=== PATIENT | male | born 1950 | race Caucasian/White ===

== ENCOUNTER 2020-01-22 06:29 | Day surgery (SDC) | payer MEDICARE, SELFPAY ==
[2020-01-21 10:39] VITALS: BMI 22.0
[2020-01-22 06:35] VITALS: TEMP 36.3
[2020-01-22] MEDS: sodium chloride 0.9% 1,000 ML 30 ML IV (06:53)
--- NOTE | 2020-01-22 07:08 | W.PM.OPSUD ---
Surgery/Procedure H&P Update DATE OF PROCEDURE: January 22, 2020 DATE H&P PERFORMED: 01/13/20 H&P UPDATE INFORMATION: No changes to prior documentation PLANNED PROCEDURE: Operation Date: 01/22/20 08:00 Proposed Procedures p Flex Sigmoidoscopy(Not Applicable) - Tyrell Mireles MD
--- NOTE | 2020-01-22 07:24 | ANES.PREANE2 ---
Pre-Anesthetic Assessment Pre-Anesthetic Assessment: Height/Weight: Height 1.73 m Weight 65.771 kg Temp 97.4 F L 01/22/20 06:35 Proposed Procedure: Operation Date: 01/22/20 08:00 Proposed Procedures p Flex Sigmoidoscopy(Not Applicable) - Tyrell Mireles MD Last intake: Intake Last Liquid Date 01/21/20 Last Liquid Time 20:00 Social: Social History: Alcohol and Tobacco Exam: Pre-Anes Outpt Exam: alert, oriented x 3, clear to auscultation bilaterally and regular rate & rhythm Airway: Submandibular: WNL Cervical ROM: WNL MP: 2 Dentition: False (upper and lower) History/ROS: No significant history except as noted Pulmonary: Pulmonary: COPD and KENNEY CV/HEM: CV/HEM: CAD (2015 stents), CHF, HTN and MS : : None reported Hepatic: Hepatic: None reported GI: GI: None reported Metabolic: Metabolic: Hyperlipidemia Musc/skel: Musc/skel: None reported Neuropsych: Neuropsych: None reported Anesthetic Plan: ASA status: 3 Anesthesia: Anesthesia Evaluation and MAC Risk of > 500 ml blood loss (7ml/kg in children): No Meds/Allergies Current Medications: Current Medications Generic Name Dose Route Start Last Admin Trade Name Freq PRN Reason Stop Dose Admin Sodium Chloride 1,000 mls @ 30 ml s/hr 01/22/20 06:45 01/22/20 06:53 Sodium Chloride 0.9% IV 01/23/20 06:44 30 mls/hr .Q24H MYRA Administration PFSH Anesthesia PFSH: Medical History Atrial fibrillation CAD (coronary artery disease) HTN (hypertension) Hx of retinal detachment Ischemic cardiomyopathy Surgical History S/P cataract surgery S/P coronary artery stent placement (~2013) Social History Smoking and tobacco status: heavy tobacco smoker cigarettes Alcohol intake: current Alcohol intake frequency: other Data Anesthesia Cardiac Studies: No Data to Display
[2020-01-22 08:45] VITALS: BP 107/57; PULSE 50; RESP 18; TEMP 36.3; O2SAT 100
[2020-01-22 09:22] VITALS: BP 115/64; PULSE 51; RESP 18; O2SAT 98
== END 2020-01-22 09:15 | disposition home or self-care (01) ==
PROVIDERS: PCP Nurse Practitioner Family; Visit Provider Surgery
PROC: 0DJD8ZZ Inspection of Lower Intestinal Tract, Via Natural or Artificial Opening Endoscopic (ICD-10-PCS; CPT 45330; principal; 2020-01-22 08:00)
DX: D12.5 Benign neoplasm of sigmoid colon (principal); Z86.010 Personal history of colon polyps; J44.9 Chronic obstructive pulmonary disease, unspecified; I25.10 Atherosclerotic heart disease of native coronary artery without angina pectoris; Z95.5 Presence of coronary angioplasty implant and graft; I11.0 Hypertensive heart disease with heart failure; I50.9 Heart failure, unspecified; I25.2 Old myocardial infarction; E78.5 Hyperlipidemia, unspecified; I48.91 Unspecified atrial fibrillation; F17.210 Nicotine dependence, cigarettes, uncomplicated
CPT/HCPCS: 12345; 45385; 88305; J2704; J7030

== ENCOUNTER → 2022-04-07 08:03 | Outpatient (BNVA) | payer MEDICARE, SELFPAY | PROVIDERS: PCP Nurse Practitioner Family; Visit Provider Internal Medicine Cardiovascular Disease | DX: I48.91 Unspecified atrial fibrillation (principal); I42.9 Cardiomyopathy, unspecified; I25.10 Atherosclerotic heart disease of native coronary artery without angina pectoris; I10 Essential (primary) hypertension; F17.210 Nicotine dependence, cigarettes, uncomplicated | CPT/HCPCS: 99214 ==

== ENCOUNTER 2023-01-23 11:06 | Observation (INO) | payer MEDICARE, SELFPAY ==
[2023-01-23] VITALS (71 sets, daily range): BP systolic 100–142; BP diastolic 54–81; PULSE 0–122; RESP 14–34; TEMP 36.4–37; O2SAT 89–97
--- NOTE | 2023-01-23 11:46 | CT_ITS ---
WS: [id number] CT ABDOMEN AND PELVIS NONCONTRAST HISTORY: Abdominal pain, distention, diarrhea, no flatulence TECHNIQUE: Imaging performed through the abdomen and pelvis. Coronal and sagittal reformats are submi tted. All CT scans at [facility] use at least one of these dose optimization techniques: auto mated exposure control; mA and/or kV adjustment per patient size (includes targeted exams where dose is matched to clinical indication); or iterative reconstruction. DLP: 426.73 mGy.cm COMPARISON: Prior CT 05/09/2019 Lower thorax: Chronic emphysematous changes at the lung bases. Mild dependent changes at the lung bas es. Heart size is normal. Liver: Normal size liver. No mass or bile duct dilatation. Gallbladder: Normally distended with stones. No pericholecystic fluid. Pancreas: Atrophy. Spleen: Normal. Adrenal glands: Normal. No mass. Right kidney: Normal size kidney. Renal cyst 3.6 x 4.1 cm unchanged. Left kidney: Normal size kidney with no obstruction. Several renal cysts with the largest measuring 1 .8 x 1.6 cm. Aorta: Atherosclerotic calcifications throughout the aorta. Infrarenal abdominal aortic aneurysm with a maximum diameter of 4.7 cm. Mildly increased since 2019. Maximum diameter on the prior study was 4 .1 cm. Heavy calcification continues into the iliac arteries. No free fluid, intraperitoneal air or significant lymphadenopathy. GI tract: Stomach is nondistended and being displaced by marked fluid and air dilatation of colon. No small bowel obstruction. There is massive fluid and air dilatation of the colon. Cecum measures up t o 11.6 cm in diameter. The distal colon is not as markedly distended. Abdominal wall: Negative. No hernia. Pelvis: Markedly distended urinary bladder. Bladder measures 20.0 cm in length extending to the umbil icus. Markedly distended urinary bladder is causing compression of the sigmoid colon. With resolution of the urinary bladder distention there may be improvement in the GI tract distention also. Osseous structures: Unremarkable. CT/CT abdomen pelvis wo con [id number] IMPRESSION: 1. Markedly distended urinary bladder to 20 cm in length. Causing significant displacement of the sigmoid colon. Recommend Paulino catheter placement. This may also help with decompression of the colon. 2. Massive dilatation of the colon with air and fluid. The distal colon is derek ng compressed by the distended urinary bladder. 3. No free air is identified. 4. Infrarenal abdominal aortic aneurysm with maximum diameter 4.7 cm. Increase d in diameter from 4.1 cm in 2019. 5. Cholelithiasis without evidence for acute cholecystitis. 6. Bilateral renal cysts. Notified ADAN Torrez at 01/23/2023 2:24 PM.
--- NOTE | 2023-01-23 11:47 | ED_ITS ---
HPI - Abdominal Pain General: Chief Complaint: Abdominal Pain Stated Complaint: Ernesto sent for abd pain Time Seen by Provider: 01/23/23 11:36 Source: patient and family Mode of arrival: ambulatory Limitations: no limitations History of Present Illness: Patient is a 72-year-old male who presents to ED today for evaluation of abdominal pain. Patient states he was seen at [facility] and referred to the ED for further evaluation after abnormal x-ray imaging. Patient states over the past 5 or 6 days he has noticed increasing abdominal pain as well as abdominal distention. He reports chronic intermittent abdominal pains and large amounts of gas that he can normally pass and move on his own at home. Patient tells me he has a history of twisted bowel that he saw Dr. 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 This was at least partially excised by Dr. Mireles during a flexible sigmoidoscopy. Patient states he is not having nausea or vomiting. He states over the past several days he has had watery diarrhea stools. He states he is not able to pass much flatulence. No fevers. MD elicited complaint: abdominal pain Pertinent past history: other (colonic stricture/narrowing secondary to adenoma) Onset (ago): day(s) Pain Consistency: constant Location: Diffuse Severity: severe Quality: cramping and fullness Radiation: none Migration to: no migration Exacerbating factors: nothing Relieving factors: nothing Associated Symptoms: Reports bloating, change in stool character and diarrhea; Denies chills, dysuria, fever(s), hematemesis, nausea, syncope and vomiting Review of Systems Const: Denies: fever(s), chills, body aches, fatigue or malaise Eyes: Denies: change in vision or blurry vision Card: Denies: chest pain, palpitations, irregular heart rhythm, lightheadedness, syncope or dyspnea on exertion Resp: Reports: dyspnea (chronic due to COPD-at baseline) and non-productive c ough (chronic); Denies: productive cough or pain on inspiration GI: Reports: abdominal pain, diarrhea, bloating and change in stool character; Denies: nausea, vomiting, hematemesis or rectal pain : Denies: flank pain, difficulty urinating or dysuria Musc: Denies: neck pain, back pain, extremity pain, extremity swelling or joint pain Skin/Breast: Denies: rash Neuro: Denies: headache(s), numbness in extremities, weakness in extremities or sensory changes PFSH ED PFSH: Medical History (Updated 01/23/23 @ 15:26 by ADAN Torrez) Atrial fibrillation CAD (coronary artery disease) HTN (hypertension) Hx of retinal detachment Ischemic cardiomyopathy Surgical History S/P cataract surgery S/P coronary artery stent placement (~2013) Family History Father CAD (coronary artery disease) Lung disease Family/Other CAD (coronary artery disease) Grandfather CAD (coronary artery disease) Denies family history of Diabetes Clotting disorder Dementia Chronic kidney disease (CKD) Suicide Anesthesia complication Bleeding disorder Cancer Stroke Social History Smoking and tobacco status: current every day smoker cigarettes Alcohol intake: current Alcohol intake frequency: other Substance/Drug Use: never Physical Exam Const: COMMON NORMALS: no acute distress, average body habitus, patient oriented x3, no limitations, healthy appearing, alert and well nourished GENERAL APPEARANCE: cooperative ORIENTATION/CONSCIOUSNESS: Yes awake, Yes oriented to person, Yes oriented to place and Yes oriented to time HENMT: COMMON NORMALS: normocephalic and atraumatic HEAD & SCALP: normal to inspection, normocephalic and atraumatic Resp: COMMON NORMALS: normal respiratory effort and clear to auscultation bilaterally AUSCULTATION: clear to auscultation bilaterally Cardio: COMMON NORMALS: regular rate and regular rhythm RATE: regular rate RHYTHM: regular rhythm GI: INSPECTION: Yes other (significant abdominal distention; no ascites) AUSCULTATION: Yes Hypoactive bowel sounds present PALPATION: Yes Firmness to palpation present (GI) : COMMON NORMALS: Yes no CVA tenderness BLADDER/KIDNEY EXAM: Yes no CVA tenderness Back/Pelvis: COMMON NORMALS: no CVA tenderness and thoracic and lumbar spine normal to inspection Extremity: COMMON NORMALS: normal to inspection GENERAL: Yes normal exam except as noted Neuro: CARLO COMA SCALE: document GCS findings Carlo coma scale eye opening: Spontaneous Carlo coma scale verbal response: Orientated [place] coma scale motor response: Obey commands Carlo coma scale total score: 15 COMMON NORMALS: patient oriented x3, moves all extremities, no focal motor deficits and no sensory deficits noted SENSORIUM/ORIENTATION: Yes alert, Yes oriented to person, Yes oriented to place and Yes oriented to time Skin: COMMON NORMALS: no rashes or lesions noted GENERAL SKIN EXAM: no rashes or lesions noted Course Consultations: Consultation #1: Dr. Mueller-agrees with Paulino placement, recommends IV Reglan and clear liquid diet Vital Signs: Vital signs: Vital Signs Temperature 97.6 F 01/23/23 11:50 Pulse Rate 99 01/23/23 15:00 Respiratory Rate 25 H 01/23/23 15:00 Blood Pressure 129/78 01/23/23 15:00 Pulse Oximetry 97 01/23/23 14:30 Oxygen Delivery Me thod Room Air 01/23/23 11:50 MDM - Abdominal Pain Medical Decision Making Patient CT scan showing a markedly distended urinary bladder causing displacement and obstruction of the colon. Post void bladder catheterization was performed and 700 mL were removed. Patient will be admitted to the hospital service with Paulino catheter and continued bladder decompression and monitoring for resolution of bowel obstruction. Patient was also hypokalemic at 2.5. He is receiving IV supplementation for this. Case discussed with Dr. Richards who will place admit orders. Lab Data 01/23/23 12:30 01/23/23 12:30 Labs/Radiology: Radiology Impressions Abdomen/Pelvis CT 01/23/23 11:46 IMPRESSION: 1. Markedly distended urinary bladder to 20 cm in length. Causing significant displacement of the sigmoid colon. Recommend Paulino catheter placement. This may also help with decompression of the colon. 2. Massive dilatation of the colon with air and fluid. The distal colon is being compressed by the distended urinary bladder. 3. No free air is identified. 4. Infrarenal abdominal aortic aneurysm with maximum diameter 4.7 cm. Increased in diameter from 4.1 cm in 2019. 5. Cholelithiasis without evidence for acute cholecystitis. 6. Bilateral renal cysts. Notified ADAN Torrez at 01/23/2023 2:24 PM. Laboratory Results WBC 13.6 10^3/uL (4.0-10.0) H 01/23/23 12:30 RBC 3.84 10^6/uL (4.1-5.3) L 01/23/23 12:30 Hgb 11.4 g/dL (11.7-16.6) L 01/23/23 12:30 Hct 36.9 % (42.0-52.0) L 01/23/23 12:30 MCV 96.1 fl (80-94) H 01/23/23 12:30 MCH 29.7 pg (28.0-34.0) 01/23/23 12:30 MCHC 30.9 g/dL (30.0-36.0) 01/23/23 12:30 RDW 14.7 % (12.1-15.1) 01/23/23 12:30 Plt Count 342 10^3/cmm (130-400) 01/23/23 12:30 MPV 9.3 fL (7.4-10.4) 01/23/23 12:30 Neut % (Auto) 80.3 % 01/23/23 12:30 Lymph % (Auto) 7.0 % 01/23/23 12:30 Brooks % (Auto) 11.5 % 01/23/23 12:30 Eos % (Auto) 0.1 % 01/23/23 12:30 Baso % (Auto) 0.6 % 01/23/23 12:30 Neut # (Auto) 10.93 10^3/uL (1.8-7.7) H 01/23/23 12:30 Lymph # (Auto) 1.0 10^3/uL (0.8-4.8) 01/23/23 12:30 Brooks # (Auto) 1.6 10^3/uL (0.2-0.9) H 01/23/23 12:30 Eos # (Auto) 0.0 10^3/uL (0.0-0.8) 01/23/23 12:30 Baso # (Auto) 0.1 10^3/uL (0.0-0.1) 01/23/23 12:30 Nucleated RBC % (auto) 0 % 01/23/23 12:30 Nucleated RBCs # 0.0 /100WBC 01/23/23 12:30 Sodium 142 mmol/L (136-145) 01/23/23 12:30 Potassium 2.5 mmol/L (3.5-5.1) L* 01/23/23 12:30 Chloride 102 mmol/L (98-107) 01/23/23 12:30 Carbon Dioxide 27 mmol/L (22-29) 01/23/23 12:30 Anion Gap 15.5 (5-19) 01/23/23 12:30 BUN 13 mg/dL (8-23) 01/23/23 12:30 Creatinine 0.8 mg/dL (0.7-1.2) 01/23/23 12:30 GFR Calculation Not Reportable 01/23/23 12:30 Glucose 75 mg/dL (65-115) 01/23/23 12:30 Calculated Osmolality 293 mOsm/kg (285-295) 01/23/23 12:30 Calcium 7.9 mg/dL (8.5-10.5) L 01/23/23 12:30 Magnesium 2.0 mg/dL (1.7-2.3) 01/23/23 12:30 Total Bilirubin 0.7 mg/dL (0.15-1.2) 01/23/23 12:30 AST 9 U/L (0-40) 01/23/23 12:30 ALT 9 U/L (0-41) 01/23/23 12:30 Alkaline Phosphatase 64 U/L (40-130) 01/23/23 12:30 Total Protein 6.2 g/dL (6.6-8.7) L 01/23/23 12:30 Albumin 3.2 g/dL (3.5-5.2) L 01/23/23 12:30 Globulin 3.0 g/dL (1.3-4.6) 01/23/23 12:30 Lipase 16 U/L (13-60) 01/23/23 12:30 Discharge Plan Discharge Patient Disposition: Placed in Observation Clinical Impression: Acute urinary retention, Bladder outlet obstruction, Large bowel obstruction, Acute hypokalemia Coding Level of Care Code ED Geological Sample Tester for Benito Nugent
[2023-01-23 12:39] LABS: Basophils # 0.1 10^3/uL (0.0-0.1); Basophils % 0.6 %; Eosinophils % 0.1 %; Hematocrit 36.9 % (42.0-52.0); Hemoglobin 11.4 g/dL (11.7-16.6); Mean Corpuscular HGB Conc 30.9 g/dL (30.0-36.0); Mean Corpuscular Hemoglobin 29.7 pg (28.0-34.0); Mean Corpuscular Volume 96.1 fl (80-94); Mean Platelet Volume 9.3 fL (7.4-10.4); Monocytes # 1.6 10^3/uL (0.2-0.9); Monocytes % 11.5 %; Neutrophils # 10.93 10^3/uL (1.8-7.7); Neutrophils % 80.3 %; Nucleated Red Blood Cells % 0 %; Platelet Count 342 10^3/cmm (130-400); Red Blood Count 3.84 10^6/uL (4.1-5.3); Red Cell Distribution Width 14.7 % (12.1-15.1); White Blood Count 13.6 10^3/uL (4.0-10.0)
--- NOTE | 2023-01-23 12:47 | PC.PHAR ---
PT FILLED A SCRIPT FOR METOPROLOL TARTRATE 50 MG 90DS ON 01/16/23- PT STATES HE NO LONGER TAKES THIS MEDICATION
[2023-01-23 12:58] LABS: Alanine Aminotransferase 9 U/L (0-41); Albumin Level 3.2 g/dL (3.5-5.2); Alkaline Phosphatase 64 U/L (40-130); Anion Gap 15.5 (5-19); Aspartate Amino Transferase 9 U/L (0-40); Blood Urea Nitrogen 13 mg/dL (8-23); Calcium 7.9 mg/dL (8.5-10.5); Carbon Dioxide 27 mmol/L (22-29); Chloride 102 mmol/L (98-107); Glucose 75 mg/dL (65-115); Lipase 16 U/L (13-60); Osmolality Calculated 293 mOsm/kg (285-295); Sodium 142 mmol/L (136-145); Total Bilirubin 0.7 mg/dL (0.15-1.2); Total Protein 6.2 g/dL (6.6-8.7)
[2023-01-23 13:00] LABS: Potassium 2.5 mmol/L (3.5-5.1)
[2023-01-23] MEDS: lidocaine 1% 5 ML in potassium chloride premix 100 ML 52.5 ML IV (13:34)
--- NOTE | 2023-01-23 15:47 | XRR_ITS ---
PROCEDURE INFORMATION: Exam: XR Chest Exam date and time: 01/23/2023 4:11 PM Age: 72 years old Clinical indication: Shortness of breath; Additional info: SOB TECHNIQUE: Imaging protocol: Radiologic exam of the chest. Views: 1 view. COMPARISON: CR XR chest 2V* [id number] 10/31/2022 1:56 PM FINDINGS: Lungs: Emphysematous changes. Pleural spaces: Unremarkable. No pleural effusion. No pneumothorax. Heart/Mediastinum: Unremarkable. No cardiomegaly. Bones/joints: Unremarkable. XR/XR chest 1V portable [id number] IMPRESSION: 1. Negative for infiltrate. 2. Emphysematous changes.
--- NOTE | 2023-01-23 15:48 | USCV_ITS ---
Kurt Abisai Age: 72 Gender: M : 1950 Exam Date: 01/23/2023 16:33 Ordering Phys: Serafin Lane MD Technologist: STEFAN Exam Location[place] [facility] [place] Indication: CHRONIC HEART FAILURE BP: 130 / 69 HR: 89 Rhythm: Sinus Technical Quality: Poor secondary to COPD MEASUREMENTS (Male / Female) Normal Values 2D ECHO LA Diameter 2.6 cm Aorta at Sinotubular Diameter 2.3 cm M-MODE Aortic Annulus Diameter 2.8 cm LA Ao Ratio MM 0.9 MV E Point Septal Separation 0.9 cm DOPPLER Right Atrial Pressure 8.0 mmHg PV Peak Velocity 108.0 cm/s RV Acceleration Time 0.1 s RV Ejection Time 0.3 s RV AcT/ET 0.3 FINDINGS Left Ventricle Right Ventricle Right Atrium Left Atrium Mitral Valve Aortic Valve Tricuspid Valve Pulmonic Valve Pericardium Aorta IVC CONCLUSIONS Technically very limited quality echocardiogram because of poor ultrasonic windows. Cannot assess cardiac function secondary to limited visualization of cardiac structures. Carson Centeno MD (Electronically Signed) Final Date: 24 Jan 2023 11:48 S
[2023-01-23 16:01] LABS: Add Urine Microscopic? NO; Charge for UA Resulting for Rev
[2023-01-23 16:08] LABS: Urine Appearance Clear (CLEAR); Urine Color Yellow (Yellow); pH Urine 6 (5-7)
[2023-01-23 16:09] LABS: Bilirubin Urine Neg (Negative); Blood Urine Neg (Negative); Glucose Urine UA Norm (Normal); Ketones Urine 1+ (Negative); Leukocyte Esterase Urine Negative (Negative); Nitrate Urine Negative (Negative); Protein Urine Neg (Negative); Urobilinogen Urine Neg (Negative)
--- NOTE | 2023-01-23 16:49 | PM.HP ---
Providers/Chief Complaint Primary Care Provider: GAMAL Stout Chief Complaint: Ernesto sent for abd pain History of Present Illness Abisai Hicks is a 72 year old male with past medical history of CAD, post PCI, ischemic cardiomyopathy with last known EF of 40%, atrial fibrillation, tobacco use who presented to the ER today from [place] for abdominal pain. Abdominal x-ray done and both agreeable consistent with a possible SBO. On presentation to the ER CT abdomen pelvis showed extremely distended urinary bladder along with dilated colon. Patient himself denies any nausea, vomiting but complains of abdominal distention and difficulty in breathing which has been ongoing for many months. Patient remains on room air. He is passing flatus with last bowel movement today morning. Bowel movements as per him are normal to his consistency. Denies any constipation. Does complain of bowel obstruction few years ago when he was found to have a sigmoid stricture requiring dilatation with Dr. Mireles. Blood work reviewed. Patient saturating well on room air. Review of Systems General: Reports: 10 or more systems reviewed and unremarkable except in HPI and below Const: Denies: fever(s), chills, body aches, change in appetite, change in weight, malaise, night sweats, diaphoresis, change in sleep pattern, daytime sleepiness or snoring Eyes: Denies: change in vision, blurry vision, photophobia, eye discomfort or eye discharge ENMT: Denies: throat pain, enlarged tonsils, hoarseness, mouth pain, oral sores, dry mouth, tinnitus, nasal congestion or post nasal drip Card: Denies: chest pain, palpitations, irregular heart rhythm, edema, swelling of feet/ankles, lightheadedness, syncope, pre-syncope, dyspnea on exertion, orthopnea, leg pain with exertion or acrocyanosis Resp: Denies: dyspnea, productive cough, non-productive cough, wheezing, stridor, pain on inspiration, change in phlegm color, hemoptysis or chest congestion GI: Denies: abdominal pain, nausea, vomiting, hematemesis, coffee ground emesis, dysphagia, heartburn, diarrhea, constipation, bloating, GI cramping, change in bowel habits, pain on defecation, hematochezia or melena : Denies: flank pain, difficulty urinating, dysuria, urinary frequency, urinary urgency, urinary hesitancy, urinary dribbling, difficulty starting urination, change in urine stream, nocturia or hematuria Musc: Denies: neck pain, back pain, extremity pain, joint pain, joint swelling, joint redness, joint stiffness or limited range of motion Neuro: Denies: headache(s), numbness in extremities, weakness in extremities, sensory changes, lack of coordination, difficulty walking, frequent falls, dizziness, vertigo, confusion, Slurred speech present, difficulty communicating thoughts or seizure-like activity Psych: Denies: anxiety, depression, mood swings, panic attacks, hopelessness or irritability Endo: Denies: polyuria, polydipsia, tired all the time, cold intolerance, excessive sweating, flushing or heat intolerance Manfred/Lymph: Denies: easy bruising or easy bleeding All/Imm: Denies: tongue swelling, facial swelling or acute wheezing Medications/Allergies Home Medications Medication Instructions Recorded Confirmed Last Taken Type apixaban 5 mg tablet (Eliquis) 5 mg PO BID 01/15/20 01/23/23 01/23/23 History atorvastatin 20 mg tablet 20 mg PO QPM 01/15/20 01/23/23 01/22/23 History amiodarone 200 mg tablet 100 mg PO DAILY 08/08/21 01/23/23 01/23/23 History amlodipine 5 mg tablet 5 mg PO DAILY #30 tabs 08/08/21 01/23/23 01/23/23 Rx budesonide-formoterol HFA 160 2 puff inhalation Q12H 04/07/22 01/23/23 01/23/23 History mcg-4.5 mcg/actuation aerosol inhaler (Symbicort) albuterol sulfate 90 mcg/actuation 2 puff inhalation Q6H PRN 01/23/23 01/23/23 01/22/23 History aerosol inhaler Shortness Of Breath Or Wheezing aspirin 81 mg tablet,delayed 81 mg PO QPM 01/23/23 01/23/23 01/22/23 History release ipratropium 0.5 mg-albuterol 3 mg 3 ml inhalation Q6H PRN Shortness 01/23/23 01/23/23 Unknown History (2.5 mg base)/3 mL nebulization Of Breath Or Wheezing soln ipratropium 20 mcg-albuterol 100 1 puff inhalation BID 01/23/23 01/23/23 01/23/23 History mcg/actuation mist for inhalation (Combivent Respimat) spironolactone 25 mg tablet 25 mg PO DAILY 01/23/23 01/23/23 01/23/23 History Allergies Allergy/AdvReac Type Severity Reaction Status Date / Time iodine Allergy Unknown Verified 01/23/23 12:46 PFSH Acute PFSH: Medical History (Updated 01/23/23 @ 16:[address] MD) Atrial fibrillation CAD (coronary artery disease) COPD (chronic obstructive pulmonary disease) HTN (hypertension) Hx of retinal detachment Ischemic cardiomyopathy Surgical History S/P cataract surgery S/P coronary artery stent placement (~2013) Family History Father CAD (coronary artery disease) Lung disease Family/Other CAD (coronary artery disease) Grandfather CAD (coronary artery disease) Denies family history of Diabetes Clotting disorder Dementia Chronic kidney disease (CKD) Suicide Anesthesia complication Bleeding disorder Cancer Stroke Social History Smoking and tobacco status: current every day smoker cigarettes Alcohol intake: current Alcohol intake frequency: other Substance/Drug Use: never Vitals/I&O/Wt Last Vital Signs Temp 97.6 F 01/23/23 11:50 Pulse 89 01/23/23 16:05 Resp 22 H 01/23/23 16:05 BP 139/81 01/23/23 16:05 Pulse Ox 96 01/23/23 16:05 O2 Del Method Room Air 01/23/23 11:50 Physical Exam Narrative: General: No acute distress, AO x3, dehydrated HEENT: PERRLA, pupils bilaterally equal and reactive Chest: Normal vesicular breath sounds, no added sounds, equal good air entry bilaterally CVS: S1-S2 regular, no murmurs, no tachycardia, no gallops, no rubs Abdomen: Soft, nontender, no organomegaly, bowel sounds present Neuro: No focal deficits, no facial deformity, AO x3, power 5/5 in all limbs Urinary Catheter Management: Straight: Cath Placed During This Visit: yes Urinary Catheter Date of Insertion: 01/23/23 Urinary Catheter Time of Insertion: 16:06 Data 01/23/23 12:30 01/23/23 12:30 A&P Assessment and plan (1) Acute urinary retention: Most likely secondary bladder outlet obstruction. Renal functions within normal limits. Paulino catheterization. Strict and proper charting. Start on Flomax 0.4 mg twice daily. Most likely patient will be discharged with Paulino catheter in place for couple of weeks and follow-up with urology as an outpatient. (2) Bladder outlet obstruction: (3) Large bowel obstruction: Most likely in setting of significant urinary obstruction urine leading to bladder distention. Start on clear liquid diet. Hold off on NG tube for now. Out of bed to chair. Reglan 5 mg every 8 hourly. Protonix. Repeated abdominal exam, x-ray abdomen pelvis in AM. Aggressive bowel regimen. Did discuss with the patient if symptoms do not improve the next 24 hours we will plan for NG tube placement. (4) Shortness of breath: Most likely in setting of COPD exacerbation. Cannot rule out mild CHF. Patient does have history of systolic heart failure. Echocardiogram as above. DuoNebs every 6 hour, budesonide twice daily. Keep saturation over 90%. (5) Acute hypokalemia: Given 20 mg in the ER. Repeating further with IV fluids. (6) Atrial fibrillation: Rate controlled. Continue with home dose of amiodarone, Eliquis. (7) HTN (hypertension): Goal blood pressure less than 140/90 mmHg. Continue with home dose of amlodipine. Uptitrate medications as per goal blood pressures. (8) CAD (coronary artery disease): No active chest pain. Check echocardiogram, lipid panel, A1c. Continue home dose of aspirin, statin (9) COPD (chronic obstructive pulmonary disease): Plan CODE STATUS: Discussed in detail with the patient, family at bedside. Full code. Clear liquid diet. Protonix for PUD prophylaxis. Low probability for VTE. Patient already on Eliquis. Attestations Medical Necessity Statement*: Admission under observation for less than 2 midnights for management of significant urinary retention leading to small bowel obstruction Diagnoses Acute urinary retention R33.8 Bladder outlet obstruction N32.0 Large bowel obstruction K56.609 Shortness of breath R06.02 Acute hypokalemia E87.6 Atrial fibrillation I48.91 HTN (hypertension) I10 CAD (coronary artery disease) I25.10 COPD (chronic obstructive pulmonary disease) J44.9
[2023-01-23 17:23] LABS: Procalcitonin 0.05 ng/mL (0-0.5); Vitamin B12 737 pg/mL (232-1245)
[2023-01-23 17:26] LABS: Lactic Sepsis W/Reflex 1.4 mmol/L (0.5-2.2)
[2023-01-23 17:33] LABS: Iron 22 ug/dL (59-158); Percent Saturation 9.6 % (20-50); Total Iron Binding Capacity 227 mcg/dl; Unsaturated Iron Binding 205 ug/dL (112-347)
[2023-01-23] MEDS: magnesium hydroxide 30 mL UDC PO (19:46)
[2023-01-23] MEDS: D5-NS 0.45% + KCL 20 mEq 20 MEQ/1,000 ML BAG 50 MEQ IV (19:47)
[2023-01-23] MEDS: aspirin 81 mg EC Tablet PO (19:47)
[2023-01-23] MEDS: docusate sodium 100 mg Capsule PO (19:47)
[2023-01-23] MEDS: budesonide 0.5 mg/2 mL Neb INHALATION (19:51)
[2023-01-23] MEDS: ipratropium-albuterol 3 mL Neb INHALATION (19:51)
[2023-01-23] MEDS: apixaban 5 mg Tablet PO (20:04)
[2023-01-23] MEDS: atorvastatin 40 mg Tablet 20 MG PO (20:05)
[2023-01-23] MEDS: pantoprazole 40 mg SDV IVP (21:54)
[2023-01-24] VITALS (11 sets, daily range): BP systolic 108–122; BP diastolic 61–71; PULSE 70–81; RESP 16–19; TEMP 36.7–37.1; O2SAT 87–93
[2023-01-24 01:45] LABS: Basophils # 0.1 10^3/uL (0.0-0.1); Basophils % 0.5 %; Eosinophils % 0.1 %; Hematocrit 31.8 % (42.0-52.0); Hemoglobin 9.8 g/dL (11.7-16.6); Lymphocytes # 0.9 10^3/uL (0.8-4.8); Lymphocytes % 8.7 %; Mean Corpuscular HGB Conc 30.8 g/dL (30.0-36.0); Mean Corpuscular Hemoglobin 29.5 pg (28.0-34.0); Mean Corpuscular Volume 95.8 fl (80-94); Mean Platelet Volume 9.6 fL (7.4-10.4); Monocytes # 1.3 10^3/uL (0.2-0.9); Monocytes % 12.1 %; Neutrophils % 78.3 %; Nucleated Red Blood Cells % 0 %; Platelet Count 347 10^3/cmm (130-400); Red Blood Count 3.32 10^6/uL (4.1-5.3); Red Cell Distribution Width 14.8 % (12.1-15.1); White Blood Count 10.6 10^3/uL (4.0-10.0)
[2023-01-24 02:00] LABS: Chol HDL Ratio 1.95 mg/dL (1.0-5.00); Cholesterol 121 mg/dL (0-200); HDL Cholesterol 62 mg/dL (60-100); LDL Cholesterol Calculated 45 mg/dL (50-129); LDL HDL Ratio 0.73 RATIO (0.00-3.22); Triglycerides 71 mg/dL (0-150)
[2023-01-24 02:01] LABS: Alanine Aminotransferase 8 U/L (0-41); Albumin Level 2.8 g/dL (3.5-5.2); Alkaline Phosphatase 62 U/L (40-130); Anion Gap 12.1 (5-19); Aspartate Amino Transferase 9 U/L (0-40); Blood Urea Nitrogen 9 mg/dL (8-23); Carbon Dioxide 29 mmol/L (22-29); Chloride 97 mmol/L (98-107); Globulin 2.9 g/dL (1.3-4.6); Glucose 132 mg/dL (65-115); Magnesium 2.1 mg/dL (1.7-2.3); Osmolality Calculated 283 mOsm/kg (285-295); Phosphorus 2.4 mg/dL (2.5-4.5); Sodium 136 mmol/L (136-145); Total Bilirubin 0.5 mg/dL (0.15-1.2); Total Protein 5.7 g/dL (6.6-8.7)
[2023-01-24 02:14] LABS: Potassium 2.1 mmol/L (3.5-5.1)
[2023-01-24 02:31] LABS: Estmated Average Glucose 77; Hemoglobin A1C 4.3 % (4.0-6.0)
--- NOTE | 2023-01-24 03:43 | PC.NURSE ---
received crit potassium of 2.[address] saxena a message to inform her at 0217. no response in messaging. attempted phone call to at [phone] to inform and receive orders, no answer, voicemail was left on dr phone stating crit lab result and that pt was on tele, had been regular rhythm and now is irregular. will attempt to contact again and continue to monitor.
[2023-01-24] MEDS: lidocaine 1% 5 ML in potassium chloride premix 100 ML 26.25 ML IV (05:28)
[2023-01-24] MEDS: potassium chloride ER 20 mEq Tablet 40 MEQ PO ×2 (05:29→10:58)
[2023-01-24] MEDS: budesonide 0.5 mg/2 mL Neb INHALATION (07:38)
[2023-01-24] MEDS: ipratropium-albuterol 3 mL Neb INHALATION ×3 (07:38→15:21)
[2023-01-24] MEDS: apixaban 5 mg Tablet PO (09:21)
[2023-01-24] MEDS: amiodarone 200 mg Tablet 100 MG PO (09:21)
[2023-01-24] MEDS: amlodipine 5 mg Tablet PO (09:21)
[2023-01-24] MEDS: docusate sodium 100 mg Capsule PO (09:21)
[2023-01-24] MEDS: magnesium hydroxide 30 mL UDC PO (09:21)
--- NOTE | 2023-01-24 10:30 | XRR_ITS ---
PROCEDURE INFORMATION: Exam: XR Abdomen Exam date and time: 01/24/2023 9:40 AM Age: 72 years old Clinical indication: Condition or disease; Intestinal condition; Obstruction; Prior surgery; Surgery date: 6+ months; Surgery type: Stents; Additional info: Sbo TECHNIQUE: Imaging protocol: Radiologic exam of the abdomen. Views: 2 Views. Upright and supine views. COMPARISON: CT abdomen pelvis wo con [id number] 01/23/2023 2:01 PM FINDINGS: Gastrointestinal tract: Abnormally dilated air-filled bowel loops concerning for obstruction, similar to prior exam. Intraperitoneal space: Unremarkable. Bones/joints: Unremarkable. XR/XR acute abdomen series [id number] IMPRESSION: Abnormally dilated air-filled bowel loops concerning for obstruction, similar to prior exam.
[2023-01-24] MEDS: tamsulosin 0.4 mg Capsule 0.8 MG PO (10:58)
[2023-01-24] MEDS: D5-NS 0.45% + KCL 20 mEq 20 MEQ/1,000 ML BAG 50 MEQ IV (10:59)
[2023-01-24 14:03] LABS: Potassium 3.2 mmol/L (3.5-5.1)
--- NOTE | 2023-01-24 14:33 | P.DS_ITS ---
Discharge Providers Date of Admission: 01/23/23 15:29 Date of Discharge: January 24, 2023 Attending Provider at Admission: Serafin Lane MD Attending Provider at Discharge: Serafin Lane MD Primary Care Provider: GAMAL Stout Diagnoses at Discharge Discharge Diagnosis (1) Acute urinary retention: Status: Acute (2) Bladder outlet obstruction: Status: Acute (3) Large bowel obstruction: Status: Acute (4) Shortness of breath: Status: Acute (5) Acute hypokalemia: Status: Acute (6) Atrial fibrillation: Status: Acute (7) HTN (hypertension): Status: Acute (8) CAD (coronary artery disease): Status: Acute (9) COPD (chronic obstructive pulmonary disease): Status: Acute Reason for Visit Reason for Visit: Ernesto sent for abd pain Hospital Course Hospital Course Abisai Hicks is a 72 year old male with past medical history of CAD, post PCI, ischemic cardiomyopathy with last known EF of 40%, atrial fibrillation, tobacco use who presented to the ER today from [place] for abdominal pain.? Abdominal x-ray done and both agreeable consistent with a possible SBO.? On presentation to the ER CT abdomen pelvis showed extremely distended urinary bladder along with dilated colon.? Patient himself denies any nausea, vomiting but complains of abdominal distention and difficulty in breathing which has been ongoing for many months.? Patient remains on room air.? He is passing flatus with last bowel movement today morning.? Bowel movements as per him are normal to his consistency.? Denies any constipation.? Does complain of bowel obstruction few years ago when he was found to have a sigmoid stricture requiring dilatation with Dr. Mireles. Blood work reviewed.? Patient saturating well on room air. Patient was admitted to the hospital further evaluation and management of urinary retention leading to bowel obstruction. He was started on clear liquid diet which he tolerated well without any episode of nausea and vomiting. Patient continued to pass extreme amount of flatus without any abdominal pain. His hospitalization was otherwise unremarkable. Patient was counseled in detail regarding possible longer need of hospitalization before gaseous distention of the gut resolves but after discussion he decided to go home. He was counseled in detail to make sure he continues to ambulate or sit up in the chair going forward. He was asked to take clear liquid diet and advance very gradually to a full regular meal within next 1 week. He is advised to take multiple small meals. He is advised if he starts having nausea vomiting, abdominal pain or fever he should come back to the ER. He is to take docusate and milk of magnesia and stool softeners for next 2 weeks. He is also to take 20 mg of potassium daily for next 2 weeks and have a repeat BMP done in 10 days with primary care provider. He is to follow-up with urologist within next 2 weeks for voiding trial. He is to be on Flomax just a new medication for BPH. Physical Exam Narrative: eneral: No acute distress, AO x3 HEENT: PERRLA, pupils bilaterally equal and reactive Chest: Normal vesicular breath sounds, no added sounds, equal good air entry bilaterally CVS: S1-S2 regular, no murmurs, no tachycardia, no gallops, no rubs Abdomen: Soft, nontender, no organomegaly, bowel sounds present Neuro: No focal deficits, no facial deformity, AO x3, power 5/5 in all limbs Urinary Catheter Management: Straight: Cath Placed During This Visit: yes Reason for Continuing Indwelling Catheter: Acute Urinary Retention or Obstruction Urinary Catheter Date of Insertion: 01/23/23 Urinary Catheter Time of Insertion: 16:06 Discharge Data Studies Completed and Pending Completed Studies During Hospitalization Category Date Time Status CT abdomen pelvis wo con [id number] Stat Cat Scan 01/23/23 11:46 Completed XR acute abdomen series [id number] Routine Exams 01/24/23 10:30 Completed XR chest 1V portable [id number] Stat Exams 01/23/23 15:47 Completed CV. echo complete* [id number] Routine Ultrasound 01/23/23 15:48 Completed Radiology Impressions Abdomen/Pelvis CT 01/23/23 11:46 IMPRESSION: 1. Markedly distended urinary bladder to 20 cm in length. Causing significant displacement of the sigmoid colon. Recommend Paulino catheter placement. This may also help with decompression of the colon. 2. Massive dilatation of the colon with air and fluid. The distal colon is being compressed by the distended urinary bladder. 3. No free air is identified. 4. Infrarenal abdominal aortic aneurysm with maximum diameter 4.7 cm. Increased in diameter from 4.1 cm in 2019. 5. Cholelithiasis without evidence for acute cholecystitis. 6. Bilateral renal cysts. Notified ADAN Torrez at 01/23/2023 2:24 PM. Chest X-Ray 01/23/23 15:47 IMPRESSION: 1. Negative for infiltrate. 2. Emphysematous changes. Chest/Abdomen X-ray 01/24/23 10:30 IMPRESSION: Abnormally dilated air-filled bowel loops concerning for obstruction, similar to prior exam. Laboratory Results WBC 10.6 10^3/uL (4.0-10.0) H 01/24/23 01:14 RBC 3.32 10^6/uL (4.1-5.3) L 01/24/23 01:14 Hgb 9.8 g/dL (11.7-16.6) L 01/24/23 01:14 Hct 31.8 % (42.0-52.0) L 01/24/23 01:14 MCV 95.8 fl (80-94) H 01/24/23 01:14 MCH 29.5 pg (28.0-34.0) 01/24/23 01:14 MCHC 30.8 g/dL (30.0-36.0) 01/24/23 01:14 RDW 14.8 % (12.1-15.1) 01/24/23 01:14 Plt Count 347 10^3/cmm (130-400) 01/24/23 01:14 MPV 9.6 fL (7.4-10.4) 01/24/23 01:14 Neut % (Auto) 78.3 % 01/24/23 01:14 Lymph % (Auto) 8.7 % 01/24/23 01:14 [place] % (Auto) 12.1 % 01/24/23 01:14 Eos % (Auto) 0.1 % 01/24/23 01:14 Baso % (Auto) 0.5 % 01/24/23 01:14 Neut # (Auto) 8.30 10^3/uL (1.8-7.7) H 01/24/23 01:14 Lymph # (Auto) 0.9 10^3/uL (0.8-4.8) 01/24/23 01:14 [place] # (Auto) 1.3 10^3/uL (0.2-0.9) H 01/24/23 01:14 Eos # (Auto) 0.0 10^3/uL (0.0-0.8) 01/24/23 01:14 Baso # (Auto) 0.1 10^3/uL (0.0-0.1) 01/24/23 01:14 Nucleated RBC % (auto) 0 % 01/24/23 01:14 Nucleated RBCs # 0.0 /100WBC 01/24/23 01:14 Sodium 136 mmol/L (136-145) 01/24/23 01:14 Potassium 3.2 mmol/L (3.5-5.1) L 01/24/23 13:35 Chloride 97 mmol/L (98-107) L 01/24/23 01:14 Carbon Dioxide 29 mmol/L (22-29) 01/24/23 01:14 Anion Gap 12.1 (5-19) 01/24/23 01:14 BUN 9 mg/dL (8-23) 01/24/23 01:14 Creatinine 0.8 mg/dL (0.7-1.2) 01/24/23 01:14 GFR Calculation Not Reportable 01/24/23 01:14 Glucose 132 mg/dL (65-115) H 01/24/23 01:14 Estimat Average Glucose 77 01/24/23 01:14 Hemoglobin A1c 4.3 % (4.0-6.0) 01/24/23 01:14 Calculated Osmolality 283 mOsm/kg (285-295) L 01/24/23 01:14 Lactic Acid 1.4 mmol/L (0.5-2.2) 01/23/23 11:30 Calcium 8.0 mg/dL (8.5-10.5) L 01/24/23 01:14 Phosphorus 2.4 mg/dL (2.5-4.5) L 01/24/23 01:14 Magnesium 2.1 mg/dL (1.7-2.3) 01/24/23 01:14 Iron 22 ug/dL (59-158) L 01/23/23 11:30 TIBC 227 mcg/dl 01/23/23 11:30 % Saturation 9.6 % (20-50) L 01/23/23 11:30 Unsat Iron Binding 205 ug/dL (112-347) 01/23/23 11:30 Total Bilirubin 0.5 mg/dL (0.15-1.2) 01/24/23 01:14 AST 9 U/L (0-40) 01/24/23 01:14 ALT 8 U/L (0-41) 01/24/23 01:14 Alkaline Phosphatase 62 U/L (40-130) 01/24/23 01:14 Total Protein 5.7 g/dL (6.6-8.7) L 01/24/23 01:14 Albumin 2.8 g/dL (3.5-5.2) L 01/24/23 01:14 Globulin 2.9 g/dL (1.3-4.6) 01/24/23 01:14 Triglycerides 71 mg/dL (0-150) 01/24/23 01:14 Cholesterol 121 mg/dL (0-200) 01/24/23 01:14 LDL Cholesterol, Calc 45 mg/dL (50-129) L 01/24/23 01:14 HDL Cholesterol 62 mg/dL (60-100) 01/24/23 01:14 LDL/HDL Ratio 0.73 RATIO (0.00-3.22) 01/24/23 01:14 Cholesterol/HDL Ratio 1.95 mg/dL (1.0-5.00) 01/24/23 01:14 Lipase 16 U/L (13-60) 01/23/23 12:30 Vitamin B12 737 pg/mL (232-1245) 01/23/23 11:30 Folate 16.0 ng/mL (4.5-32.2) 01/24/23 01:14 Procalcitonin 0.05 ng/mL (0-0.5) 01/23/23 11:30 TSH 2.10 uIU/mL (0.27-4.20) 01/23/23 11:30 Urine Color Yellow (Yellow) 01/23/23 15:59 Urine Appearance Clear (CLEAR) 01/23/23 15:59 Urine pH 6 (5-7) 01/23/23 15:59 Ur Specific [place] 1.020 (1.005-1.030) 01/23/23 15:59 Urine Protein Neg (Negative) 01/23/23 15:59 Urine Glucose (UA) Norm (Normal) 01/23/23 15:59 Urine Ketones 1+ (Negative) H 01/23/23 15:59 Urine Blood Neg (Negative) 01/23/23 15:59 Urine Nitrate Negative (Negative) 01/23/23 15:59 Urine Bilirubin Neg (Negative) 01/23/23 15:59 Urine Urobilinogen Neg mg/dL (Negative) 01/23/23 15:59 Ur Leukocyte Esterase Negative (Negative) 01/23/23 15:59 Vitals Last Vital Signs Temp 98.0 F 01/24/23 11:39 Pulse 71 01/24/23 11:39 Resp 16 01/24/23 11:39 BP 116/71 01/24/23 11:39 Pulse Ox 87 L 01/24/23 11:39 O2 Del Method Room Air 01/24/23 11:39 Discharge Plan Discharge Patient Disposition: Home Condition: Stable Prescriptions: New potassium chloride 20 mEq packet 20 meq PO DAILY 14 Days Qty: 14 0RF docusate sodium 100 mg Capsule 100 mg PO BID PRN (Reason: constipation) Qty: 20 0RF Dulcolax (magnesium hydroxide) 400 mg/5 mL suspension 5 ml PO BID PRN (Reason: constipation) Qty: 355 0RF tamsulosin 0.4 mg Capsule 0.8 mg PO DAILY Qty: 60 0RF Continued amlodipine 5 mg tablet 5 mg PO DAILY Qty: 30 3RF atorvastatin 20 mg tablet 20 mg PO QPM Eliquis 5 mg tablet 5 mg PO BID amiodarone 200 mg tablet 100 mg PO DAILY budesonide-formoterol [Symbicort] 160-4.5 mcg/actuation HFA aerosol inhaler 2 puff inhalation Q12H ipratropium-albuterol 0.5 mg-3 mg(2.5 mg base)/3 mL Solution For Nebulization 3 ml INHALATION Q6H PRN (Reason: Shortness Of Breath Or Wheezing) aspirin 81 mg Tablet,Delayed Release (Dr/Ec) 81 mg PO QPM albuterol sulfate 90 mcg/actuation HFA aerosol inhaler 2 puff INHALATION Q6H PRN (Reason: Shortness Of Breath Or Wheezing) Combivent Respimat 20-100 mcg/actuation mist 1 puff INHALATION BID Discontinued spironolactone 25 mg tablet 25 mg PO DAILY Discharge Orders: Discharge Order (Routine); Ordered 01/24/23 Ordered By: Serafin Lane Referrals: Margie Orozco FNP [Primary Care Provider] - 7-10 days Rosalio Reyes MD [Physician] - 2 weeks Discharge Diet: Advance as tolerated Discharge Activity: Resume usual activity and Increase activity as tolerated Patient Instructions: Opioid Safety Activity Restrictions/Additional Instructions: Continue draining clear liquid diet for next 2 to 4 days. Advance gradually from clear liquid to mechanical soft and then regular diet within next 1 week. Take multiple small meals. Try to ambulate or sit in the chair as much as possible. Please repeat BMP with your primary care provider within next 10 days for a repeat potassium level. For now take potassium at 20 mEq daily for next 14 days. Continue with Paulino catheter. Please follow-up with Dr. Reyes/urology within next 2 weeks for voiding trial. Flomax is a new medication. If Paulino catheter remains in for more than 1 month it should be replaced. Continue taking stool softeners including Dulcolax and docusate daily for now. If you have any vomiting, increased abdominal pain, fever please come back to the ER. Discharge Attestations Time Spent in Discharge Care*: greater than 30 min Specific Discharge Activities: educating patient, educating and/or supporting family/caregiver, discussing with pcp/other providers, discussing with correctional counselor/case manager/social workers/dc planners, documenting/other paperwork and evaluating patient/reviewing data Status at Discharge: Cognitive status at discharge: cognitively intact , Behavioral status at discharge: cooperative , Functional status at discharge: independent ambulation , Overall status at discharge: patient is progressing back to baseline Quality Metrics Clinical Quality Measures [ No reported AMI, CVA or VTE this stay] Coding Level of Care Code 52374 Total time (in minutes) for Discharge: 60 Diagnoses Acute urinary retention R33.8 Bladder outlet obstruction N32.0 Large bowel obstruction K56.609 Shortness of breath R06.02 Acute hypokalemia E87.6 Atrial fibrillation I48.91 HTN (hypertension) I10 CAD (coronary artery disease) I25.10 COPD (chronic obstructive pulmonary disease) J44.9
--- NOTE | 2023-01-24 16:28 | PC.NURSE ---
IV out. Wheeled out via w/c with daughter at side. Educated on ybarra catheter and new medications. All belongings sent with patient.
== END 2023-01-24 16:31 | disposition home or self-care (01) ==
LOC: ER 17:06 → MEDSURG 17:11
PROVIDERS: Admitting Provider Student in an Organized Health Care Education/Training Program; Emergency Provider Physician Assistant; PCP Nurse Practitioner Family; Visit Provider Student in an Organized Health Care Education/Training Program
DX: N40.1 Benign prostatic hyperplasia with lower urinary tract symptoms (principal); R33.8 Other retention of urine; N13.8 Other obstructive and reflux uropathy; I25.10 Atherosclerotic heart disease of native coronary artery without angina pectoris; I48.91 Unspecified atrial fibrillation; Z79.82 Long term (current) use of aspirin; Z79.01 Long term (current) use of anticoagulants; N32.0 Bladder-neck obstruction; I10 Essential (primary) hypertension; F17.210 Nicotine dependence, cigarettes, uncomplicated; K80.20 Calculus of gallbladder without cholecystitis without obstruction; K56.699 Other intestinal obstruction unspecified as to partial versus complete obstruction; E87.6 Hypokalemia; I50.9 Heart failure, unspecified; R06.02 Shortness of breath; Z95.5 Presence of coronary angioplasty implant and graft; J44.1 Chronic obstructive pulmonary disease with (acute) exacerbation
CPT/HCPCS: 36415; 51702; 71045; 74022; 74176; 80053; 80061; 81003; 82607; 82746; 83036; 83540; 83550; 83605; 83690; 83735; 84100; 84132; 84145; 84443; 85025; 93306; 94640; 94664; 96365; 96366; 96375; 99285; C9113; G0378; J3480; J7626

== ENCOUNTER 2023-02-03 20:48 | Inpatient (IN) | payer MEDICARE, SELFPAY ==
[2023-02-03 20:50] VITALS: BP 130/70; PULSE 73; RESP 18; TEMP 36.6; O2SAT 93; BMI 22.8
--- NOTE | 2023-02-03 20:56 | CTR_ITS ---
PROCEDURE INFORMATION: Exam: CT Abdomen And Pelvis With Contrast Exam date and time: 02/03/2023 9:28 PM Age: 72 years old Clinical indication: Abdominal pain; Generalized; Additional info: Abd pain TECHNIQUE: Imaging protocol: Computed tomography of the abdomen and pelvis with contrast. Radiation optimization: All CT scans at this facility use at least one of these dose optimization techniques: automated exposure control; mA and/or kV adjustment per patient size (includes targeted exams where dose is matched to clinical indication); or iterative reconstruction. Contrast material: OMNI 350; Contrast volume: 75 ml; Contrast route: INTRAVENOUS (IV); REPORTING DATA: Count of CT and Cardiac NM exams in prior 12 months: This patient has received [address] and 0 known cardiac nuclear medicine studies in the 12 months prior to the current study. COMPARISON: CT abdomen pelvis wo con [id number] 01/23/2023 2:01 PM RADIATION DOSE METRICS: Total DLP (mGy-cm): 431.65 FINDINGS: Tubes, catheters and devices: Interval placement of Paulino balloon catheter. Pleural spaces: Continued mild bilateral pleural fluid collections, [id number]. Liver: Normal. No mass. Gallbladder and bile ducts: Normal. No calcified stones. No ductal dilation. Pancreas: Normal. No ductal dilation. Spleen: Normal. No splenomegaly. Adrenal glands: Normal. No mass. Kidneys and ureters: Normal. No hydronephrosis. Stomach and bowel: Continued decompressed rectosigmoid colon with the remainder of the colon markedly dilated up to 12 cm in diameter with some air-fluid levels. Possible colonic ileus versus occult mechanical obstruction with no obvious mass or transition point identified. Mild free fluid in the dependent portion of the pelvis which is abnormal for a male, possibly secondary to colonic ileus or other etiology. Appendix: No evidence of appendicitis. Intraperitoneal space: Unremarkable. No free air. No significant fluid collection. Vasculature: 4.5 cm infrarenal fusiform abdominal aortic aneurysm without rupture as measured on the sagittal images. High-grade stenosis in the distal abdominal aorta/origins of the common iliac arteries. Small caliber external iliac arteries bilaterally which are partially calcified but patent. Lymph nodes: Unremarkable. No enlarged lymph nodes. Urinary bladder: Interval decompression of previously noted distended urinary bladder. Reproductive: Unremarkable as visualized. Bones/joints: Unremarkable. No acute fracture. Soft tissues: Unremarkable. CT/CT abdomen pelvis w con* [id number] IMPRESSION: 1. Interval placement of Paulino balloon catheter. 2. Interval decompression of previously noted distended urinary bladder. 3. Continued decompressed rectosigmoid colon with the remainder of the colon markedly dilated up to 12 cm in diameter with some air-fluid levels. Possible colonic ileus versus occult mechanical obstruction with no obvious mass or transition point identified. 4. 4.5 cm infrarenal fusiform abdominal aortic aneurysm without rupture as measured on the sagittal images. 5. High-grade stenosis in the distal abdominal aorta/origins of the common iliac arteries. 6. Small caliber external iliac arteries bilaterally which are partially calcified but patent. 7. Mild free fluid in the dependent portion of the pelvis which is abnormal for a male, possibly secondary to colonic ileus or other etiology.
--- NOTE | 2023-02-03 20:58 | ED_ITS ---
HPI - Abdominal Pain General: Chief Complaint: Abdominal Pain Stated Complaint: ABD PAIN Time Seen by Provider: 02/03/23 20:49 Source: patient and EMS Mode of arrival: EMS Limitations: no limitations History of Present Illness: 72-year-old male who states that he was admitted here little over 2 weeks ago he had had a urinary obstruction had a Paulino placed he states he been doing well at home but over the last 2 days had abdominal distention and pain. His abdomen is quite distended he rates his pain at 8 out of 10 its diffuse in nature he denies any vomiting he denies any fevers. He does have a Paulino catheter in place draining urine. Associated Symptoms: Denies chills, dysuria and fever(s) Review of Systems Const: Denies: fever(s), chills, body aches or change in appetite Eyes: Denies: eye discomfort ENMT: Denies: throat pain or dental pain Card: Denies: chest pain Resp: Denies: dyspnea GI: Reports: abdominal pain : Denies: dysuria Musc: Denies: neck pain or back pain Skin/Breast: Denies: rash Neuro: Denies: headache(s) Psych: Denies: depression Manfred/Lymph: Denies: easy bruising All/Imm: Denies: urticaria PFSH ED PFSH: Medical History Atrial fibrillation CAD (coronary artery disease) COPD (chronic obstructive pulmonary disease) HTN (hypertension) Hx of retinal detachment Ischemic cardiomyopathy Surgical History S/P cataract surgery S/P coronary artery stent placement (~2013) Family History Father CAD (coronary artery disease) Lung disease Family/Other CAD (coronary artery disease) Grandfather CAD (coronary artery disease) Denies family history of Diabetes Clotting disorder Dementia Chronic kidney disease (CKD) Suicide Anesthesia complication Bleeding disorder Cancer Stroke Social History Smoking and tobacco status: current every day smoker cigarettes Alcohol intake: current Alcohol intake frequency: other Substance/Drug Use: never Physical Exam Const: COMMON NORMALS: patient oriented x3 HENMT: COMMON NORMALS: normocephalic and atraumatic HEAD & SCALP: normocephalic and atraumatic Eye: COMMON NORMALS: conjunctivae normal CONJUNCTIVA: Yes conjunctivae normal Neck/C-Spine: COMMON NORMALS: full ROM and supple Chest: COMMONS NORMALS: normal inspection of the chest and normal palpation of entire chest wall Resp: COMMON NORMALS: normal respiratory effort, No retractions, No use of accessory muscles and clear to auscultation bilaterally AUSCULTATION: clear to auscultation bilaterally Cardio: COMMON NORMALS: regular rate, regular rhythm and No murmurs present (Cardio) RATE: regular rate RHYTHM: regular rhythm GI: OTHER: Abdomen is very distended with decreased bowel sounds and diffuse tenderness Extremity: COMMON NORMALS: normal to inspection and full ROM Neuro: COMMON NORMALS: patient oriented x3, moves all extremities and no focal motor deficits Psych: COMMON NORMALS: mental status grossly normal, Normal thought process present and cooperative THOUGHT PROCESS: Normal thought process present Skin: COMMON NORMALS: no rashes or lesions noted and no wounds GENERAL SKIN EXAM: no rashes or lesions noted Course Vital Signs: Vital signs: Vital Signs Temperature 98 F 02/03/23 20:50 Pulse Rate 64 02/03/23 22:03 Respiratory Rate 16 02/03/23 22:03 Blood Pressure 117/65 02/03/23 22:03 Pulse Oximetry 91 02/03/23 22:03 Oxygen Delivery Me thod Nasal Cannula 02/03/23 22:03 Oxygen Flow Rate 3 02/03/23 22:03 MDM - Abdominal Pain Medical Decision Making Patient presents here with abdominal pain with severe abdominal distention and he does have a large bowel obstruction possibly mechanical obstruction we will place an NG tube and I spoke to the hospitalist and surgeon will admit at this time. Medical Records I reviewed the patient's medical records. Lab Data I reviewed the patient's lab results. 02/03/23 21:10 02/03/23 21:10 Labs/Radiology: Radiology Impressions Abdomen/Pelvis CT 02/03/23 20:56 IMPRESSION: 1. Interval placement of Paulino balloon catheter. 2. Interval decompression of previously noted distended urinary bladder. 3. Continued decompressed rectosigmoid colon with the remainder of the colon markedly dilated up to 12 cm in diameter with some air-fluid levels. Possible colonic ileus versus occult mechanical obstruction with no obvious mass or transition point identified. 4. 4.5 cm infrarenal fusiform abdominal aortic aneurysm without rupture as measured on the sagittal images. 5. High-grade stenosis in the distal abdominal aorta/origins of the common iliac arteries. 6. Small caliber external iliac arteries bilaterally which are partially calcified but patent. 7. Mild free fluid in the dependent portion of the pelvis which is abnormal for a male, possibly secondary to colonic ileus or other etiology. Laboratory Results WBC 8.4 10^3/uL (4.0-10.0) 02/03/23 21:10 RBC 3.66 10^6/uL (4.1-5.3) L 02/03/23 21:10 Hgb 10.7 g/dL (11.7-16.6) L 02/03/23 21:10 Hct 34.5 % (42.0-52.0) L 02/03/23 21:10 MCV 94.3 fl (80-94) H 02/03/23 21:10 MCH 29.2 pg (28.0-34.0) 02/03/23 21:10 MCHC 31.0 g/dL (30.0-36.0) 02/03/23 21:10 RDW 14.3 % (12.1-15.1) 02/03/23 21:10 Plt Count 353 10^3/cmm (130-400) 02/03/23 21:10 MPV 9.2 fL (7.4-10.4) 02/03/23 21:10 Neut % (Auto) 81.7 % 02/03/23 21:10 Lymph % (Auto) 10.5 % 02/03/23 21:10 [place] % (Auto) 6.1 % 02/03/23 21:10 Eos % (Auto) 0.5 % 02/03/23 21:10 Baso % (Auto) 0.8 % 02/03/23 21:10 Neut # (Auto) 6.87 10^3/uL (1.8-7.7) 02/03/23 21:10 Lymph # (Auto) 0.9 10^3/uL (0.8-4.8) 02/03/23 21:10 [place] # (Auto) 0.5 10^3/uL (0.2-0.9) 02/03/23 21:10 Eos # (Auto) 0.0 10^3/uL (0.0-0.8) 02/03/23 21:10 Baso # (Auto) 0.1 10^3/uL (0.0-0.1) 02/03/23 21:10 Nucleated RBC % (auto) 0 % 02/03/23 21:10 Nucleated RBCs # 0.0 /100WBC 02/03/23 21:10 Sodium 138 mmol/L (136-145) 02/03/23 21:10 Potassium 2.7 mmol/L (3.5-5.1) L* 02/03/23 21:10 Chloride 101 mmol/L (98-107) 02/03/23 21:10 Carbon Dioxide 25 mmol/L (22-29) 02/03/23 21:10 Anion Gap 14.7 (5-19) 02/03/23 21:10 BUN 12 mg/dL (8-23) 02/03/23 21:10 Creatinine 0.8 mg/dL (0.7-1.2) 02/03/23 21:10 GFR Calculation Not Reportable 02/03/23 21:10 Glucose 105 mg/dL (65-115) 02/03/23 21:10 Calculated Osmolality 286 mOsm/kg (285-295) 02/03/23 21:10 Lactic Acid 0.8 mmol/L (0.5-2.2) 02/03/23 21:10 Calcium 8.4 mg/dL (8.5-10.5) L 02/03/23 21:10 Total Bilirubin 0.5 mg/dL (0.15-1.2) 02/03/23 21:10 AST 9 U/L (0-40) 02/03/23 21:10 ALT 7 U/L (0-41) 02/03/23 21:10 Alkaline Phosphatase 87 U/L (40-130) 02/03/23 21:10 Total Protein 6.7 g/dL (6.6-8.7) 02/03/23 21:10 Albumin 3.4 g/dL (3.5-5.2) L 02/03/23 21:10 Globulin 3.3 g/dL (1.3-4.6) 02/03/23 21:10 Lipase 15 U/L (13-60) 02/03/23 21:10 Discharge Plan Discharge Patient Disposition: Admitted As Inpatient Clinical Impression: Large bowel obstruction, Abdominal pain, Hypokalemia Condition: Stable Prescriptions: No Action amlodipine 5 mg tablet 5 mg PO DAILY Qty: 30 3RF atorvastatin 20 mg tablet 20 mg PO QPM Eliquis 5 mg tablet 5 mg PO BID amiodarone 200 mg tablet 100 mg PO DAILY budesonide-formoterol [Symbicort] 160-4.5 mcg/actuation HFA aerosol inhaler 2 puff inhalation Q12H ipratropium-albuterol 0.5 mg-3 mg(2.5 mg base)/3 mL Solution For Nebulization 3 ml INHALATION Q6H PRN (Reason: Shortness Of Breath Or Wheezing) aspirin 81 mg Tablet,Delayed Release (Dr/Ec) 81 mg PO QPM albuterol sulfate 90 mcg/actuation HFA aerosol inhaler 2 puff INHALATION Q6H PRN (Reason: Shortness Of Breath Or Wheezing) Combivent Respimat 20-100 mcg/actuation mist 1 puff INHALATION BID potassium chloride 20 mEq packet 20 meq PO DAILY 14 Days Qty: 14 0RF docusate sodium 100 mg Capsule 100 mg PO BID PRN (Reason: constipation) Qty: 20 0RF Dulcolax (magnesium hydroxide) 400 mg/5 mL suspension 5 ml PO BID PRN (Reason: constipation) Qty: 355 0RF tamsulosin 0.4 mg Capsule 0.8 mg PO DAILY Qty: 60 0RF Referrals: Margie Orozco FNP [Primary Care Provider] - Patient Instructions: Opioid Safety, Pain Management, Abdominal Pain (ED) Coding Level of Care Code ED [employer] for Benito Nugent
[2023-02-03] MEDS: ondansetron 2 mg/ML SDV 2 mL 4 MG IVP (21:09)
[2023-02-03] MEDS: morphine 4 mg/mL SDV 1 mL IVP ×2 (21:10→23:07)
[2023-02-03 21:35] LABS: Lactic Sepsis W/Reflex 0.8 mmol/L (0.5-2.2)
[2023-02-03] MEDS: iohexol 350 mg/mL 500 mL Btl (per mL) IV (21:38)
[2023-02-03 21:43] LABS: Basophils # 0.1 10^3/uL (0.0-0.1); Basophils % 0.8 %; Eosinophils % 0.5 %; Hematocrit 34.5 % (42.0-52.0); Hemoglobin 10.7 g/dL (11.7-16.6); Lymphocytes # 0.9 10^3/uL (0.8-4.8); Lymphocytes % 10.5 %; Mean Corpuscular Hemoglobin 29.2 pg (28.0-34.0); Mean Corpuscular Volume 94.3 fl (80-94); Mean Platelet Volume 9.2 fL (7.4-10.4); Monocytes # 0.5 10^3/uL (0.2-0.9); Monocytes % 6.1 %; Neutrophils # 6.87 10^3/uL (1.8-7.7); Neutrophils % 81.7 %; Nucleated Red Blood Cells % 0 %; Platelet Count 353 10^3/cmm (130-400); Red Blood Count 3.66 10^6/uL (4.1-5.3); Red Cell Distribution Width 14.3 % (12.1-15.1); White Blood Count 8.4 10^3/uL (4.0-10.0)
[2023-02-03 21:55] LABS: Alanine Aminotransferase 7 U/L (0-41); Albumin Level 3.4 g/dL (3.5-5.2); Alkaline Phosphatase 87 U/L (40-130); Anion Gap 14.7 (5-19); Aspartate Amino Transferase 9 U/L (0-40); Blood Urea Nitrogen 12 mg/dL (8-23); Calcium 8.4 mg/dL (8.5-10.5); Carbon Dioxide 25 mmol/L (22-29); Chloride 101 mmol/L (98-107); Globulin 3.3 g/dL (1.3-4.6); Glucose 105 mg/dL (65-115); Lipase 15 U/L (13-60); Osmolality Calculated 286 mOsm/kg (285-295); Sodium 138 mmol/L (136-145); Total Bilirubin 0.5 mg/dL (0.15-1.2); Total Protein 6.7 g/dL (6.6-8.7)
[2023-02-03 21:57] LABS: Potassium 2.7 mmol/L (3.5-5.1)
[2023-02-03 22:03] VITALS: BP 117/65; PULSE 64; RESP 16; O2SAT 91
--- NOTE | 2023-02-03 22:41 | XRR_ITS ---
PROCEDURE INFORMATION: Exam: XR Chest Exam date and time: 02/03/2023 10:47 PM Age: 72 years old Clinical indication: Device placement; Ng tube; Additional info: Ng tube placement TECHNIQUE: Imaging protocol: Radiologic exam of the chest. Views: 1 view. COMPARISON: CR XR chest 1V portable [id number] 01/23/2023 4:11 PM FINDINGS: Tubes, catheters and devices: Enteric tube in the distal esophagus/gastroesophageal junction with the tube kinked at the side hole with the tip directed superiorly towards the right shoulder. Lungs: Unremarkable. No consolidation. Pleural spaces: Unremarkable. No pleural effusion. No pneumothorax. Heart/Mediastinum: Unremarkable. No cardiomegaly. Bones/joints: Unremarkable. XR/XR chest 1V portable [id number] IMPRESSION: Enteric tube in the distal esophagus/gastroesophageal junction with the tube kinked at the side hole with the tip directed superiorly towards the right shoulder.
[2023-02-03] MEDS: potassium chloride premix 100 ML 25 MEQ IV (22:59)
--- NOTE | 2023-02-03 23:28 | PM.HP ---
Providers/Chief Complaint Admitting Physician: Aspen Rodríguez MD Primary Care Provider: GAMAL Stout Chief Complaint: ABD PAIN History of Present Illness Abisai Hicks is a 72 year old male with past medical history of CAD status post PCI, ischemic cardiomyopathy with last known EF of 40%, atrial fibrillation, active smoker who presented to the ER initially on 23 January and was admitted for abdominal pain. Abdominal x-ray was done that it and it looked like a possible small bowel obstruction. He also had extremely distended urinary bladder with dilated colon. He stated that he had abdominal distention and difficulty breathing that is going on for last few months. He was passing flatus and had a bowel movement during hospital stay. Few years ago he was found to have a sigmoid stricture requiring dilatation with Dr. Mireles. Patient was able to pass flatus without abdominal pain and his gaseous distention of good result and therefore he decided to go home. He was advised to stay on a clear liquid diet and advance gradually to full regular meal within 1 week. He was advised to take multiple small meals. He was asked to take docusate and milk of magnesia and stool softeners for next 2 weeks. Today he presents back to the hospital for abdominal distention and pain that has been going on for the last 2 days. Abdomen has been quite distended and has been complaining of abdominal pain of 10 which is achy in nature. Denies vomiting, fever, diarrhea. He does have a Paulino catheter in place from his previous hospital admission that was initially placed for urinary retention. He denies chills or dysuria at this time. ED course: 117/65, respiratory 16, pulse 64, temperature 98, saturating 3 L nasal cannula 91%. CT abdomen pelvis was done which showed: 1. Interval placement of Paulino balloon catheter. 2. Interval decompression of previously noted distended urinary bladder. 3. Continued decompressed rectosigmoid colon with the remainder of the colon markedly dilated up to 12 cm in diameter with some air-fluid levels. Possible colonic ileus versus occult mechanical obstruction with no obvious mass or transition point identified. 4. 4.5 cm infrarenal fusiform abdominal aortic aneurysm without rupture as measured on the sagittal images. 5. High-grade stenosis in the distal abdominal aorta/origins of the common iliac arteries. 6. Small caliber external iliac arteries bilaterally which are partially calcified but patent. 7. Mild free fluid in the dependent portion of the pelvis which is abnormal for a male, possibly secondary to colonic ileus or other etiology. NG tube was placed. Case was discussed with general surgery over the phone who recommended admission at this time. Patient will be going for sigmoidoscopy in the morning with Dr. Reinoso. Labs significant WBC 8.4, hemoglobin 10.7, potassium 2.7. Creatinine 0.8. Lactic acid 0.8. Medications/Allergies Home Medications Medication Instructions Recorded Confirmed Last Taken Type apixaban 5 mg tablet (Eliquis) 5 mg PO BID 01/15/20 01/23/23 01/23/23 History atorvastatin 20 mg tablet 20 mg PO QPM 01/15/20 01/23/23 01/22/23 History amiodarone 200 mg tablet 100 mg PO DAILY 08/08/21 01/23/23 01/23/23 History amlodipine 5 mg tablet 5 mg PO DAILY #30 tabs 08/08/21 01/23/23 01/23/23 Rx budesonide-formoterol HFA 160 2 puff inhalation Q12H 04/07/22 01/23/23 01/23/23 History mcg-4.5 mcg/actuation aerosol inhaler (Symbicort) albuterol sulfate 90 mcg/actuation 2 puff inhalation Q6H PRN 01/23/23 01/23/23 01/22/23 History aerosol inhaler Shortness Of Breath Or Wheezing aspirin 81 mg tablet,delayed 81 mg PO QPM 01/23/23 01/23/23 01/22/23 History release ipratropium 0.5 mg-albuterol 3 mg 3 ml inhalation Q6H PRN Shortness 01/23/23 01/23/23 Unknown History (2.5 mg base)/3 mL nebulization Of Breath Or Wheezing soln ipratropium 20 mcg-albuterol 100 1 puff inhalation BID 01/23/23 01/23/23 01/23/23 History mcg/actuation mist for inhalation (Combivent Respimat) docusate sodium 100 mg capsule 100 mg PO BID PRN constipation #20 01/24/23 Unknown Rx caps magnesium hydroxide 400 mg/5 mL 5 ml PO BID PRN constipation #355 01/24/23 Unknown Rx oral suspension (Dulcolax mL (magnesium hydroxide)) potassium chloride 20 mEq oral 20 meq PO DAILY 14 days #14 ea 01/24/23 Unknown Rx packet tamsulosin 0.4 mg capsule 0.8 mg PO DAILY #60 caps 01/24/23 Unknown Rx Allergies Allergy/AdvReac Type Severity Reaction Status Date / Time iodine Allergy Unknown Verified 01/23/23 12:46 PFSH Acute PFSH: Medical History Atrial fibrillation CAD (coronary artery disease) COPD (chronic obstructive pulmonary disease) HTN (hypertension) Hx of retinal detachment Ischemic cardiomyopathy Surgical History S/P cataract surgery S/P coronary artery stent placement (~2013) Family History Father CAD (coronary artery disease) Lung disease Family/Other CAD (coronary artery disease) Grandfather CAD (coronary artery disease) Denies family history of Diabetes Clotting disorder Dementia Chronic kidney disease (CKD) Suicide Anesthesia complication Bleeding disorder Cancer Stroke Social History Smoking and tobacco status: current every day smoker cigarettes Alcohol intake: current Alcohol intake frequency: other Substance/Drug Use: never Vitals/I&O/Wt Last Vital Signs Temp 98 F 02/03/23 20:50 Pulse 64 02/03/23 22:03 Resp 16 02/03/23 22:03 BP 117/65 02/03/23 22:03 Pulse Ox 91 02/03/23 22:03 O2 Del Method Nasal Cannula 02/03/23 22:03 O2 Flow Rate 3 02/03/23 22:03 Weight last 48 hrs Weight 68.039 kg Physical Exam Narrative: General: Alert oriented x3, patient seen laying in bed appearing uncomfortable due to abdominal pain. HEENT: Normocephalic, atraumatic, EOMI, breathing 3 L nasal cannula, no acute respiratory distress, NG tube in place Cardio: Regular rate rhythm, normal S1-S2 Respiratory: Diminished at bases bilaterally GI: Abdomen soft, mildly tender to palpation left lower quadrant, significant distention of abdomen noted bowel sounds + Extremities: No edema bilateral lower extremities Data 02/03/23 21:10 02/03/23 21:10 A&P Assessment and plan (1) Abdominal pain: (2) Hypokalemia: (3) COPD (chronic obstructive pulmonary disease): (4) Acute urinary retention: (5) Large bowel obstruction: (6) Ischemic cardiomyopathy: (7) Acute hypokalemia: Plan #Severe abdominal pain secondary to colonic dilatation secondary to ileus versus mechanical obstruction, most likely secondary to stricture #High-grade stenosis distal abdominal aorta/origins of common iliac arteries however patent #4.5 cm abdominal aortic aneurysm without rupture #History of constipation and abdominal distention #CAD status post PCI #Urinary retention status post Paulino catheter #Atrial fibrillation, rate controlled at this time #Chronic systolic congestive heart failure EF 40% #Hypertension #COPD - Continue with NG tube ? Consult general surgery. Sigmoidoscopy in a.m. ? Strict n.p.o. at this time ? Further recommendations as per general surgery - Continue on NS 125 cc/hr - Vascular surgery referral at discharge for abdominal aortic aneurysm and high grade stenosis of distal abdominal aorta - Continue amiodarone, aspirin, - Hold eliquis at this time - Will use IV anti-hypertensive if needed. hold amlodipine Full CODE SCDS, on eliquis, Attestations Medical Necessity Statement*: > 2 midnight stay for management of LBO Coding Level of Care Code G0426 (50 min) TH Encounter Time (min): 50 Patient seen via Telehealth in the acute care setting (hospital or ED location) by agreement and consent of patient or patient merchandiser retail representative. Telehealth technology used during the visit includes video and audio. This patient encounter is appropriate and reasonable under the circumstances given the patient?s particular presentation at this time. The patient has been advised of the potential risks and limitations of this mode of treatment (including but not limited to the absence of in-person examination at this time) and has agreed to be treated by an off-site physician for this visit. If deemed clinically necessary from this telehealth visit, or if condition or consent for telehealth visit changes, an in-person visit will be arranged. For this encounter, total time for the origination of telehealth care on this date is as shown. Diagnoses Abdominal pain R10.9 Hypokalemia E87.6 COPD (chronic obstructive pulmonary disease) J44.9 Acute urinary retention R33.8 Large bowel obstruction K56.609 Ischemic cardiomyopathy I25.5 Acute hypokalemia E87.6
[2023-02-04] VITALS (21 sets, daily range): BP systolic 95–125; BP diastolic 54–73; PULSE 59–78; RESP 15–20; TEMP 36.1–36.8; O2SAT 89–100
--- NOTE | 2023-02-04 00:41 | PC.NURSE ---
Family phone numbers: [phone], ,
[2023-02-04 00:54] LABS: Procalcitonin 0.04 ng/mL (0-0.5)
--- NOTE | 2023-02-04 01:02 | XRR_ITS ---
PROCEDURE INFORMATION: Exam: XR Chest Exam date and time: 02/04/2023 12:08 AM Age: 72 years old Clinical indication: Device placement; Ng tube; Additional info: Confirm ng tube placement TECHNIQUE: Imaging protocol: Radiologic exam of the chest. Views: 1 view. COMPARISON: CR (CHEST, ) 02/03/2023 10:47 PM FINDINGS: Tubes, catheters and devices: The enteric tube has been advanced over the body of the stomach with the tube kinked at the side hole with the tip directed superiorly towards the chest. Lungs: Unremarkable. No consolidation. Pleural spaces: Unremarkable. No pleural effusion. No pneumothorax. Heart/Mediastinum: Unremarkable. No cardiomegaly. Bones/joints: Unremarkable. Other findings: Patient rotation to the right. XR/XR chest 1V portable [id number] IMPRESSION: The enteric tube has been advanced over the body of the stomach with the tube kinked at the side hole with the tip directed superiorly towards the chest.
[2023-02-04] MEDS: morphine 4 mg/mL SDV 1 mL 2 MG IVP ×2 (01:05→05:20)
--- NOTE | 2023-02-04 01:59 | XRR_ITS ---
PROCEDURE INFORMATION: Exam: XR Chest Exam date and time: 02/04/2023 1:10 AM Age: 72 years old Clinical indication: Device placement; Ng tube; Additional info: Confirm ng tube placement TECHNIQUE: Imaging protocol: Radiologic exam of the chest. Views: 1 view. COMPARISON: CR (CHEST, ) 02/04/2023 12:08 AM FINDINGS: Tubes, catheters and devices: Enteric tube tip is over the body of the stomach (mid stomach). Lungs: Unremarkable. No consolidation. Pleural spaces: Unremarkable. No pleural effusion. No pneumothorax. Heart/Mediastinum: Unremarkable. No cardiomegaly. Bones/joints: Unremarkable. Gastrointestinal tract: Dilated loops of bowel up to 5 point 7 cm. Prominent air-filled loop of colon noted on comparison CT which mimics the appearance of pneumoperitoneum in the midline. Organs: Residual contrast in the right collecting system. XR/XR chest 1V portable [id number] IMPRESSION: 1. Enteric tube tip is over the body of the stomach (mid stomach). 2. Residual contrast in the right collecting system.
[2023-02-04 03:25] LABS: Ferritin 73 ng/mL (30-400); Iron 54 ug/dL (59-158); Percent Saturation 20.3 % (20-50); Total Iron Binding Capacity 266 mcg/dl; Unsaturated Iron Binding 212 ug/dL (112-347)
--- NOTE | 2023-02-04 03:54 | PC.NURSE ---
late entry: NG placed in ER, x ray showed that tube was kinked, repositioned tube, x ray still showing kinked tubing, pulled, new NG placed-x ray confirmed placement, patient tolerated well.
--- NOTE | 2023-02-04 07:00 | XRR_ITS ---
PROCEDURE INFORMATION: Exam: XR Abdomen Exam date and time: 02/04/2023 7:47 AM Age: 72 years old Clinical indication: Other: Bowel obstruction TECHNIQUE: Imaging protocol: Radiologic exam of the abdomen. Views: Frontal supine view of the abdomen. 1 View. COMPARISON: CT abdomen pelvis w con* [id number] 02/03/2023 9:28 PM FINDINGS: Gastrointestinal tract: Markedly dilated gas-filled colon throughout the abdomen. No visible small bowel gas. No gross free air. Assessment for free air is limited. Bones/joints: Bones are unremarkable. XR/XR KUB portable [id number] IMPRESSION: Persistent diffuse colonic dilation consistent with high-grade mechanical obstruction of the sigmoid colon as seen on CT abdomen pelvis 02/03/2023.
--- NOTE | 2023-02-04 08:09 | PC.NURSE ---
Patient had amiodarone ordered this morning, this nurse held the medication due to the patient being on intermittent NG suction and patient being on an NPO diet. Patients heart rate is 64 and normal sinus rhythm on telemetry.
[2023-02-04] MEDS: HYDROmorphone 1 mg/mL INJ 1 mL IVP (09:04)
--- NOTE | 2023-02-04 09:43 | P.CONIM_ITS ---
Providers/Reason For Consult Consulting Physician/Specialty*: Dr. Michael Reinoso, DO/General surgery Reason for Consult*: Colonic ileus versus obstruction Attending Physician: Elkin Campbell MD Primary Care Provider: GAMAL Stout History of Present Illness History of Present Illness Abisai Hicks is a 72 year old male, with a past medical history of coronary artery disease A-fib and a cardiac ejection fraction of 40%, who presented to the hospital with progressive abdominal distention and pain. He has had colonic distention for many months now. He was recently in the hospital with similar symptoms and was able to be treated conservatively and discharged home on a liquid diet. He reports that over the last 2 days his abdominal distention and pain increased significantly. He reports nausea but denies any emesis. His last bowel movement was yesterday and was diarrhea. CT of the abdomen pelvis is read as colonic distention, possible ileus versus mechanical obstruction without a defined transition point. It does appear that there is a transition point in the sigmoid however. Review of Systems General: Reports: 10 or more systems reviewed and unremarkable except in HPI and below Medications/Allergies Home Medications Medication Instructions Recorded Confirmed Last Taken Type apixaban 5 mg tablet (Eliquis) 5 mg PO BID 01/15/20 02/04/23 01/23/23 History atorvastatin 20 mg tablet 20 mg PO QPM 01/15/20 02/04/23 01/22/23 History amiodarone 200 mg tablet 100 mg PO DAILY 08/08/21 02/04/23 01/23/23 History amlodipine 5 mg tablet 5 mg PO DAILY #30 tabs 08/08/21 02/04/23 01/23/23 Rx budesonide-formoterol HFA 160 2 puff inhalation Q12H 04/07/22 02/04/23 01/23/23 History mcg-4.5 mcg/actuation aerosol inhaler (Symbicort) albuterol sulfate 90 mcg/actuation 2 puff inhalation Q6H PRN 01/23/23 01/23/23 01/22/23 History aerosol inhaler Shortness Of Breath Or Wheezing aspirin 81 mg tablet,delayed 81 mg PO QPM 01/23/23 02/04/23 01/22/23 History release ipratropium 0.5 mg-albuterol 3 mg 3 ml inhalation Q6H PRN Shortness 01/23/23 01/23/23 Unknown History (2.5 mg base)/3 mL nebulization Of Breath Or Wheezing soln ipratropium 20 mcg-albuterol 100 1 puff inhalation BID 01/23/23 02/04/23 01/23/23 History mcg/actuation mist for inhalation (Combivent Respimat) docusate sodium 100 mg capsule 100 mg PO BID PRN constipation #20 01/24/23 Unknown Rx caps magnesium hydroxide 400 mg/5 mL 5 ml PO BID PRN constipation #355 01/24/23 Unknown Rx oral suspension (Dulcolax mL (magnesium hydroxide)) tamsulosin 0.4 mg capsule 0.8 mg PO DAILY #60 caps 01/24/23 02/04/23 Unknown Rx potassium chloride 20 mEq 40 meq PO DAILY 02/04/23 02/04/23 Unknown History tablet,extended release sertraline 50 mg tablet 50 mg PO DAILY 02/04/23 02/04/23 Unknown History spironolactone 25 mg tablet 25 mg PO DAILY 02/04/23 02/04/23 Unknown History Allergies Allergy/AdvReac Type Severity Reaction Status Date / Time iodine Allergy Unknown Verified 01/23/23 12:46 Current Medications Generic Name Dose Route Start Last Admin Trade Name Freq PRN Reason Stop Dose Admin Amiodarone HCl 100 mg 02/04/23 09:00 02/04/23 08:08 Amiodarone 200 Mg Tablet PO Not Given DAILY MYRA Morphine Sulfate 2 mg 02/04/23 00:23 02/04/23 05:20 Morphine 4 Mg/Ml Sdv 1 Ml IVP 2 mg Q4H PRN Administration SEVERE PAIN PFSH Acute PFSH: Medical History Atrial fibrillation CAD (coronary artery disease) COPD (chronic obstructive pulmonary disease) HTN (hypertension) Hx of retinal detachment Ischemic cardiomyopathy Surgical History S/P cataract surgery S/P coronary artery stent placement (~2013) Family History Father CAD (coronary artery disease) Lung disease Family/Other CAD (coronary artery disease) Grandfather CAD (coronary artery disease) Denies family history of Diabetes Clotting disorder Dementia Chronic kidney disease (CKD) Suicide Anesthesia complication Bleeding disorder Cancer Stroke Social History Smoking and tobacco status: current every day smoker cigarettes Alcohol intake: current Alcohol intake frequency: other Substance/Drug Use: never Vitals/I&O/Wt Last Vital Signs Temp 97.8 F 02/04/23 04:00 Pulse 63 02/04/23 07:43 Resp 18 02/04/23 09:04 BP 120/73 02/04/23 07:43 Pulse Ox 100 02/04/23 07:43 O2 Del Method Nasal Cannula 02/04/23 04:00 O2 Flow Rate 3 02/04/23 04:00 02/03/23 02/04/23 02/04/23 22:59 06:59 14:59 Intake Total 100 / 100 Output Total 500 / 500 Balance -500 / -500 100 / 100 Weight last 48 hrs Weight 150 lb Physical Exam Narrative: General : Patient is well developed , no acute distress, oriented x3 Head : Normal cephalic, a-traumatic. Ears : Pinnae and external canal are normal. Hearing is normal. Eyes : PERRLA, Sclera and injection are normal. No conjunctival discharge. Nose : Mucous membranes are without erythema. Throat : buccal mucosa is normal, gums are without significant recession or hypertrophy. Lungs : Equal chest rise bilaterally, no use of accessory muscles, trachea is midline. Cor : Rate and rhythm are normal. Abdomen : Soft, markedly distended, mild diffuse tenderness, no g/r/m Extremities : No edema, no cyanosis or clubbing, dorsalis pedis pulses are present bilaterally, non-tender to palpation of calves. Upper extremities are normal bilaterally. Back : non-tender to palpation, no CVA tenderness. Neuro : CN II - XII intact, Upper and lower extremities have equal and full strength Data 02/03/23 21:10 02/03/23 21:10 A&P Assessment and plan (1) Large bowel obstruction: Plan Going to try to decompress the patient with: Sigmoidoscopy The risks and benefits of the procedure, including bleeding, infection, i ntestinal perforation requiring surgery, missed lesion were explained to the patient. The patient is understanding of the risks and wishes to proceed. If I am unable to decompress him, we will need to go for exploratory laparotomy, possible bowel resection, possible ostomy formation. The risks and benefits of the procedures, including but not limited to, bleeding, infection, scar, numbness, pain, damage to surrounding structures, ostomy malfunction, anastomotic leak, need for further surgery, were explained to the patient. He is understanding the risks and wishes to proceed. Coding Level of Care Code 20860 Diagnoses Large bowel obstruction K56.609
[2023-02-04 10:01] LABS: Anion Gap 14.6 (5-19); Blood Urea Nitrogen 12 mg/dL (8-23); Calcium 8.3 mg/dL (8.5-10.5); Carbon Dioxide 27 mmol/L (22-29); Chloride 105 mmol/L (98-107); Creatinine Clr Calc Pharmacy 70.5729; Glucose 76 mg/dL (65-115); Magnesium 2.3 mg/dL (1.7-2.3); Osmolality Calculated 295 mOsm/kg (285-295); Potassium 3.6 mmol/L (3.5-5.1); Sodium 143 mmol/L (136-145)
[2023-02-04] MEDS: sodium chloride 0.9% 1,000 ML 30 ML IV (10:10)
--- NOTE | 2023-02-04 10:13 | ANES.PREANE2 ---
Pre-Anesthetic Assessment Height/Weight: Height 1.73 m Weight 68.039 kg Temp Pulse Resp BP Pulse Ox O2 Del Method O2 Flow Rate 97.8 F 63 18 120/73 100 Nasal Cannula 3 02/04/23 04:00 02/04/23 07:43 02/04/23 09:04 02/04/23 07:43 02/04/23 07:43 02/04/23 04:00 02/04/23 04:00 Operation Date: 02/04/23 11:00 Proposed Procedures p Sigmoidoscopy(Not Applicable) - Michael Reinoso DO Familial anesthetic complications: none Was Beta Judie taken within 24 hours: N/A Was Clonidine taken within 24 hours: N/A Social Tobacco and No alcohol 1 pack(s) per day Exam alert, oriented x 3, clear to auscultation bilaterally (Rhonchi) and regular rate & rhythm Airway Submandibular: within normal limits Cervical ROM: within normal limits Mallampati: Class II Dentition: full History/ROS No significant history except as noted and No significant complaints Pulmonary Chronic Obstructive Pulmonary Disease CV/HEM Atrial Fibrillation, Coronary Artery Disease, Congestive Heart Failure, Deep Vein Thrombosis, Hypertension and Myocardial Infarction (2013) Eliquis yesterday Bladder outlet obstruction GI Gastroesophageal Reflux Disease Metabolic None reported Musc/skel Lower Back Pain and Osteoarthritis/DJD Neuropsych Anxiety and Depression Anesthetic Plan ASA status: 3 Anesthesia: Anesthesia Evaluation, General and MAC Risk of > 500 ml blood loss (7ml/kg in children): No Medications/Allergies Home Medications Medication Instructions Recorded Confirmed Last Taken Type apixaban 5 mg tablet (Eliquis) 5 mg PO BID 01/15/20 02/04/23 01/23/23 History atorvastatin 20 mg tablet 20 mg PO QPM 01/15/20 02/04/23 01/22/23 History amiodarone 200 mg tablet 200 mg PO DAILY 08/08/21 02/04/23 01/23/23 History amlodipine 5 mg tablet 5 mg PO DAILY #30 tabs 08/08/21 02/04/23 01/23/23 Rx budesonide-formoterol HFA 160 2 puff inhalation Q12H 04/07/22 02/04/23 01/23/23 History mcg-4.5 mcg/actuation aerosol inhaler (Symbicort) albuterol sulfate 90 mcg/actuation 2 puff inhalation Q6H PRN 01/23/23 02/04/23 01/22/23 History aerosol inhaler Shortness Of Breath Or Wheezing aspirin 81 mg tablet,delayed 81 mg PO QPM 01/23/23 02/04/23 01/22/23 History release ipratropium 0.5 mg-albuterol 3 mg 3 ml inhalation Q6H PRN Shortness 01/23/23 02/04/23 Unknown History (2.5 mg base)/3 mL nebulization Of Breath Or Wheezing soln ipratropium 20 mcg-albuterol 100 1 puff inhalation BID 01/23/23 02/04/23 01/23/23 History mcg/actuation mist for inhalation (Combivent Respimat) docusate sodium 100 mg capsule 100 mg PO BID PRN constipation #20 01/24/23 02/04/23 Unknown Rx caps magnesium hydroxide 400 mg/5 mL 5 ml PO BID PRN constipation #355 01/24/23 02/04/23 Unknown Rx oral suspension (Dulcolax mL (magnesium hydroxide)) tamsulosin 0.4 mg capsule 0.8 mg PO DAILY #60 caps 01/24/23 02/04/23 Unknown Rx potassium chloride 20 mEq 40 meq PO BID 02/04/23 02/04/23 Unknown History tablet,extended release sertraline 50 mg tablet 50 mg PO DAILY 02/04/23 02/04/23 Unknown History spironolactone 25 mg tablet 25 mg PO DAILY 02/04/23 02/04/23 Unknown History Allergies Allergy/AdvReac Type Severity Reaction Status Date / Time iodine Allergy Unknown Verified 01/23/23 12:46 Current Medications Generic Name Dose Route Start Last Admin Trade Name Freq PRN Reason Stop Dose Admin Amiodarone HCl 100 mg 02/04/23 09:00 02/04/23 08:08 Amiodarone 200 Mg Tablet PO Not Given DAILY MYRA Morphine Sulfate 2 mg 02/04/23 00:23 02/04/23 05:20 Morphine 4 Mg/Ml Sdv 1 Ml IVP 2 mg Q4H PRN Administration SEVERE PAIN PFSH Anesthesia Medical History Atrial fibrillation CAD (coronary artery disease) COPD (chronic obstructive pulmonary disease) HTN (hypertension) Hx of retinal detachment Ischemic cardiomyopathy Surgical History S/P cataract surgery S/P coronary artery stent placement (~2013) Family History Father CAD (coronary artery disease) Lung disease Family/Other CAD (coronary artery disease) Grandfather CAD (coronary artery disease) Denies family history of Diabetes Clotting disorder Dementia Chronic kidney disease (CKD) Suicide Anesthesia complication Bleeding disorder Cancer Stroke Social History Smoking and tobacco status: current every day smoker cigarettes Alcohol intake: current Alcohol intake frequency: other Substance/Drug Use: never Data Anesthesia 02/03/23 21:10 02/04/23 08:38 Short CBC 02/03/23 Range/Units 21:10 WBC 8.4 (4.0-10.0) 10^3/uL Hgb 10.7 L (11.7-16.6) g/dL Hct 34.5 L (42.0-52.0) % MCV 94.3 H (80-94) fl Plt Count 353 (130-400) 10^3/cmm Neut % (Auto) 81.7 % Neut # (Auto) 6.87 (1.8-7.7) 10^3/uL BMP 02/03/23 02/04/23 21:10 08:38 Sodium 138 143 Potassium 2.7 L* 3.6 Chloride 101 105 Carbon Dioxide 25 27 BUN 12 12 Creatinine 0.8 0.9 Glucose 105 76 Calcium 8.4 L 8.3 L Liver Function 02/03/23 Range/Units 21:10 Total Bilirubin 0.5 (0.15-1.2) mg/dL AST 9 (0-40) U/L ALT 7 (0-41) U/L Alkaline Phosphatase 87 (40-130) U/L Albumin 3.4 L (3.5-5.2) g/dL Cardiac Studies: Echocardiogram 01/23/23
--- NOTE | 2023-02-04 12:05 | ANE.PACU2 ---
Inpatient post-anesthesia follow up: Airway intact: Yes Vital signs: Temperature 97 F Pulse Rate 63 Respiratory Rate 18 Blood Pressure 103/56 Pulse Oximetry 99 Oxygen Delivery Me thod Nasal Cannula Oxygen Flow Rate 3 Fraction of Inspir ed Oxygen Hydration adequate: Yes Nausea and vomiting: No Pain level: 2 Mental status: Baseline
--- NOTE | 2023-02-04 12:06 | PC.NURSE ---
Patient arrived to med/surg 277-2 from GI [facility].
[2023-02-04] MEDS: sodium chloride 0.9% 1,000 ML 75 ML IV (13:07)
--- NOTE | 2023-02-04 15:00 | P.PN_ITS ---
Subjective Subjective: Patient was seen this morning in severe pain, abdomen distended, diminished bowel sounds, no guarding, no rebound, no rigidity, but diffuse tenderness, NG tube in place, he is in severe pain, family at bedside he is awaiting his sigmoidoscopy by Dr. Reinoso, I discussed his goals of care, he is agreeable to intubation if required agreeable to elective intubation he wants to remain a full code however he does not want to be on life-sustaining measures, if there is no chance of recovery, he has not passed any gas, has not had a bowel movement, he is upset as he has not received the pain medication in the last 30 minutes, does report history of smoking, history reports history of COPD, disc ussed smoking cessation, and potentially him remaining intubated after procedure or having respiratory failure after procedure given his history of smoking and COPD Vitals/I&O/Wt Last Vital Signs Temp 97 F L 02/04/23 11:07 Pulse 63 02/04/23 11:50 Resp 18 02/04/23 11:50 BP 103/56 02/04/23 11:50 Pulse Ox 99 02/04/23 11:50 O2 Del Method Nasal Cannula 02/04/23 11:50 O2 Flow Rate 3 02/04/23 11:50 02/04/23 02/04/23 02/04/23 06:59 14:59 22:59 Intake Total 800 / 800 Output Total 500 / 500 0 / 0 Balance -500 / -500 800 / 800 Weight last 48 hrs Weight 68.039 kg Physical Exam Const: COMMON NORMALS: no acute distress and patient oriented x3 Resp: COMMON NORMALS: normal respiratory effort, No retractions, No use of accessory muscles and clear to auscultation bilaterally AUSCULTATION: clear to auscultation bilaterally Cardio: COMMON NORMALS: regular rate, regular rhythm, S1 normal heart sound present and S2 normal heart sound present RATE: regular rate RHYTHM: regu lar rhythm HEART SOUNDS: S1 normal heart sound present and S2 normal heart sound present GI: OTHER: Abdomen soft, distended, hypoactive bowel sounds, diffuse tenderness, no guarding, no rebound, no rigidity Extremity: COMMON NORMALS: no pedal edema Neuro: COMMON NORMALS: patient oriented x3 Psych: COMMON NORMALS: mental status grossly normal Urinary Catheter Management: Paulino: Cath Placed During This Visit: no Reason for Continuing Indwelling Catheter: Chronic Indwelling Urinary Catheter on Admission Data 02/03/23 21:10 02/04/23 08:38 A&P Assessment and plan (1) Abdominal pain: (2) Hypokalemia: (3) COPD (chronic obstructive pulmonary disease): (4) Acute urinary retention: (5) Large bowel obstruction: (6) Ischemic cardiomyopathy: (7) Acute hypokalemia: (8) Goals of care, counseling/discussion: (9) Encounter for smoking cessation counseling: Plan #Severe abdominal pain secondary to colonic dilatation secondary to ileus versus mechanical obstruction, most likely secondary to stricture #High-grade stenosis distal abdominal aorta/origins of common iliac arteries however patent #4.5 cm abdominal aortic aneurysm without rupture #History of constipation and abdominal distention #CAD status post PCI #Urinary retention status post Paulino catheter #Atrial fibrillation, rate controlled at this time #Chronic systolic congestive heart failure EF 40% #Hypertension #COPD - Continue with NG tube -Given hypokalemia we will repeat BMP the, mag, Phos ? Consult general surgery. Sigmoidoscopy in a.m. ? Strict n.p.o. at this time ? Further recommendations as per general surgery - Continue on NS 125 cc/hr - Vascular surgery referral at discharge for abdominal aortic aneurysm and high grade stenosis of distal abdominal aorta - Continue amiodarone, aspirin, - Hold eliquis at this time - Will use IV anti-hypertensive if needed. hold amlodipine Full CODE SCDS, Eliquis on hold Spoke to surgery, spoke to patient spoke to nursing staff spoke to family at bedside, discussed goals of care, planning on sigmoidoscopy Attestations Medical Necessity Statement*: Patient requires hospitalization due to large bowel obstruction, hypokalemia Diagnoses Abdominal pain R10.9 Hypokalemia E87.6 COPD (chronic obstructive pulmonary disease) J44.9 Acute urinary retention R33.8 Large bowel obstruction K56.609 Ischemic cardiomyopathy I25.5 Acute hypokalemia E87.6 Goals of care, counseling/discussion Z71.89 Encounter for smoking cessation counseling Z71.6
[2023-02-04] MEDS: aspirin 81 mg EC Tablet PO (17:19)
--- NOTE | 2023-02-04 17:21 | PC.NURSE ---
This nurse went to give patient his evening medications. When this nurse entered the room the patient stated I need to shit, I haven't been checked on in over 2 hours. This nurse and the GI TECHNICIAN had performed rounds on the patient multiple times within the last 2 hours and the patient has been resting in bed with his eyes closed with visualized chest rise and fall. This nurse tried to help the patient to the bedside commode. This nurse noticed the patient had soiled the bed from the waist down in stool. Patient refused getting on the bedside commode and refused changing until he had a coke. This nurse educated patient on side effects of laying in stool and the patient still refused. This nurse instructed the patient to press his call button when he was ready to be changed. Patient verbalized understanding.
[2023-02-05] VITALS (10 sets, daily range): BP systolic 104–111; BP diastolic 46–74; PULSE 60–89; RESP 16–22; TEMP 36.8–37; O2SAT 90–97
[2023-02-05 05:20] LABS: Basophils # 0.1 10^3/uL (0.0-0.1); Basophils % 0.4 %; Eosinophils % 0.3 %; Hematocrit 30.1 % (42.0-52.0); Hemoglobin 8.9 g/dL (11.7-16.6); Lymphocytes # 0.9 10^3/uL (0.8-4.8); Lymphocytes % 6.2 %; Mean Corpuscular HGB Conc 29.6 g/dL (30.0-36.0); Mean Corpuscular Hemoglobin 29.1 pg (28.0-34.0); Mean Corpuscular Volume 98.4 fl (80-94); Mean Platelet Volume 9.1 fL (7.4-10.4); Monocytes # 0.9 10^3/uL (0.2-0.9); Monocytes % 6.4 %; Neutrophils # 12.08 10^3/uL (1.8-7.7); Neutrophils % 86.4 %; Nucleated Red Blood Cells % 0 %; Platelet Count 280 10^3/cmm (130-400); Red Blood Count 3.06 10^6/uL (4.1-5.3); Red Cell Distribution Width 14.4 % (12.1-15.1)
[2023-02-05] MEDS: sodium chloride 0.9% 1,000 ML 75 ML IV ×2 (05:26→18:12)
[2023-02-05 05:50] LABS: Anion Gap 12.1 (5-19); Blood Urea Nitrogen 10 mg/dL (8-23); Calcium 7.5 mg/dL (8.5-10.5); Carbon Dioxide 28 mmol/L (22-29); Chloride 106 mmol/L (98-107); Creatinine Clr Calc Pharmacy 70.5729; Glucose 102 mg/dL (65-115); Magnesium 1.8 mg/dL (1.7-2.3); Osmolality Calculated 295 mOsm/kg (285-295); Potassium 3.1 mmol/L (3.5-5.1); Sodium 143 mmol/L (136-145)
--- NOTE | 2023-02-05 09:42 | PM.PN ---
Subjective Subjective: Patient had significant bowel movements after neostigmine yesterday. Reports that he is feeling much better. Passing flatus this morning Vitals/I&O/Wt Last Vital Signs Temp 98.2 F 02/05/23 07:42 Pulse 73 02/05/23 07:42 Resp 20 H 02/05/23 07:42 BP 111/51 02/05/23 07:42 Pulse Ox 93 02/05/23 07:42 O2 Del Method Nasal Cannula 02/05/23 07:42 O2 Flow Rate 3 02/04/23 20:00 02/04/23 02/05/23 02/05/23 22:59 06:59 14:59 Intake Total 1000 / 1800 120 / 120 Output Total 200 / 200 400 / 600 Balance -200 / 600 600 / 1200 120 / 120 Weight last 48 hrs Weight 150 lb Physical Exam Narrative: General: No acute distress, awake alert and oriented x3 Abdomen: Soft, distended, mild diffuse tenderness Urinary Catheter Management: Paulino: Cath Placed During This Visit: no Reason for Continuing Indwelling Catheter: Acute Urinary Retention or Obstruction Data 02/05/23 04:52 02/05/23 04:52 Micro: Microbiology 02/04/23 18:17 Occult Blood (FIT) - Final Stool - Stool Aspirate A&P Assessment and plan (1) Large bowel obstruction: Plan Give second dose of neostigmine today. Then full liquid diet. Add Reglan 5 every 6. Possibly soft diet and home tomorrow from my standpoint. I would like to see the patient in office 1 to 2 weeks after discharge. Attestations Medical Necessity Statement*: Per primary Coding Level of Care Code Acute Code for Chg Fwd Diagnoses Large bowel obstruction K56.609
[2023-02-05 09:59] LABS: Lactic Sepsis W/Reflex 0.6 mmol/L (0.5-2.2)
[2023-02-05] MEDS: amiodarone 200 mg Tablet 100 MG PO (10:20)
[2023-02-05] MEDS: apixaban 5 mg Tablet PO (10:20)
[2023-02-05] MEDS: potassium chloride ER 20 mEq Tablet 40 MEQ PO (10:31)
[2023-02-05] MEDS: ipratropium-albuterol 3 mL Neb INHALATION ×2 (14:21→21:06)
[2023-02-05] MEDS: aspirin 81 mg EC Tablet PO (18:19)
--- NOTE | 2023-02-05 21:16 | PM.PN ---
Subjective Subjective: He has been having some bowel movements. Request for [employer]. States cannot wait for his diet to be advanced as feels needs something in his stomach to have further bowel movements. Vitals/I&O/Wt Last Vital Signs Temp 98.6 F 02/05/23 20:00 Pulse 66 02/05/23 21:08 Resp 20 H 02/05/23 21:08 BP 110/57 02/05/23 20:00 Pulse Ox 91 02/05/23 21:08 O2 Del Method Nasal Cannula 02/05/23 21:08 O2 Flow Rate 3 02/05/23 21:08 02/05/23 02/05/23 02/05/23 06:59 14:59 22:59 Intake Total 1000 / 1800 240 / 240 957.5 / 1197.5 Output Total 400 / 600 Balance 600 / 1200 240 / 240 957.5 / 1197.5 Physical Exam Const: COMMON NORMALS: patient oriented x3 and alert GENERAL APPEARANCE: cooperative ORIENTATION/CONSCIOUSNESS: Yes awake HENMT: COMMON NORMALS: oropharynx normal Neck/C-Spine: COMMON NORMALS: no JVD Resp: COMMON NORMALS: normal respiratory effort and clear to auscultation bilaterally AUSCULTATION: clear to auscultation bilaterally Cardio: COMMON NORMALS: no JVD, regular rhythm, S1 normal heart sound present, S2 normal heart sound present and No murmurs present (Cardio) RHYTHM: regular rhythm HEART SOUNDS: S1 normal heart sound present and S2 normal heart sound present GI: COMMON NORMALS: Normal to inspection, nondistended, normoactive bowel sounds present, Soft to palpation and non-tender PALPATION: Yes Soft to palpation Extremity: COMMON NORMALS: no joint enlargement and no pedal edema Neuro: COMMON NORMALS: patient oriented x3 and moves all extremities SENSORIUM/ORIENTATION: Yes alert Skin: COMMON NORMALS: no rashes or lesions noted GENERAL SKIN EXAM: no rashes or lesions noted Urinary Catheter Management: Paulino: Cath Placed During This Visit: no Reason for Continuing Indwelling Catheter: Acute Urinary Retention or Obstruction Data 02/05/23 04:52 02/05/23 04:52 Micro: Microbiology 02/04/23 18:17 Occult Blood (FIT) - Final Stool - Stool Aspirate A&P Assessment and plan (1) Abdominal pain: (2) Hypokalemia: (3) COPD (chronic obstructive pulmonary disease): (4) Acute urinary retention: (5) Large bowel obstruction: (6) Ischemic cardiomyopathy: (7) Acute hypokalemia: (8) Goals of care, counseling/discussion: (9) Encounter for smoking cessation counseling: Plan #Severe abdominal pain secondary to colonic dilatation secondary to ileus versus mechanical obstruction, most likely secondary to stricture #High-grade stenosis distal abdominal aorta/origins of common iliac arteries however patent #4.5 cm abdominal aortic aneurysm without rupture #History of constipation and abdominal distention #CAD status post PCI #Urinary retention status post Paulino catheter #Atrial fibrillation, rate controlled at this time #Chronic systolic congestive heart failure EF 40% #Hypertension #COPD Discussed with surgery, surgical documentation reviewed and appreciated. Receiving additional dose of neostigmine, subsequent diet to be advanced. Assess again tomorrow, if able to advance diet further, possibility of discharge. Shortness of breath: Was feeling short of breath today. Did not receive his breathing treatments, and feels that is why, although has been receiving IV fluids as well. Stop IVF. Lungs do sound somewhat coarse, although otherwise no obvious JVD, no lower extremity edema. Will obtain chest x-ray. Discussed with him. He is feeling better after breathing treatment. Hypokalemia: Given replacement. - Vascular surgery referral at discharge for abdominal aortic aneurysm and high grade stenosis of distal abdominal aorta - Continue amiodarone, aspirin, - Hold eliquis at this time - Will use IV anti-hypertensive if needed. hold amlodipine Full CODE SCDS, Eliquis resumed Attestations Medical Necessity Statement*: Admission for assessment management of large bowel pseudoobstruction. Diagnoses Abdominal pain R10.9 Hypokalemia E87.6 COPD (chronic obstructive pulmonary disease) J44.9 Acute urinary retention R33.8 Large bowel obstruction K56.609 Ischemic cardiomyopathy I25.5 Acute hypokalemia E87.6 Goals of care, counseling/discussion Z71.89 Encounter for smoking cessation counseling Z71.6
--- NOTE | 2023-02-05 21:18 | XRR_ITS ---
PROCEDURE INFORMATION: Exam: XR Chest Exam date and time: 02/05/2023 8:27 PM Age: 72 years old Clinical indication: Dyspnea; Prior surgery; Surgery date: 6+ months; Surgery type: Stents; Additional info: Dyspnea, assess for fluid overload TECHNIQUE: Imaging protocol: Radiologic exam of the chest. Views: 1 view. COMPARISON: CR (CHEST, ) 02/04/2023 1:10 AM FINDINGS: Lungs: There is developing infiltrate in the right mid and lower lung gates. Pleural spaces: Unremarkable. No pleural effusion. No pneumothorax. Heart/Mediastinum: Unremarkable. No cardiomegaly. Bones/joints: Unremarkable. XR/XR chest 1V portable [id number] IMPRESSION: Developing multifocal right lung infiltrate.
[2023-02-06] VITALS (10 sets, daily range): BP systolic 109–122; BP diastolic 52–66; PULSE 60–72; RESP 18–20; TEMP 36.7–37.3; O2SAT 89–98
[2023-02-06] MEDS: ipratropium-albuterol 3 mL Neb INHALATION ×3 (01:50→14:29)
[2023-02-06] MEDS: apixaban 5 mg Tablet PO (08:26)
[2023-02-06] MEDS: amiodarone 200 mg Tablet 100 MG PO (08:26)
--- NOTE | 2023-02-06 10:36 | PC.SOCIAL ---
Pg 2 IMM Explained to pt Pg 2 IMM. No questions voiced. Provided pt a copy. Initialed, dated, & timed a copy & placed in chart.
[2023-02-06] MEDS: cefdinir 300 MG CAPSULE PO (17:13)
[2023-02-06] MEDS: aspirin 81 mg EC Tablet PO (17:13)
--- NOTE | 2023-02-06 20:34 | PM.DCS ---
Discharge Providers Date of Admission: 02/03/23 23:00 Date of Discharge: February 06, 2023 Attending Provider at Admission: Aspen Rodríguez MD Attending Provider at Discharge: Wes Elizabeth Primary Care Provider: GAMAL Stout Diagnoses at Discharge Discharge Diagnosis (1) Abdominal pain: Status: Acute (2) Hypokalemia: Status: Acute (3) COPD (chronic obstructive pulmonary disease): Status: Acute (4) Acute urinary retention: Status: Acute (5) Large bowel obstruction: Status: Acute (6) Ischemic cardiomyopathy: Status: Acute (7) Acute hypokalemia: Status: Acute (8) Goals of care, counseling/discussion: Status: Acute (9) Encounter for smoking cessation counseling: Status: Acute Reason for Visit Reason for Visit: ABD PAIN Hospital Course Hospital Course 72-year-old gentleman was admitted for assessment management after presenting with abdominal pain, with finding of urinary retention, finding of colonic obstruction on imaging with constipation, abdominal distention, additional incidental CT findings as below. With history of atrial fibrillation, anticoagulation was transiently held. Received NG decompression, IV fluid support. He was assessed by surgery, underwent assessment by sigmoidoscopy with diffuse distention of the colon proximal to sigmoid colon. No obstruction encounter. Colon was decompressed with colonoscope. He received neostigmine. Subsequently had multiple bowel movements. Tolerated gradual advancement of diet. Resumed on anticoagulation. Developed episode of shortness of breath during hospitalization, initially thought possibly fluid overload with IV fluids which were discontinued. Symptoms improved with resumption of his neb treatments. Chest x-ray revealed possibly developing pneumonia in the right lung with some increasing infiltrates due to which he is given a course of antibiotic as per discussion. He declined to remain in the hospital any further for any additional assessment and management. At discharge voiding trial was unsuccessful, Paulino catheter to be replaced. He is asked to follow-up with urology. He is referred for follow-up with vascular surgery with regards to aortic aneurysm and high-grade stenosis of distal abdominal aorta. Physical Exam Narrative: Accompanied by family. Const: COMMON NORMALS: patient oriented x3 and alert GENERAL APPEARANCE: cooperative ORIENTATION/CONSCIOUSNESS: Yes awake HENMT: COMMON NORMALS: oropharynx normal Neck/C-Spine: COMMON NORMALS: no JVD Resp: COMMON NORMALS: normal respiratory effort and clear to auscultation bilaterally AUSCULTATION: clear to auscultation bilaterally Cardio: COMMON NORMALS: no JVD, regular rhythm, S1 normal heart sound present, S2 normal heart sound present and No murmurs present (Cardio) RHYTHM: regular rhythm HEART SOUNDS: S1 normal heart sound present and S2 normal heart sound present GI: COMMON NORMALS: Normal to inspection, nondistended, normoactive bowel sounds present, Soft to palpation and non-tender PALPATION: Yes Soft to palpation Extremity: COMMON NORMALS: no joint enlargement and no pedal edema Neuro: COMMON NORMALS: patient oriented x3 and moves all extremities SENSORIUM/ORIENTATION: Yes alert Skin: COMMON NORMALS: no rashes or lesions noted GENERAL SKIN EXAM: no rashes or lesions noted Urinary Catheter Management: Paulino: Cath Placed During This Visit: yes, but has since been removed by the nurse Reason for Continuing Indwelling Catheter: Decision to DC Catheter Date Urinary Catheter Removed: 02/06/23 Time Urinary Catheter Discontinued: 14:15 Discharge Data Studies Completed and Pending Completed Studies During Hospitalization Category Date Time Status CT abdomen pelvis w con* [id number] Stat Cat Scan 02/03/23 20:56 Completed CXRP [XR chest 1V portable [id number]] Routine Exams 02/05/23 21:18 Completed XR KUB portable [id number] Routine Exams 02/04/23 07:00 Completed XR chest 1V portable [id number] Stat Exams 02/03/23 22:41 Completed XR chest 1V portable [id number] Stat Exams 02/04/23 01:02 Completed XR chest 1V portable [id number] Stat Exams 02/04/23 01:59 Completed Radiology Impressions Abdomen/Pelvis CT 02/03/23 20:56 IMPRESSION: 1. Interval placement of Paulino balloon catheter. 2. Interval decompression of previously noted distended urinary bladder. 3. Continued decompressed rectosigmoid colon with the remainder of the colon markedly dilated up to 12 cm in diameter with some air-fluid levels. Possible colonic ileus versus occult mechanical obstruction with no obvious mass or transition point identified. 4. 4.5 cm infrarenal fusiform abdominal aortic aneurysm without rupture as measured on the sagittal images. 5. High-grade stenosis in the distal abdominal aorta/origins of the common iliac arteries. 6. Small caliber external iliac arteries bilaterally which are partially calcified but patent. 7. Mild free fluid in the dependent portion of the pelvis which is abnormal for a male, possibly secondary to colonic ileus or other etiology. KUB X-Ray 02/04/23 07:00 IMPRESSION: Persistent diffuse colonic dilation consistent with high-grade mechanical obstruction of the sigmoid colon as seen on CT abdomen pelvis 02/03/2023. ADDENDUM: 02/04/23 0826 THIS REPORT CONTAINS FINDINGS THAT MAY BE CRITICAL TO PATIENT CARE. The findings were verbally communicated via telephone conference with Dr. Reinoso at 8:24 AM CDT on 02/04/2023. The findings were acknowledged and understood. Chest X-Ray 02/05/23 21:18 IMPRESSION: Developing multifocal right lung infiltrate. Laboratory Results WBC 14.0 10^3/uL (4.0-10.0) H 02/05/23 04:52 RBC 3.06 10^6/uL (4.1-5.3) L 02/05/23 04:52 Hgb 8.9 g/dL (11.7-16.6) L 02/05/23 04:52 Hct 30.1 % (42.0-52.0) L 02/05/23 04:52 MCV 98.4 fl (80-94) H 02/05/23 04:52 MCH 29.1 pg (28.0-34.0) 02/05/23 04:52 MCHC 29.6 g/dL (30.0-36.0) L 02/05/23 04:52 RDW 14.4 % (12.1-15.1) 02/05/23 04:52 Plt Count 280 10^3/cmm (130-400) 02/05/23 04:52 MPV 9.1 fL (7.4-10.4) 02/05/23 04:52 Neut % (Auto) 86.4 % 02/05/23 04:52 Lymph % (Auto) 6.2 % 02/05/23 04:52 [place] % (Auto) 6.4 % 02/05/23 04:52 Eos % (Auto) 0.3 % 02/05/23 04:52 Baso % (Auto) 0.4 % 02/05/23 04:52 Neut # (Auto) 12.08 10^3/uL (1.8-7.7) H 02/05/23 04:52 Lymph # (Auto) 0.9 10^3/uL (0.8-4.8) 02/05/23 04:52 [place] # (Auto) 0.9 10^3/uL (0.2-0.9) 02/05/23 04:52 Eos # (Auto) 0.0 10^3/uL (0.0-0.8) 02/05/23 04:52 Baso # (Auto) 0.1 10^3/uL (0.0-0.1) 02/05/23 04:52 Nucleated RBC % (auto) 0 % 02/05/23 04:52 Nucleated RBCs # 0.0 /100WBC 02/05/23 04:52 Sodium 143 mmol/L (136-145) 02/05/23 04:52 Potassium 3.1 mmol/L (3.5-5.1) L 02/05/23 04:52 Chloride 106 mmol/L (98-107) 02/05/23 04:52 Carbon Dioxide 28 mmol/L (22-29) 02/05/23 04:52 Anion Gap 12.1 (5-19) 02/05/23 04:52 BUN 10 mg/dL (8-23) 02/05/23 04:52 Creatinine 0.9 mg/dL (0.7-1.2) 02/05/23 04:52 GFR Calculation Not Reportable 02/05/23 04:52 Glucose 102 mg/dL (65-115) 02/05/23 04:52 Calculated Osmolality 295 mOsm/kg (285-295) 02/05/23 04:52 Lactic Acid 0.6 mmol/L (0.5-2.2) 02/05/23 09:28 Calcium 7.5 mg/dL (8.5-10.5) L 02/05/23 04:52 Phosphorus 4.0 mg/dL (2.5-4.5) 02/04/23 08:38 Magnesium 1.8 mg/dL (1.7-2.3) 02/05/23 04:52 Iron 54 ug/dL (59-158) L 02/03/23 21:10 TIBC 266 mcg/dl 02/03/23 21:10 % Saturation 20.3 % (20-50) 02/03/23 21:10 Unsat Iron Binding 212 ug/dL (112-347) 02/03/23 21:10 Ferritin 73 ng/mL (30-400) 02/03/23 21:10 Total Bilirubin 0.5 mg/dL (0.15-1.2) 02/03/23 21:10 AST 9 U/L (0-40) 02/03/23 21:10 ALT 7 U/L (0-41) 02/03/23 21:10 Alkaline Phosphatase 87 U/L (40-130) 02/03/23 21:10 Total Protein 6.7 g/dL (6.6-8.7) 02/03/23 21:10 Albumin 3.4 g/dL (3.5-5.2) L 02/03/23 21:10 Globulin 3.3 g/dL (1.3-4.6) 02/03/23 21:10 Lipase 15 U/L (13-60) 02/03/23 21:10 Procalcitonin 0.04 ng/mL (0-0.5) 02/03/23 21:10 Vitals Last Vital Signs Temp 98.1 F 02/06/23 15:57 Pulse 72 02/06/23 15:57 Resp 18 02/06/23 15:57 BP 122/66 02/06/23 15:57 Pulse Ox 91 02/06/23 15:57 O2 Del Method Room Air 02/06/23 15:57 O2 Flow Rate 3 02/06/23 08:05 Discharge Plan Discharge Patient Disposition: Home Health Service Condition: Stable Prescriptions: Continued atorvastatin 20 mg tablet 20 mg PO QPM Eliquis 5 mg tablet 5 mg PO BID amiodarone 200 mg tablet 200 mg PO DAILY budesonide-formoterol [Symbicort] 160-4.5 mcg/actuation HFA aerosol inhaler 2 puff inhalation Q12H spironolactone 25 mg Tablet 25 mg PO DAILY sertraline 50 mg Tablet 50 mg PO DAILY potassium chloride 20 mEq Tablet Extended Release 40 meq PO BID ipratropium-albuterol 0.5 mg-3 mg(2.5 mg base)/3 mL Solution For Nebulization 3 ml INHALATION Q6H PRN (Reason: Shortness Of Breath Or Wheezing) aspirin 81 mg Tablet,Delayed Release (Dr/Ec) 81 mg PO QPM albuterol sulfate 90 mcg/actuation HFA aerosol inhaler 2 puff INHALATION Q6H PRN (Reason: Shortness Of Breath Or Wheezing) Combivent Respimat 20-100 mcg/actuation mist 1 puff INHALATION BID docusate sodium 100 mg Capsule 100 mg PO BID PRN (Reason: constipation) Qty: 20 0RF magnesium hydroxide [Dulcolax (magnesium hydroxide)] 400 mg/5 mL suspension 5 ml PO BID PRN (Reason: constipation) Qty: 355 0RF tamsulosin 0.4 mg Capsule 0.8 mg PO DAILY Qty: 60 0RF Discontinued amlodipine 5 mg tablet 5 mg PO DAILY Qty: 30 3RF Discharge Orders: Discharge Order (Routine); Ordered 02/06/23 Ordered By: Wes Elizabeth Referrals: [facility] [place] Home Care ([facility]) [Outside] Marlo Parker [Referring] - (Dr. Parker's office should call you with an appointment. If you don't hear from them by please call them.) Michael Reinoso DO [Physician] - 02/13/23 2:30 pm Margie Orozco FNP [Primary Care Provider] - 02/22/23 10:30 am Rosalio Reyes MD [Physician] - 1 week (Urinary retention, Paulino) Darshan Agarwal MD [Physician] - 2 weeks (If you haven't heard from them by pleasea call Dr. Agarwal's office. Abdominal aortic aneurysm and high grade stenosis of distal abdominal aorta) Discharge Diet: GI Soft Discharge Activity: Increase activity as tolerated and Oxygen as instructed Patient Instructions: Paulino Catheter Care, Urinary Retention in Men (GEN), Paulino Catheter Placement and Care (GEN), Abdominal Pain (ED), Ileus (GEN), Urinary Leg Bag (GEN), GI Discharge Instructions, Pain Management Activity Restrictions/Additional Instructions: Avoid constipation, avoid dehydration. With finding of infiltrate in the right lung with possible pneumonia complete antibiotic course, follow-up with your primary doctor for reassessment of recovery. In case you develop any worsening shortness of breath, any nausea, vomiting, worsening abdominal distention or pain, lack of bowel movements, inability tolerate oral intake of food, water or medications, seek medical attention. Follow-up with your primary doctor for reassessment after urinary retention. Seek medical attention if unable to urinate. Have your primary doctor follow-up your blood chemistry including potassium, magnesium. Please follow up with urology regarding urinary retention. Discharge Attestations Time Spent in Discharge Care*: greater than 30 min Status at Discharge: Cognitive status at discharge: cognitively intact, Behavioral status at discharge: cooperative, Quality Metrics Clinical Quality Measures [ No reported AMI, CVA or VTE this stay] Coding Level of Care Code 59012 Total time (in minutes) for Discharge: 50 Diagnoses Abdominal pain R10.9 Hypokalemia E87.6 COPD (chronic obstructive pulmonary disease) J44.9 Acute urinary retention R33.8 Large bowel obstruction K56.609 Ischemic cardiomyopathy I25.5 Acute hypokalemia E87.6 Goals of care, counseling/discussion Z71.89 Encounter for smoking cessation counseling Z71.6
== END 2023-02-06 19:06 | disposition home health service (06) | DRG 391 ==
LOC: ER 22:22 → MEDSURG 23:27
PROVIDERS: Family Medicine; Surgery; Admitting Provider Internal Medicine; Emergency Provider Emergency Medicine; PCP Nurse Practitioner Family; Visit Provider Internal Medicine
PROC: 0DJD8ZZ Inspection of Lower Intestinal Tract, Via Natural or Artificial Opening Endoscopic (ICD-10-PCS; CPT 45330; principal; 2023-02-04 11:00)
DX: K59.00 Constipation, unspecified (principal); J18.9 Pneumonia, unspecified organism; I50.22 Chronic systolic (congestive) heart failure; I48.91 Unspecified atrial fibrillation; Z79.01 Long term (current) use of anticoagulants; J44.9 Chronic obstructive pulmonary disease, unspecified; I25.5 Ischemic cardiomyopathy; F17.210 Nicotine dependence, cigarettes, uncomplicated; R33.9 Retention of urine, unspecified; I11.0 Hypertensive heart disease with heart failure; I71.40 Abdominal aortic aneurysm, without rupture, unspecified; E87.6 Hypokalemia; I25.10 Atherosclerotic heart disease of native coronary artery without angina pectoris; Z95.5 Presence of coronary angioplasty implant and graft
CPT/HCPCS: 36415; 45337; 51702; 71045; 74018; 74177; 80048; 80053; 82274; 82728; 83540; 83550; 83605; 83690; 83735; 84100; 84145; 85025; 94640; 94760; 96365; 96375; 99285; J0330; J1170; J2270; J2405; J2704; J2710; J3480; J7030; Q0144; Q9967

== ENCOUNTER 2023-02-12 09:03 | Inpatient (IN) | payer MEDICARE, SELFPAY ==
[2023-02-12] VITALS (10 sets, daily range): BP systolic 108–122; BP diastolic 63–69; PULSE 59–91; RESP 15–19; TEMP 36.4–36.8; O2SAT 93–100; BMI 22.5
--- NOTE | 2023-02-12 09:24 | ED_ITS ---
HPI - Male Genitourinary General: Chief complaint: Urogenital-Male Stated complaint: red urine, abd pain Time Seen by Provider: 02/12/23 09:06 Source: patient Mode of arrival: ambulatory [facility] PFSH: Medical History Atrial fibrillation CAD (coronary artery disease) COPD (chronic obstructive pulmonary disease) HTN (hypertension) Hx of retinal detachment Ischemic cardiomyopathy Surgical History S/P cataract surgery S/P coronary artery stent placement (~2013) Family History Father CAD (coronary artery disease) Lung disease Family/Other CAD (coronary artery disease) Grandfather CAD (coronary artery disease) Denies family history of Diabetes Clotting disorder Dementia Chronic kidney disease (CKD) Suicide Anesthesia complication Bleeding disorder Cancer Stroke Social History Smoking and tobacco status: current every day smoker cigarettes Alcohol intake: current Alcohol intake frequency: other Substance/Drug Use: never Course Vital Signs: Vital signs: Vital Signs Temperature 98.2 F 02/12/23 09:07 Pulse Rate 91 02/12/23 09:07 Respiratory Rate 19 H 02/12/23 09:07 Pulse Oximetry 93 02/12/23 09:07 Oxygen Delivery Me thod Room Air 02/12/23 09:07 Discharge Plan Discharge Condition: Stable Prescriptions: No Action atorvastatin 20 mg tablet 20 mg PO QPM Eliquis 5 mg tablet 5 mg PO BID amiodarone 200 mg tablet 200 mg PO DAILY budesonide-formoterol [Symbicort] 160-4.5 mcg/actuation HFA aerosol inhaler 2 puff inhalation Q12H spironolactone 25 mg Tablet 25 mg PO DAILY sertraline 50 mg Tablet 50 mg PO DAILY potassium chloride 20 mEq Tablet Extended Release 40 meq PO BID ipratropium-albuterol 0.5 mg-3 mg(2.5 mg base)/3 mL Solution For Nebulization 3 ml INHALATION Q6H PRN (Reason: Shortness Of Breath Or Wheezing) aspirin 81 mg Tablet,Delayed Release (Dr/Ec) 81 mg PO QPM albuterol sulfate 90 mcg/actuation HFA aerosol inhaler 2 puff INHALATION Q6H PRN (Reason: Shortness Of Breath Or Wheezing) Combivent Respimat 20-100 mcg/actuation mist 1 puff INHALATION BID docusate sodium 100 mg Capsule 100 mg PO BID PRN (Reason: constipation) Qty: 20 0RF magnesium hydroxide [Dulcolax (magnesium hydroxide)] 400 mg/5 mL suspension 5 ml PO BID PRN (Reason: constipation) Qty: 355 0RF tamsulosin 0.4 mg Capsule 0.8 mg PO DAILY Qty: 60 0RF Referrals: Margie Orozco FNP [Primary Care Provider] - Coding Level of Care Code ED Hat Stock Laminating 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
--- NOTE | 2023-02-12 09:43 | CT_ITS ---
WS: [id number] CT ABDOMEN PELVIS TECHNIQUE: Noncontrast CT of the abdomen and pelvis with coronal and sagittal reformatted images. CLINICAL INFORMATION: Abdominal pain COMPARISON: None. DLP: 457.[address] scans at [facility] use at least one of these dose optimization techniques: automated e xposure control; mA and/or kV adjustment per patient size (includes targeted exams where dose is matc hed to clinical indication); or iterative reconstruction. FINDINGS: Decompressed rectosigmoid with markedly dilated colon is similar to the prior examination. Transition point involving the proximal sigmoid suspicious for obstructing lesion or stricture. As seen on Seri es 3 image 117 with upstream dilatation remainder of the colon. This is seen to better advantage toda y with decompression of the bladder. Colon measures up to 14 cm with air-fluid levels. Cecum is dilat ed and displaced into the pelvis. Small bowel loops are decompressed. Small amount of free fluid in t he pelvis. Mild diffuse body wall anasarca. Small esophageal hiatal hernia. Normal noncontrast liver and spleen. Adrenal glands are normal. Bilat eral renal cortical atrophy with bilateral renal cysts. Paulino catheter. Abdominal aortic aneurysm measuring 4.8 x 4.1 x 9.6 cm AP by transverse by craniocaudal. Small bilateral pleural effusions. Compressive atelectasis in the lung bases. Subsegmental atelectasi s RIGHT lower lobe. Spiculated opacity RIGHT lower lobe measuring 1.2 cm unchanged from previous. CT/CT abdomen pelvis wo con [id number] IMPRESSION: 1. Markedly dilated colon with air-fluid levels similar to previous. Transitio n point in the proximal sigmoid suspicious for an obstructing lesion or strictu re in this location. Sigmoid is decompressed. Recommend further evaluation with sigmoidoscopy. Series 3 image 117, series 5 image 84, and series 6 image 77. S ee Bookmarked images 2. Colon dilated up to 14 cm with air-fluid levels unchanged from previous. Ce cum is displaced into the pelvis. 3. Stable 4.5 cm fusiform infrarenal abdominal aortic aneurysm. 4. Small bilateral pleural effusions with compressive atelectasis in the lung bases. Pleural effusions have increased slightly compared to previous. 5. Spiculated opacity RIGHT lower lobe measuring 1.2 cm is unchanged. 6. Small esophageal hiatal hernia. Notified César L Horstman, DO at 02/12/2023 10:20 AM.
--- NOTE | 2023-02-12 09:43 | XRR_ITS ---
PROCEDURE INFORMATION: Exam: XR Chest Exam date and time: 02/12/2023 9:46 AM Age: 72 years old Clinical indication: Cough and dyspnea; Additional info: Dyspnea/cough TECHNIQUE: Imaging protocol: Radiologic exam of the chest. Views: 1 view. COMPARISON: CR (CHEST, ) 02/05/2023 8:27 PM FINDINGS: Tubes, catheters and devices: NG tube is in the stomach Lungs: Unremarkable. No consolidation. Pleural spaces: Unremarkable. No pleural effusion. No pneumothorax. Heart/Mediastinum: Unremarkable. No cardiomegaly. Bones/joints: Unremarkable. Gastrointestinal tract: Multiple gas-filled bowel loops in the sub diaphragmatic tissues are seen. XR/XR chest 1V portable [id number] IMPRESSION: 1. No acute findings. 2. NG tube is in the stomach obstructed
--- NOTE | 2023-02-12 09:43 | ECG_ITS ---
[facility] Test Date: 2023-02-12 Pat Name: Abisai Hicks Department: Room: Gender: Male Slots Manager: : 1950 Requested By: César Fischer Order Number: [id number] [place] MD: Carson Centeno M.D. Measurements Intervals [place] Rate: 64 P: 50 HI: 157 QRS: 44 QRSD: 101 T: 58 QT: 423 QTc: 439 Interpretive Statements SINUS RHYTHM ANTEROSEPTAL MYOCARDIAL INFARCTION , OF INDETERMINATE AGE [40+ ms Q WAVE IN V1-V4] Compared to ECG 05/10/2019 22:34:13 Sinus tachycardia no longer present Myocardial infarct finding still present Electronically Signed On 02-12-2023 16:43:43 CDT by Carson Centeno M.D. [email or web address] [id number] f
--- NOTE | 2023-02-12 09:46 | ED_ITS ---
HPI - Abdominal Pain General: Chief Complaint: Urogenital-Male Stated Complaint: red urine, abd pain Time Seen by Provider: 02/12/23 09:06 Source: patient Mode of arrival: ambulatory History of Present Illness: 72-year-old male presents emergency room complaining of abdominal distention. He was recently hospitalized at the same there is a concern about a rectosigmoid obstruction however colonoscope were able to decompress him he was treated with NG as well he is not passing any gas. Bowel movements the last couple days. In addition to this he has a history of atrial fibrillation is on Eliquis he has a Paulino in place and has a significant amount of hematuria that is developed over the last few days. He is complaining of abdominal discomfort secondary to the distention. Denies any vomiting. Previous CT consultation and hospital notes reviewed. MD elicited complaint: abdominal pain Pertinent past history: constipation Onset (ago): day(s) Pain Consistency: constant Location: Diffuse Severity: moderate Quality: cramping Relieving factors: bowel movement Associated Symptoms: Reports anorexia, bloating, change in bowel habits, constipation, GI cramping, nausea and poor appetite; Denies belching, change in stool character, chills, coffee ground emesis, diar sruthi, dyspepsia, dysuria, excessive flatus, fever(s), heartburn, hematochezia, hematuria, hematemesis, fecal incontinence, loose stools, melena, syncope and vomiting Review of Systems Const: Reports: fatigue and malaise; Denies: fever(s) or chills ENMT: Denies: throat pain, ear or mastoid pain, nasal discharge or nasal congestion Card: Reports: irregular heart rhythm; Denies: chest pain, palpitations or syncope Resp: Denies: dyspnea, productive cough or non-productive cough GI: Reports: abdominal pain, nausea, constipation, bloating, GI cramping and change in bowel habits; Denies: vomiting, hematemesis, coffee ground emesis, heartburn, diarrhea, belching, excessive flatus, fecal incontinence, change in stool character, hematochezia or melena : Denies: dysuria, urinary frequency, urinary urgency or hematuria Skin/Breast: Denies: rash or pruritus [facility] ED PFSH: Medical History (Updated 02/12/23 @ 14:23 by César Gray DO) Atrial fibrillation CAD (coronary artery disease) COPD (chronic obstructive pulmonary disease) HTN (hypertension) Hx of retinal detachment Ischemic cardiomyopathy Peripheral vascular disease Severe distal aortic disease, aortic aneurysm Pseudo-obstruction of colon Surgical History S/P cataract surgery S/P coronary artery stent placement (~2013) Family History Father CAD (coronary artery disease) Lung disease Family/Other CAD (coronary artery disease) Grandfather CAD (coronary artery disease) Denies family history of Diabetes Clotting disorder Dementia Chronic kidney disease (CKD) Suicide Anesthesia complication Bleeding disorder Cancer Stroke Social History Smoking and tobacco status: current every day smoker cigarettes Alcohol intake: current Alcohol intake frequency: other Substance/Drug Use: never Physical Exam Const: GENERAL APPEARANCE: cooperative and comfortable ORIENTATION/CONSCIOUSNESS: Yes awake, Yes oriented to person, Yes oriented to place and Yes oriented to time HENMT: COMMON NORMALS: normocephalic, atraumatic and hearing grossly normal bilaterally HEAD & SCALP: normocephalic and atraumatic Resp: COMMON NORMALS: normal respiratory effort, No retractions, No use of accessory muscles and clear to auscultation bilaterally AUSCULTATION: clear to auscultation bilaterally Cardio: COMMON NORMALS: regular rate, regular rhythm and No murmurs present (Cardio) RATE: regular rate RHYTHM: regular rhythm GI: INSPECTION: Yes abdominal distension AUSCULTATION: Yes Absent bowel sounds PALPATION: Yes Tenderness to palpation present (GI) and No Guarding due to palpation present (GI) Extremity: COMMON NORMALS: normal to inspection, capillary refill normal, no clubbing, cyanosis or edema, no calf tenderness and no pedal edema Neuro: SENSORIUM/ORIENTATION: Yes oriented to person, Yes oriented to place and Yes oriented to time Skin: COMMON NORMALS: no rashes or lesions noted GENERAL SKIN EXAM: no rashes or lesions noted Course Vital Signs: Vital signs: Vital Signs Temperature 98.2 F 02/12/23 09:07 Pulse Rate 91 02/12/23 09:07 Respiratory Rate 18 02/12/23 10:22 Pulse Oximetry 95 02/12/23 10:22 Oxygen Delivery Me thod Room Air 06/05/23 09:07 MDM - Abdominal Pain Medical Decision Making Proximal sigmoid transition point on the CT. The previous hospitalization endoscopy did not show any stricture or obstruction there. However based on exam findings today CT he does manifest significant obstructive signs. Will consult surgery admit to hospitalist service to [facility] floor NG placed we will keep n.p.o. Medical Records I reviewed the patient's medical records. Lab Data I reviewed the patient's lab results. 02/12/23 10:18 02/12/23 10:18 Labs/Radiology: Radiology Impressions Abdomen/Pelvis CT 02/12/23 09:43 IMPRESSION: 1. Markedly dilated colon with air-fluid levels similar to previous. Transition point in the proximal sigmoid suspicious for an obstructing lesion or stricture in this location. Sigmoid is decompressed. Recommend further evaluation with sigmoidoscopy. Series 3 image 117, series 5 image 84, and series 6 image 77. See Bookmarked images 2. Colon dilated up to 14 cm with air-fluid levels unchanged from previous. Cecum is displaced into the pelvis. 3. Stable 4.5 cm fusiform infrarenal abdominal aortic aneurysm. 4. Small bilateral pleural effusions with compressive atelectasis in the lung bases. Pleural effusions have increased slightly compared to previous. 5. Spiculated opacity RIGHT lower lobe measuring 1.2 cm is unchanged. 6. Small esophageal hiatal hernia. Notified César Gray DO at 02/12/2023 10:20 AM. Chest X-Ray 02/12/23 09:43 IMPRESSION: 1. No acute findings. 2. NG tube is in the stomach obstructed ADDENDUM: 02/12/23 1105 Impression: 1. Negative for acute abnormality. 2. Gas-filled bowel loops in the abdomen. Abdomen X-Ray 02/12/23 12:33 IMPRESSION: 1. Multiple dilated bowel loops corresponding to severe ileus 2. NG tube is in the stomach Laboratory Results WBC 8.6 10^3/uL (4.0-10.0) 02/12/23 10:18 RBC 3.77 10^6/uL (4.1-5.3) L 02/12/23 10:18 Hgb 11.1 g/dL (11.7-16.6) L 02/12/23 10:18 Hct 36.3 % (42.0-52.0) L 02/12/23 10:18 MCV 96.3 fl (80-94) H 02/12/23 10:18 MCH 29.4 pg (28.0-34.0) 02/12/23 10:18 MCHC 30.6 g/dL (30.0-36.0) 02/12/23 10:18 RDW 14.7 % (12.1-15.1) 02/12/23 10:18 Plt Count 387 10^3/cmm (130-400) 02/12/23 10:18 MPV 8.8 fL (7.4-10.4) 02/12/23 10:18 Neut % (Auto) 80.6 % 02/12/23 10:18 Lymph % (Auto) 9.4 % 02/12/23 10:18 Bailey % (Auto) 5.8 % 02/12/23 10:18 Eos % (Auto) 2.7 % 02/12/23 10:18 Baso % (Auto) 0.9 % 02/12/23 10:18 Neut # (Auto) 6.89 10^3/uL (1.8-7.7) 02/12/23 10:18 Lymph # (Auto) 0.8 10^3/uL (0.8-4.8) 02/12/23 10:18 Bailey # (Auto) 0.5 10^3/uL (0.2-0.9) 02/12/23 10:18 Eos # (Auto) 0.2 10^3/uL (0.0-0.8) 02/12/23 10:18 Baso # (Auto) 0.1 10^3/uL (0.0-0.1) 02/12/23 10:18 Nucleated RBC % (auto) 0 % 02/12/23 10:18 Nucleated RBCs # 0.0 /100WBC 02/12/23 10:18 Sodium 139 mmol/L (136-145) 02/12/23 10:18 Potassium 2.9 mmol/L (3.5-5.1) L 02/12/23 10:18 Chloride 102 mmol/L (98-107) 02/12/23 10:18 Carbon Dioxide 26 mmol/L (22-29) 02/12/23 10:18 Anion Gap 13.9 (5-19) 02/12/23 10:18 BUN 9 mg/dL (8-23) 02/12/23 10:18 Creatinine 0.8 mg/dL (0.7-1.2) 02/12/23 10:18 GFR Calculation Not Reportable 02/12/23 10:18 Glucose 99 mg/dL (65-115) 02/12/23 10:18 Calculated Osmolality 287 mOsm/kg (285-295) 02/12/23 10:18 Lactic Acid 1.2 mmol/L (0.5-2.2) 02/12/23 10:18 Calcium 9.0 mg/dL (8.5-10.5) 02/12/23 10:18 Magnesium 2.0 mg/dL (1.7-2.3) 02/12/23 10:18 Total Bilirubin 0.6 mg/dL (0.15-1.2) 02/12/23 10:18 AST 11 U/L (0-40) 02/12/23 10:18 ALT 8 U/L (0-41) 02/12/23 10:18 Alkaline Phosphatase 90 U/L (40-130) 02/12/23 10:18 Total Protein 6.6 g/dL (6.6-8.7) 02/12/23 10:18 Albumin 3.4 g/dL (3.5-5.2) L 02/12/23 10:18 Globulin 3.2 g/dL (1.3-4.6) 02/12/23 10:18 Lipase 16 U/L (13-60) 02/12/23 10:18 Discharge Plan Discharge Patient Disposition: Admitted As Inpatient Admit Provider: Gallo Myers Clinical Impression: Bowel obstruction, Bladder outlet obstruction, Acute hypokalemia, COPD (chronic obstructive pulmonary disease) Condition: Stable Coding Level of Care Code ED Tile Mason for Benito Nugent
[2023-02-12] MEDS: ondansetron 2 mg/ML SDV 2 mL 4 MG IVP (10:22)
[2023-02-12] MEDS: morphine 4 mg/mL SDV 1 mL IVP ×2 (10:22→21:58)
[2023-02-12] MEDS: sodium chloride 0.9% 1,000 ML 999 ML IV (10:24)
[2023-02-12 10:37] LABS: Basophils # 0.1 10^3/uL (0.0-0.1); Basophils % 0.9 %; Eosinophils # 0.2 10^3/uL (0.0-0.8); Eosinophils % 2.7 %; Hematocrit 36.3 % (42.0-52.0); Hemoglobin 11.1 g/dL (11.7-16.6); Lymphocytes # 0.8 10^3/uL (0.8-4.8); Lymphocytes % 9.4 %; Mean Corpuscular HGB Conc 30.6 g/dL (30.0-36.0); Mean Corpuscular Hemoglobin 29.4 pg (28.0-34.0); Mean Corpuscular Volume 96.3 fl (80-94); Mean Platelet Volume 8.8 fL (7.4-10.4); Monocytes # 0.5 10^3/uL (0.2-0.9); Monocytes % 5.8 %; Neutrophils # 6.89 10^3/uL (1.8-7.7); Neutrophils % 80.6 %; Nucleated Red Blood Cells % 0 %; Platelet Count 387 10^3/cmm (130-400); Red Blood Count 3.77 10^6/uL (4.1-5.3); Red Cell Distribution Width 14.7 % (12.1-15.1); White Blood Count 8.6 10^3/uL (4.0-10.0)
[2023-02-12 10:52] LABS: Alanine Aminotransferase 8 U/L (0-41); Albumin Level 3.4 g/dL (3.5-5.2); Alkaline Phosphatase 90 U/L (40-130); Anion Gap 13.9 (5-19); Aspartate Amino Transferase 11 U/L (0-40); Blood Urea Nitrogen 9 mg/dL (8-23); Carbon Dioxide 26 mmol/L (22-29); Chloride 102 mmol/L (98-107); Globulin 3.2 g/dL (1.3-4.6); Glucose 99 mg/dL (65-115); Lipase 16 U/L (13-60); Osmolality Calculated 287 mOsm/kg (285-295); Sodium 139 mmol/L (136-145); Total Bilirubin 0.6 mg/dL (0.15-1.2); Total Protein 6.6 g/dL (6.6-8.7)
[2023-02-12 10:53] LABS: Lactic Sepsis W/Reflex 1.2 mmol/L (0.5-2.2)
[2023-02-12 10:55] LABS: Potassium 2.9 mmol/L (3.5-5.1)
[2023-02-12] MEDS: LORazepam 2 mg/mL INJ 1 mL IVP (11:17)
[2023-02-12] MEDS: potassium chloride premix 100 ML 25 MEQ IV (11:23)
--- NOTE | 2023-02-12 12:33 | XRR_ITS ---
PROCEDURE INFORMATION: Exam: XR Abdomen Exam date and time: 02/12/2023 12:39 PM Age: 72 years old Clinical indication: Device placement; Gi device; Nasogastric tube; Additional info: Ng tube placement TECHNIQUE: Imaging protocol: Radiologic exam of the abdomen. Views: Frontal supine view of the abdomen. 1 View. COMPARISON: CT abdomen pelvis con [id number] 02/12/2023 9:49 AM FINDINGS: Gastrointestinal tract: Multiple dilated air-filled bowel loops seen throughout the abdomen. These findings were seen on CT examination and appears similar. Finding seen suggest a probable severe ileus. No definite bowel obstruction is seen. Bones/joints: Unremarkable. NG tube is in place extending into the stomach. XR/XR abdomen 1V* [id number] IMPRESSION: 1. Multiple dilated bowel loops corresponding to severe ileus 2. NG tube is in the stomach
--- NOTE | 2023-02-12 12:44 | PM.HP ---
Providers/Chief Complaint Admitting Physician: Gallo Myers MD Primary Care Provider: GAMAL Stout Chief Complaint: red urine, abd pain History of Present Illness Abisai Hicks is a 72 year old male who presents to the emergency department via home. He reports increasing abdominal distention over the last 3 days. He was in the hospital for bowel obstruction, and discharged on February 06. At that time he had had a flexible sigmoidoscopy, demonstrating no obvious stricture. He required decompression during sigmoidoscopy at that time. He did receive neostigmine. He denies any fevers, or vomiting. He reports his abdomen has been getting bigger and tighter during the last several days. Today/last night blood was noted in his urinary catheter that had been placed during his last hospital stay, which she was discharged with for urinary retention. He denies any shortness of breath or cough currently. He reports he has some wheezing, which is normal for him. Last bowel movement was yesterday, small. No constipation. In the emergency department he got some potassium, morphine, Ativan, and IV fluids. Review of Systems General: Reports: 10 or more systems reviewed and unremarkable except in HPI and below Const: Denies: fever(s) or chills Card: Denies: chest pain Resp: Reports: wheezing; Denies: dyspnea GI: Reports: abdominal pain and bloating; Denies: nausea or vomiting Medications/Allergies Home Medications Medication Instructions Recorded Confirmed Last Taken Type apixaban 5 mg tablet (Eliquis) 5 mg PO BID 01/15/20 02/12/23 02/12/23 History atorvastatin 20 mg tablet 20 mg PO QPM 01/15/20 02/12/23 02/11/23 History amiodarone 200 mg tablet 200 mg PO DAILY 08/08/21 02/12/23 02/12/23 History budesonide-formoterol HFA 160 2 puff inhalation Q12H 04/07/22 02/12/23 02/12/23 History mcg-4.5 mcg/actuation aerosol inhaler (Symbicort) albuterol sulfate 90 mcg/actuation 2 puff inhalation Q6H PRN 01/23/23 02/12/23 01/22/23 History aerosol inhaler Shortness Of Breath Or Wheezing aspirin 81 mg tablet,delayed 81 mg PO QPM 01/23/23 02/12/23 02/11/23 History release ipratropium 0.5 mg-albuterol 3 mg 3 ml inhalation Q6H PRN Shortness 01/23/23 02/12/23 Unknown History (2.5 mg base)/3 mL nebulization Of Breath Or Wheezing soln ipratropium 20 mcg-albuterol 100 1 puff inhalation BID 01/23/23 02/12/23 02/12/23 History mcg/actuation mist for inhalation (Combivent Respimat) tamsulosin 0.4 mg capsule 0.8 mg PO DAILY #60 caps 01/24/23 02/12/23 02/12/23 Rx potassium chloride 20 mEq 40 meq PO BID 02/04/23 02/12/23 02/12/23 History tablet,extended release sertraline 50 mg tablet 50 mg PO DAILY 02/04/23 02/12/23 02/12/23 History spironolactone 25 mg tablet 25 mg PO DAILY 02/04/23 02/12/23 02/12/23 History Allergies Allergy/AdvReac Type Severity Reaction Status Date / Time iodine Allergy Unknown Verified 02/12/23 10:43 PFSH Acute PFSH: Medical History (Updated 02/12/23 @ 12:54 by Gallo Myers MD) Atrial fibrillation CAD (coronary artery disease) COPD (chronic obstructive pulmonary disease) HTN (hypertension) Hx of retinal detachment Ischemic cardiomyopathy Peripheral vascular disease Severe distal aortic disease, aortic aneurysm Surgical History S/P cataract surgery S/P coronary artery stent placement (~2013) Family History Father CAD (coronary artery disease) Lung disease Family/Other CAD (coronary artery disease) Grandfather CAD (coronary artery disease) Denies family history of Diabetes Clotting disorder Dementia Chronic kidney disease (CKD) Suicide Anesthesia complication Bleeding disorder Cancer Stroke Social History Smoking and tobacco status: current every day smoker cigarettes Alcohol intake: current Alcohol intake frequency: other Substance/Drug Use: never Vitals/I&O/Wt Last Vital Signs Temp 98.2 F 02/12/23 09:07 Pulse 91 02/12/23 09:07 Resp 18 02/12/23 10:22 Pulse Ox 95 02/12/23 10:22 O2 Del Method Room Air 02/12/23 09:07 02/11/23 02/12/23 02/12/23 22:59 06:59 14:59 Intake Total 1000 / 1000 Balance 1000 / 1000 Weight last 48 hrs Weight 67.132 kg Physical Exam Narrative: General exam is a white male, reporting abdominal fullness, he denies any chest pain or shortness of breath HEENT: Atraumatic and normocephalic. Oropharynx is clear Neck is supple no lymphadenopathy thyromegaly Cardiovascular regular rate and rhythm without murmur, heart sounds distant Lungs a few bibasilar wheezes. No crackles Abdomen is distended, tympanic. A few bowel sounds are heard. No obvious organomegaly exam demonstrates Paulino, with pinkish urine Extremities trace edema bilaterally. No cyanosis or clubbing Skin no rash Neuro no focal deficits Data 02/12/23 10:18 02/12/23 10:18 Other Labs: Liver function tests are normal Albumin 3.4 Calcium normal at 9.0 Lipase 16 Chest x-ray by my read no infiltrate Abdominal pelvis CT demonstrates Paulino, dilated large bowel, small effusions, spiculated opacity right lower lobe, seen previously Previous echo recently done poor quality EKG interpreted by me demonstrates normal sinus rhythm, normal axis, Q waves anteriorly A&P Assessment and plan (1) Bowel obstruction: Patient presents with symptoms of recurrent bowel obstruction. Last hospitalization he did receive a sigmoidoscopy, and it appears he was treated for Ginna's Continue hydration NG to low intermittent suction Surgery consultation Check magnesium level CBC and BMP tomorrow N.p.o. except medicines TSH was checked last hospitalization and normal (2) Bladder outlet obstruction: Continue Paulino Continue Flomax He is currently having significant hematuria Check urinalysis Discontinue Eliquis Monitor output closely to make sure no obstruction occurs from clot formation Urology consultation if urine does not clear off Eliquis CBC tomorrow (3) Hypokalemia: Supplemented in the ER Recheck BMP and CBC tomorrow Check magnesium level (4) COPD (chronic obstructive pulmonary disease): No evidence of exacerbation currently DuoNeb every 6 hours Budesonide twice daily Encourage not to smoke (5) Atrial fibrillation: Continue amiodarone Discontinue Eliquis secondary to hematuria Telemetry Plan Multiple other medical problems as outlined in past medical history Full code Heparin for DVT prophylaxis Attestations Medical Necessity Statement*: Will need greater than 2 midnight stay for evaluation and treatment of colonic dilation/obstruction and hematuria Diagnoses Bowel obstruction K56.609 Bladder outlet obstruction N32.0 Hypokalemia E87.6 COPD (chronic obstructive pulmonary disease) J44.9 Atrial fibrillation I48.91 Time Spent (min) 46
--- NOTE | 2023-02-12 12:54 | P.CONIM_ITS ---
Providers/Reason For Consult Consulting Physician/Specialty*: Lizzie Almonte MD General Surgery Reason for Consult*: Colonic pseudoobstruction Requesting Physician: César Gray DO Attending Physician: Gallo Myers MD Primary Care Provider: GAMAL Stout History of Present Illness History of Present Illness Abisai Hicks is a 72 year old male who presents with recurrent abdominal distention and pain. He was discharged last week after admission for same. At that time, sigmoidoscopy was done, demonstrating no mechanical obstruction. He responded to neostigmine. He has a appointment to follow up with Dr. Reinoso tomorrow. He began having increasing distention again 2 days ago. He continues to pass flatus. He did have a small bowel movement today. Review of Systems Const: Reports: chills; Denies: fever(s) Card: Denies: chest pain Resp: Denies: dyspnea GI: Reports: abdominal pain and bloating; Denies: nausea or vomiting Medications/Allergies Home Medications Medication Instructions Recorded Confirmed Last Taken Type apixaban 5 mg tablet (Eliquis) 5 mg PO BID 01/15/20 02/12/23 02/12/23 History atorvastatin 20 mg tablet 20 mg PO QPM 01/15/20 02/12/23 02/11/23 History amiodarone 200 mg tablet 200 mg PO DAILY 08/08/21 02/12/23 02/12/23 History budesonide-formoterol HFA 160 2 puff inhalation Q12H 04/07/22 02/12/23 02/12/23 History mcg-4.5 mcg/actuation aerosol inhaler (Symbicort) albuterol sulfate 90 mcg/actuation 2 puff inhalation Q6H PRN 01/23/23 02/12/23 01/22/23 History aerosol inhaler Shortness Of Breath Or Wheezing aspirin 81 mg tablet,delayed 81 mg PO QPM 01/23/23 02/12/23 02/11/23 History release ipratropium 0.5 mg-albuterol 3 mg 3 ml inhalation Q6H PRN Shortness 01/23/23 02/12/23 Unknown History (2.5 mg base)/3 mL nebulization Of Breath Or Wheezing soln ipratropium 20 mcg-albuterol 100 1 puff inhalation BID 01/23/23 02/12/23 02/12/23 History mcg/actuation mist for inhalation (Combivent Respimat) tamsulosin 0.4 mg capsule 0.8 mg PO DAILY #60 caps 01/24/23 02/12/23 02/12/23 Rx potassium chloride 20 mEq 40 meq PO BID 02/04/23 02/12/23 02/12/23 History tablet,extended release sertraline 50 mg tablet 50 mg PO DAILY 02/04/23 02/12/23 02/12/23 History spironolactone 25 mg tablet 25 mg PO DAILY 02/04/23 02/12/23 02/12/23 History Allergies Allergy/AdvReac Type Severity Reaction Status Date / Time iodine Allergy Unknown Verified 02/12/23 10:43 Current Medications Generic Name Dose Route Start Last Admin Trade Name Freq PRN Reason Stop Dose Admin Potassium Chloride 100 mls @ 25 mls/hr 02/12/23 11:02 02/12/23 11:23 K-Jarrett IV 02/12/23 15:01 25 mls/hr ONCE ONE Administration PFSH Acute PFSH: Medical History (Updated 02/12/23 @ 13:03 by Lizzie Almonte MD) Atrial fibrillation CAD (coronary artery disease) COPD (chronic obstructive pulmonary disease) HTN (hypertension) Hx of retinal detachment Ischemic cardiomyopathy Peripheral vascular disease Severe distal aortic disease, aortic aneurysm Pseudo-obstruction of colon Surgical History S/P cataract surgery S/P coronary artery stent placement (~2013) Family History Father CAD (coronary artery disease) Lung disease Family/Other CAD (coronary artery disease) Grandfather CAD (coronary artery disease) Denies family history of Diabetes Clotting disorder Dementia Chronic kidney disease (CKD) Suicide Anesthesia complication Bleeding disorder Cancer Stroke Social History Smoking and tobacco status: current every day smoker cigarettes Alcohol intake: current Alcohol intake frequency: other Substance/Drug Use: never Vitals/I&O/Wt Last Vital Signs Temp 98.2 F 02/12/23 09:07 Pulse 91 02/12/23 09:07 Resp 18 02/12/23 10:22 Pulse Ox 95 02/12/23 10:22 O2 Del Method Room Air 02/12/23 09:07 02/11/23 02/12/23 02/12/23 22:59 06:59 14:59 Intake Total 1000 / 1000 Balance 1000 / 1000 Weight last 48 hrs Weight 148 lb Physical Exam Const: COMMON NORMALS: no acute distress ORIENTATION/CONSCIOUSNESS: Yes Other orientation findings (somnolent, arouses easily to voice) HENMT: COMMON NORMALS: normocephalic and atraumatic HEAD & SCALP: normocephalic and atraumatic Eye: COMMON NORMALS: no scleral icterus Resp: COMMON NORMALS: normal respiratory effort and clear to auscultation b ilaterally AUSCULTATION: clear to auscultation bilaterally Cardio: COMMON NORMALS: regular rate and regular rhythm RATE: regular rate RHYTHM: regular rhythm GI: INSPECTION: Yes abdominal distension AUSCULTATION: Yes Other GI auscultation findings (rare bowel sounds) PALPATION: Yes Firmness to palpation present (GI), Yes Tenderness to palpation present (GI) (mild nonfocal tenderness without peritoneal signs), No Guarding due to palpation present (GI), No Rigid due to palpation and No Rebound tenderness present PERCUSSION: tym panic to percussion Extremity: COMMON NORMALS: no clubbing, cyanosis or edema Psych: COMMON NORMALS: mental status grossly normal, normal affect and speech normal SPEECH: Yes normal speech Skin: COMMON NORMALS: turgor normal and no jaundice GENERAL SKIN EXAM: turgor normal Data 02/12/23 10:18 02/12/23 10:18 CT Abd/Pel: Radiologist's impression: Radiology Impressions Abdomen/Pelvis CT 02/12/23 09:43 IMPRESSION: 1. Markedly dilated colon with air-fluid levels similar to previous. Transition point in the proximal sigmoid suspicious for an obstructing lesion or stricture in this location. Sigmoid is decompressed. Recommend further evaluation with sigmoidoscopy. Series 3 image 117, series 5 image 84, and series 6 image 77. See Bookmarked images 2. Colon dilated up to 14 cm with air-fluid levels unchanged from previous. Cecum is displaced into the pelvis. 3. Stable 4.5 cm fusiform infrarenal abdominal aortic aneurysm. 4. Small bilateral pleural effusions with compressive atelectasis in the lung bases. Pleural effusions have increased slightly compared to previous. 5. Spiculated opacity RIGHT lower lobe measuring 1.2 cm is unchanged. 6. Small esophageal hiatal hernia. Notified César Gray DO at 02/12/2023 10:20 AM. Chest X-Ray 02/12/23 09:43 IMPRESSION: 1. No acute findings. 2. NG tube is in the stomach obstructed ADDENDUM: 02/12/23 1105 Impression: 1. Negative for acute abnormality. 2. Gas-filled bowel loops in the abdomen. A&P Assessment and plan (1) Pseudo-obstruction of colon: Mechanical obstruction ruled out last admission via sigmoidoscopy. Patient may need colectomy due to atonic colon. Recommend retreating with neostigmine. Dr. Reinoso will follow patient for definitive surgical care. Coding Level of Care Code Acute Code for Chg Fwd Diagnoses Pseudo-obstruction of colon K59.81
[2023-02-12 18:01] LABS: Urine Appearance Cloudy (CLEAR); Urine Color Brown (Yellow); pH Urine 5 (5-7)
[2023-02-12 18:02] LABS: Add Urine Culture? Yes; Bacteria Urine 1+ /hpf; Bilirubin Urine Neg (Negative); Blood Urine 3+ (Negative); Glucose Urine UA Norm (Normal); Ketones Urine 1+ (Negative); Leukocyte Esterase Urine Trace (Negative); Nitrate Urine Negative (Negative); Protein Urine 3+ (Negative); RBC Urine TOO NUMEROUS TO CNT /hpf (0-2); Specific Gravity, Urine 1.025 (1.005-1.030); Transitional Epi Cells Urine 0-4 /hpf; Urobilinogen Urine Norm (Negative)
[2023-02-12] MEDS: D5-NS 0.45% + KCL 20 mEq 20 MEQ/1,000 ML BAG 100 MEQ IV (18:27)
[2023-02-12] MEDS: pantoprazole 40 mg SDV IVP (18:28)
[2023-02-12] MEDS: ipratropium-albuterol 3 mL Neb INHALATION (19:30)
[2023-02-12] MEDS: budesonide 0.5 mg/2 mL Neb INHALATION (19:30)
[2023-02-12] MEDS: heparin 5,000 unit/mL INJ 1 mL 5000 UNIT SUBCUT (20:43)
[2023-02-13] VITALS (16 sets, daily range): BP systolic 108–126; BP diastolic 64–75; PULSE 58–81; RESP 15–19; TEMP 36.4–36.7; O2SAT 88–98
[2023-02-13] MEDS: ipratropium-albuterol 3 mL Neb INHALATION ×4 (02:46→20:46)
[2023-02-13 04:46] LABS: Basophils # 0.1 10^3/uL (0.0-0.1); Basophils % 0.7 %; Eosinophils # 0.3 10^3/uL (0.0-0.8); Eosinophils % 4.3 %; Hematocrit 32.1 % (42.0-52.0); Hemoglobin 9.3 g/dL (11.7-16.6); Lymphocytes # 0.9 10^3/uL (0.8-4.8); Mean Corpuscular Hemoglobin 28.6 pg (28.0-34.0); Mean Corpuscular Volume 98.8 fl (80-94); Mean Platelet Volume 8.8 fL (7.4-10.4); Monocytes # 0.7 10^3/uL (0.2-0.9); Monocytes % 9.7 %; Neutrophils # 5.18 10^3/uL (1.8-7.7); Neutrophils % 71.7 %; Nucleated Red Blood Cells % 0 %; Platelet Count 348 10^3/cmm (130-400); Red Blood Count 3.25 10^6/uL (4.1-5.3); Red Cell Distribution Width 14.7 % (12.1-15.1); White Blood Count 7.2 10^3/uL (4.0-10.0)
[2023-02-13 05:05] LABS: Alanine Aminotransferase 7 U/L (0-41); Alkaline Phosphatase 78 U/L (40-130); Anion Gap 11.2 (5-19); Aspartate Amino Transferase 10 U/L (0-40); Blood Urea Nitrogen 9 mg/dL (8-23); Calcium 8.4 mg/dL (8.5-10.5); Carbon Dioxide 26 mmol/L (22-29); Chloride 107 mmol/L (98-107); Globulin 2.7 g/dL (1.3-4.6); Glucose 88 mg/dL (65-115); Osmolality Calculated 290 mOsm/kg (285-295); Potassium 3.2 mmol/L (3.5-5.1); Sodium 141 mmol/L (136-145); Total Bilirubin 0.5 mg/dL (0.15-1.2); Total Protein 5.7 g/dL (6.6-8.7)
[2023-02-13] MEDS: D5-NS 0.45% + KCL 20 mEq 20 MEQ/1,000 ML BAG 100 MEQ IV (06:15)
[2023-02-13] MEDS: morphine 4 mg/mL SDV 1 mL IVP ×2 (06:21→10:59)
[2023-02-13] MEDS: budesonide 0.5 mg/2 mL Neb INHALATION ×2 (08:19→20:46)
--- NOTE | 2023-02-13 09:46 | XRR_ITS ---
PROCEDURE INFORMATION: Exam: XR Abdomen Exam date and time: 02/13/2023 8:59 AM Age: 72 years old Clinical indication: Bloating; Additional info: Distention TECHNIQUE: Imaging protocol: Radiologic exam of the abdomen. Views: Frontal supine view of the abdomen. 1 View. COMPARISON: CR XR abdomen 1V* [id number] 02/12/2023 12:39 PM FINDINGS: Tubes, catheters and devices: Dobbhoff tube is seen with tip overlying the right upper abdominal region, in the area of the gastric antrum. Similar position of the tip of the tube was seen on the prior exam. Gastrointestinal tract: Unchanged severely gas distended loops of bowel are seen in the abdomen. This correlated with dilated colonic loops on the prior CT. Bones/joints: No acute osseous abnormality seen. Soft tissues: Multiple phleboliths are seen in the pelvis. XR/XR abdomen 1V* [id number] IMPRESSION: 1. Dobbhoff tube, as noted above. 2. Unchanged severely gas distended loops of bowel in the abdomen, as noted above.
[2023-02-13] MEDS: lidocaine 1% 5 ML in potassium chloride premix 100 ML 26.25 ML IV (10:01)
[2023-02-13] MEDS: heparin 5,000 unit/mL INJ 1 mL 5000 UNIT SUBCUT ×2 (10:02→20:54)
[2023-02-13] MEDS: tamsulosin 0.4 mg Capsule 0.8 MG PO (10:02)
[2023-02-13] MEDS: amiodarone 200 mg Tablet PO (10:03)
[2023-02-13] MEDS: sertraline 50 mg Tablet PO (10:03)
--- NOTE | 2023-02-13 10:30 | PC.CHAP ---
Pastoral Care Encounter/Spiritual Assessment Type of Contact [] Declined manager image visit [] Patient/Family/Request visit [] Outpatient visit [] Follow-up visit [] Physician referral [] Code/Alert [x] Routine visit [] Staff referral [] Actively dying [] Patient sleeping [] Family support [] [] Out of room [] Palliative care [] [] Receiving care in room [] Pre-surgical visit [] Trauma [] Long length of stay [] ICU visit [] Other: Relational/Emotional Strength [x] Patient feels connected with others/family/visitors/staff [] Distress [] Loneliness/isolation [] Abandonment Spirituality of Patient [x] Person of [place] [] Attends Sikh of their [place] [x] Believes in Prayer [] Reads Bible or Denominational materials [] There are Spiritual issues to be addressed Riding Double Interventions [x] Prayer [x] Active listening [] Non-anxious presence [x] Spiritual/emotional support [] Crisis/trauma care [] Spiritual counseling [] Bereavement support [] Provided bereavement packet [] Provided Bible/devotional materials [] Provided toy/stuffed animal, coloring book to patient or family member [] Provided Communion [] Anointing/[place] [] Salvation [x] Completed spiritual assessment [] Other: Impact on Illness or Injury [] Angry [] Fearful [] Anxious [] Often cries [] Exhaustion [] Unable to work [] Unable to attend yazdanism [] Unable to walk/stand [] Unable to read [] Unable to drive [] Unable to eat/drink [] Unable to sleep [] Unable to be with family [] Patient intubated [] Other: Summary Time spent with patient 5 min
--- NOTE | 2023-02-13 11:40 | P.PN_ITS ---
Subjective Subjective: Abisai did not have a bowel movement yesterday. He feels more distended. He has more pain than yesterday. Abdominal film is overall improved. Medications: Reviewed: Yes Vitals/I&O/Wt Last Vital Signs Temp 97.7 F 02/13/23 08:00 Pulse 81 02/13/23 08:00 Resp 19 H 02/13/23 10:59 BP 121/65 02/13/23 08:00 Pulse Ox 94 02/13/23 10:59 O2 Del Method Nasal Cannula 02/13/23 08:00 O2 Flow Rate 2 02/13/23 08:00 02/12/23 02/13/23 02/13/23 22:59 06:59 14:59 Intake Total 100 / 1100 1000 / 2100 Output Total 515 / 515 Balance 100 / 1100 485 / 1585 Weight last 48 hrs Weight 67.132 kg Physical Exam Narrative: General exam is a white male, with markedly distended abdomen Neck is supple no lymphadenopathy thyromegaly Cardiovascular regular rate and rhythm without murmur, heart sounds distant Lungs a few bibasilar wheezes. No crackles Abdomen is distended, tympanic. A few bowel sounds are heard. No obvious organomegaly exam demonstrates Paulino, urine color have substantially cleared Extremities trace edema bilaterally. No cyanosis or clubbing Data 02/13/23 04:09 02/13/23 04:09 A&P Assessment and plan (1) Bowel obstruction: Patient presents with symptoms of recurrent bowel obstruction. He has not yet improved Last hospitalization he did receive a sigmoidoscopy, and it appears he was treated for [place]'s Continue hydration. Increase rate slightly NG to low intermittent suction. He is not having much output Surgery consultation appreciated Magnesium level was normal CBC and BMP tomorrow N.p.o. except medicines TSH was checked last hospitalization and normal (2) Bladder outlet obstruction: Continue Paulino Continue Flomax Hematuria is clearing. No evidence of infection. Continue to hold Eliquis No evidence of Paulino obstruction CBC tomorrow (3) Hypokalemia: Supplement again Repeat level in the morning (4) COPD (chronic obstructive pulmonary disease): No evidence of exacerbation currently DuoNeb every 6 hours Budesonide twice daily Encourage not to smoke (5) Atrial fibrillation: Continue amiodarone Discontinue Eliquis secondary to hematuria Telemetry Plan Multiple other medical problems as outlined in past medical history Full code SCDs for DVT prophylaxis. Heparin for DVT prophylaxis. Urine clearing. Discussed with surgery consulted Attestations Medical Necessity Statement*: Needs continued hospitalization for treatment of significant bowel dilation with symptoms of colonic obstruction/pseudoobstruction. Diagnoses Bowel obstruction K56.609 Bladder outlet obstruction N32.0 Hypokalemia E87.6 COPD (chronic obstructive pulmonary disease) J44.9 Atrial fibrillation I48.91 Time Spent (min) 28
--- NOTE | 2023-02-13 14:34 | PC.NUTR ---
PPN consult received. Recommend PPN beginning @ 12 mls/hr and increasing 10 mls/hr Q8H until goal rate of 42 mls/hr is reached- to include MV 10 mls/day, standard electrolytes and fat emulsion 25 grams/[address] assessment.
[2023-02-13] MEDS: HYDROmorphone 1 mg/mL INJ 1 mL IVP ×3 (14:38→20:45)
[2023-02-13] MEDS: D5-NS 0.45% + KCL 20 mEq 20 MEQ/1,000 ML BAG 78 MEQ IV (16:46)
[2023-02-13] MEDS: pantoprazole 40 mg SDV IVP (17:44)
[2023-02-14] VITALS (24 sets, daily range): BP systolic 100–153; BP diastolic 58–84; PULSE 60–77; RESP 12–22; TEMP 36.2–37.6; O2SAT 87–99
[2023-02-14] MEDS: HYDROmorphone 1 mg/mL INJ 1 mL IVP ×3 (00:05→06:22)
[2023-02-14] MEDS: ipratropium-albuterol 3 mL Neb INHALATION ×3 (01:09→20:12)
[2023-02-14 04:30] LABS: Basophils % 0.4 %; Eosinophils # 0.3 10^3/uL (0.0-0.8); Eosinophils % 2.8 %; Hematocrit 32.8 % (42.0-52.0); Hemoglobin 9.8 g/dL (11.7-16.6); Lymphocytes # 0.8 10^3/uL (0.8-4.8); Lymphocytes % 7.8 %; Mean Corpuscular HGB Conc 29.9 g/dL (30.0-36.0); Mean Corpuscular Hemoglobin 30.1 pg (28.0-34.0); Mean Corpuscular Volume 100.6 fl (80-94); Mean Platelet Volume 8.9 fL (7.4-10.4); Monocytes # 0.7 10^3/uL (0.2-0.9); Monocytes % 7.1 %; Neutrophils # 8.44 10^3/uL (1.8-7.7); Neutrophils % 81.3 %; Nucleated Red Blood Cells % 0 %; Platelet Count 393 10^3/cmm (130-400); Red Blood Count 3.26 10^6/uL (4.1-5.3); Red Cell Distribution Width 14.7 % (12.1-15.1); White Blood Count 10.4 10^3/uL (4.0-10.0)
[2023-02-14 04:51] LABS: Alanine Aminotransferase 7 U/L (0-41); Albumin Level 2.9 g/dL (3.5-5.2); Alkaline Phosphatase 83 U/L (40-130); Anion Gap 12.4 (5-19); Aspartate Amino Transferase 11 U/L (0-40); Blood Urea Nitrogen 7 mg/dL (8-23); Calcium 8.5 mg/dL (8.5-10.5); Carbon Dioxide 24 mmol/L (22-29); Chloride 107 mmol/L (98-107); Globulin 3.1 g/dL (1.3-4.6); Glucose 103 mg/dL (65-115); Magnesium 1.9 mg/dL (1.7-2.3); Osmolality Calculated 288 mOsm/kg (285-295); Potassium 3.4 mmol/L (3.5-5.1); Sodium 140 mmol/L (136-145); Total Bilirubin 0.6 mg/dL (0.15-1.2)
--- NOTE | 2023-02-14 06:52 | P.ANESUD_ITS ---
Pre-Anesthetic Update Pre-Anesthetic Assessment: Date of Surgery/Procedure: 02/14/23 Preop Nancy gnosis: abdominal distention Proposed Procedure: Operation Date: 02/14/23 07:00 Proposed Procedures p Decompression Colon(Not Applicable) - Michael Reinoso, DO Operation Date: 02/15/23 14:20 Proposed Procedures p Sigmoid Colectomy(Not Applicable) - Michael Reinoso, DO Any changes to Pre-Anesthetic Assessment?: No Last Intake: Intake Last Liquid Date 02/12/23 Last Liquid Time 08:00 Last Solid Date 02/12/23 Last Solid Time 08:00 Labs Last 48hrs: Short CBC 02/12/23 02/13/23 02/14/23 Range/Units 10:18 04:09 03:22 WBC 8.6 7.2 10.4 H (4.0-10.0) 10^3/ uL Hgb 11.1 L 9.3 L 9.8 L (11.7-16.6) g/dL Hct 36.3 L 32.1 L 32.8 L (42.0-52.0) % MCV 96.3 H 98.8 H 100.6 H (80-94) fl Plt Count 387 348 393 (130-400) 10^3/c mm Neut % (Auto) 80.6 71.7 81.3 % Neut # (Auto) 6.89 5.18 8.44 H (1.8-7.7) 10^3/u L BMP 02/12/23 02/13/23 02/14/23 10:18 04:09 03:22 Sodium 139 141 140 Potassium 2.9 L 3.2 L 3.4 L Chloride 102 107 107 Carbon Dioxide 26 26 24 BUN 9 9 7 L Creatinine 0.8 0.9 0.8 Glucose 99 88 103 Calcium 9.0 8.4 L 8.5 Liver Function 02/12/23 02/13/23 02/14/23 Range/Units 10:18 04:09 03:22 Total Bilirubin 0.6 0.5 0.6 (0.15-1.2) mg/dL AST 11 10 11 (0-40) U/L ALT 8 7 7 (0-41) U/L Alkaline Phosphata se 90 78 83 (40-130) U/L Albumin 3.4 L 3.0 L 2.9 L (3.5-5.2) g/dL Urine 02/12/23 Range/Units 14:50 Urine Color Brown (Yellow) Urine Appearance Cloudy A (CLEAR) Urine pH 5 (5-7) Ur Specific Gravit y 1.025 (1.005-1.030) Urine Protein 3+ H (Negative) Urine Glucose (UA) Norm (Normal) Urine Ketones 1+ H (Negative) Urine Nitrate Negative (Negative) Urine Bilirubin Neg (Negative) Ur Leukocyte Yvonne ase Trace H (Negative) Urine RBC Too numerous to c nt H (0-2) /hpf Urine WBC 5-10 H (0-5) /hpf Vitals: Temperature 97.2 F L 02/14/23 06:48 Temperature Source Temporal Artery S can 02/14/23 06:48 Pulse Rate 70 02/14/23 06:48 Pulse Rhythm Regular 02/13/23 20:00 Pulse Strength 3+ Normal 02/13/23 20:00 Respiratory Rate 18 02/14/23 06:48 Respiratory Effort Spontaneous, Non- Labored 02/14/23 03:21 Respiratory Depth Normal 02/14/23 03:21 Respiratory Patter n Normal 02/14/23 03:21 Blood Pressure 149/82 02/14/23 06:48 Blood Pressure Diya n 104 02/14/23 06:48 Blood Pressure Pos ition Semi Fowlers 02/14/23 04:00 Pulse Oximetry 91 02/14/23 06:48 Oxygen Delivery Me thod Room Air 02/14/23 06:48 Oxygen Flow Rate 2 02/14/23 04:00 Exam: Pre-Anes Outpt Exam: alert, oriented x 3, clear to auscultation bilaterally and regular rate & rhythm Cardiac Studies: Echocardiogram 01/23/23
[2023-02-14] MEDS: sodium chloride 0.9% 1,000 ML 30 ML IV (07:00)
--- NOTE | 2023-02-14 07:04 | P.PN_ITS ---
Vitals/I&O/Wt Last Vital Signs Temp 97.2 F L 02/14/23 06:48 Pulse 70 02/14/23 06:48 Resp 18 02/14/23 06:48 BP 149/82 02/14/23 06:48 Pulse Ox 91 02/14/23 06:48 O2 Del Method Room Air 02/14/23 06:48 O2 Flow Rate 2 02/14/23 04:00 02/13/23 02/14/23 02/14/23 22:59 06:59 14:59 Intake Total 1105 / 1105 125 / 1230 Output Total 300 / 300 250 / 550 Balance 805 / 805 -125 / 680 Weight last 48 hrs Weight 148 lb Data 02/14/23 03:22 02/14/23 03:22 A&P Assessment and plan (1) Pseudo-obstruction of colon: Plan Colonoscopy with decompression today, possible exploratory laparotomy with subtotal colectomy and possible ostomy The risks and benefits of the procedure, including bleeding, infection, intest inal perforation requiring surgery, anastomotic leak, damage to surrounding structures, possible ostomy formation, missed lesion were explained to the patient. The patient is understanding of the risks and wishes to proceed. Attestations Medical Necessity Statement*: Per primary Coding Level of Care Code Acute Code for Chg Fwd Diagnoses Pseudo-obstruction of colon K59.81
[2023-02-14] MEDS: D5-NS 0.45% + KCL 20 mEq 20 MEQ/1,000 ML BAG 68 MEQ IV ×2 (11:06→21:03)
[2023-02-14] MEDS: peg /e-lyte soln 4,000 mL Btl 4000 ML PO (11:07)
--- NOTE | 2023-02-14 13:16 | ANE.PACU2 ---
Inpatient post-anesthesia follow up: Airway intact: Yes Vital signs: Temperature 97.7 F Pulse Rate 64 Respiratory Rate 16 Blood Pressure 135/65 Pulse Oximetry 99 Oxygen Delivery Me thod Nasal Cannula Oxygen Flow Rate 4 Fraction of Inspir ed Oxygen Hydration adequate: Yes Nausea and vomiting: Yes Pain level: 1 Mental status: Baseline
--- NOTE | 2023-02-14 14:47 | PM.PN ---
Subjective Subjective: Kaleb underwent decompressive colonoscopy this morning. He reports this helped quite a bit with his abdominal distention and pain. Surgery plans on potential colectomy tomorrow. Family has no other questions or concerns. Medications: Reviewed: Yes Vitals/I&O/Wt Last Vital Signs Temp 98.4 F 02/14/23 11:45 Pulse 71 02/14/23 13:25 Resp 16 02/14/23 13:25 BP 132/70 02/14/23 11:45 Pulse Ox 90 02/14/23 13:25 O2 Del Method Room Air 02/14/23 13:25 O2 Flow Rate 4 02/14/23 10:00 02/13/23 02/14/23 02/14/23 22:59 06:59 14:59 Intake Total 1105 / 1105 125 / 1230 1800 / 1800 Output Total 300 / 300 250 / 550 0 / 0 Balance 805 / 805 -125 / 680 1800 / 1800 Physical Exam Narrative: General exam is a white male, no distress Neck is supple no lymphadenopathy thyromegaly Cardiovascular regular rate and rhythm without murmur, heart sounds distant Lungs a few bibasilar wheezes. No crackles Abdomen is distended, tympanic. A few bowel sounds are heard. No obvious organomegaly. Distention significantly better but still present exam demonstrates Paulino, urine color have substantially cleared Extremities trace edema bilaterally. No cyanosis or clubbing Data 02/14/23 03:22 02/14/23 03:22 Micro: Microbiology 02/12/23 14:50 Urine Culture - Preliminary Urine,Clean Catch Gram Negative Rods A&P Assessment and plan (1) Bowel obstruction: Patient presents with symptoms of recurrent bowel obstruction. He has not yet improved Last hospitalization he did receive a sigmoidoscopy, and it appears he was treated for [place]'s Continue hydration. Continue NG Surgery consultation appreciated. Decompressive colonoscopy performed today Magnesium level was normal CBC and BMP tomorrow N.p.o. except medicines TSH was checked last hospitalization and normal probable surgery tomorrow (2) Bladder outlet obstruction: Continue Paulino Continue Flomax Hematuria is clearing. No evidence of infection. Continue to hold Eliquis No evidence of Paulino obstruction CBC tomorrow (3) Hypokalemia: I ordered IV supplementation today, recheck potassium tomorrow (4) COPD (chronic obstructive pulmonary disease): No evidence of exacerbation currently DuoNeb every 6 hours Budesonide twice daily Encourage not to smoke (5) Atrial fibrillation: Continue amiodarone Discontinue Eliquis secondary to hematuria Telemetry Plan Multiple other medical problems as outlined in past medical history Full code SCDs for DVT prophylaxis. Heparin for DVT prophylaxis. Urine clearing. Discussed with surgery Discussed potential surgery with patient and relative today. Attestations Medical Necessity Statement*: Needs continued hospitalization for definitive treatment of colonic obstruction Diagnoses Bowel obstruction K56.609 Bladder outlet obstruction N32.0 Hypokalemia E87.6 COPD (chronic obstructive pulmonary disease) J44.9 Atrial fibrillation I48.91 Time Spent (min) 24
[2023-02-14] MEDS: pantoprazole 40 mg SDV IVP (18:10)
[2023-02-14] MEDS: budesonide 0.5 mg/2 mL Neb INHALATION (20:12)
[2023-02-14] MEDS: heparin 5,000 unit/mL INJ 1 mL 5000 UNIT SUBCUT (21:02)
[2023-02-15] VITALS (27 sets, daily range): BP systolic 85–146; BP diastolic 43–70; PULSE 59–77; RESP 14–21; TEMP 36.2–37.2; O2SAT 90–100
[2023-02-15] MEDS: ipratropium-albuterol 3 mL Neb INHALATION ×3 (02:15→19:45)
[2023-02-15 04:14] LABS: Basophils % 0.5 %; Eosinophils # 0.3 10^3/uL (0.0-0.8); Eosinophils % 3.4 %; Hematocrit 29.2 % (42.0-52.0); Hemoglobin 8.7 g/dL (11.7-16.6); Lymphocytes # 0.9 10^3/uL (0.8-4.8); Lymphocytes % 11.9 %; Mean Corpuscular HGB Conc 29.8 g/dL (30.0-36.0); Mean Corpuscular Hemoglobin 28.7 pg (28.0-34.0); Mean Corpuscular Volume 96.4 fl (80-94); Monocytes # 0.8 10^3/uL (0.2-0.9); Monocytes % 10.4 %; Neutrophils # 5.55 10^3/uL (1.8-7.7); Neutrophils % 73.4 %; Nucleated Red Blood Cells % 0 %; Platelet Count 282 10^3/cmm (130-400); Red Blood Count 3.03 10^6/uL (4.1-5.3); Red Cell Distribution Width 14.6 % (12.1-15.1); White Blood Count 7.6 10^3/uL (4.0-10.0)
[2023-02-15 04:28] LABS: Anion Gap 11.4 (5-19); Blood Urea Nitrogen 7 mg/dL (8-23); Calcium 7.7 mg/dL (8.5-10.5); Carbon Dioxide 27 mmol/L (22-29); Chloride 104 mmol/L (98-107); Glucose 104 mg/dL (65-115); Magnesium 2.1 mg/dL (1.7-2.3); Osmolality Calculated 286 mOsm/kg (285-295); Potassium 3.4 mmol/L (3.5-5.1); Sodium 139 mmol/L (136-145)
--- NOTE | 2023-02-15 06:06 | XRR_ITS ---
PROCEDURE INFORMATION: Exam: XR Chest Exam date and time: 02/15/2023 5:16 AM Age: 72 years old Clinical indication: Device placement; Ng tube; Prior surgery; Surgery date: 6+ months; Surgery type: Cardiac stents; Additional info: Confirm ng tube placement TECHNIQUE: Imaging protocol: Radiologic exam of the chest. Views: 1 view. COMPARISON: CR XR chest 1V portable [id number] 02/12/2023 9:46 AM FINDINGS: Tubes, catheters and devices: Enteric tube is extending into the stomach but the distal tip is not included in the field of view. Lungs: Coarse reticular interstitial lung changes bilaterally. Pleural spaces: Query small right pleural effusion. Negative for pneumothorax. Heart/Mediastinum: Unremarkable. No cardiomegaly. Bones/joints: Unremarkable. Gastrointestinal tract: Gas-filled dilated bowel in the upper abdomen is nonspecific and incompletely assessed. XR/XR chest 1V portable [id number] IMPRESSION: Feeding type enteric tube is extending into the upper abdomen but is incompletely assessed.
[2023-02-15] MEDS: budesonide 0.5 mg/2 mL Neb INHALATION ×2 (07:40→19:46)
[2023-02-15] MEDS: tamsulosin 0.4 mg Capsule 0.8 MG PO (08:14)
[2023-02-15] MEDS: amiodarone 200 mg Tablet PO (08:15)
[2023-02-15] MEDS: heparin 5,000 unit/mL INJ 1 mL 5000 UNIT SUBCUT ×2 (08:15→22:19)
[2023-02-15] MEDS: sertraline 50 mg Tablet PO (08:15)
[2023-02-15] MEDS: lidocaine 1% 5 ML in potassium chloride premix 100 ML 26.25 ML IV (09:25)
--- NOTE | 2023-02-15 10:05 | PM.OP ---
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 Michael Lawson Anesthesia: General Estimated blood loss (mL): 50 Complications: None apparent Brief History: This is a very pleasant 72-year-old gentleman who has had ongoing problems with Ginna's. This has been unresponsive in the long-term to conservative management. Subtotal colectomy was indicated. The risk and benefits were explained and documented. Procedure: Patient was wheeled operative room placed on the OR table in supine position. The abdomen was inspected prepped and draped in usual sterile fashion. A timeout was performed. All present were in agreement. A 10 blade scalpel was then used to make a midline laparotomy incision. Dissection was carried down with electrocautery down to the fascia. Fascia was opened with electrocautery. Finger was probed into the abdominal cavity and then the entire length of the fascia was opened with electrocautery over my finger. There was extensive dilated colon. Enseal was then used to take down the right white line of [place]. The attachments to the liver were taken down in a similar fashion. Gastrocolic ligament was transected with the Enseal. The splenic flexure was then taken down with the Enseal. The left white line of Toldt was taken down with the Enseal. The sigmoid was freed. The distal sigmoid had an area of necrotic colon. Mesentery was then transected with Enseal. The colic arteries were doubly ligated with Enseal. The distal ileum was then anastomosed to the distal sigmoid and a [id number], functional end-to-end fashion with a HERBERT 100 mm blue load stapler x2. Specimen was passed off as subtotal colectomy. Limbert sutures were then placed with 4-0 Vicryl. Vistaseal was then placed over the anastomosis. Hemostasis was achieved with electrocautery. The abdomen was then closed at the fascia with #1 PDS x2. Skin was closed with fred. Sterile dressing was applied. Patient tolerated procedure well
--- NOTE | 2023-02-15 10:47 | PM.PN ---
Subjective Subjective: Abisai reports he is doing okay. He did have a bowel movement last night with the preparation. Eager to have surgery done. Medications: Reviewed: Yes Vitals/I&O/Wt Last Vital Signs Temp 98.0 F 02/15/23 07:56 Pulse 59 L 02/15/23 07:56 Resp 16 02/15/23 07:56 BP 123/61 02/15/23 07:56 Pulse Ox 97 02/15/23 07:56 O2 Del Method Nasal Cannula 02/15/23 07:56 O2 Flow Rate 2 02/15/23 07:39 02/14/23 02/15/23 02/15/23 22:59 06:59 14:59 Intake Total 676.6 / 2666.0 125 / 125 Output Total 1700 / 1700 2200 / 3900 Balance -1023.4 / 966.0 -2200 / -1234.0 125 / 125 Physical Exam Narrative: General exam is a white male, no distress Neck is supple no lymphadenopathy thyromegaly Cardiovascular regular rate and rhythm without murmur, heart sounds distant Lungs a few bibasilar wheezes. No crackles Abdomen distended but less so than yesterday exam demonstrates Paulino, urine color have substantially cleared Extremities trace edema bilaterally. Data 02/15/23 03:40 02/15/23 03:40 Micro: Microbiology 02/12/23 14:50 Urine Culture - Preliminary Urine,Clean Catch Gram Negative Rods A&P Assessment and plan (1) Bowel obstruction: Patient presents with symptoms of recurrent bowel obstruction. He has not yet improved Last hospitalization he did receive a sigmoidoscopy, and it appears he was treated for Ginna's He appears to be getting a little bit edematous. Discontinue IV fluids Continue NG Surgery consultation appreciated. Decompressive colonoscopy performed yesterday. Surgery planned today Magnesium level was normal CBC and BMP tomorrow N.p.o. except medicines TSH was checked last hospitalization and normal (2) Bladder outlet obstruction: Continue Paulino Continue Flomax Hematuria significantly cleared. No evidence of infection. Continue to hold Eliquis No evidence of Paulino obstruction CBC tomorrow (3) Hypokalemia: Supplement again today, recheck tomorrow (4) COPD (chronic obstructive pulmonary disease): No evidence of exacerbation currently DuoNeb every 6 hours Budesonide twice daily Encourage not to smoke (5) Atrial fibrillation: Continue amiodarone Discontinue Eliquis secondary to hematuria Telemetry Plan Multiple other medical problems as outlined in past medical history Full code SCDs for DVT prophylaxis. Heparin for DVT prophylaxis. Urine clearing. Discussed with surgery Discussed potential surgery with patient and relative today. Attestations Medical Necessity Statement*: Needs continued hospitalization for definitive management with surgery for recurrent bowel obstruction Diagnoses Bowel obstruction K56.609 Bladder outlet obstruction N32.0 Hypokalemia E87.6 COPD (chronic obstructive pulmonary disease) J44.9 Atrial fibrillation I48.91 Time Spent (min) 22
--- NOTE | 2023-02-15 10:48 | PC.CHAP ---
Pastoral Care Encounter/Spiritual Assessment Type of Contact [] Declined ctc operator visit [] Patient/Family/Request visit [] Outpatient visit [] Follow-up visit [] Physician referral [] Code/Alert [x] Routine visit [] Staff referral [] Actively dying [] Patient sleeping [] Family support [] [] Out of room [] Palliative care [] [x] Receiving care in room [x] Pre-surgical visit [] Trauma [] Long length of stay [] ICU visit [] Other: Relational/Emotional Strength [x] Patient feels connected with others/family/visitors/staff [] Distress [] Loneliness/isolation [] Abandonment Spirituality of Patient [x] Person of [place] [] Attends Anglican of their [place] [x] Believes in Prayer [] Reads Bible or Orthodox materials [] There are Spiritual issues to be addressed Assistant County Attorney Interventions [x] Prayer [x] Active listening [x] Non-anxious presence [x] Spiritual/emotional support [] Crisis/trauma care [x] Spiritual counseling [] Bereavement support [] Provided bereavement packet [] Provided Bible/devotional materials [] Provided toy/stuffed animal, coloring book to patient or family member [] Provided Communion [] Anointing/[place] [] Salvation [x ] Completed spiritual assessment [] Other: Impact on Illness or Injury [] Angry [] Fearful [] Anxious [] Often cries [] Exhaustion [] Unable to work [] Unable to attend congregational [] Unable to walk/stand [] Unable to read [] Unable to drive [] Unable to eat/drink [] Unable to sleep [] Unable to be with family [] Patient intubated [] Other: Summary going into surgery on lg well go home at some point Time spent with patient 10 mins
--- NOTE | 2023-02-15 13:34 | PM.PN ---
Vitals/I&O/Wt Last Vital Signs Temp 97.9 F 02/15/23 11:53 Pulse 62 02/15/23 13:15 Resp 14 02/15/23 13:15 BP 129/70 02/15/23 13:15 Pulse Ox 95 02/15/23 13:15 O2 Del Method Room Air 02/15/23 13:15 O2 Flow Rate 2 02/15/23 07:39 02/14/23 02/15/23 02/15/23 22:59 06:59 14:59 Intake Total 676.6 / 2666.0 125 / 125 Output Total 1700 / 1700 2200 / 3900 600 / 600 Balance -1023.4 / 966.0 -2200 / -1234.0 -475 / -475 Data 02/15/23 03:40 02/15/23 03:40 Micro: Microbiology 02/12/23 14:50 Urine Culture - Preliminary Urine,Clean Catch Gram Negative Rods A&P Assessment and plan (1) Pseudo-obstruction of colon: Plan The colon is dilated past the point of functionality at this point. We have given him multiple attempts at decompression with both colonoscopies and neostigmine. Despite success with this he has not regained function of his colon. At this point he needs a subtotal colectomy. Subtotal colectomy The risks and benefits of the procedure, including but not limited to, bleeding, infection, scar, numbness, pain, anastomotic leak, damage to surrounding structures, increased number of daily bowel movements, dehydration, electrolyte abnormalities following surgery, need for an ostomy, were explained to the patient. He is understanding of the risks and wishes to proceed. Attestations Medical Necessity Statement*: Per primary Coding Level of Care Code Acute Code for Chg Fwd Diagnoses Pseudo-obstruction of colon K59.81
[2023-02-15] MEDS: sodium chloride 0.9% 1,000 ML 30 ML IV (13:45)
--- NOTE | 2023-02-15 13:46 | ANES.PREANE2 ---
Pre-Anesthetic Assessment Height/Weight: Height 1.73 m Weight 67.132 kg Temp Pulse Resp BP Pulse Ox O2 Del Method O2 Flow Rate 97.9 F 62 14 129/70 95 Room Air 2 02/15/23 11:53 02/15/23 13:15 02/15/23 13:15 02/15/23 13:15 02/15/23 13:15 02/15/23 13:15 02/15/23 07:39 Preop Diagnosis: abdominal distention Operation Date: 02/14/23 07:00 Proposed Procedures p Decompression Colon(Not Applicable) - Michael Reinoso DO Operation Date: 02/15/23 13:40 Proposed Procedures p Sigmoid Colectomy(Not Applicable) - Michael Reinoso DO Familial anesthetic complications: None Was Beta Judie taken within 24 hours: N/A Was Clonidine taken within 24 hours: N/A Last intake: Intake Last Liquid Date 02/12/23 Last Liquid Time 08:00 Last Solid Date 02/12/23 Last Solid Time 08:00 Social Tobacco and No alcohol Exam alert, oriented x 3, clear to auscultation bilaterally and regular rate & rhythm Airway Mallampati: Class II Dentition: full Pulmonary Chronic Obstructive Pulmonary Disease CV/HEM Atrial Fibrillation, Coronary Artery Disease and Congestive Heart Failure Anesthetic Plan ASA status: 4 Anesthesia: General Risk of > 500 ml blood loss (7ml/kg in children): No Medications/Allergies Home Medications Medication Instructions Recorded Confirmed Last Taken Type apixaban 5 mg tablet (Eliquis) 5 mg PO BID 01/15/20 02/12/23 02/12/23 History atorvastatin 20 mg tablet 20 mg PO QPM 01/15/20 02/12/23 02/11/23 History amiodarone 200 mg tablet 200 mg PO DAILY 08/08/21 02/12/23 02/12/23 History budesonide-formoterol HFA 160 2 puff inhalation Q12H 04/07/22 02/12/23 02/12/23 History mcg-4.5 mcg/actuation aerosol inhaler (Symbicort) albuterol sulfate 90 mcg/actuation 2 puff inhalation Q6H PRN 01/23/23 02/12/23 01/22/23 History aerosol inhaler Shortness Of Breath Or Wheezing aspirin 81 mg tablet,delayed 81 mg PO QPM 01/23/23 02/12/2302/11/23 History release ipratropium 0.5 mg-albuterol 3 mg 3 ml inhalation Q6H PRN Shortness 01/23/23 02/12/23 Unknown History (2.5 mg base)/3 mL nebulization Of Breath Or Wheezing soln ipratropium 20 mcg-albuterol 100 1 puff inhalation BID 01/23/23 02/12/23 02/12/23 History mcg/actuation mist for inhalation (Combivent Respimat) tamsulosin 0.4 mg capsule 0.8 mg PO DAILY #60 caps 01/24/23 02/12/23 02/12/23 Rx potassium chloride 20 mEq 40 meq PO BID 02/04/23 02/12/23 02/12/23 History tablet,extended release sertraline 50 mg tablet 50 mg PO DAILY 02/04/23 02/12/23 02/12/23 History spironolactone 25 mg tablet 25 mg PO DAILY 02/04/23 02/12/23 02/12/23 History Allergies Allergy/AdvReac Type Severity Reaction Status Date / Time iodine Allergy Unknown Verified 02/12/23 10:43 Current Medications Generic Name Dose Route Start Last Admin Trade Name Freq PRN Reason Stop Dose Admin Albuterol/Ipratropium 3 ml 02/12/23 16:15 02/15/23 07:40 Ipratropium-Albuterol 3 Ml Neb INHALATION 3 ml Q6H.RESP MYRA Administration Amiodarone HCl 200 mg 02/13/23 09:00 02/15/23 08:15 Amiodarone 200 Mg Tablet PO 200 mg DAILY MYRA Administration Aspirin 81 mg 02/12/23 18:00 02/14/23 17:58 Aspirin 81 Mg Ec Tablet PO Not Given QPM MYRA Atorvastatin Calcium 20 mg 02/12/23 18:00 02/14/23 17:58 Atorvastatin 40 Mg Tablet PO Not Given QPM MYRA Budesonide 0.5 mg 02/12/23 20:00 02/15/23 07:40 Budesonide 0.5 Mg/2 Ml Neb INHALATION 0.5 mg BID.RESPIRATORY MYRA Administration Heparin Sodium (Porcine) 5,000 unit 02/12/23 21:00 02/15/23 08:15 Heparin 5,000 Unit/Ml Inj 1 Ml SUBCUT 5,000 unit Q12H MYRA Administration Hydromorphone HCl 1 mg 02/13/23 14:03 02/14/23 06:22 Hydromorphone 1 Mg/Ml Inj 1 Ml IVP 1 mg Q3H PRN Administration PAIN Multivitamins 10 ml/ Amino 1,010 mls @ 0 mls/hr 02/13/23 16:00 02/14/23 08:30 Acids/Electrolytes IV 32 mls/hr .Q0M MYRA Infusion Protocol As Directed Fat Emulsion Intravenous 125 mls @ 10.417 mls/hr 02/13/23 16:00 02/15/23 07:36 Intralipid 20% IV Infused Q24H MYRA Infusion Sodium Chloride 1,000 mls @ 30 mls/hr 02/14/23 07:00 02/14/23 09:05 Sodium Chloride 0.9% IV Infused .Q24H MYRA Infusion Pantoprazole Sodium 40 mg 02/12/23 16:30 02/14/23 18:10 Pantoprazole 40 Mg Sdv IVP 40 mg Q24H MYRA Administration Sertraline HCl 50 mg 02/13/23 09:00 02/15/23 08:15 Sertraline 50 Mg Tablet PO 50 mg DAILY MYRA Administration Tamsulosin HCl 0.8 mg 02/13/23 09:00 02/15/23 08:14 Tamsulosin 0.4 Mg Capsule PO 0.8 mg DAILY MYRA Administration PFSH Anesthesia Medical History (Updated 02/12/23 @ 14:23 by César Gray DO) Atrial fibrillation CAD (coronary artery disease) COPD (chronic obstructive pulmonary disease) HTN (hypertension) Hx of retinal detachment Ischemic cardiomyopathy Peripheral vascular disease Severe distal aortic disease, aortic aneurysm Pseudo-obstruction of colon Surgical History S/P cataract surgery S/P coronary artery stent placement (~2013) Family History Father CAD (coronary artery disease) Lung disease Family/Other CAD (coronary artery disease) Grandfather CAD (coronary artery disease) Denies family history of Diabetes Clotting disorder Dementia Chronic kidney disease (CKD) Suicide Anesthesia complication Bleeding disorder Cancer Stroke Social History Smoking and tobacco status: current every day smoker cigarettes Alcohol intake: current Alcohol intake frequency: other Substance/Drug Use: never Data Anesthesia 02/15/23 03:40 02/15/23 03:40 Short CBC 02/14/23 02/15/23 Range/Units 03:22 03:40 WBC 10.4 H 7.6 (4.0-10.0) 10^3/uL Hgb 9.8 L 8.7 L (11.7-16.6) g/dL Hct 32.8 L 29.2 L (42.0-52.0) % MCV 100.6 H 96.4 H (80-94) fl Plt Count 393 282 (130-400) 10^3/cmm Neut % (Auto) 81.3 73.4 % Neut # (Auto) 8.44 H 5.55 (1.8-7.7) 10^3/uL BMP 02/14/23 02/15/23 03:22 03:40 Sodium 140 139 Potassium 3.4 L 3.4 L Chloride 107 104 Carbon Dioxide 24 27 BUN 7 L 7 L Creatinine 0.8 0.7 Glucose 103 104 Calcium 8.5 7.7 L Liver Function 02/14/23 Range/Units 03:22 Total Bilirubin 0.6 (0.15-1.2) mg/dL AST 11 (0-40) U/L ALT 7 (0-41) U/L Alkaline Phosphatase 83 (40-130) U/L Albumin 2.9 L (3.5-5.2) g/dL Microbiology 02/12/23 14:50 Urine Culture - Preliminary Urine,Clean Catch Gram Negative Rods Cardiac Studies: Echocardiogram 01/23/23
--- NOTE | 2023-02-15 14:10 | PC.NURSE ---
Upon pre-op evaluation discovered potassium chloride was infusing by piggy back to TPN. 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
[2023-02-15] MEDS: ceFOXitin 2,000 MG in sodium chloride 0.9% (plus) 50 ML 100 MG IV (14:21)
[2023-02-15] MEDS: albumin 12.5 GM/250 ML VIAL IV (15:00)
[2023-02-15] MEDS: acetaminophen 1,000 MG/100 ML PIGGYBACK 400 MG IV (15:23)
[2023-02-15] MEDS: tranexamic acid 1,000 mg/10mL SDV 1000 MG IV (16:33)
--- NOTE | 2023-02-15 16:48 | XR_ITS ---
WS: [id number] KUB, AP supine, 02/15/2023 Clinical Data: intra-op Comparison: KUB, 02/13/2023 Findings: No abnormal intraabdominal masses or calcifications are seen. The patient's had abdominal surgery. Th ere is free air which is a result of the surgery. The bowel loops are no longer dilated. Midline surg ical fred are present. The nasogastric tube ends on the right side of the abdomen, possibly in the duodenal bulb.. XR/XR abdomen 1V* [id number] Impression: 1. Large amount of intraperitoneal air as a result of recent surgery. 2. Reduction of dilated bowel.
--- NOTE | 2023-02-15 16:52 | SUR.OPER ---
The colon specimen was put into a specimen bucket. Formalin was put on the specimen. Formalin soaked paper towels were placed on top of the specimen and another specimen container was placed on top. The entire specimen was then placed into a basin. I called the pathologist and got his approval to send the specimen this way.
--- NOTE | 2023-02-15 18:20 | ANE.PACU2 ---
Inpatient post-anesthesia follow up: Airway intact: Yes Vital signs: Temperature 98.1 F Pulse Rate 71 Respiratory Rate 18 Blood Pressure 136/82 Pulse Oximetry 98 Oxygen Delivery Me thod Room Air Oxygen Flow Rate 2 Fraction of Inspir ed Oxygen Hydration adequate: Yes Nausea and vomiting: No Pain level: 1 Mental status: Baseline
[2023-02-15] MEDS: sodium chloride 0.9% 500 ML 999 ML IV (20:00)
--- NOTE | 2023-02-15 20:23 | PC.NURSE ---
Verified with pacu nurse about administration of both units of TXA, to which the nurse replied that she had given both doses but forgot to chart that she had given the second dose.
[2023-02-15 20:24] LABS: Hematocrit 27.9 % (42.0-52.0); Hemoglobin 8.4 g/dL (11.7-16.6)
[2023-02-15] MEDS: HYDROmorphone 1 mg/mL INJ 1 mL IVP (20:46)
[2023-02-15] MEDS: D5-NS 0.45% + KCL 20 mEq 20 MEQ/1,000 ML BAG 48 MEQ IV (21:26)
[2023-02-15] MEDS: piperacillin-tazobactam 3.375 GM in sodium chloride 0.9% (plus) 50 ML IV (21:28)
[2023-02-16] VITALS (21 sets, daily range): BP systolic 106–136; BP diastolic 58–82; PULSE 60–80; RESP 14–20; TEMP 36.6–37; O2SAT 90–98
[2023-02-16] MEDS: ipratropium-albuterol 3 mL Neb INHALATION ×4 (01:40→20:22)
[2023-02-16] MEDS: HYDROmorphone 1 mg/mL INJ 1 mL IVP ×5 (02:12→19:48)
[2023-02-16 05:11] LABS: Basophils % 0.2 %; Hematocrit 28.9 % (42.0-52.0); Hemoglobin 8.7 g/dL (11.7-16.6); Lymphocytes # 0.4 10^3/uL (0.8-4.8); Lymphocytes % 3.4 %; Mean Corpuscular HGB Conc 30.1 g/dL (30.0-36.0); Mean Corpuscular Volume 99.7 fl (80-94); Monocytes # 0.6 10^3/uL (0.2-0.9); Monocytes % 4.6 %; Neutrophils # 11.52 10^3/uL (1.8-7.7); Neutrophils % 91.4 %; Nucleated Red Blood Cells % 0 %; Platelet Count 279 10^3/cmm (130-400); White Blood Count 12.6 10^3/uL (4.0-10.0)
[2023-02-16] MEDS: piperacillin-tazobactam 3.375 GM in sodium chloride 0.9% (plus) 50 ML IV ×2 (05:14→12:55)
[2023-02-16 05:45] LABS: Blood Urea Nitrogen 12 mg/dL (8-23); Calcium 7.7 mg/dL (8.5-10.5); Carbon Dioxide 26 mmol/L (22-29); Chloride 108 mmol/L (98-107); Glucose 134 mg/dL (65-115); Magnesium 1.7 mg/dL (1.7-2.3); Osmolality Calculated 292 mOsm/kg (285-295); Sodium 140 mmol/L (136-145)
[2023-02-16] MEDS: budesonide 0.5 mg/2 mL Neb INHALATION ×2 (07:52→20:22)
--- NOTE | 2023-02-16 10:30 | PM.PN ---
Subjective Subjective: Abisai reports he is doing okay. Wants to try with his Paulino out. Abdominal pain is under control. He is already passed some flatus. Medications: Reviewed: Yes Vitals/I&O/Wt Last Vital Signs Temp 98.1 F 02/16/23 08:02 Pulse 71 02/16/23 08:03 Resp 16 02/16/23 08:02 BP 136/82 02/16/23 08:02 Pulse Ox 98 02/16/23 08:02 O2 Del Method Room Air 02/16/23 08:02 O2 Flow Rate 2 02/16/23 07:54 02/15/23 02/16/23 02/16/23 22:59 06:59 14:59 Intake Total 3926.1 / 4201.1 160 / 4361.1 Output Total 95 / 695 600 / 1295 Balance 3831.1 / 3506.1 -440 / 3066.1 Physical Exam Narrative: General exam no distress Neck is supple no lymphadenopathy thyromegaly Cardiovascular regular rate and rhythm without murmur, heart sounds distant Lungs a few bibasilar wheezes. No crackles Abdomen no distention exam demonstrates Paulino, urine color have substantially cleared Extremities trace edema bilaterally. Data 02/16/23 04:57 02/16/23 04:57 A&P Assessment and plan (1) Bowel obstruction: Patient presents with symptoms of recurrent bowel obstruction. He is postoperative day #1, status post subtotal colectomy for pseudoobstruction of the colon Continue NG. Surgery will decide when to clamp and remove. He is already passing flatus. Surgery consultation appreciated. repeat laboratory tomorrow (2) Bladder outlet obstruction: Continue Flomax Will trial removing catheter. Likely urinary retention was at least in part contributed to his severe abdominal distention and pseudoobstruction of the colon Hematuria has cleared Continue to hold Eliquis (3) Hypokalemia: Resolved (4) COPD (chronic obstructive pulmonary disease): No evidence of exacerbation currently DuoNeb every 6 hours Budesonide twice daily Encourage not to smoke (5) Atrial fibrillation: Continue amiodarone If doing well consider readdition of Eliquis tomorrow and discontinue heparin subcutaneous Plan Multiple other medical problems as outlined in past medical history Full code SCDs for DVT prophylaxis. Heparin for DVT prophylaxis. Overall improving Physical therapy consultation for weakness Attestations Medical Necessity Statement*: Needs continued hospitalization for close monitoring following definitive surgery for pseudoobstruction of the colon with subtotal colectomy occurring yesterday Diagnoses Bowel obstruction K56.609 Bladder outlet obstruction N32.0 Hypokalemia E87.6 COPD (chronic obstructive pulmonary disease) J44.9 Atrial fibrillation I48.91 Time Spent (min) 27
[2023-02-16] MEDS: heparin 5,000 unit/mL INJ 1 mL 5000 UNIT SUBCUT ×2 (10:38→20:57)
[2023-02-16] MEDS: amiodarone 200 mg Tablet PO (11:14)
[2023-02-16] MEDS: sertraline 50 mg Tablet PO (11:15)
[2023-02-16] MEDS: tamsulosin 0.4 mg Capsule 0.8 MG PO (11:15)
[2023-02-16] MEDS: D5-NS 0.45% + KCL 20 mEq 20 MEQ/1,000 ML BAG 48 MEQ IV (16:40)
[2023-02-16] MEDS: pantoprazole 40 mg SDV IVP (16:42)
[2023-02-16] MEDS: atorvastatin 40 mg Tablet 20 MG PO (18:09)
[2023-02-16] MEDS: aspirin 81 mg EC Tablet PO (18:09)
[2023-02-17] VITALS (18 sets, daily range): BP systolic 106–130; BP diastolic 55–82; PULSE 66–81; RESP 15–22; TEMP 36.6–37; O2SAT 93–97
[2023-02-17] MEDS: ipratropium-albuterol 3 mL Neb INHALATION ×5 (00:05→19:12)
[2023-02-17] MEDS: HYDROmorphone 1 mg/mL INJ 1 mL IVP ×5 (01:25→23:32)
[2023-02-17 05:48] LABS: Basophils % 0.1 %; Eosinophils % 0.3 %; Hemoglobin 7.7 g/dL (11.7-16.6); Lymphocytes # 0.6 10^3/uL (0.8-4.8); Lymphocytes % 7.1 %; Mean Corpuscular HGB Conc 29.6 g/dL (30.0-36.0); Mean Corpuscular Hemoglobin 30.1 pg (28.0-34.0); Mean Corpuscular Volume 101.6 fl (80-94); Mean Platelet Volume 9.5 fL (7.4-10.4); Monocytes # 0.9 10^3/uL (0.2-0.9); Monocytes % 9.5 %; Neutrophils % 82.6 %; Nucleated Red Blood Cells % 0 %; Platelet Count 244 10^3/cmm (130-400); Red Blood Count 2.56 10^6/uL (4.1-5.3); Red Cell Distribution Width 15.2 % (12.1-15.1)
[2023-02-17 06:10] LABS: Alanine Aminotransferase 7 U/L (0-41); Albumin Level 2.3 g/dL (3.5-5.2); Alkaline Phosphatase 56 U/L (40-130); Anion Gap 8.6 (5-19); Aspartate Amino Transferase 9 U/L (0-40); Blood Urea Nitrogen 13 mg/dL (8-23); Calcium 7.9 mg/dL (8.5-10.5); Carbon Dioxide 28 mmol/L (22-29); Chloride 106 mmol/L (98-107); Globulin 2.5 g/dL (1.3-4.6); Glucose 98 mg/dL (65-115); Magnesium 1.9 mg/dL (1.7-2.3); Osmolality Calculated 288 mOsm/kg (285-295); Potassium 3.6 mmol/L (3.5-5.1); Sodium 139 mmol/L (136-145); Total Bilirubin 0.5 mg/dL (0.15-1.2); Total Protein 4.8 g/dL (6.6-8.7)
[2023-02-17] MEDS: sertraline 50 mg Tablet PO (08:25)
[2023-02-17] MEDS: tamsulosin 0.4 mg Capsule 0.8 MG PO (08:25)
[2023-02-17] MEDS: heparin 5,000 unit/mL INJ 1 mL 5000 UNIT SUBCUT ×2 (08:25→21:36)
[2023-02-17] MEDS: amiodarone 200 mg Tablet PO (08:25)
[2023-02-17] MEDS: budesonide 0.5 mg/2 mL Neb INHALATION ×2 (08:33→19:12)
[2023-02-17] MEDS: D5-NS 0.45% + KCL 20 mEq 20 MEQ/1,000 ML BAG 48 MEQ IV (11:02)
--- NOTE | 2023-02-17 11:25 | PM.PN ---
Subjective Subjective: Patient reports abdominal pain is currently 3-4/10. Reports the pain medications improve the pain and he is satisfied with current regimen. Endorses flatus. Denies bowel movements. Denies nausea, emesis, fevers, or chills. Medications: Reviewed: Yes Vitals/I&O/Wt Last Vital Signs Temp 98.2 F 02/17/23 07:25 Pulse 81 02/17/23 08:47 Resp 16 02/17/23 08:33 BP 130/82 02/17/23 07:25 Pulse Ox 94 02/17/23 08:30 O2 Del Method Nasal Cannula 02/17/23 08:30 O2 Flow Rate 3 02/17/23 08:30 02/16/23 02/17/23 02/17/23 22:59 06:59 14:59 Intake Total 1098.2 / 1148.2 881.6 / 881.6 Output Total 0 / 0 500 / 500 Balance 1098.2 / 1148.2 -500 / 648.2 881.6 / 881.6 Physical Exam Narrative: General: Patient is awake and alert. Pleasant. Head: Normocephalic. Atraumatic. EOM intact. Neck: No JVD. Cardiovascular: RRR. No gallops. No murmurs. Lungs: Clear to auscultation, no use of accessory muscles, no crackles or wheezes. Skin: No jaundice. No rashes. Abdomen: Soft. Not distended. Normal bowel sounds. Extremities: No cyanosis or clubbing. Musculoskeletal: Normal muscular development. Neurological: No myoclonus. Moves all 4 extremities. Data 02/17/23 04:58 02/17/23 04:58 Micro: Microbiology 02/12/23 14:50 Urine Culture - Final Urine,Clean Catch Pseudo fluorescens/putida A&P Assessment and plan (1) Pseudo-obstruction of colon: Status post subtotal colectomy for pseudoobstruction NGT and diet management per surgery Passing flatus, no BM yet On PPN Analgesics and antiemetics as needed Monitor electrolytes Continue IV fluids General surgery following, appreciate recommendations (2) Bladder outlet obstruction: C/b hematuria Hematuria has resolved Continue Flomax (3) Atrial fibrillation: Continue amiodarone Rotate back to therapeutic anticoagulation when approved by general surgery (4) COPD (chronic obstructive pulmonary disease): Not in acute exacerbation Pulmicort Manju (5) Ischemic cardiomyopathy: Continue aspirin Continue Lipitor Plan DVT ppx: Heparin Code status: Full Code Attestations Medical Necessity Statement*: Patient requires ongoing hospitalization for post-op care, monitoring of bowel function, electrolyte management, wound care and IV analgesics. Coding Level of Care Code Acute Code for Chg Fwd Diagnoses Pseudo-obstruction of colon K59.81 Bladder outlet obstruction N32.0 Atrial fibrillation I48.91 COPD (chronic obstructive pulmonary disease) J44.9 Ischemic cardiomyopathy I25.5
[2023-02-17] MEDS: pantoprazole 40 mg SDV IVP (16:47)
[2023-02-17] MEDS: atorvastatin 40 mg Tablet 20 MG PO (17:04)
[2023-02-17] MEDS: aspirin 81 mg EC Tablet PO (17:04)
[2023-02-18] VITALS (15 sets, daily range): BP systolic 111–145; BP diastolic 57–67; PULSE 64–100; RESP 16–18; TEMP 36.6–36.8; O2SAT 92–98
[2023-02-18] MEDS: ipratropium-albuterol 3 mL Neb INHALATION ×4 (02:57→19:16)
[2023-02-18 04:22] LABS: Basophils % 0.3 %; Eosinophils # 0.2 10^3/uL (0.0-0.8); Eosinophils % 2.7 %; Hematocrit 25.1 % (42.0-52.0); Hemoglobin 7.4 g/dL (11.7-16.6); Lymphocytes # 0.8 10^3/uL (0.8-4.8); Lymphocytes % 11.6 %; Mean Corpuscular HGB Conc 29.5 g/dL (30.0-36.0); Mean Corpuscular Hemoglobin 29.4 pg (28.0-34.0); Mean Corpuscular Volume 99.6 fl (80-94); Mean Platelet Volume 9.6 fL (7.4-10.4); Monocytes # 0.5 10^3/uL (0.2-0.9); Monocytes % 7.9 %; Neutrophils # 5.07 10^3/uL (1.8-7.7); Neutrophils % 77.2 %; Nucleated Red Blood Cells % 0 %; Platelet Count 244 10^3/cmm (130-400); Red Blood Count 2.52 10^6/uL (4.1-5.3); Red Cell Distribution Width 14.8 % (12.1-15.1); White Blood Count 6.6 10^3/uL (4.0-10.0)
[2023-02-18 04:44] LABS: Alanine Aminotransferase 8 U/L (0-41); Albumin Level 2.1 g/dL (3.5-5.2); Alkaline Phosphatase 59 U/L (40-130); Anion Gap 7.5 (5-19); Aspartate Amino Transferase 13 U/L (0-40); Blood Urea Nitrogen 11 mg/dL (8-23); Calcium 7.8 mg/dL (8.5-10.5); Carbon Dioxide 28 mmol/L (22-29); Chloride 106 mmol/L (98-107); Globulin 2.8 g/dL (1.3-4.6); Glucose 105 mg/dL (65-115); Magnesium 1.9 mg/dL (1.7-2.3); Osmolality Calculated 286 mOsm/kg (285-295); Phosphorus 2.6 mg/dL (2.5-4.5); Potassium 3.5 mmol/L (3.5-5.1); Sodium 138 mmol/L (136-145); Total Bilirubin 0.4 mg/dL (0.15-1.2); Total Protein 4.9 g/dL (6.6-8.7)
[2023-02-18] MEDS: HYDROmorphone 1 mg/mL INJ 1 mL IVP ×3 (06:21→20:59)
--- NOTE | 2023-02-18 07:18 | PM.PN ---
Subjective Subjective: Patient had a large bowel movement earlier today. Pain controlled. Denies nausea or vomiting Vitals/I&O/Wt Last Vital Signs Temp 98.5 F 02/19/23 07:05 Pulse 69 02/19/23 07:05 Resp 18 02/19/23 07:05 BP 132/72 02/19/23 07:05 Pulse Ox 94 02/19/23 07:05 O2 Del Method Nasal Cannula 02/19/23 07:05 O2 Flow Rate 3.5 02/19/23 03:05 02/18/23 02/19/23 02/19/23 22:59 06:59 14:59 Intake Total 1117.5 / 2357.5 979.4 / 3336.9 Output Total 1100 / 1100 400 / 1500 Balance 17.5 / 1257.5 579.4 / 1836.9 Physical Exam Narrative: Abdomen: Distended, appropriately tender, no guarding rebound or masses Incision intact without erythema or exudate Data 02/19/23 02:56 02/19/23 02:56 A&P Assessment and plan (1) Pseudo-obstruction of colon: Plan Status post subtotal colectomy Advance to full liquid diet Incentive spirometry Physical therapy Possible advancement to soft diet and discharge tomorrow Medical management per hospitalist - appreciated Attestations Medical Necessity Statement*: Patient requires at least 1 more night in the hospital for return of bowel function and physical therapy after subtotal colectomy Coding Level of Care Code Acute Code for Chg Fwd Diagnoses Pseudo-obstruction of colon K59.81
[2023-02-18] MEDS: sertraline 50 mg Tablet PO (08:30)
[2023-02-18] MEDS: amiodarone 200 mg Tablet PO (08:30)
[2023-02-18] MEDS: tamsulosin 0.4 mg Capsule 0.8 MG PO (08:30)
[2023-02-18] MEDS: heparin 5,000 unit/mL INJ 1 mL 5000 UNIT SUBCUT ×2 (08:31→20:22)
[2023-02-18] MEDS: budesonide 0.5 mg/2 mL Neb INHALATION ×2 (09:16→19:17)
[2023-02-18] MEDS: D5-NS 0.45% + KCL 20 mEq 20 MEQ/1,000 ML BAG 48 MEQ IV (10:44)
--- NOTE | 2023-02-18 11:05 | PC.PT ---
Hemoglobin is below acceptable levels per literature for physical therapy activity. Therapy is placed on hold until values improve.
--- NOTE | 2023-02-18 11:30 | P.PN_ITS ---
Subjective Subjective: Resting, wakes up to voice. Having some abdominal pain. Otherwise states rough around the edges, but not too bad . Happy that NG tube was removed. No nausea or vomiting. Trialing some clears. Medications: Reviewed: Yes Vitals/I&O/Wt Last Vital Signs Temp 97.8 F 02/18/23 08:00 Pulse 66 02/18/23 09:36 Resp 18 02/18/23 09:16 BP 145/67 02/18/23 08:00 Pulse Ox 98 02/18/23 09:16 O2 Del Method Nasal Cannula 02/18/23 09:16 O2 Flow Rate 3 02/18/23 09:16 02/17/23 02/18/23 02/18/23 22:59 06:59 14:59 Intake Total 990.5 / 1872.1 125 / 1997.1 1240 / 1240 Output Total 2350 / 2350 250 / 2600 Balance -1359.5 / -477.9 -125 / -602.9 1240 / 1240 Physical Exam Const: COMMON NORMALS: patient oriented x3 and alert GENERAL APPEARANCE: cooperative ORIENTATION/CONSCIOUSNESS: Yes awake Resp: COMMON NORMALS: normal respiratory effort and clear to auscultation bilaterally AUSCULTATION: clear to auscultation bilaterally Cardio: COMMON NORMALS: regular rhythm, S1 normal heart sound present, S2 normal heart sound present and No murmurs present (Cardio) RHYTHM: regular rhythm HEART SOUNDS: S1 normal heart sound present and S2 normal heart sound present GI: COMMON NORMALS: Soft to palpation PALPATION: Yes Soft to palpation OTHER: Sluggish BS Extremity: COMMON NORMALS: no joint enlargement GENERAL: Yes edema (1+) Neuro: COMMON NORMALS: patient oriented x3 and moves all extremities SENSORIUM/ORIENTATION: Yes alert Skin: COMMON NORMALS: no rashes or lesions noted GENERAL SKIN EXAM: no rashes or lesions noted Data 02/18/23 03:38 02/18/23 03:38 Micro: Microbiology 02/12/23 14:50 Urine Culture - Final Urine,Clean Catch Pseudo fluorescens/putida A&P Assessment and plan (1) Acute anemia: Acute anemia, postoperative and with hematuria. Hematuria resolved. Hemoglobin down to 7.4 today. Anticoagulation has been contemplated, not yet restarted due to worsening anemia. Discussed with him. He would rather avoid transfusion unless becomes absolutely necessary. Reassess blood counts. He is agreeable to transfusion case following below 7. (2) Pseudo-obstruction of colon: Awaiting return of bowel function after surgery. Treated patient obstruction of the colon status post subtotal colectomy. NGT has been removed by surgery, he is still on PPN but having a trial of clear liquid diet. Some abdominal pain, discussed with him caution with pain medications in case he is sleepy. Repeat chemistry requested. Reassess volume status. Noted to have some 1+ lower extremity edema. Hopefully if tolerating oral intake may be able to discontinue PPN. Stop IV fluid. Surgery documentation reviewed. (3) Bowel obstruction: As above (4) Bladder outlet obstruction: Continue Flomax Paulino removed Hematuria has cleared Continue to hold Eliquis (5) Hypokalemia: Resolved (6) COPD (chronic obstructive pulmonary disease): No evidence of exacerbation currently DuoNeb, Budesonide Encourage smoking cessation (7) Atrial fibrillation: Continue amiodarone Restart Eliquis if anemia stable (8) Ischemic cardiomyopathy: Continue antiplatelet, statin. Heart rates in the slow side, occasionally deep into the 50s to start beta-pranav. Plan Multiple other medical problems as outlined in past medical history Full code SCDs for DVT prophylaxis. Heparin for DVT prophylaxis. Overall improving Physical therapy consultation for weakness Attestations Medical Necessity Statement*: Continue admission awaiting return of bowel function after hemicolectomy for large bowel pseudoobstruction, acute anemia previously on anticoagulation for A- fib and gentleman with underlying ischemic cardiomyopathy, additional comorbidities as above. Diagnoses Acute anemia D64.9 Pseudo-obstruction of colon K59.81 Bowel obstruction K56.609 Bladder outlet obstruction N32.0 Hypokalemia E87.6 COPD (chronic obstructive pulmonary disease) J44.9 Atrial fibrillation I48.91 Ischemic cardiomyopathy I25.5
[2023-02-18] MEDS: pantoprazole 40 mg SDV IVP (17:05)
[2023-02-18] MEDS: aspirin 81 mg EC Tablet PO (17:05)
[2023-02-18] MEDS: atorvastatin 40 mg Tablet 20 MG PO (17:05)
[2023-02-19] VITALS (12 sets, daily range): BP systolic 103–143; BP diastolic 62–72; PULSE 68–79; RESP 16–18; TEMP 36.6–36.9; O2SAT 87–99
[2023-02-19] MEDS: ipratropium-albuterol 3 mL Neb INHALATION ×4 (02:43→19:28)
[2023-02-19 03:26] LABS: Basophils % 0.3 %; Eosinophils # 0.1 10^3/uL (0.0-0.8); Eosinophils % 0.9 %; Hematocrit 25.9 % (42.0-52.0); Hemoglobin 7.9 g/dL (11.7-16.6); Lymphocytes # 0.8 10^3/uL (0.8-4.8); Lymphocytes % 11.9 %; Mean Corpuscular HGB Conc 30.5 g/dL (30.0-36.0); Mean Corpuscular Volume 98.5 fl (80-94); Mean Platelet Volume 9.4 fL (7.4-10.4); Monocytes # 0.4 10^3/uL (0.2-0.9); Monocytes % 6.6 %; Neutrophils # 5.29 10^3/uL (1.8-7.7); Neutrophils % 79.8 %; Nucleated Red Blood Cells % 0 %; Platelet Count 263 10^3/cmm (130-400); Red Blood Count 2.63 10^6/uL (4.1-5.3); Red Cell Distribution Width 14.6 % (12.1-15.1); White Blood Count 6.6 10^3/uL (4.0-10.0)
[2023-02-19 03:39] LABS: Anion Gap 9.6 (5-19); Blood Urea Nitrogen 9 mg/dL (8-23); Calcium 7.9 mg/dL (8.5-10.5); Carbon Dioxide 29 mmol/L (22-29); Chloride 104 mmol/L (98-107); Glucose 101 mg/dL (65-115); Osmolality Calculated 287 mOsm/kg (285-295); Potassium 3.6 mmol/L (3.5-5.1); Sodium 139 mmol/L (136-145)
[2023-02-19] MEDS: tamsulosin 0.4 mg Capsule 0.8 MG PO (07:26)
[2023-02-19] MEDS: amiodarone 200 mg Tablet PO (07:27)
[2023-02-19] MEDS: sertraline 50 mg Tablet PO (07:27)
[2023-02-19] MEDS: heparin 5,000 unit/mL INJ 1 mL 5000 UNIT SUBCUT ×2 (07:27→20:41)
--- NOTE | 2023-02-19 07:35 | PM.DCS ---
Discharge Providers Date of Admission: 02/12/23 11:45 Date of Discharge: February 19, 2023 Attending Provider at Admission: Gallo Myers MD Attending Provider at Discharge: Nataliia Noble MD Primary Care Provider: GAMAL Stout Diagnoses at Discharge Discharge Diagnosis (1) Pseudo-obstruction of colon: Status: Acute Reason for Visit Reason for Visit: red urine, abd pain Hospital Course Hospital Course 72-year-old male who presented with abdominal distention for 3 days before he presented to the ER, he was diagnosed with Ginna's syndrome/pseudoobstruction, general surgery was consulted, patient went for decompressive colonoscopy, patient failed medical and conservative management, he also failed neostigmine, patient agreed for subtotal colectomy 02/15, patient was started on PPN, patient started experiencing regular bowel movement, he was passing flatus, his diet was advanced, no postoperative complications, 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 Reinoso in the clinic Patient may resume his Eliquis for A-fib, continue amiodarone, I would continue his potassium supplement, hold spironolactone Physical Exam Narrative: Awake and alert Abdomen soft [place] with out any signs of drainage or leakage Abdomen soft bowel sound present GCS 15 Patient is euvolemic Currently on room air Pleasant and cooperative Discharge Data Studies Completed and Pending Completed Studies During Hospitalization Category Date Time Status CT abdomen pelvis wo con [id number] Stat Cat Scan 02/12/23 09:43 Completed CXRP [XR chest 1V portable [id number]] Stat Exams 02/15/23 06:06 Completed XR abdomen 1V* [id number] Routine Exams 02/15/23 16:48 Completed XR abdomen 1V* [id number] Stat Exams 02/12/23 12:33 Completed XR abdomen 1V* [id number] Urgent Exams 02/13/23 09:46 Completed XR chest 1V portable [id number] Stat Exams 02/12/23 09:43 Completed Pending at discharge Category Date Time Status Basic Metabolic Panel AM LABS Lab 02/20/23 04:00 Ordered Basic Metabolic Panel AM LABS Lab 02/21/23 04:00 Ordered Complete Blood Count w/Auto AM LABS Lab 02/20/23 04:00 Ordered Complete Blood Count w/Auto AM LABS Lab 02/21/23 04:00 Ordered Pathology: Surgical [PTH] Routine Pth 02/15/23 17:04 Received Radiology Impressions Abdomen/Pelvis CT 02/12/23 09:43 IMPRESSION: 1. Markedly dilated colon with air-fluid levels similar to previous. Transition point in the proximal sigmoid suspicious for an obstructing lesion or stricture in this location. Sigmoid is decompressed. Recommend further evaluation with sigmoidoscopy. Series 3 image 117, series 5 image 84, and series 6 image 77. See Bookmarked images 2. Colon dilated up to 14 cm with air-fluid levels unchanged from previous. Cecum is displaced into the pelvis. 3. Stable 4.5 cm fusiform infrarenal abdominal aortic aneurysm. 4. Small bilateral pleural effusions with compressive atelectasis in the lung bases. Pleural effusions have increased slightly compared to previous. 5. Spiculated opacity RIGHT lower lobe measuring 1.2 cm is unchanged. 6. Small esophageal hiatal hernia. Notified César Gray DO at 02/12/2023 10:20 AM. Chest X-Ray 02/15/23 06:06 IMPRESSION: Feeding type enteric tube is extending into the upper abdomen but is incompletely assessed. Abdomen X-Ray 02/15/23 16:48 Impression: 1. Large amount of intraperitoneal air as a result of recent surgery. 2. Reduction of dilated bowel. Laboratory Results WBC 6.6 10^3/uL (4.0-10.0) 02/19/23 02:56 RBC 2.63 10^6/uL (4.1-5.3) L 02/19/23 02:56 Hgb 7.9 g/dL (11.7-16.6) L 02/19/23 02:56 Hct 25.9 % (42.0-52.0) L 02/19/23 02:56 MCV 98.5 fl (80-94) H 02/19/23 02:56 MCH 30.0 pg (28.0-34.0) 02/19/23 02:56 MCHC 30.5 g/dL (30.0-36.0) 02/19/23 02:56 RDW 14.6 % (12.1-15.1) 02/19/23 02:56 Plt Count 263 10^3/cmm (130-400) 02/19/23 02:56 MPV 9.4 fL (7.4-10.4) 02/19/23 02:56 Neut % (Auto) 79.8 % 02/19/23 02:56 Lymph % (Auto) 11.9 % 02/19/23 02:56 [place] % (Auto) 6.6 % 02/19/23 02:56 Eos % (Auto) 0.9 % 02/19/23 02:56 Baso % (Auto) 0.3 % 02/19/23 02:56 Neut # (Auto) 5.29 10^3/uL (1.8-7.7) 02/19/23 02:56 Lymph # (Auto) 0.8 10^3/uL (0.8-4.8) 02/19/23 02:56 [place] # (Auto) 0.4 10^3/uL (0.2-0.9) 02/19/23 02:56 Eos # (Auto) 0.1 10^3/uL (0.0-0.8) 02/19/23 02:56 Baso # (Auto) 0.0 10^3/uL (0.0-0.1) 02/19/23 02:56 Nucleated RBC % (auto) 0 % 02/19/23 02:56 Nucleated RBCs # 0.0 /100WBC 02/19/23 02:56 Sodium 139 mmol/L (136-145) 02/19/23 02:56 Potassium 3.6 mmol/L (3.5-5.1) 02/19/23 02:56 Chloride 104 mmol/L (98-107) 02/19/23 02:56 Carbon Dioxide 29 mmol/L (22-29) 02/19/23 02:56 Anion Gap 9.6 (5-19) 02/19/23 02:56 BUN 9 mg/dL (8-23) 02/19/23 02:56 Creatinine 0.5 mg/dL (0.7-1.2) L 02/19/23 02:56 GFR Calculation Not Reportable 02/19/23 02:56 Glucose 101 mg/dL (65-115) 02/19/23 02:56 Calculated Osmolality 287 mOsm/kg (285-295) 02/19/23 02:56 Lactic Acid 1.2 mmol/L (0.5-2.2) 02/12/23 10:18 Calcium 7.9 mg/dL (8.5-10.5) L 02/19/23 02:56 Phosphorus 2.6 mg/dL (2.5-4.5) 02/18/23 03:38 Magnesium 1.9 mg/dL (1.7-2.3) 02/18/23 03:38 Total Bilirubin 0.4 mg/dL (0.15-1.2) 02/18/23 03:38 AST 13 U/L (0-40) 02/18/23 03:38 ALT 8 U/L (0-41) 02/18/23 03:38 Alkaline Phosphatase 59 U/L (40-130) 02/18/23 03:38 Total Protein 4.9 g/dL (6.6-8.7) L 02/18/23 03:38 Albumin 2.1 g/dL (3.5-5.2) L 02/18/23 03:38 Globulin 2.8 g/dL (1.3-4.6) 02/18/23 03:38 Lipase 16 U/L (13-60) 02/12/23 10:18 Urine Color Brown (Yellow) 02/12/23 14:50 Urine Appearance Cloudy (CLEAR) A 02/12/23 14:50 Urine pH 5 (5-7) 02/12/23 14:50 Ur Specific [place] 1.025 (1.005-1.030) 02/12/23 14:50 Urine Protein 3+ (Negative) H 02/12/23 14:50 Urine Glucose (UA) Norm (Normal) 02/12/23 14:50 Urine Ketones 1+ (Negative) H 02/12/23 14:50 Urine Blood 3+ (Negative) H 02/12/23 14:50 Urine Nitrate Negative (Negative) 02/12/23 14:50 Urine Bilirubin Neg (Negative) 02/12/23 14:50 Urine Urobilinogen Norm mg/dL (Negative) 02/12/23 14:50 Ur Leukocyte Esterase Trace (Negative) H 02/12/23 14:50 Urine RBC Too numerous to cnt /hpf (0-2) H 02/12/23 14:50 Urine WBC 5-10 /hpf (0-5) H 02/12/23 14:50 Ur Squamous Epith Cells None /hpf (0-5) 02/12/23 14:50 Ur Transition Epith Cell 0-4 /hpf 02/12/23 14:50 Amorphous Sediment Not Reportable 02/12/23 14:50 Urine Bacteria 1+ /hpf (NONE) H 02/12/23 14:50 Blood Type A Positive 02/15/23 14:35 Rho(D) Type Positive 02/15/23 14:35 Antibody Screen Negative 02/15/23 14:35 Vitals Last Vital Signs Temp 98.5 F 02/19/23 07:05 Pulse 69 02/19/23 07:05 Resp 18 02/19/23 07:05 BP 132/72 02/19/23 07:05 Pulse Ox 94 02/19/23 07:05 O2 Del Method Nasal Cannula 02/19/23 07:05 O2 Flow Rate 3.5 02/19/23 03:05 Discharge Plan Discharge Patient Disposition: Home Health Service Condition: Stable Prescriptions: Continued atorvastatin 20 mg tablet 20 mg PO QPM amiodarone 200 mg tablet 200 mg PO DAILY budesonide-formoterol [Symbicort] 160-4.5 mcg/actuation HFA aerosol inhaler 2 puff inhalation Q12H sertraline 50 mg Tablet 50 mg PO DAILY ipratropium-albuterol 0.5 mg-3 mg(2.5 mg base)/3 mL Solution For Nebulization 3 ml INHALATION Q6H PRN (Reason: Shortness Of Breath Or Wheezing) aspirin 81 mg Tablet,Delayed Release (Dr/Ec) 81 mg PO QPM albuterol sulfate 90 mcg/actuation HFA aerosol inhaler 2 puff INHALATION Q6H PRN (Reason: Shortness Of Breath Or Wheezing) Combivent Respimat 20-100 mcg/actuation mist 1 puff INHALATION BID tamsulosin 0.4 mg Capsule 0.8 mg PO DAILY Qty: 60 0RF Eliquis 5 mg tablet 5 mg PO BID Qty: 60 0RF Changed potassium chloride 20 mEq Tablet Extended Release 40 meq PO DAILY Qty: 30 0RF Discontinued spironolactone 25 mg Tablet 25 mg PO DAILY Discharge Orders: Discharge Order (Routine); Ordered 02/19/23 Ordered By: Nataliia Noble Referrals: [facility] [place] [facility] ([facility]) [Outside] Ernesto,Margie, [employer] [Primary Care Provider] - Patient Instructions: GI Discharge Instructions, Opioid Safety Discharge Attestations Time Spent in Discharge Care*: greater than 30 min Status at Discharge: Cognitive status at discharge: cognitively intact, Behavioral status at discharge: cooperative, Quality Metrics Clinical Quality Measures [ No reported AMI, CVA or VTE this stay] Coding Level of Care Code Acute Code for Chg Fwd Diagnoses Pseudo-obstruction of colon K59.81
[2023-02-19] MEDS: budesonide 0.5 mg/2 mL Neb INHALATION ×2 (07:46→19:28)
--- NOTE | 2023-02-19 09:24 | PM.PN ---
Subjective Subjective: Patient is on 3 L complaining of exertional dyspnea, will request D-dimer Experiencing bowel movement Advance diet Stop TPN Vitals/I&O/Wt Last Vital Signs Temp 98.5 F 02/19/23 07:05 Pulse 69 02/19/23 07:49 Resp 16 02/19/23 07:44 BP 132/72 02/19/23 07:05 Pulse Ox 87 L 02/19/23 08:38 O2 Del Method Nasal Cannula 02/19/23 07:44 O2 Flow Rate 2 02/19/23 08:38 02/18/23 02/19/23 02/19/23 22:59 06:59 14:59 Intake Total 1117.5 / 2357.5 979.4 / 3336.9 240 / 240 Output Total 1100 / 1100 400 / 1500 Balance 17.5 / 1257.5 579.4 / 1836.9 240 / 240 Physical Exam Narrative: Awake and alert Abdomen soft [place] with out any signs of drainage or leakage Abdomen soft bowel sound present GCS 15 Patient is euvolemic Currently on room air Pleasant and cooperative Currently on 3 L Data 02/19/23 02:56 02/19/23 02:56 A&P Assessment and plan (1) Acute anemia: (2) Pseudo-obstruction of colon: (3) Atrial fibrillation: (4) COPD (chronic obstructive pulmonary disease): (5) Bladder outlet obstruction: (6) Ischemic cardiomyopathy: Plan Positive bowel movement, passing flatus, advance diet Active wheezing, exertional shortness of breath Request D-dimer repeat x-ray will give Lasix Stop TPN Encourage p.o. intake Full code Hemoglobin stable 7.9 I would like to watch this patient for 1 more day He lives alone, will follow with PT recommendations Attestations Medical Necessity Statement*: dinorah castellanos Diagnoses Acute anemia D64.9 Pseudo-obstruction of colon K59.81 Atrial fibrillation I48.91 COPD (chronic obstructive pulmonary disease) J44.9 Bladder outlet obstruction N32.0 Ischemic cardiomyopathy I25.5
--- NOTE | 2023-02-19 09:25 | XR_ITS ---
WS: [id number] XR chest 1V portable [id number] REASON FOR EXAM: hypoxia FINDINGS: Reticular interstitial lung opacities in both lower lobes with bilateral pleural effusions. Findings are compatible with congestive heart failure. Possibly increased pleural fluid accumulation bilateral ly compared to 02/15/2023. Nasogastric tube has been removed. No other interval change or new finding. XR/XR chest 1V portable [id number] IMPRESSION: Probable congestive heart failure as above.
[2023-02-19] MEDS: FUROsemide 10 mg/mL SDV 2mL 20 MG IVP (10:06)
[2023-02-19] MEDS: potassium chloride oral liq 20 mEq/15 mL UDC 40 MEQ PO (10:06)
[2023-02-19 10:13] LABS: D Dimer 4.63 ug/mIFEU (0-0.59)
[2023-02-19] MEDS: FUROsemide 10 mg/mL SDV 4mL 40 MG IVP (17:18)
[2023-02-19] MEDS: pantoprazole 40 mg SDV IVP (17:18)
[2023-02-19] MEDS: aspirin 81 mg EC Tablet PO (17:19)
[2023-02-19] MEDS: amoxicillin-clav 875-125 mg Tablet 1 TAB PO (17:19)
[2023-02-19] MEDS: atorvastatin 40 mg Tablet 20 MG PO (17:19)
[2023-02-19] MEDS: HYDROmorphone 1 mg/mL INJ 1 mL IVP (20:52)
[2023-02-20] VITALS (15 sets, daily range): BP systolic 100–148; BP diastolic 56–72; PULSE 68–82; RESP 14–26; TEMP 36.7–36.9; O2SAT 90–96
[2023-02-20] MEDS: ipratropium-albuterol 3 mL Neb INHALATION ×4 (00:47→20:18)
[2023-02-20 05:11] LABS: Basophils % 0.3 %; Eosinophils # 0.1 10^3/uL (0.0-0.8); Eosinophils % 0.7 %; Hemoglobin 8.5 g/dL (11.7-16.6); Lymphocytes # 0.6 10^3/uL (0.8-4.8); Lymphocytes % 6.2 %; Mean Corpuscular HGB Conc 30.4 g/dL (30.0-36.0); Mean Corpuscular Hemoglobin 29.9 pg (28.0-34.0); Mean Corpuscular Volume 98.6 fl (80-94); Mean Platelet Volume 9.5 fL (7.4-10.4); Monocytes # 0.6 10^3/uL (0.2-0.9); Monocytes % 6.6 %; Neutrophils # 8.27 10^3/uL (1.8-7.7); Neutrophils % 85.8 %; Nucleated Red Blood Cells % 0 %; Platelet Count 352 10^3/cmm (130-400); Red Blood Count 2.84 10^6/uL (4.1-5.3); Red Cell Distribution Width 14.6 % (12.1-15.1); White Blood Count 9.7 10^3/uL (4.0-10.0)
[2023-02-20 05:30] LABS: Anion Gap 10.6 (5-19); Blood Urea Nitrogen 14 mg/dL (8-23); Calcium 8.6 mg/dL (8.5-10.5); Carbon Dioxide 33 mmol/L (22-29); Chloride 100 mmol/L (98-107); Glucose 124 mg/dL (65-115); Osmolality Calculated 292 mOsm/kg (285-295); Potassium 3.6 mmol/L (3.5-5.1); Sodium 140 mmol/L (136-145)
[2023-02-20] MEDS: budesonide 0.5 mg/2 mL Neb INHALATION ×2 (07:14→20:19)
--- NOTE | 2023-02-20 07:55 | CT_ITS ---
WS: [id number] CT CHEST ANGIOGRAPHY WITH REFORMATS HISTORY: hypoxia, history of colon resection 02/15/2023. TECHNIQUE: Contiguous axial images are obtained through the chest during arterial injection of intrav enous contrast. Images are reconstructed to evaluate the pulmonary arteries. MIP imaging also reviewe d. All CT scans at [facility] use at least one of these dose optimization techniques: automat ed exposure control; mA and/or kV adjustment per patient size (includes targeted exams where dose is matched to clinical indication); or iterative reconstruction. CONTRAST: Omnipaque 350; 100 mL IV. DLP: 340.48 mGy.cm COMPARISON: None available. Good opacification of the pulmonary arteries. No pulmonary emboli are identified. No RIGHT heart stra in. Mild atherosclerosis aorta. Mild enlargement of the LEFT heart chambers. No pericardial effusion. Small bilateral layering pleural effusions. Centrilobular emphysema. Mild hazy reticulations along t he pleura. No adenopathy. On the localizer there is a large amount of air within the upper abdomen. This area crosses the midli ne and may be due to residual dilated colon. There are additional areas of numerous foci of free air visualized in the upper abdomen. The extent of the free air is more than expected for 5 day postop. Increase in thoracic kyphosis. CT/CT angio chest PE protcl [id number] IMPRESSION: 1. No pulmonary embolism. 2. No RIGHT heart strain. 3. Small bilateral layering pleural effusions. 4. Continued marked air distention of the colon within the upper abdomen. 5. Numerous foci of free air noted within the upper abdomen. The amount of rod e air appears more than expected for 5 day postop. Recommend continued close tinoco rgical evaluation. Anastomotic leak should be considered clinically.
--- NOTE | 2023-02-20 07:56 | USCV_ITS ---
Kurt Abisai Age: 72 Gender: M : 1950 Exam Date: 02/20/2023 08:13 Ordering Phys: Nataliia Noble MD Technologist: CT [place] [facility] [place]: hypoxia PROCEDURES: The venous duplex Doppler examination of both lower extremities was performed in the standard fashion. In addition, the posterior tibial and peroneal trunk were evaluated. FINDINGS: Normal 2-D Doppler and augmentation and compressibility throughout the lower extremity venous structures. Additional imaging through the proximal calf veins also reveals no thrombus. Limited evaluation of the greater saphenous vein is patent with no thrombus. CONCLUSIONS No DVT bilateral lower extremities. Dr. Manuela Munoz DO (Electronically Signed) Final Date: 20 February 2023 08:49 S
[2023-02-20] MEDS: HYDROmorphone 1 mg/mL INJ 1 mL IVP ×2 (08:50→21:06)
[2023-02-20] MEDS: amoxicillin-clav 875-125 mg Tablet 1 TAB PO ×2 (09:39→18:32)
[2023-02-20] MEDS: sertraline 50 mg Tablet PO (09:39)
[2023-02-20] MEDS: tamsulosin 0.4 mg Capsule 0.8 MG PO (09:39)
[2023-02-20] MEDS: amiodarone 200 mg Tablet PO (09:39)
[2023-02-20] MEDS: heparin 5,000 unit/mL INJ 1 mL 5000 UNIT SUBCUT ×2 (09:40→20:38)
[2023-02-20] MEDS: dexamethasone 4 mg Tablet 6 MG PO (10:40)
[2023-02-20] MEDS: diphenhydrAMINE 50 mg/mL SDV 1mL 25 MG IVP (10:42)
--- NOTE | 2023-02-20 11:16 | PM.PN ---
Subjective Subjective: High D-dimer requested CTA chest and venous Doppler Patient endorsing feeling slightly better however he does not want to go to SNF facility or rehab He has participated with physical therapy to some extent he is independent but lacks motivation to get up because of fatigue and lethargy Vitals/I&O/Wt Last Vital Signs Temp 98.2 F 02/20/23 07:51 Pulse 72 02/20/23 07:51 Resp 16 02/20/23 08:50 BP 100/56 02/20/23 07:51 Pulse Ox 96 02/20/23 07:51 O2 Del Method Nasal Cannula 02/20/23 07:51 O2 Flow Rate 2 02/20/23 08:00 02/19/23 02/20/23 02/20/23 22:59 06:59 14:59 Intake Total 680 / 1400 1128 / 1128 Output Total 2100 / 3900 450 / 4350 Balance -1420 / -2500 -450 / -2950 1128 / 1128 Physical Exam Narrative: Awake and alert Euvolemic Currently on 2 L of oxygen Afebrile Euvolemic Laying flat Lower extremity no edema Abdominal fred without any active signs of drainage tissue looks healthy Awake and alert GCS 15 pleasant and cooperative Fatigued S1, S2 Data 02/20/23 04:40 02/20/23 04:40 A&P Assessment and plan (1) Acute anemia: (2) Pseudo-obstruction of colon: (3) Atrial fibrillation: (4) COPD (chronic obstructive pulmonary disease): (5) Bladder outlet obstruction: (6) Ischemic cardiomyopathy: (7) Hypoxia: (8) Acute exacerbation of CHF (congestive heart failure): Plan Ginna syndrome pseudoobstruction status post surgical intervention Patient is experiencing bowel movement and passing flatus Okay to be discharged from surgical standpoint Acute hypoxia requiring 2 L of oxygen Rule out PE and DVT requested CTA chest and venous Doppler Will need home O2 evaluation before We will only give low-dose of Lasix Acute preserved ejection fraction CHF exacerbation: Previous echo showed EF 55% Continue diuresis Hypoxia related to CHF exacerbation History of coronary disease: Coronary angiogram 2013 the first diagonal branch was completely occluded .this was the culprit vessel. It was opened. A stent was placed. There was some distal embolization and slow reflow. There is a wall motion disturbance in this distribution. The left anterior descending has a 40% stenosis distal to the takeoff of the ghanshyam Working with PT, patient wants to return home with home health Attestations Medical Necessity Statement*: Wanted to discharge patient by tomorrow Diagnoses Acute anemia D64.9 Pseudo-obstruction of colon K59.81 Atrial fibrillation I48.91 COPD (chronic obstructive pulmonary disease) J44.9 Bladder outlet obstruction N32.0 Ischemic cardiomyopathy I25.5 Hypoxia R09.02 Acute exacerbation of CHF (congestive heart failure) I50.9
[2023-02-20] MEDS: iohexol 350 mg/mL 500 mL Btl (per mL) IV (11:28)
[2023-02-20] MEDS: potassium chloride oral liq 20 mEq/15 mL UDC 40 MEQ PO (14:16)
[2023-02-20] MEDS: atorvastatin 40 mg Tablet 20 MG PO (18:31)
[2023-02-20] MEDS: aspirin 81 mg EC Tablet PO (18:32)
[2023-02-20] MEDS: pantoprazole 40 mg SDV IVP (21:06)
[2023-02-21] VITALS (8 sets, daily range): BP systolic 110–129; BP diastolic 56–62; PULSE 66–88; RESP 16–18; TEMP 36.9–37; O2SAT 90–96
[2023-02-21] MEDS: ipratropium-albuterol 3 mL Neb INHALATION ×2 (02:26→07:45)
[2023-02-21 04:54] LABS: Hematocrit 28.1 % (42.0-52.0); Hemoglobin 8.4 g/dL (11.7-16.6); Lymphocytes # 0.3 10^3/uL (0.8-4.8); Lymphocytes % 5.5 %; Mean Corpuscular HGB Conc 29.9 g/dL (30.0-36.0); Mean Corpuscular Hemoglobin 29.5 pg (28.0-34.0); Mean Corpuscular Volume 98.6 fl (80-94); Mean Platelet Volume 9.8 fL (7.4-10.4); Monocytes # 0.3 10^3/uL (0.2-0.9); Monocytes % 4.7 %; Neutrophils # 5.34 10^3/uL (1.8-7.7); Neutrophils % 89.3 %; Nucleated Red Blood Cells % 0 %; Platelet Count 376 10^3/cmm (130-400); Red Blood Count 2.85 10^6/uL (4.1-5.3); Red Cell Distribution Width 14.6 % (12.1-15.1)
[2023-02-21 05:12] LABS: Anion Gap 11.5 (5-19); Blood Urea Nitrogen 16 mg/dL (8-23); Calcium 8.5 mg/dL (8.5-10.5); Carbon Dioxide 30 mmol/L (22-29); Chloride 101 mmol/L (98-107); Glucose 133 mg/dL (65-115); Osmolality Calculated 289 mOsm/kg (285-295); Potassium 4.5 mmol/L (3.5-5.1); Sodium 138 mmol/L (136-145)
[2023-02-21] MEDS: budesonide 0.5 mg/2 mL Neb INHALATION (07:45)
[2023-02-21] MEDS: amoxicillin-clav 875-125 mg Tablet 1 TAB PO (08:10)
[2023-02-21] MEDS: tamsulosin 0.4 mg Capsule 0.8 MG PO (08:12)
[2023-02-21] MEDS: amiodarone 200 mg Tablet PO (08:13)
[2023-02-21] MEDS: FUROsemide 40 mg Tablet PO (08:15)
[2023-02-21] MEDS: sertraline 50 mg Tablet PO (08:16)
[2023-02-21] MEDS: heparin 5,000 unit/mL INJ 1 mL 5000 UNIT SUBCUT (08:17)
--- NOTE | 2023-02-21 09:46 | PM.DCS ---
Discharge Providers Date of Admission: 02/12/23 11:45 Date of Discharge: February 21, 2023 Attending Provider at Admission: Gallo Myers MD Attending Provider at Discharge: Nataliia Noble MD Primary Care Provider: GAMAL Stout Diagnoses at Discharge Discharge Diagnosis (1) Acute anemia: Status: Acute (2) Pseudo-obstruction of colon: Status: Acute (3) Atrial fibrillation: Status: Acute (4) COPD (chronic obstructive pulmonary disease): Status: Acute (5) Bladder outlet obstruction: Status: Acute (6) Ischemic cardiomyopathy: Status: Acute (7) Hypoxia: Status: Acute (8) Acute exacerbation of CHF (congestive heart failure): Status: Acute Reason for Visit Reason for Visit: red urine, abd pain Hospital Course Hospital Course 72-year-old male who presented with abdominal distention for 3 days before he presented to the ER, he was diagnosed with Ginna's syndrome/pseudoobstruction, general surgery was consulted, patient went for decompressive colonoscopy, patient failed medical and conservative management, he also failed neostigmine trial, patient agreed for subtotal colectomy 02/15, patient was started on PPN, patient started experiencing regular bowel movement, he was passing flatus, his diet was advanced, patient went into congestive heart failure and required 1 to 2 L of oxygen, his symptoms improved with use of diuretics, I have asked patient to take Lasix on as-needed basis at home he did not qualify for oxygen at the time of discharge,, 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 Reinoso in the clinic Patient may resume his Eliquis for A-fib, continue amiodarone, I would continue his potassium supplement, hold spironolactone Physical Exam Narrative: Awake and alert Euvolemic Currently on 1 L of oxygen Afebrile Euvolemic Laying flat Lower extremity no edema Abdominal fred without any active signs of drainage tissue looks healthy Awake and alert GCS 15 pleasant and cooperative Fatigued S1, S2 Discharge Data Studies Completed and Pending Completed Studies During Hospitalization Category Date Time Status CT abdomen pelvis wo con [id number] Stat Cat Scan 02/12/23 09:43 Completed CTA PE [CT angio chest PE protcl [id number]] Stat Cat Scan 02/20/23 07:55 Completed CXRP [XR chest 1V portable [id number]] Stat Exams 02/15/23 06:06 Completed XR abdomen 1V* [id number] Routine Exams 02/15/23 16:48 Completed XR abdomen 1V* [id number] Stat Exams 02/12/23 12:33 Completed XR abdomen 1V* [id number] Urgent Exams 02/13/23 09:46 Completed XR chest 1V portable [id number] Routine Exams 02/19/23 09:25 Completed XR chest 1V portable [id number] Stat Exams 02/12/23 09:43 Completed Pathology: Surgical [PTH] Routine Pth 02/15/23 17:04 [place] [id number] Routine Ultrasound 02/20/23 07:56 Completed Radiology Impressions Abdomen/Pelvis CT 02/12/23 09:43 IMPRESSION: 1. Markedly dilated colon with air-fluid levels similar to previous. Transition point in the proximal sigmoid suspicious for an obstructing lesion or stricture in this location. Sigmoid is decompressed. Recommend further evaluation with sigmoidoscopy. Series 3 image 117, series 5 image 84, and series 6 image 77. See Bookmarked images 2. Colon dilated up to 14 cm with air-fluid levels unchanged from previous. Cecum is displaced into the pelvis. 3. Stable 4.5 cm fusiform infrarenal abdominal aortic aneurysm. 4. Small bilateral pleural effusions with compressive atelectasis in the lung bases. Pleural effusions have increased slightly compared to previous. 5. Spiculated opacity RIGHT lower lobe measuring 1.2 cm is unchanged. 6. Small esophageal hiatal hernia. Notified César Gray DO at 02/12/2023 10:20 AM. Abdomen X-Ray 02/15/23 16:48 Impression: 1. Large amount of intraperitoneal air as a result of recent surgery. 2. Reduction of dilated bowel. Chest X-Ray 02/19/23 09:25 IMPRESSION: Probable congestive heart failure as above. Chest CTA 02/20/23 07:55 IMPRESSION: 1. No pulmonary embolism. 2. No RIGHT heart strain. 3. Small bilateral layering pleural effusions. 4. Continued marked air distention of the colon within the upper abdomen. 5. Numerous foci of free air noted within the upper abdomen. The amount of free air appears more than expected for 5 day postop. Recommend continued close surgical evaluation. Anastomotic leak should be considered clinically. Laboratory Results WBC 6.0 10^3/uL (4.0-10.0) 02/21/23 03:53 RBC 2.85 10^6/uL (4.1-5.3) L 02/21/23 03:53 Hgb 8.4 g/dL (11.7-16.6) L 02/21/23 03:53 Hct 28.1 % (42.0-52.0) L 02/21/23 03:53 MCV 98.6 fl (80-94) H 02/21/23 03:53 MCH 29.5 pg (28.0-34.0) 02/21/23 03:53 MCHC 29.9 g/dL (30.0-36.0) L 02/21/23 03:53 RDW 14.6 % (12.1-15.1) 02/21/23 03:53 Plt Count 376 10^3/cmm (130-400) 02/21/23 03:53 MPV 9.8 fL (7.4-10.4) 02/21/23 03:53 Neut % (Auto) 89.3 % 02/21/23 03:53 Lymph % (Auto) 5.5 % 02/21/23 03:53 [place] % (Auto) 4.7 % 02/21/23 03:53 Eos % (Auto) 0.0 % 02/21/23 03:53 Baso % (Auto) 0.0 % 02/21/23 03:53 Neut # (Auto) 5.34 10^3/uL (1.8-7.7) 02/21/23 03:53 Lymph # (Auto) 0.3 10^3/uL (0.8-4.8) L 02/21/23 03:53 [place] # (Auto) 0.3 10^3/uL (0.2-0.9) 02/21/23 03:53 Eos # (Auto) 0.0 10^3/uL (0.0-0.8) 02/21/23 03:53 Baso # (Auto) 0.0 10^3/uL (0.0-0.1) 02/21/23 03:53 Nucleated RBC % (auto) 0 % 02/21/23 03:53 Nucleated RBCs # 0.0 /100WBC 02/21/23 03:53 D-Dimer 4.63 ug/mIFEU (0-0.59) H 02/19/23 09:39 Sodium 138 mmol/L (136-145) 02/21/23 03:53 Potassium 4.5 mmol/L (3.5-5.1) 02/21/23 03:53 Chloride 101 mmol/L (98-107) 02/21/23 03:53 Carbon Dioxide 30 mmol/L (22-29) H 02/21/23 03:53 Anion Gap 11.5 (5-19) 02/21/23 03:53 BUN 16 mg/dL (8-23) 02/21/23 03:53 Creatinine 0.7 mg/dL (0.7-1.2) 02/21/23 03:53 GFR Calculation Not Reportable 02/21/23 03:53 Glucose 133 mg/dL (65-115) H 02/21/23 03:53 Calculated Osmolality 289 mOsm/kg (285-295) 02/21/23 03:53 Lactic Acid 1.2 mmol/L (0.5-2.2) 02/12/23 10:18 Calcium 8.5 mg/dL (8.5-10.5) 02/21/23 03:53 Phosphorus 2.6 mg/dL (2.5-4.5) 02/18/23 03:38 Magnesium 1.9 mg/dL (1.7-2.3) 02/18/23 03:38 Total Bilirubin 0.4 mg/dL (0.15-1.2) 02/18/23 03:38 AST 13 U/L (0-40) 02/18/23 03:38 ALT 8 U/L (0-41) 02/18/23 03:38 Alkaline Phosphatase 59 U/L (40-130) 02/18/23 03:38 Total Protein 4.9 g/dL (6.6-8.7) L 02/18/23 03:38 Albumin 2.1 g/dL (3.5-5.2) L 02/18/23 03:38 Globulin 2.8 g/dL (1.3-4.6) 02/18/23 03:38 Lipase 16 U/L (13-60) 02/12/23 10:18 Urine Color Brown (Yellow) 02/12/23 14:50 Urine Appearance Cloudy (CLEAR) A 02/12/23 14:50 Urine pH 5 (5-7) 02/12/23 14:50 Ur Specific [place] 1.025 (1.005-1.030) 02/12/23 14:50 Urine Protein 3+ (Negative) H 02/12/23 14:50 Urine Glucose (UA) Norm (Normal) 02/12/23 14:50 Urine Ketones 1+ (Negative) H 02/12/23 14:50 Urine Blood 3+ (Negative) H 02/12/23 14:50 Urine Nitrate Negative (Negative) 02/12/23 14:50 Urine Bilirubin Neg (Negative) 02/12/23 14:50 Urine Urobilinogen Norm mg/dL (Negative) 02/12/23 14:50 Ur Leukocyte Esterase Trace (Negative) H 02/12/23 14:50 Urine RBC Too numerous to cnt /hpf (0-2) H 02/12/23 14:50 Urine WBC 5-10 /hpf (0-5) H 02/12/23 14:50 Ur Squamous Epith Cells None /hpf (0-5) 02/12/23 14:50 Ur Transition Epith Cell 0-4 /hpf 02/12/23 14:50 Amorphous Sediment Not Reportable 02/12/23 14:50 Urine Bacteria 1+ /hpf (NONE) H 02/12/23 14:50 Blood Type A Positive 02/15/23 14:35 Rho(D) Type Positive 02/15/23 14:35 Antibody Screen Negative 02/15/23 14:35 Vitals Last Vital Signs Temp 98.5 F 02/21/23 07:22 Pulse 75 02/21/23 08:00 Resp 18 02/21/23 07:45 BP 110/56 02/21/23 07:22 Pulse Ox 95 02/21/23 07:45 O2 Del Method Nasal Cannula 02/21/23 07:45 O2 Flow Rate 1 02/21/23 07:45 Discharge Plan Discharge Patient Disposition: Home Health Service Condition: Stable Prescriptions: New ipratropium-albuterol 0.5 mg-3 mg(2.5 mg base)/3 mL solution for nebulization 3 ml inhalation QID PRN (Reason: shortness of breath or wheezing) Qty: 180 0RF furosemide [Lasix] 20 mg tablet 20 mg PO DAILY PRN (Reason: weight gain, edema of legs) Qty: 30 0RF Rx Instructions: Take potassium only when you are taking Lasix Continued atorvastatin 20 mg tablet 20 mg PO QPM amiodarone 200 mg tablet 200 mg PO DAILY budesonide-formoterol [Symbicort] 160-4.5 mcg/actuation HFA aerosol inhaler 2 puff inhalation Q12H sertraline 50 mg Tablet 50 mg PO DAILY ipratropium-albuterol 0.5 mg-3 mg(2.5 mg base)/3 mL Solution For Nebulization 3 ml INHALATION Q6H PRN (Reason: Shortness Of Breath Or Wheezing) aspirin 81 mg Tablet,Delayed Release (Dr/Ec) 81 mg PO QPM albuterol sulfate 90 mcg/actuation HFA aerosol inhaler 2 puff INHALATION Q6H PRN (Reason: Shortness Of Breath Or Wheezing) Combivent Respimat 20-100 mcg/actuation mist 1 puff INHALATION BID tamsulosin 0.4 mg Capsule 0.8 mg PO DAILY Qty: 60 0RF Eliquis 5 mg tablet 5 mg PO BID Qty: 60 0RF Changed potassium chloride 20 mEq Tablet Extended Release 40 meq PO DAILY Qty: 30 0RF Discontinued spironolactone 25 mg Tablet 25 mg PO DAILY Discharge Orders: Discharge Order (Routine); Ordered 02/21/23 Ordered By: Nataliia Noble Referrals: [facility] [place] Home Care ([facility]) [Outside] Margie Orozco FNP [Primary Care Provider] - 03/07/23 12:00 pm Patient Instructions: GI Discharge Instructions, Opioid Safety Discharge Attestations Time Spent in Discharge Care*: greater than 30 min Status at Discharge: Cognitive status at discharge: cognitively intact, Behavioral status at discharge: cooperative, Quality Metrics Clinical Quality Measures [ No reported AMI, CVA or VTE this stay] Coding Level of Care Code Acute Code for Chg Fwd Diagnoses Acute anemia D64.9 Pseudo-obstruction of colon K59.81 Atrial fibrillation I48.91 COPD (chronic obstructive pulmonary disease) J44.9 Bladder outlet obstruction N32.0 Ischemic cardiomyopathy I25.5 Hypoxia R09.02 Acute exacerbation of CHF (congestive heart failure) I50.9
--- NOTE | 2023-02-21 10:58 | PC.SOCIAL ---
IMM Updated Updated pt on IMM. No questions voiced. Provided pt a copy. Initialed, dated, & timed copy in chart.
== END 2023-02-21 13:15 | disposition home health service (06) | DRG 330 ==
LOC: ER 09:43 → ER IP 14:17 → MEDSURG 14:40
PROVIDERS: Internal Medicine; Surgery; Admitting Provider Internal Medicine; Emergency Provider Family Medicine; PCP Nurse Practitioner Family; Visit Provider Internal Medicine
PROC: 0DJD8ZZ Inspection of Lower Intestinal Tract, Via Natural or Artificial Opening Endoscopic (ICD-10-PCS; CPT 45378; principal; 2023-02-14 07:00)
PROC: 0DTN0ZZ Resection of Sigmoid Colon, Open Approach (ICD-10-PCS; principal; 2023-02-15 13:30)
DX: K59.81 Ogilvie syndrome (principal); K56.609 Unspecified intestinal obstruction, unspecified as to partial versus complete obstruction; I10 Essential (primary) hypertension; I48.91 Unspecified atrial fibrillation; Z79.82 Long term (current) use of aspirin; Z79.01 Long term (current) use of anticoagulants; N32.0 Bladder-neck obstruction; I25.5 Ischemic cardiomyopathy; I25.10 Atherosclerotic heart disease of native coronary artery without angina pectoris; Z95.5 Presence of coronary angioplasty implant and graft; J44.9 Chronic obstructive pulmonary disease, unspecified; I73.9 Peripheral vascular disease, unspecified; I71.9 Aortic aneurysm of unspecified site, without rupture; F17.210 Nicotine dependence, cigarettes, uncomplicated; D64.9 Anemia, unspecified; R31.9 Hematuria, unspecified; E87.6 Hypokalemia
CPT/HCPCS: 12345; 36415; 45393; 51702; 51798; 71045; 71275; 74018; 74176; 80048; 80053; 81001; 83605; 83690; 83735; 84100; 85014; 85018; 85025; 85378; 86850; 86900; 87077; 87086; 87186; 88309; 93005; 93970; 94640; 94760; 96365; 96372; 96375; 97110; 97116; 97161; 97530; 99285; C9113; J0131; J0694; J1170; J1200; J1644; J1940; J2060; J2270; J2405; J2543; J2704; J2710; J3010; J3480; J3490; J7030; J7040; J7626; J8540; P9045; Q9967

== ENCOUNTER → 2023-02-28 14:05 | Outpatient (BNVA) | payer MEDICARE, SELFPAY | PROVIDERS: PCP Nurse Practitioner Family; Visit Provider Surgery | DX: Z98.890 Other specified postprocedural states (principal); Z90.49 Acquired absence of other specified parts of digestive tract | CPT/HCPCS: 99024 ==

== ENCOUNTER → 2023-03-28 14:57 | Outpatient (BNVA) | payer MEDICARE, SELFPAY | PROVIDERS: PCP Nurse Practitioner Family; Visit Provider Surgery | DX: Z98.890 Other specified postprocedural states (principal); Z90.49 Acquired absence of other specified parts of digestive tract | CPT/HCPCS: 99024 ==

== ENCOUNTER → 2023-05-10 13:56 | Outpatient (BNVA) | payer MEDICARE, SELFPAY | PROVIDERS: PCP Nurse Practitioner Family; Visit Provider Internal Medicine Cardiovascular Disease | DX: I48.91 Unspecified atrial fibrillation (principal); I42.9 Cardiomyopathy, unspecified; I25.10 Atherosclerotic heart disease of native coronary artery without angina pectoris; Z79.01 Long term (current) use of anticoagulants; F17.210 Nicotine dependence, cigarettes, uncomplicated; I11.0 Hypertensive heart disease with heart failure; I50.9 Heart failure, unspecified | CPT/HCPCS: 99214 ==

== ENCOUNTER → 2024-01-30 09:22 | Outpatient (BNVA) | payer MEDICARE, SELFPAY | PROVIDERS: PCP Nurse Practitioner Family; Visit Provider Nurse Practitioner Family | DX: I48.91 Unspecified atrial fibrillation (principal); I21.09 ST elevation (STEMI) myocardial infarction involving other coronary artery of anterior wall; I25.10 Atherosclerotic heart disease of native coronary artery without angina pectoris; I10 Essential (primary) hypertension; I25.5 Ischemic cardiomyopathy; I48.0 Paroxysmal atrial fibrillation; F17.210 Nicotine dependence, cigarettes, uncomplicated | CPT/HCPCS: 93005; 99214 ==

== ENCOUNTER 2024-07-20 23:02 | Inpatient (IN) | payer MEDICARE, SELFPAY ==
[2024-07-20 23:04] VITALS: BP 116/82; PULSE 72; RESP 22; TEMP 36.6; BMI 20.5
--- NOTE | 2024-07-20 23:33 | CTR_ITS ---
PROCEDURE INFORMATION: Exam: CT Abdomen And Pelvis With Contrast Exam date and time: 07/21/2024 12:11 AM Age: 73 years old Clinical indication: Nausea and vomiting; Abdominal pain; Localized; Prior surgery; Surgery date: 6+ months; Surgery type: Coronary stent. Colectomy. Suprapubic cath; Patient HX: C/O lower abd pain with n/v; Additional info: Abd pain vomiting TECHNIQUE: Imaging protocol: Computed tomography of the abdomen and pelvis with contrast. Radiation optimization: All CT scans at this facility use at least one of these dose optimization techniques: automated exposure control; mA and/or kV adjustment per patient size (includes targeted exams where dose is matched to clinical indication); or iterative reconstruction. Contrast material: OMNI 350; Contrast volume: 80 ml; Contrast route: INTRAVENOUS (IV); COMPARISON: CT abdomen pelvis wo con [id number] 02/12/2023 9:49 AM RADIATION DOSE METRICS: Total DLP (mGy-cm): 327.66 FINDINGS: Lungs: Emphysematous changes. Coronary arteries: Coronary artery atherosclerotic calcifications. Liver: Normal. No mass. Gallbladder and biliary ducts: Cholelithiasis. Pancreas: Normal. No ductal dilation. Spleen: Normal. No splenomegaly. Adrenal glands: Normal. No mass. Kidneys and ureters: Bilateral renal cysts, negative for follow up advised. Stomach and bowel: Multiple dilated small bowel loops with fluid levels measuring up to 3.5 cm concerning for an obstruction, potentially high-grade, with a possible transition point in the right lower abdomen. Appendix: No evidence of appendicitis. Intraperitoneal space: Unremarkable. No free air. No significant fluid collection. Vasculature: Fusiform infrarenal abdominal aortic aneurysm measuring up to 4.9 cm. Extensive aortic and iliac artery atherosclerotic calcifications. Right common iliac artery demonstrates suspected 80-90% luminal narrowing secondary to atherosclerotic disease. Lymph nodes: Unremarkable. No enlarged lymph nodes. Urinary bladder: Suprapubic Paulino catheter in the urinary bladder. Reproductive: Unremarkable as visualized. Bones/joints: Unremarkable. No acute fracture. Soft tissues: Unremarkable. CT/CT abdomen pelvis w con* [id number] IMPRESSION: 1. Multiple dilated small bowel loops with fluid levels measuring up to 3.5 cm concerning for an obstruction, potentially high-grade, with a possible transition point in the right lower abdomen. 2. Fusiform infrarenal abdominal aortic aneurysm measuring up to 4.9 cm. 3. Extensive aortic and iliac artery atherosclerotic calcifications. Right common iliac artery demonstrates suspected 80-90% luminal narrowing secondary to atherosclerotic disease. 4. Bilateral renal cysts, negative for follow up advised. 5. Cholelithiasis. 6. Suprapubic Paulino catheter in the urinary bladder. 7. Emphysematous changes. 8. Coronary artery atherosclerotic calcifications.
[2024-07-21] VITALS (12 sets, daily range): BP systolic 92–125; BP diastolic 51–84; PULSE 64–109; RESP 16–18; TEMP 36.4–36.7; O2SAT 90–94
[2024-07-21] MEDS: methylPREDNISolone sod succ 40 mg/mL INJ IVP (00:05)
[2024-07-21] MEDS: diphenhydrAMINE 50 mg/mL SDV 1mL IVP (00:05)
[2024-07-21] MEDS: iohexol 350 mg/mL 500 mL Btl (per mL) IV (00:13)
[2024-07-21] MEDS: sodium chloride 0.9% 1,000 ML 999 ML IV (00:15)
[2024-07-21 00:22] LABS: Basophils # 0.1 10^3/uL (0.0-0.1); Basophils % 0.5 %; Eosinophils # 0.2 10^3/uL (0.0-0.8); Eosinophils % 1.8 %; Hematocrit 47.5 % (37-53); Lymphocytes # 0.4 10^3/uL (0.8-4.8); Mean Corpuscular HGB Conc 31.2 g/dL (30-55); Mean Corpuscular Hemoglobin 29.8 pg (27-33); Mean Corpuscular Volume 95.6 fl (82-101); Mean Platelet Volume 9.4 fL (7.4-10.4); Monocytes # 0.9 10^3/uL (0.2-0.9); Monocytes % 6.9 %; Neutrophils # 11.39 10^3/uL (1.8-7.7); Neutrophils % 87.6 %; Nucleated Red Blood Cells % 0 %; Platelet Count 322 10^3/cmm (157-399); Red Blood Count 4.97 10^6/uL (3.85-5.65); Red Cell Distribution Width 13.2 % (12.1-15.1); White Blood Count 12.99 10^3/uL (3.29-11.43)
[2024-07-21 00:27] LABS: Alanine Aminotransferase 9 U/L (0-41); Albumin Level 4.1 g/dL (3.5-5.2); Alkaline Phosphatase 77 U/L (40-130); Anion Gap 16.2 (5-19); Aspartate Amino Transferase 11 U/L (0-40); Blood Urea Nitrogen 27 mg/dL (8-23); C Reactive Protein 3.9 mg/L (0.0-4.9); Calcium 8.8 mg/dL (8.5-10.5); Carbon Dioxide 23 mmol/L (22-29); Chloride 102 mmol/L (98-107); Globulin 2.8 g/dL (1.3-4.6); Glucose 115 mg/dL (65-115); Lipase 21 U/L (13-60); Osmolality Calculated 288 mOsm/kg (285-295); Potassium 5.2 mmol/L (3.5-5.1); Sodium 136 mmol/L (136-145); Total Bilirubin 0.3 mg/dL (0.15-1.2); Total Protein 6.9 g/dL (6.6-8.7)
--- NOTE | 2024-07-21 00:55 | XRR_ITS ---
PROCEDURE INFORMATION: Exam: XR Chest Exam date and time: 07/21/2024 1:17 AM Age: 73 years old Clinical indication: Device placement; Ng tube; Prior surgery; Surgery date: 6+ months; Surgery type: Coronary stent; Patient HX: Check S/P ng placement; Additional info: S/P ng tube TECHNIQUE: Imaging protocol: Radiologic exam of the chest. Views: 1 view. COMPARISON: CT angio chest PE prot [id number] 02/20/2023 11:19 AM FINDINGS: Tubes, catheters and devices: There is an NG tube projecting along expected course of the esophagus with its tip the stomach and sidehole at the GE junction. Lungs: Unremarkable. No consolidation. Pleural spaces: Unremarkable. No pleural effusion. No pneumothorax. Heart/Mediastinum: Unremarkable. No cardiomegaly. Bones/joints: Unremarkable. XR/XR chest 1V portable [id number] IMPRESSION: No acute cardiopulmonary abnormality. NG tube with its sidehole at the GE junction should be advanced further into the stomach.
--- NOTE | 2024-07-21 00:55 | P.HP_ITS ---
Providers/Chief Complaint 2 Primary Care Provider: GAMAL Stout Chief Complaint: ABD PAIN History of Present Illness Abisai Hicks is a 73 year old male with history of colectomy 02/15/[address] Reinoso for [place] syndrome unresponsive to conservative management with colonic ischemia patient had subtotal colectomy, presenting with chief complaint nausea vomiting and diarrhea. Patient stating that he was in usual state of health until Sunday morning when he started experiencing nausea along vomiting, he vomited around 8-9 times, he also started having frequent bowel movement, endorsing more than 8 episodes. He was extremely weak lethargic, was experiencing rigors and chills. Decided to come to the hospital, in the ER CT scan is consistent with SBO. Dr. Nielson consulted. NG tube will be placed hospital service was requested to admit the patient Patient is stating that he smokes 1 pack/day, lives alone, son lives in [facility], he has a cousin Shelton who is at the bedside stating that he should be his medical power of trademark attorney in case he becomes confused, does not have anything official in writing yet Patient also has 4.9 cm abdominal aortic aneurysm, he is hemodynamically stable, no signs of peritonitis. Also has significant atherosclerotic disease Review of Systems 2 Const: Reports: chills and change in weight Eyes: Denies: change in vision ENMT: Denies: throat pain Card: Denies: chest pain Resp: Denies: dyspnea GI: Reports: abdominal pain, nausea, vomiting and diarrhea : Denies: flank pain Medications/Allergies Home Medications Medication Instructions Recorded Confirmed Last Taken Type atorvastatin 20 mg tablet 20 mg PO QPM 01/15/20 01/30/24 02/11/23 History budesonide-formoterol HFA 160 2 puff inhalation Q12H 04/07/22 01/30/24 02/12/23 History mcg-4.5 mcg/actuation aerosol inhaler (Symbicort) albuterol sulfate 90 mcg/actuation 2 puff inhalation Q6H PRN 01/23/23 01/30/24 01/22/23 History aerosol inhaler Shortness Of Breath Or Wheezing aspirin 81 mg tablet,delayed 81 mg PO QPM 01/23/23 01/30/24 02/11/23 History release ipratropium 20 mcg-albuterol 100 1 puff inhalation BID 01/23/23 01/30/24 02/12/23 History mcg/actuation mist for inhalation (Combivent Respimat) tamsulosin 0.4 mg capsule 0.8 mg (2 x 0.4 mg) PO DAILY #60 01/24/23 01/30/24 02/12/23 Rx caps sertraline 50 mg tablet 50 mg PO DAILY 02/04/23 01/30/24 02/12/23 History apixaban 5 mg tablet (Eliquis) 5 mg PO BID #60 tabs 02/19/23 01/30/24 02/12/23 Rx ipratropium 0.5 mg-albuterol 3 mg 3 ml inhalation QID PRN shortness 02/21/23 01/30/24 Unknown Rx (2.5 mg base)/3 mL nebulization of breath or wheezing #180 mL soln amiodarone 200 mg tablet 100 mg PO DAILY 01/30/24 01/30/24 Unknown History potassium chloride 20 mEq 20 meq PO .every other day 01/30/24 01/30/24 Unknown History tablet,extended release Allergies Allergy/AdvReac Type Severity Reaction Status Date / Time iodine Allergy Unknown Verified 01/30/24 09:05 PFSH Acute 2 PFSH: Medical History Ischemic cardiomyopathy Atrial fibrillation HTN (hypertension) CAD (coronary artery disease) Acute exacerbation of CHF (congestive heart failure) Hypoxia Acute anemia Pseudo-obstruction of colon Bowel obstruction Peripheral vascular disease Severe distal aortic disease, aortic aneurysm Encounter for smoking cessation counseling Goals of care, counseling/discussion Hypokalemia Abdominal pain COPD (chronic obstructive pulmonary disease) Shortness of breath Acute hypokalemia Bladder outlet obstruction Acute urinary retention Preoperative clearance Hx of retinal detachment Surgical History Hx of colectomy S/P coronary artery stent placement (~2013) S/P cataract surgery Family History Father CAD (coronary artery disease) Lung disease Family/Other CAD (coronary artery disease) Grandfather CAD (coronary artery disease) Social History Smoking and tobacco/nicotine status: current every day tobacco/nicotine user cigarettes Alcohol intake: current Alcohol intake frequency: other Substance/Drug Use: never Vitals/I&O/Wt Last Vital Signs Temp 97.9 F 07/20/24 23:04 Pulse 72 07/20/24 23:04 Resp 22 H 07/20/24 23:04 BP 116/82 07/20/24 23:04 O2 Del Method Room Air 07/20/24 23:04 Weight last 48 hrs Weight 61.235 kg Physical Exam 2 Narrative: Awake and alert Dehydrated GCS 15 Pleasant and cooperative Hemodynamically stable Currently on room air No signs of peritonitis S1, S2 No audible stridor or wheezing Family at the bedside His cousin Shelton is at the bedside No abdominal tenderness I do not appreciate any guarding or rigidity, Data 07/20/24 23:57 07/20/24 23:57 A&P Assessment and plan (1) Hx of colectomy: (2) Atrial fibrillation: Qualifiers: Atrial fibrillation type: paroxysmal Qualified Code(s): I48.0 - Paroxysmal atrial fibrillation (3) Ischemic cardiomyopathy: (4) SBO (small bowel obstruction): Plan SBO History of subtotal colectomy Patient is also experiencing diarrhea Small intestinal bacterial overgrowth? I will put patient on metronidazole, he cannot take rifaximin because we are going to place NG tube to low intermittent suction Start conservative management Adrián the surgeon consulted Dr. Nielson is aware Will start IV fluids Will add opioids as well A-fib without RVR last dose of Eliquis was on Sunday evening 7 PM No signs of RVR hemodynamically stable no active chest pain Hypertension: Currently normotensive Holding amiodarone BPH: Hold tamsulosin for now Previous echo showed preserved ejection fraction EF 55%, repeat echo as January 2023 echo had poor ultrasonic windows to assess function Abdominal aortic aneurysm 4.9 cm he will need vascular follow-up outpatient keep blood pressure and heart rate as follows: Morris blood pressure should stay below 120/80 and heart rate below 80, can use labetalol on as-needed basis avoid hydralazine Patient is smoking 1 pack/day, lives alone, wants to appoint his cousin as medical power of trademark attorney son lives in [place] Full code N.p.o. DVT prophylaxis: SCDs Attestations 2 Medical Necessity Statement*: More than 2 midnights anticipated for management of SBO Diagnoses Hx of colectomy Z90.49 Paroxysmal atrial fibrillation I48.0 Atrial fibrillation type: paroxysmal Ischemic cardiomyopathy I25.5 SBO (small bowel obstruction) K56.609
[2024-07-21 00:58] LABS: Lactic Sepsis W/Reflex 1.2 mmol/L (0.5-2.2)
--- NOTE | 2024-07-21 01:00 | PC.NURSE ---
Patient drowsy and not waking up fully upon arriving to the floor. Unable to complete SDOH at this time. Family at bedside to answer admission questions.
--- NOTE | 2024-07-21 01:07 | W.ED.ABDPA2 ---
HPI - Abdominal Pain General: Chief Complaint: Abdominal Pain Stated Complaint: ABD PAIN Time Seen by Provider: 07/20/24 23:17 History of Present Illness: 73-year-old gentleman with a history of colectomy in the spring 2022. He presents with abdominal pain and distention and multiple episodes of vomiting the last 24 hours or so. No fever. He has begun to have some loose stool. Pain is a bit better after this. He has not noticed any blood. Related Data Home Medications Medication Instructions Recorded Confirmed atorvastatin 20 mg tablet 20 mg PO QPM 01/15/20 01/30/24 budesonide-formoterol HFA 160 2 puff inhalation Q12H 04/07/22 01/30/24 mcg-4.5 mcg/actuation aerosol inhaler (Symbicort) albuterol sulfate 90 mcg/actuation 2 puff inhalation Q6H PRN 01/23/23 01/30/24 aerosol inhaler Shortness Of Breath Or Wheezing aspirin 81 mg tablet,delayed 81 mg PO QPM 01/23/23 01/30/24 release ipratropium 20 mcg-albuterol 100 1 puff inhalation BID 01/23/23 01/30/24 mcg/actuation mist for inhalation (Combivent Respimat) sertraline 50 mg tablet 50 mg PO DAILY 02/04/23 01/30/24 amiodarone 200 mg tablet 100 mg PO DAILY 01/30/24 01/30/24 potassium chloride 20 mEq 20 meq PO .every other day 01/30/24 01/30/24 tablet,extended release Previous Rx's Medication Instructions Recorded tamsulosin 0.4 mg capsule 0.8 mg (2 x 0.4 mg) PO DAILY #60 01/24/23 caps apixaban 5 mg tablet (Eliquis) 5 mg PO BID #60 tabs 02/19/23 ipratropium 0.5 mg-albuterol 3 mg 3 ml inhalation QID PRN shortness 02/21/23 (2.5 mg base)/3 mL nebulization of breath or wheezing #180 mL soln Allergies Allergy/AdvReac Type Severity Reaction Status Date / Time iodine Allergy Unknown Verified 01/30/24 09:05 [facility] ED PFSH: Medical History Ischemic cardiomyopathy Atrial fibrillation HTN (hypertension) CAD (coronary artery disease) Acute exacerbation of CHF (congestive heart failure) Hypoxia Acute anemia Pseudo-obstruction of colon Bowel obstruction Peripheral vascular disease Severe distal aortic disease, aortic aneurysm Encounter for smoking cessation counseling Goals of care, counseling/discussion Hypokalemia Abdominal pain COPD (chronic obstructive pulmonary disease) Shortness of breath Acute hypokalemia Bladder outlet obstruction Acute urinary retention Preoperative clearance Hx of retinal detachment Surgical History Hx of colectomy S/P coronary artery stent placement (~2013) S/P cataract surgery Family History Father CAD (coronary artery disease) Lung disease Family/Other CAD (coronary artery disease) Grandfather CAD (coronary artery disease) Social History Smoking and tobacco/nicotine status: current every day tobacco/nicotine user cigarettes Alcohol intake: current Alcohol intake frequency: other Substance/Drug Use: never Physical Exam Const: GENERAL APPEARANCE: cooperative, ill appearing (Mildly) and frail appearing (Mildly) HENMT: COMMON NORMALS: normocephalic, atraumatic and Normal external nose present HEAD & SCALP: normocephalic and atraumatic FACE & SINUS: normal facial exam and face symmetric NOSE: Normal external nose present Eye: COMMON NORMALS: Equal, round and reactive pupils present and EOMs intact bilaterally PUPIL: Yes Equal, round and reactive pupils present Neck/C-Spine: GENERAL: Yes trachea midline Chest: CHEST: Yes Symmetrical chest wall rise Resp: COMMON NORMALS: normal respiratory effort, No retractions, No use of accessory muscles and clear to auscultation bilaterally AUSCULTATION: clear to auscultation bilaterally Cardio: COMMON NORMALS: regular rate and regular rhythm RATE: regular rate RHYTHM: regular rhythm GI: COMMON NORMALS: Normal to inspection, nondistended, normoactive bowel sounds present and Soft to palpation INSPECTION: Yes abdominal distension PALPATION: Yes Soft to palpation and Yes Tenderness to palpation present (GI) (Diffuse) Extremity: COMMON NORMALS: no pedal edema Neuro: JENNA COMA SCALE: document GCS findings [place] coma scale eye opening: Spontaneous Jenna coma scale verbal response: Orientated [place] coma scale motor response: Obey commands Jenna coma scale total score: 15 SENSORY EXAM: Yes extremities (intact) Psych: COMMON NORMALS: speech normal SPEECH: Yes normal speech Skin: COMMON NORMALS: no rashes or lesions noted GENERAL SKIN EXAM: no rashes or lesions noted Course Vital Signs: Vital signs: Vital Signs Temperature 97.9 F 07/20/24 23:04 Pulse Rate 72 07/20/24 23:04 Respiratory Rate 22 H 07/20/24 23:04 Blood Pressure 116/82 07/20/24 23:04 Oxygen Delivery Me thod Room Air 07/20/24 23:04 MDM - Abdominal Pain Medical Decision Making White blood cell count is 13. Potassium mildly elevated at 5.2, the patient is given 1 L fluid. His creatinine is 1.7 which is a significant bump from last year, so more fluid will be required. CRP is only 4. CT shows dilated loops of small bowel to 3.5 cm concerning for a high-grade small bowel obstruction with a transitional point likely in the right lower belly. Spoke with surgery. Recommendations are IV fluid and NG tube. He will see later this morning. Spoke with hospitalist who is willing to admit. Lab Data 07/20/24 23:57 07/20/24 23:57 Labs/Radiology: Radiology Impressions Abdomen/Pelvis CT 07/20/24 23:33 IMPRESSION: 1. Multiple dilated small bowel loops with fluid levels measuring up to 3.5 cm concerning for an obstruction, potentially high-grade, with a possible transition point in the right lower abdomen. 2. Fusiform infrarenal abdominal aortic aneurysm measuring up to 4.9 cm. 3. Extensive aortic and iliac artery atherosclerotic calcifications. Right common iliac artery demonstrates suspected 80-90% luminal narrowing secondary to atherosclerotic disease. 4. Bilateral renal cysts, negative for follow up advised. 5. Cholelithiasis. 6. Suprapubic Paulino catheter in the urinary bladder. 7. Emphysematous changes. 8. Coronary artery atherosclerotic calcifications. Laboratory Results WBC 12.99 10^3/uL (3.29-11.43) H 07/20/24 23:57 RBC 4.97 10^6/uL (3.85-5.65) 07/20/24 23:57 Hgb 14.80 g/dL (11.27-16.99) 07/20/24 23:57 Hct 47.5 % (37-53) 07/20/24 23:57 MCV 95.6 fl (82-101) 07/20/24 23:57 MCH 29.8 pg (27-33) 07/20/24 23:57 MCHC 31.2 g/dL (30-55) 07/20/24 23:57 RDW 13.2 % (12.1-15.1) 07/20/24 23:57 Plt Count 322 10^3/cmm (157-399) 07/20/24 23:57 MPV 9.4 fL (7.4-10.4) 07/20/24 23:57 Neut % (Auto) 87.6 % 07/20/24 23:57 Lymph % (Auto) 3.0 % 07/20/24 23:57 [place] % (Auto) 6.9 % 07/20/24 23:57 Eos % (Auto) 1.8 % 07/20/24 23:57 Baso % (Auto) 0.5 % 07/20/24 23:57 Neut # (Auto) 11.39 10^3/uL (1.8-7.7) H 07/20/24 23:57 Lymph # (Auto) 0.4 10^3/uL (0.8-4.8) L 07/20/24 23:57 [place] # (Auto) 0.9 10^3/uL (0.2-0.9) 07/20/24 23:57 Eos # (Auto) 0.2 10^3/uL (0.0-0.8) 07/20/24 23:57 Baso # (Auto) 0.1 10^3/uL (0.0-0.1) 07/20/24 23:57 Nucleated RBC % (auto) 0 % 07/20/24 23:57 Nucleated RBCs # 0.0 /100WBC 07/20/24 23:57 Sodium 136 mmol/L (136-145) 07/20/24 23:57 Potassium 5.2 mmol/L (3.5-5.1) H 07/20/24 23:57 Chloride 102 mmol/L (98-107) 07/20/24 23:57 Carbon Dioxide 23 mmol/L (22-29) 07/20/24 23:57 Anion Gap 16.2 (5-19) 07/20/24 23:57 BUN 27 mg/dL (8-23) H 07/20/24 23:57 Creatinine 1.7 mg/dL (0.7-1.2) H 07/20/24 23:57 GFR Calculation Not Reportable 07/20/24 23:57 Glucose 115 mg/dL (65-115) 07/20/24 23:57 Calculated Osmolality 288 mOsm/kg (285-295) 07/20/24 23:57 Lactic Acid 1.2 mmol/L (0.5-2.2) 07/20/24 23:57 Calcium 8.8 mg/dL (8.5-10.5) 07/20/24 23:57 Total Bilirubin 0.3 mg/dL (0.15-1.2) 07/20/24 23:57 AST 11 U/L (0-40) 07/20/24 23:57 ALT 9 U/L (0-41) 07/20/24 23:57 Alkaline Phosphatase 77 U/L (40-130) 07/20/24 23:57 C-Reactive Protein 3.9 mg/L (0.0-4.9) 07/20/24 23:57 Total Protein 6.9 g/dL (6.6-8.7) 07/20/24 23:57 Albumin 4.1 g/dL (3.5-5.2) 07/20/24 23:57 Globulin 2.8 g/dL (1.3-4.6) 07/20/24 23:57 Lipase 21 U/L (13-60) 07/20/24 23:57 All radiology interpretation(s) finalized by discharge Discharge Plan Discharge Admit Provider: Nataliia Noble Condition: Stable Prescriptions: No Action atorvastatin 20 mg tablet 20 mg PO QPM budesonide-formoterol [Symbicort] 160-4.5 mcg/actuation HFA aerosol inhaler 2 puff inhalation Q12H amiodarone 200 mg tablet 100 mg PO DAILY potassium chloride 20 mEq tablet extended release 20 meq PO .every other day sertraline 50 mg Tablet 50 mg PO DAILY aspirin 81 mg Tablet,Delayed Release (Dr/Ec) 81 mg PO QPM albuterol sulfate 90 mcg/actuation HFA aerosol inhaler 2 puff INHALATION Q6H PRN (Reason: Shortness Of Breath Or Wheezing) Combivent Respimat 20-100 mcg/actuation mist 1 puff INHALATION BID tamsulosin 0.4 mg Capsule 0.8 mg PO DAILY Qty: 60 0RF Eliquis 5 mg tablet 5 mg PO BID Qty: 60 0RF ipratropium-albuterol 0.5 mg-3 mg(2.5 mg base)/3 mL solution for nebulization 3 ml inhalation QID PRN (Reason: shortness of breath or wheezing) Qty: 180 0RF Coding Level of Care Code [facility] for Chg Fwd
[2024-07-21] MEDS: LORazepam 2 mg/mL INJ 1 mL 1 MG IVP (01:22)
[2024-07-21] MEDS: haloperidol inj 5 mg/mL INJ 1 mL 3 MG IVP (01:22)
[2024-07-21] MEDS: metroNIDAZOLE IV 500 MG/100 ML PREMIX 100 MG IV ×3 (02:29→17:40)
[2024-07-21] MEDS: dextrose 5%-sod chloride 0.9% 1,000 ML 30 ML IV (02:29)
[2024-07-21 05:54] LABS: Basophils % 0.2 %; Eosinophils % 0.2 %; Hematocrit 41.9 % (37-53); Lymphocytes # 0.3 10^3/uL (0.8-4.8); Lymphocytes % 2.9 %; Mean Corpuscular HGB Conc 30.8 g/dL (30-55); Mean Corpuscular Hemoglobin 29.4 pg (27-33); Mean Corpuscular Volume 95.4 fl (82-101); Mean Platelet Volume 9.8 fL (7.4-10.4); Monocytes # 0.2 10^3/uL (0.2-0.9); Monocytes % 2.4 %; Neutrophils # 9.04 10^3/uL (1.8-7.7); Neutrophils % 94.1 %; Nucleated Red Blood Cells % 0 %; Platelet Count 247 10^3/cmm (157-399); Red Blood Count 4.39 10^6/uL (3.85-5.65); Red Cell Distribution Width 13.2 % (12.1-15.1); White Blood Count 9.61 10^3/uL (3.29-11.43)
[2024-07-21 06:04] LABS: Blood Urea Nitrogen 28 mg/dL (8-23); Calcium 7.9 mg/dL (8.5-10.5); Carbon Dioxide 19 mmol/L (22-29); Chloride 106 mmol/L (98-107); Creatinine Clr Calc Pharmacy 39.1172; Glucose 138 mg/dL (65-115); Magnesium 1.7 mg/dL (1.7-2.3); Osmolality Calculated 290 mOsm/kg (285-295); Sodium 136 mmol/L (136-145)
--- NOTE | 2024-07-21 08:00 | XRR_ITS ---
PROCEDURE INFORMATION: Exam: XR Abdomen Exam date and time: 07/21/2024 8:06 AM Age: 73 years old Clinical indication: Condition or disease; Intestinal condition; Obstruction; Additional info: Sbo TECHNIQUE: Imaging protocol: Radiologic exam of the abdomen. Views: Frontal supine view of the abdomen. 1 View. COMPARISON: CT abdomen pelvis w con* [id number] 07/21/2024 12:11 AM FINDINGS: Tubes, catheters and devices: A nasogastric tube has been place with its tip in the proximal stomach. The side-hole is near the gastroesophageal junction. This could be advanced an additional 5 cm for better positioning. A suprapubic catheter is noted. Gastrointestinal tract: There is borderline gaseous distension of small bowel loops. Of note the patient has had prior colectomy correlation with patient history and prior CT Bones/joints: Unremarkable. XR/XR KUB portable [id number] IMPRESSION: 1. Nasogastric tube with its tip in the proximal stomach with the side hole near the gastroesophageal junction. This could be advanced an additional 5 cm for better positioning. 2. Borderline distended gas-filled loops of small bowel which may be owing to ileus versus partial small bowel obstruction
[2024-07-21] MEDS: pantoprazole 40 mg SDV IVP ×2 (08:48→17:40)
--- NOTE | 2024-07-21 09:28 | P.CONIM_ITS ---
Providers/Reason For Consult 2 Consulting Physician/Specialty*: Dr. Nielson general surgery Reason for Consult*: SBO Attending Physician: Aspen Rodríguez MD Primary Care Provider: GAMAL Stout History of Present Illness History of Present Illness Abisai Hicks is a 73 year old male who presented with an SBO. Patient has had a subtotal colectomy for bowel ischemia by Dr. Reinoso. Patient reports abdominal pain started last night. Not passing gas. Last bowel movement yesterday. No leukocytosis. CT scan without any evidence of threatened bowel. Vital signs stable. Medications/Allergies Home Medications Medication Instructions Recorded Confirmed Last Taken Type atorvastatin 20 mg tablet 20 mg PO QPM 01/15/20 07/21/24 02/11/23 History budesonide-formoterol HFA 160 2 puff inhalation Q12H 04/07/22 07/21/24 02/12/23 History mcg-4.5 mcg/actuation aerosol inhaler (Symbicort) albuterol sulfate 90 mcg/actuation 2 puff inhalation Q6H PRN 01/23/23 07/21/24 01/22/23 History aerosol inhaler Shortness Of Breath Or Wheezing aspirin 81 mg tablet,delayed 81 mg PO QPM 01/23/23 07/21/24 02/11/23 History release ipratropium 20 mcg-albuterol 100 1 puff inhalation BID 01/23/23 07/21/24 02/12/23 History mcg/actuation mist for inhalation (Combivent Respimat) tamsulosin 0.4 mg capsule 0.8 mg (2 x 0.4 mg) PO DAILY #60 01/24/23 07/21/24 02/12/23 Rx caps sertraline 50 mg tablet 50 mg PO DAILY 02/04/23 07/21/24 02/12/23 History apixaban 5 mg tablet (Eliquis) 5 mg PO BID #60 tabs 02/19/23 07/21/24 07/19/24 Rx ipratropium 0.5 mg-albuterol 3 mg 3 ml inhalation QID PRN shortness 02/21/23 07/21/24 Unknown Rx (2.5 mg base)/3 mL nebulization of breath or wheezing #180 mL soln amiodarone 200 mg tablet 200 mg PO DAILY 01/30/24 07/21/24 Unknown History potassium chloride 20 mEq 40 meq PO DAILY 01/30/24 07/21/24 Unknown History tablet,extended release Allergies Allergy/AdvReac Type Severity Reaction Status Date / Time iodine Allergy Unknown Verified 01/30/24 09:05 Current Medications Generic Name Dose Route Start Last Admin Trade Name Freq PRN Reason Stop Dose Admin Dextrose/Sodium Chloride 1,000 mls @ 30 mls/hr 07/21/24 01:49 07/21/24 02:29 Dextrose 5%-Sod Chloride 0.9% IV 30 mls/hr .Q24H MYRA Administration Metronidazole 500 mg in 100 mls @ 100 mls/hr 07/21/24 02:00 07/21/24 09:25 Flagyl Iv IV 100 mls/hr Q8H MYRA Administration Protocol Pantoprazole Sodium 40 mg 07/21/24 09:00 07/21/24 08:48 Pantoprazole 40 Mg Sdv IVP 40 mg BID MYRA Administration PFSH Acute 2 PFSH: Medical History Ischemic cardiomyopathy Atrial fibrillation HTN (hypertension) CAD (coronary artery disease) Acute exacerbation of CHF (congestive heart failure) Hypoxia Acute anemia Pseudo-obstruction of colon Bowel obstruction Peripheral vascular disease Severe distal aortic disease, aortic aneurysm Encounter for smoking cessation counseling Goals of care, counseling/discussion Hypokalemia Abdominal pain COPD (chronic obstructive pulmonary disease) Shortness of breath Acute hypokalemia Bladder outlet obstruction Acute urinary retention Preoperative clearance Hx of retinal detachment Surgical History Hx of colectomy S/P coronary artery stent placement (~2013) S/P cataract surgery Family History Father CAD (coronary artery disease) Lung disease Family/Other CAD (coronary artery disease) Grandfather CAD (coronary artery disease) Social History Smoking and tobacco/nicotine status: current every day tobacco/nicotine user cigarettes Alcohol intake: current Alcohol intake frequency: other Substance/Drug Use: never Vitals/I&O/Wt Last Vital Signs Temp 98.0 F 07/21/24 08:11 Pulse 71 07/21/24 08:32 Resp 18 07/21/24 08:32 BP 101/61 07/21/24 08:11 Pulse Ox 93 07/21/24 08:32 O2 Del Method Room Air 07/21/24 08:32 07/20/24 07/21/24 07/21/24 22:59 06:59 14:59 Intake Total 1100 / 1100 Output Total 250 / 250 Balance 850 / 850 Weight last 48 hrs Weight 126 lb 9.6 oz Weight 135 lb Physical Exam 2 Narrative: Chest: Unlabored breathing room air. No lymphadenopathy. Heart: Regular rate and rhythm. Abdomen: Soft, mildly tender diffusely, distended. No masses or lymphadenopathy. Data 07/21/24 05:01 07/21/24 05:01 A&P Assessment and plan (1) SBO (small bowel obstruction): Plan 73-year-old male who presents with SBO. Pursue nonoperative management. NG tube to low continuous suction. IV fluids. Minimize narcotics. Correct electrolyte derangements. Encourage ambulation. Coding Level of Care Code 30221 Diagnoses SBO (small bowel obstruction) K56.609 Time Spent (min) 30
--- NOTE | 2024-07-21 11:39 | P.MISC_ITS ---
Miscellaneous Note Note: Seen this morning. States he feels like he might have a bowel movement. Bowel sounds present h owever very hypoactive. Patient is not passing gas. Appreciate consultation from general surgery. Patient recommendations.
[2024-07-21] MEDS: ipratropium-albuterol 3 mL Neb INHALATION ×2 (16:10→23:19)
[2024-07-21 19:26] LABS: C.Diff PCR (Lab) NEGATIVE (Negative)
[2024-07-22] VITALS: BP 104/53; PULSE 68; RESP 20; TEMP 36.4; O2SAT 95
[2024-07-22] MEDS: metroNIDAZOLE IV 500 MG/100 ML PREMIX 100 MG IV (02:11)
[2024-07-22] MEDS: dextrose 5%-sod chloride 0.9% 1,000 ML 30 ML IV (02:12)
[2024-07-22 04:00] VITALS: BP 117/59; PULSE 79; RESP 15; TEMP 36.6; O2SAT 95
[2024-07-22 05:47] LABS: Basophils % 0.2 %; Eosinophils % 0.5 %; Hematocrit 38.2 % (37-53); Lymphocytes % 11.7 %; Mean Corpuscular HGB Conc 30.6 g/dL (30-55); Mean Corpuscular Hemoglobin 29.5 pg (27-33); Mean Corpuscular Volume 96.2 fl (82-101); Monocytes # 0.9 10^3/uL (0.2-0.9); Monocytes % 10.3 %; Neutrophils # 6.33 10^3/uL (1.8-7.7); Neutrophils % 76.9 %; Nucleated Red Blood Cells % 0 %; Platelet Count 242 10^3/cmm (157-399); Red Blood Count 3.97 10^6/uL (3.85-5.65); Red Cell Distribution Width 13.6 % (12.1-15.1); White Blood Count 8.23 10^3/uL (3.29-11.43)
[2024-07-22 06:03] LABS: Anion Gap 13.8 (5-19); Blood Urea Nitrogen 26 mg/dL (8-23); Calcium 7.9 mg/dL (8.5-10.5); Carbon Dioxide 18 mmol/L (22-29); Chloride 112 mmol/L (98-107); Creatinine Clr Calc Pharmacy 32.0163; Glucose 98 mg/dL (65-115); Magnesium 1.7 mg/dL (1.7-2.3); Osmolality Calculated 295 mOsm/kg (285-295); Potassium 3.8 mmol/L (3.5-5.1); Sodium 140 mmol/L (136-145)
[2024-07-22] MEDS: ipratropium-albuterol 3 mL Neb INHALATION (07:25)
[2024-07-22 07:26] VITALS: PULSE 79; RESP 16; O2SAT 95
[2024-07-22 08:14] VITALS: BP 113/56; PULSE 65; RESP 17; TEMP 36.5; O2SAT 95
--- NOTE | 2024-07-22 09:07 | P.CONIM_ITS ---
Providers/Reason For Consult 2 Attending Physician: Aspen Rodríguez MD Primary Care Provider: GAMAL Stout History of Present Illness History of Present Illness Abisia Hicks is a 73 year old male Medications/Allergies Home Medications Medication Instructions Recorded Confirmed Last Taken Type atorvastatin 20 mg tablet 20 mg PO QPM 01/15/20 07/21/24 02/11/23 History budesonide-formoterol HFA 160 2 puff inhalation Q12H 04/07/22 07/21/24 02/12/23 History mcg-4.5 mcg/actuation aerosol inhaler (Symbicort) albuterol sulfate 90 mcg/actuation 2 puff inhalation Q6H PRN 01/23/23 07/21/24 01/22/23 History aerosol inhaler Shortness Of Breath Or Wheezing aspirin 81 mg tablet,delayed 81 mg PO QPM 01/23/23 07/21/24 02/11/23 History release ipratropium 20 mcg-albuterol 100 1 puff inhalation BID 01/23/23 07/21/24 02/12/23 History mcg/actuation mist for inhalation (Combivent Respimat) tamsulosin 0.4 mg capsule 0.8 mg (2 x 0.4 mg) PO DAILY #60 01/24/23 07/21/24 02/12/23 Rx caps sertraline 50 mg tablet 50 mg PO DAILY 02/04/23 07/21/24 02/12/23 History apixaban 5 mg tablet (Eliquis) 5 mg PO BID #60 tabs 02/19/23 07/21/24 07/19/24 Rx ipratropium 0.5 mg-albuterol 3 mg 3 ml inhalation QID PRN shortness 02/21/23 07/21/24 Unknown Rx (2.5 mg base)/3 mL nebulization of breath or wheezing #180 mL soln amiodarone 200 mg tablet 200 mg PO DAILY 01/30/24 07/21/24 Unknown History potassium chloride 20 mEq 40 meq PO DAILY 01/30/24 07/21/24 Unknown History tablet,extended release Allergies Allergy/AdvReac Type Severity Reaction Status Date / Time iodine Allergy Unknown Verified 01/30/24 09:05 Current Medications Generic Name Dose Route Start Last Admin Trade Name Freq PRN Reason Stop Dose Admin Albuterol/Ipratropium 3 ml 07/21/24 01:49 07/22/24 07:25 Ipratropium-Albuterol 3 Ml Neb INHALATION 3 ml Q6H PRN Administration SHORTNESS OF BREATH Dextrose/Sodium Chloride 1,000 mls @ 30 mls/hr 07/21/24 01:49 07/22/24 02:12 Dextrose 5%-Sod Chloride 0.9% IV 30 mls/hr .Q24H MYRA Administration Metronidazole 500 mg in 100 mls @ 100 mls/hr 07/21/24 02:00 07/22/24 03:15 Flagyl Iv IV Infused Q8H MYRA Infusion Protocol Pantoprazole Sodium 40 mg 07/21/24 09:00 07/21/24 17:40 Pantoprazole 40 Mg Sdv IVP 40 mg BID MYRA Administration PFSH Acute 2 PFSH: Medical History Ischemic cardiomyopathy Atrial fibrillation HTN (hypertension) CAD (coronary artery disease) Acute exacerbation of CHF (congestive heart failure) Hypoxia Acute anemia Pseudo-obstruction of colon Bowel obstruction Peripheral vascular disease Severe distal aortic disease, aortic aneurysm Encounter for smoking cessation counseling Goals of care, counseling/discussion Hypokalemia Abdominal pain COPD (chronic obstructive pulmonary disease) Shortness of breath Acute hypokalemia Bladder outlet obstruction Acute urinary retention Preoperative clearance Hx of retinal detachment Surgical History Hx of colectomy S/P coronary artery stent placement (~2013) S/P cataract surgery Family History Father CAD (coronary artery disease) Lung disease Family/Other CAD (coronary artery disease) Grandfather CAD (coronary artery disease) Social History Smoking and tobacco/nicotine status: current every day tobacco/nicotine user cigarettes Alcohol intake: current Alcohol intake frequency: other Substance/Drug Use: never Vitals/I&O/Wt Last Vital Signs Temp 97.7 F 07/22/24 08:14 Pulse 65 07/22/24 08:14 Resp 17 07/22/24 08:14 BP 113/56 07/22/24 08:14 Pulse Ox 95 07/22/24 08:14 O2 Del Method Room Air 07/22/24 08:14 07/21/24 07/22/24 07/22/24 22:59 06:59 14:59 Intake Total 200 / 300 811.5 / 1111.5 Output Total 900 / 900 300 / 1200 Balance -700 / -600 511.5 / -88.5 Weight last 48 hrs Weight 100 lb 1.6 oz Weight 126 lb 9.6 oz Weight 135 lb Data 07/22/24 05:02 07/22/24 05:02 Coding Level of Care Code Acute Code for Chg Fwd
--- NOTE | 2024-07-22 09:33 | PC.CHAP ---
Pastoral Care Encounter/Spiritual Assessment Type of Contact [] Declined licensed final expense agents visit [] Patient/Family/Request visit [] Outpatient visit [] Follow-up visit [] Physician referral [] Code/Alert [x] Routine visit [] Staff referral [] Actively dying [] Patient sleeping [] Family support [] [] Out of room [] Palliative care [] [] Receiving care in room [] Pre-surgical visit [] Trauma [] Long length of stay [] ICU visit [] Other: Relational/Emotional Strength [x] Patient feels connected with others/family/visitors/staff [] Distress [] Loneliness/isolation [] Abandonment Spirituality of Patient [x] Person of [place] [] Attends Latter-Day of their [place] [x] Believes in Prayer [] Reads Bible or Congregation materials [] There are Spiritual issues to be addressed Honing Job Setter Interventions [x] Prayer [x] Active listening [] Non-anxious presence [x] Spiritual/emotional support [] Crisis/trauma care [] Spiritual counseling [] Bereavement support [] Provided bereavement packet [] Provided Bible/devotional materials [] Provided toy/stuffed animal, coloring book to patient or family member [] Provided Communion [] Anointing/[place] [] Salvation [x] Completed spiritual assessment [] Other: Impact on Illness or Injury [] Angry [] Fearful [] Anxious [] Often cries [] Exhaustion [] Unable to work [] Unable to attend latter day [] Unable to walk/stand [] Unable to read [] Unable to drive [] Unable to eat/drink [] Unable to sleep [] Unable to be with family [] Patient intubated [] Other: Summary Time spent with patient 5 min
[2024-07-22] MEDS: metroNIDAZOLE IV 500 MG/100 ML PREMIX IV (09:53)
[2024-07-22] MEDS: pantoprazole 40 mg SDV IVP (09:53)
--- NOTE | 2024-07-22 11:14 | P.PN_ITS ---
Subjective 2 Subjective: Patient is at 3 liquid bowel movements in last 24 hours. There is no more output through the NG. He is requesting to drink a Coke or water at this time. Denies any abdominal pain. States he feels better. Vitals/I&O/Wt Last Vital Signs Temp 97.7 F 07/22/24 08:14 Pulse 65 07/22/24 08:14 Resp 17 07/22/24 08:14 BP 113/56 07/22/24 08:14 Pulse Ox 95 07/22/24 08:14 O2 Del Method Room Air 07/22/24 08:14 07/21/24 07/22/24 07/22/24 22:59 06:59 14:59 Intake Total 200 / 300 811.5 / 1111.5 100 / 100 Output Total 900 / 900 300 / 1200 Balance -700 / -600 511.5 / -88.5 100 / 100 Weight last 48 hrs Weight 45.405 kg Weight 57.425 kg Weight 61.235 kg Physical Exam 2 Narrative: Awake and alert oriented x [address] with no further drainage Abdomen soft nontender Normal S1-S2 Lungs clear to auscultation bilaterally Pleasant and cooperative Hemodynamically stable Currently on room air Data 07/22/24 05:02 07/22/24 05:02 A&P Assessment and plan (1) Hx of colectomy: (2) Atrial fibrillation: Qualifiers: Atrial fibrillation type: paroxysmal Qualified Code(s): I48.0 - Paroxysmal atrial fibrillation (3) Ischemic cardiomyopathy: (4) SBO (small bowel obstruction): Plan SBO History of subtotal colectomy Patient is also experiencing diarrhea Small intestinal bacterial overgrowth? I will put patient on metronidazole, he cannot take rifaximin because we are going to place NG tube to low intermittent suction Start conservative management Adrián the surgeon consulted Dr. Nielson is aware Will start IV fluids Will add opioids as well A-fib without RVR last dose of Eliquis was on Sunday evening 7 PM No signs of RVR hemodynamically stable no active chest pain Hypertension: Currently normotensive Holding amiodarone BPH: Hold tamsulosin for now Previous echo showed preserved ejection fraction EF 55%, repeat echo as January 2023 echo had poor ultrasonic windows to assess function Abdominal aortic aneurysm 4.9 cm he will need vascular follow-up outpatient keep blood pressure and heart rate as follows: [place] blood pressure should stay below 120/80 and heart rate below 80, can use labetalol on as-needed basis avoid hydralazine Patient is smoking 1 pack/day, lives alone, wants to appoint his cousin as medical power of litigation attorney associate son lives in [place] Full code N.p.o. DVT prophylaxis: SCDs 07/22/2024 -Will remove NG tube ? Stop IV fluids ? Restart Eliquis atorvastatin, aspirin, Flomax, sertraline. ? Stop IV Protonix. ? Will place patient on a GI soft diet. ? If he tolerates diet by the afternoon he may discharge home. ? Continue metronidazole for another 3 days to complete total 5-day course. Attestations 2 Medical Necessity Statement*: Possible discharge today if patient tolerates diet. Diagnoses Hx of colectomy Z90.49 Paroxysmal atrial fibrillation I48.0 Atrial fibrillation type: paroxysmal Ischemic cardiomyopathy I25.5 SBO (small bowel obstruction) K56.609
--- NOTE | 2024-07-22 11:42 | PM.MISC ---
Miscellaneous Note Note: Patient having bowel movements. Agree with hospitalist. Ok to advance diet and discharge later todat if doing well. Full progress note to follow.
--- NOTE | 2024-07-22 11:43 | P.PN_ITS ---
Subjective 2 Subjective: Passing gas and having bowel movements Nondistended Abdomen benign Patient feels significantly better Tolerating regular diet Vitals/I&O/Wt Last Vital Signs Temp 97.7 F 07/22/24 08:14 Pulse 65 07/22/24 08:14 Resp 17 07/22/24 08:14 BP 113/56 07/22/24 08:14 Pulse Ox 95 07/22/24 08:14 O2 Del Method Room Air 07/22/24 08:14 07/21/24 07/22/24 07/22/24 22:59 06:59 14:59 Intake Total 200 / 300 811.5 / 1111.5 1050 / 1050 Output Total 900 / 900 300 / 1200 Balance -700 / -600 511.5 / -88.5 1050 / 1050 Weight last 48 hrs Weight 100 lb 1.6 oz Weight 126 lb 9.6 oz Weight 135 lb Physical Exam 2 Narrative: Chest: Unlabored breathing room air. No lymphadenopathy. Heart: Regular rate and rhythm. Abdomen: Soft, nontender, nondistended. No masses or lymphadenopathy. Data 07/22/24 05:02 07/22/24 05:02 A&P Assessment and plan (1) SBO (small bowel obstruction): Plan 73-year-old male who presented with an SBO. SBO resolved. Tolerating regular diet. Cleared for discharge. Discussed earlier with hospitalist. Attestations 2 Medical Necessity Statement*: N/A Coding Level of Care Code 69474 Diagnoses SBO (small bowel obstruction) K56.609 Time Spent (min) 30
[2024-07-22 11:51] VITALS: BP 113/62; PULSE 68; RESP 14; TEMP 36.3; O2SAT 97
--- NOTE | 2024-07-22 13:16 | P.DS_ITS ---
Discharge Providers Date of Admission: 07/21/24 00:55 Date of Discharge: July 22, 2024 Attending Provider at Admission: Nataliia Noble MD Attending Provider at Discharge: Aspen Rodríguez MD Primary Care Provider: GAMAL Stout Diagnoses at Discharge Discharge Diagnosis (1) Hx of colectomy: Status: Acute (2) Atrial fibrillation: Status: Acute Qualifiers: Atrial fibrillation type: paroxysmal Qualified Code(s): I48.0 - Paroxysmal atrial fibrillation (3) Ischemic cardiomyopathy: Status: Acute (4) SBO (small bowel obstruction): Status: Acute Reason for Visit Reason for Visit: ABD PAIN Hospital Course Hospital Course Came with small bowel obstruction Managed conservatively with NG tube. Removed NG tube had 3 liquid bowel movements tolerating GI soft diet. Will be discharged home at this time. Physical Exam Narrative: Progress note from today. Discharge Data Studies Completed and Pending Completed Studies During Hospitalization Category Date Time Status CT abdomen pelvis w con* [id number] Stat Cat Scan 07/20/24 23:33 Completed XR KUB portable [id number] Routine Exams 07/21/24 08:00 Completed XR chest 1V portable [id number] Stat Exams 07/21/24 00:55 Completed Pending at discharge Category Date Time Status Urinalysis Stat Lab 07/20/24 23:33 Uncollected Radiology Impressions Abdomen/Pelvis CT 07/20/24 23:33 IMPRESSION: 1. Multiple dilated small bowel loops with fluid levels measuring up to 3.5 cm concerning for an obstruction, potentially high-grade, with a possible transition point in the right lower abdomen. 2. Fusiform infrarenal abdominal aortic aneurysm measuring up to 4.9 cm. 3. Extensive aortic and iliac artery atherosclerotic calcifications. Right common iliac artery demonstrates suspected 80-90% luminal narrowing secondary to atherosclerotic disease. 4. Bilateral renal cysts, negative for follow up advised. 5. Cholelithiasis. 6. Suprapubic Paulino catheter in the urinary bladder. 7. Emphysematous changes. 8. Coronary artery atherosclerotic calcifications. ADDENDUM: 07/21/24 0113 THIS REPORT CONTAINS FINDINGS THAT MAY BE CRITICAL TO PATIENT CARE. The findings were verbally communicated via telephone conference with ANKIT SIMENTAL at 1:12 AM CUSTOMER SERVICE ASSOCIATE on 07/21/2024. The findings were acknowledged and understood. Chest X-Ray 07/21/24 00:55 IMPRESSION: No acute cardiopulmonary abnormality. NG tube with its sidehole at the GE junction should be advanced further into the stomach. KUB X-Ray 07/21/24 08:00 IMPRESSION: 1. Nasogastric tube with its tip in the proximal stomach with the side hole near the gastroesophageal junction. This could be advanced an additional 5 cm for better positioning. 2. Borderline distended gas-filled loops of small bowel which may be owing to ileus versus partial small bowel obstruction Laboratory Results WBC 8.23 10^3/uL (3.29-11.43) 07/22/24 05:02 RBC 3.97 10^6/uL (3.85-5.65) 07/22/24 05:02 Hgb 11.70 g/dL (11.27-16.99) 07/22/24 05:02 Hct 38.2 % (37-53) 07/22/24 05:02 MCV 96.2 fl (82-101) 07/22/24 05:02 MCH 29.5 pg (27-33) 07/22/24 05:02 MCHC 30.6 g/dL (30-55) 07/22/24 05:02 RDW 13.6 % (12.1-15.1) 07/22/24 05:02 Plt Count 242 10^3/cmm (157-399) 07/22/24 05:02 MPV 10.0 fL (7.4-10.4) 07/22/24 05:02 Neut % (Auto) 76.9 % 07/22/24 05:02 Lymph % (Auto) 11.7 % 07/22/24 05:02 [place] % (Auto) 10.3 % 07/22/24 05:02 Eos % (Auto) 0.5 % 07/22/24 05:02 Baso % (Auto) 0.2 % 07/22/24 05:02 Neut # (Auto) 6.33 10^3/uL (1.8-7.7) 07/22/24 05:02 Lymph # (Auto) 1.0 10^3/uL (0.8-4.8) 07/22/24 05:02 [place] # (Auto) 0.9 10^3/uL (0.2-0.9) 07/22/24 05:02 Eos # (Auto) 0.0 10^3/uL (0.0-0.8) 07/22/24 05:02 Baso # (Auto) 0.0 10^3/uL (0.0-0.1) 07/22/24 05:02 Nucleated RBC % (auto) 0 % 07/22/24 05:02 Nucleated RBCs # 0.0 /100WBC 07/22/24 05:02 Sodium 140 mmol/L (136-145) 07/22/24 05:02 Potassium 3.8 mmol/L (3.5-5.1) 07/22/24 05:02 Chloride 112 mmol/L (98-107) H 07/22/24 05:02 Carbon Dioxide 18 mmol/L (22-29) L 07/22/24 05:02 Anion Gap 13.8 (5-19) 07/22/24 05:02 BUN 26 mg/dL (8-23) H 07/22/24 05:02 Creatinine 1.3 mg/dL (0.7-1.2) H 07/22/24 05:02 GFR Calculation Not Reportable 07/22/24 05:02 Glucose 98 mg/dL (65-115) 07/22/24 05:02 Calculated Osmolality 295 mOsm/kg (285-295) 07/22/24 05:02 Lactic Acid 1.2 mmol/L (0.5-2.2) 07/20/24 23:57 Calcium 7.9 mg/dL (8.5-10.5) L 07/22/24 05:02 Magnesium 1.7 mg/dL (1.7-2.3) 07/22/24 05:02 Total Bilirubin 0.3 mg/dL (0.15-1.2) 07/20/24 23:57 AST 11 U/L (0-40) 07/20/24 23:57 ALT 9 U/L (0-41) 07/20/24 23:57 Alkaline Phosphatase 77 U/L (40-130) 07/20/24 23:57 C-Reactive Protein 3.9 mg/L (0.0-4.9) 07/20/24 23:57 Total Protein 6.9 g/dL (6.6-8.7) 07/20/24 23:57 Albumin 4.1 g/dL (3.5-5.2) 07/20/24 23:57 Globulin 2.8 g/dL (1.3-4.6) 07/20/24 23:57 Lipase 21 U/L (13-60) 07/20/24 23:57 C. difficile (PCR) Negative (Negative) 07/21/24 18:24 Vitals Last Vital Signs Temp 97.4 F L 07/22/24 11:51 Pulse 68 07/22/24 11:51 Resp 14 07/22/24 11:51 BP 113/62 07/22/24 11:51 Pulse Ox 97 07/22/24 11:51 O2 Del Method Room Air 07/22/24 11:51 Discharge Plan Discharge Patient Disposition: Home Condition: Stable Prescriptions: Continued atorvastatin 20 mg tablet 20 mg PO QPM budesonide-formoterol [Symbicort] 160-4.5 mcg/actuation HFA aerosol inhaler 2 puff inhalation Q12H amiodarone 200 mg tablet 200 mg PO DAILY potassium chloride 20 mEq tablet extended release 40 meq PO DAILY sertraline 50 mg Tablet 50 mg PO DAILY aspirin 81 mg Tablet,Delayed Release (Dr/Ec) 81 mg PO QPM albuterol sulfate 90 mcg/actuation HFA aerosol inhaler 2 puff INHALATION Q6H PRN (Reason: Shortness Of Breath Or Wheezing) Combivent Respimat 20-100 mcg/actuation mist 1 puff INHALATION BID tamsulosin 0.4 mg Capsule 0.8 mg PO DAILY Qty: 60 0RF Eliquis 5 mg tablet 5 mg PO BID Qty: 60 0RF ipratropium-albuterol 0.5 mg-3 mg(2.5 mg base)/3 mL solution for nebulization 3 ml inhalation QID PRN (Reason: shortness of breath or wheezing) Qty: 180 0RF Discharge Orders: Discharge Order (Routine); Ordered 07/22/24 Ordered By: Aspen Rodríguez Referrals: Margie Orozco FNP [Primary Care Provider] - 4-7 days Discharge Diet: Usual diet Discharge Activity: Resume usual activity Patient Instructions: Opioid Safety Discharge Attestations Time Spent in Discharge Care*: less than 30 min Status at Discharge: Cognitive status at discharge: cognitively intact , Behavioral status at discharge: cooperative , Quality Metrics Clinical Quality Measures [ No reported AMI, CVA or VTE this stay] Coding Level of Care Code Acute Code for Chg Fwd Diagnoses Hx of colectomy Z90.49 Paroxysmal atrial fibrillation I48.0 Atrial fibrillation type: paroxysmal Ischemic cardiomyopathy I25.5 SBO (small bowel obstruction) K56.609
[2024-07-22 13:47] VITALS: BP 113/62; PULSE 68; RESP 14; TEMP 36.3; O2SAT 87
== END 2024-07-22 14:46 | disposition home or self-care (01) | DRG 389 ==
LOC: ER 07-21 01:07 → MEDSURG 07-21 01:13
PROVIDERS: Admitting Provider Internal Medicine; Emergency Provider Emergency Medicine; PCP Nurse Practitioner Family; Visit Provider Internal Medicine
DX: K56.609 Unspecified intestinal obstruction, unspecified as to partial versus complete obstruction (principal); N13.8 Other obstructive and reflux uropathy; F17.210 Nicotine dependence, cigarettes, uncomplicated; I71.40 Abdominal aortic aneurysm, without rupture, unspecified; I25.10 Atherosclerotic heart disease of native coronary artery without angina pectoris; I25.5 Ischemic cardiomyopathy; I48.0 Paroxysmal atrial fibrillation; I50.9 Heart failure, unspecified; I11.0 Hypertensive heart disease with heart failure; I73.9 Peripheral vascular disease, unspecified; J44.9 Chronic obstructive pulmonary disease, unspecified; E86.0 Dehydration; N40.1 Benign prostatic hyperplasia with lower urinary tract symptoms; Z79.51 Long term (current) use of inhaled steroids; Z79.82 Long term (current) use of aspirin; Z79.01 Long term (current) use of anticoagulants; Z90.49 Acquired absence of other specified parts of digestive tract; Z95.5 Presence of coronary angioplasty implant and graft; Z80.1 Family history of malignant neoplasm of trachea, bronchus and lung; Z82.49 Family history of ischemic heart disease and other diseases of the circulatory system
CPT/HCPCS: 36415; 71045; 74018; 74177; 80048; 80053; 83605; 83690; 83735; 85025; 86140; 87493; 94640; 96361; 96374; 96375; 99285; J1200; J1630; J2060; J2470; J2919; J3490; J7030; J7042

== ENCOUNTER 2024-08-21 10:26 | Inpatient (IN) | payer MEDICARE, SELFPAY ==
[2024-08-21] VITALS (11 sets, daily range): BP systolic 113–152; BP diastolic 64–90; PULSE 61–80; RESP 15–19; TEMP 36.4–36.6; O2SAT 92–98; BMI 20.3; BMI 19.7
--- NOTE | 2024-08-21 10:28 | XR_ITS ---
WS: [id number] Exam: XR acute abdomen series [id number] Date/Time of Exam: 08/21/2024 10:42 AM Reason For Exam: abdominal pain AP chest x-ray compared to the last study 07/21/2024. Lungs are clear and hyperinflated. Normal cardiomediastinal silhouette. Signs of coronary artery sten ting. Bony structures are intact. Flat and erect abdomen. There are several moderately dilated small bowel loops in the central abdomen . Early or incomplete small bowel obstruction not excluded. No free air. No sign of organ enlargement . Bony structures are intact. XR/XR acute abdomen series [id number] IMPRESSION: 1. Several moderately dilated small bowel loops in the central abdomen. Early o r incomplete small bowel obstruction is not excluded. 2. Pulmonary hyperinflation but no acute cardiopulmonary finding.
--- NOTE | 2024-08-21 10:40 | ED_ITS ---
HPI - Abdominal Pain 2 General: Chief Complaint: Abdominal Pain Stated Complaint: abd pain Time Seen by Provider: 08/21/24 10:27 History of Present Illness: 74-year-old man with history of atrial f ibrillation, ischemic cardiomyopathy, hypertension, coronary artery disease bladder outlet obstruction and chronic urinary retention with a suprapubic catheter, and history of subtotal colectomy secondary to bowel ischemia and subsequent small bowel obstructions who presents emergency room by ambulance with abdominal pain. He is had no nausea or vomiting. He says this is somewhat different than previous pain. Radiates into his right back. Otherwise diffuse. He says he feels distended but his abdomen does not appear distended. No known fevers. No dysuria. Related Data Home Medications Medication Instructions Recorded Confirmed atorvastatin 20 mg tablet 20 mg PO QPM 01/15/20 08/21/24 budesonide-formoterol HFA 160 2 puff inhalation Q12H 04/07/22 08/21/24 mcg-4.5 mcg/actuation aerosol inhaler (Symbicort) albuterol sulfate 90 mcg/actuation 2 puff inhalation Q6H PRN 01/23/23 08/21/24 aerosol inhaler Shortness Of Breath Or Wheezing aspirin 81 mg tablet,delayed 81 mg PO QPM 01/23/23 08/21/24 release ipratropium 20 mcg-albuterol 100 1 puff inhalation BID shortness of 01/23/23 08/21/24 mcg/actuation mist for inhalation breath (Combivent Respimat) sertraline 50 mg tablet 50 mg PO DAILY 02/04/23 08/21/24 amiodarone 200 mg tablet 200 mg PO DAILY 01/30/24 08/21/24 potassium chloride 20 mEq 40 meq PO DAILY 01/30/24 08/21/24 tablet,extended release Lactobacillus acidophilus and 1 cap PO DAILY 08/21/24 08/21/24 rhamnosus 15 billion cell capsule (Probiotic) ciprofloxacin HCl 500 mg tablet 500 mg PO BID 08/21/24 08/21/24 cyanocobalamin (vitamin B-12) 250 250 mcg PO DAILY 08/21/24 08/21/24 mcg tablet (Vitamin B-12) oxybutynin chloride 10 mg 10 mg PO DAILY 08/21/24 08/21/24 tablet,extended release 24 hr Previous Rx's Medication Instructions Recorded ipratropium 0.5 mg-albuterol 3 mg 3 ml inhalation QID PRN shortness 02/21/23 (2.5 mg base)/3 mL nebulization of breath or wheezing #180 mL soln Allergies Allergy/AdvReac Type Severity Reaction Status Date / Time iodine Allergy Unknown Verified 01/30/24 09:05 Review of Systems 2 Narrative: Constitutional symptoms: Negative except as documented in HPI. Skin symptoms: Negative except as documented in HPI. Eye symptoms: Negative except as documented in HPI. ENMT symptoms: Negative except as documented in HPI. Respiratory symptoms: Negative except as documented in HPI. Cardiovascular symptoms: Negative except as documented in HPI. Gastrointestinal symptoms: Negative except as documented in HPI. Genitourinary symptoms: Negative except as documented in HPI. Musculoskeletal symptoms: Negative except as documented in HPI. Neurologic symptoms: Negative except as documented in HPI. Psychiatric symptoms: Negative except as documented in HPI. Endocrine symptoms: Negative except as documented in HPI. PFSH ED 2 PFSH: Medical History Ischemic cardiomyopathy Atrial fibrillation HTN (hypertension) CAD (coronary artery disease) Acute exacerbation of CHF (congestive heart failure) Hypoxia Acute anemia Pseudo-obstruction of colon Bowel obstruction Peripheral vascular disease Severe distal aortic disease, aortic aneurysm Encounter for smoking cessation counseling Goals of care, counseling/discussion Hypokalemia Abdominal pain COPD (chronic obstructive pulmonary disease) Shortness of breath Acute hypokalemia Bladder outlet obstruction Acute urinary retention Preoperative clearance Hx of retinal detachment Surgical History Hx of colectomy S/P coronary artery stent placement (~2013) S/P cataract surgery Family History Father CAD (coronary artery disease) Lung disease Family/Other CAD (coronary artery disease) Grandfather CAD (coronary artery disease) Social History Smoking and tobacco/nicotine status: current every day tobacco/nicotine user cigarettes Alcohol intake: current Alcohol intake frequency: other Substance/Drug Use: never Physical Exam 2 Narrative: EXAM NARRATIVE: General: Alert, no acute distress. Skin: Warm, dry. Head: Normocephalic, atraumatic. Neck: Supple, trachea midline. Eye: Extraocular movements are intact. Ears, nose, mouth and throat: mucosa moist. Cardiovascular: Regular, Normal peripheral perfusion. Respiratory: Lungs are clear to auscultation, respirations are non-labored, breath sounds are equal, Symmetrical chest wall expansion. Gastrointestinal: Soft, diffuse abdominal tenderness to palpation, Non distended Musculoskeletal: Normal ROM, no deformity. Neurological: Alert and oriented, No focal neurological deficit observed. Psychiatric: Cooperative, appropriate mood & affect. Course 2 Vital Signs: Vital signs: Vital Signs Temperature 97.8 F 08/21/24 10:28 Pulse Rate 61 08/21/24 10:28 Respiratory Rate 17 08/21/24 10:28 Blood Pressure 113/64 08/21/24 10:28 Pulse Oximetry 97 08/21/24 10:28 Oxygen Delivery Me thod Room Air 08/21/24 10:28 MDM - Abdominal Pain Medical Decision Making Medical decision making: Differential diagnosis including but not limited to and based on the above HPI, review of systems and physical exam: Would have concern for recurrent small bowel obstruction, constipation, urinary tract infection, kidney stones, colitis, diverticulitis etc. Orders placed to evaluate differential diagnosis based on the above differential, HPI and physical exam Acute abdominal series: Moderately dilated small bowel loops in the central abdomen which indicates a probable small bowel obstruction. Hyperinflated lungs. No acute infiltrates. This was reviewed and interpreted by myself the emergency room physician. I also reviewed the radiology report. Lab Review: Laboratory results were reviewed and interpreted by myself the emergency room physician. No leukocytosis. No anemia. CMP is pending. It was hemolyzed or something and had to be redrawn I reviewed the patient's medical record. He was admitted recently for small bowel obstruction and resolved with an NG tube. Reexamination: Patient pain is better controlled. Still with abdominal pain. NG tube is being placed. No altered mental status. No focal motor deficits. Consultation: I spoke with Dr. Monzon who is on-call for general surgery. He recommends NG tube placement and will consult on the patient. He is seeing the patient in the emergency room. Consultation: I spoke with Dr. Carrero who is on-call for the hospitalist service who agrees to admission to a [facility]. Assessment and plan: Small bowel obstruction ?IV Dilaudid and NG tube placement. -I discussed the patient with the hospitalist on-call who is admitting the patient. - Discussed findings and plan with patient. Answered any questions. - All laboratory values were reviewed and interpreted personally by myself, the ER physician - All imaging was reviewed and interpreted personally by myself, the ER physician. - Evaluation and treatment of this problem were appropriate in the emergency setting Lab Data 08/21/24 11:11 08/21/24 11:11 Labs/Radiology: Radiology Impressions Chest/Abdomen X-ray 08/21/24 10:28 IMPRESSION: 1. Several moderately dilated small bowel loops in the central abdomen. Early or incomplete small bowel obstruction is not excluded. 2. Pulmonary hyperinflation but no acute cardiopulmonary finding. Abdomen/Pelvis CT 08/21/24 11:50 IMPRESSION: 1. Very high-grade distal small bowel obstruction. Largest diameter of colon with early fecalization is near the anastomotic sutures deep in the pelvis. Patient's had multiple prior episodes of GI tract obstruction at a similar location. 2. There is a small amount of ascites. No free air identified. No ischemia at this time. 3. Known large abdominal aortic aneurysm, maximum 4.8 cm. 4. Suprapubic Paulino catheter. 5. Bilateral renal cysts. Laboratory Results WBC 8.54 10^3/uL (3.29-11.43) 08/21/24 11:11 RBC 4.44 10^6/uL (3.85-5.65) 08/21/24 11:11 Hgb 13.30 g/dL (11.27-16.99) 08/21/24 11:11 Hct 43.0 % (37-53) 08/21/24 11:11 MCV 96.8 fl (82-101) 08/21/24 11:11 MCH 30.0 pg (27-33) 08/21/24 11:11 MCHC 30.9 g/dL (30-55) 08/21/24 11:11 RDW 13.4 % (12.1-15.1) 08/21/24 11:11 Plt Count 226 10^3/cmm (157-399) 08/21/24 11:11 MPV 10.1 fL (7.4-10.4) 08/21/24 11:11 Neut % (Auto) 75.5 % 08/21/24 11:11 Lymph % (Auto) 12.8 % 08/21/24 11:11 [place] % (Auto) 6.8 % 08/21/24 11:11 Eos % (Auto) 3.3 % 08/21/24 11:11 Baso % (Auto) 1.1 % 08/21/24 11:11 Neut # (Auto) 6.46 10^3/uL (1.8-7.7) 08/21/24 11:11 Lymph # (Auto) 1.1 10^3/uL (0.8-4.8) 08/21/24 11:11 [place] # (Auto) 0.6 10^3/uL (0.2-0.9) 08/21/24 11:11 Eos # (Auto) 0.3 10^3/uL (0.0-0.8) 08/21/24 11:11 Baso # (Auto) 0.1 10^3/uL (0.0-0.1) 08/21/24 11:11 Nucleated RBC % (auto) 0 % 08/21/24 11:11 Nucleated RBCs # 0.0 /100WBC 08/21/24 11:11 Sodium Cancelled 08/21/24 11:11 Potassium Cancelled 08/21/24 11:11 Chloride Cancelled 08/21/24 11:11 Carbon Dioxide Cancelled 08/21/24 11:11 Anion Gap Cancelled 08/21/24 11:11 BUN Cancelled 08/21/24 11:11 Creatinine Cancelled 08/21/24 11:11 GFR Calculation Cancelled 08/21/24 11:11 Glucose Cancelled 08/21/24 11:11 Calculated Osmolality Cancelled 08/21/24 11:11 Calcium Cancelled 08/21/24 11:11 Total Bilirubin Cancelled 08/21/24 11:11 AST Cancelled 08/21/24 11:11 ALT Cancelled 08/21/24 11:11 Alkaline Phosphatase Cancelled 08/21/24 11:11 Total Protein Cancelled 08/21/24 11:11 Albumin Cancelled 08/21/24 11:11 Globulin Cancelled 08/21/24 11:11 Lipase Cancelled 08/21/24 11:11 Urine Color Yellow (Yellow) 08/21/24 11:11 Urine Appearance Clear (CLEAR) 08/21/24 11:11 Urine pH 5.0 (5-7) 08/21/24 11:11 Ur Specific [place] 1.026 (1.005-1.030) 08/21/24 11:11 Urine Protein Trace (Negative) A 08/21/24 11:11 Urine Glucose (UA) Negative (Normal) 08/21/24 11:11 Urine Ketones Negative (Negative) 08/21/24 11:11 Urine Blood Negative (Negative) 08/21/24 11:11 Urine Nitrate Negative (Negative) 08/21/24 11:11 Urine Bilirubin Negative (Negative) 08/21/24 11:11 Urine Urobilinogen 1.0 mg/dL (Negative) 08/21/24 11:11 Ur Leukocyte Esterase Trace (Negative) A 08/21/24 11:11 Urine RBC 0-2 /hpf (0-2) 08/21/24 11:11 Urine WBC 6-10 /hpf (0-5) 08/21/24 11:11 Ur Squamous Epith Cells 0-5 /hpf (0-5) 08/21/24 11:11 Calcium Oxalate Crystal 0-4 /hpf H 08/21/24 11:11 Amorphous Sediment Not Reportable 08/21/24 11:11 Urine Bacteria None seen /hpf (NONE) 08/21/24 11:11 Hyaline Casts 13.22 /lpf 08/21/24 11:11 Coronavirus (PCR) Negative (Negative) 08/21/24 11:11 Influenza A (PCR) Negative (Negative) 08/21/24 11:11 Influenza Type B (PCR) Negative (Negative) 08/21/24 11:11 RSV (PCR) Negative (Negative) 08/21/24 11:11 All radiology interpretation(s) finalized by discharge Discharge Plan Discharge Patient Disposition: Admitted As Inpatient Clinical Impression: Small bowel obstruction Condition: Stable Coding Level of Care Code ED [employer] 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
[2024-08-21 11:30] LABS: Basophils # 0.1 10^3/uL (0.0-0.1); Basophils % 1.1 %; Eosinophils # 0.3 10^3/uL (0.0-0.8); Eosinophils % 3.3 %; Lymphocytes # 1.1 10^3/uL (0.8-4.8); Lymphocytes % 12.8 %; Mean Corpuscular HGB Conc 30.9 g/dL (30-55); Mean Corpuscular Volume 96.8 fl (82-101); Mean Platelet Volume 10.1 fL (7.4-10.4); Monocytes # 0.6 10^3/uL (0.2-0.9); Monocytes % 6.8 %; Neutrophils # 6.46 10^3/uL (1.8-7.7); Neutrophils % 75.5 %; Nucleated Red Blood Cells % 0 %; Platelet Count 226 10^3/cmm (157-399); Red Blood Count 4.44 10^6/uL (3.85-5.65); Red Cell Distribution Width 13.4 % (12.1-15.1); White Blood Count 8.54 10^3/uL (3.29-11.43)
[2024-08-21 11:33] LABS: Bilirubin Urine Negative (Negative); Blood Urine Negative (Negative); Glucose Urine UA Negative (Normal); Ketones Urine Negative (Negative); Leukocyte Esterase Urine Trace (Negative); Nitrate Urine Negative (Negative); Protein Urine Trace (Negative); Specific Gravity, Urine 1.026 (1.005-1.030); Urine Appearance Clear (CLEAR); Urine Color Yellow (Yellow)
[2024-08-21 11:38] LABS: Bacteria Urine None Seen /hpf; Hyaline Casts Urine 13.22 /lpf; RBC Urine 0-2 /hpf (0-2); Squamous Epithelial Cell Urine 0-5 /hpf (0-5)
--- NOTE | 2024-08-21 11:50 | CT_ITS ---
WS: [id number] CT ABDOMEN AND PELVIS WITH CONTRAST HISTORY: Abdominal pain, history of partial colectomy TECHNIQUE: Imaging performed of the abdomen and pelvis with IV contrast. Single phase imaging of the abdomen. Coronal and sagittal reformats are submitted. All CT scans at [facility] use at [address] one of these dose optimization techniques: automated exposure control; mA and/or kV adjustment per patient size (includes targeted exams where dose is matched to clinical indication); or iterative re construction. IV CONTRAST: Omnipaque 350; 100 mL IV. Oral contrast: No DLP: 327.97 mGy.cm COMPARISON: 02/12/2023, 07/21/2024 Lower thorax: Chronic emphysema at the lung bases. Heart is normal size. No hiatal hernia. Liver/biliary system: Normal size with no intrahepatic dilatation. Gallbladder: Normally distended gallbladder with cholelithiasis. No acute cholecystitis. Pancreas: Normal size pancreas and pancreatic duct. No adjacent inflammation. Spleen: Normal size spleen. No mass or infarct. Adrenal glands: Normal. Right kidney: Numerous cortical cysts. No obstruction. Left kidney: Numerous cortical cyst. No obstruction. Aorta: No large abdominal aortic aneurysm measures 4.8 x 4.7 cm. Extensive atherosclerotic plaque ext ends through the iliac arteries. High-grade stenosis proximal RIGHT iliac artery. Lymphadenopathy: None. Free fluid: Small amount of free fluid in the pelvis. GI tract: Patient is status post partial colectomy. Anastomotic sutures are noted deep in the pelvis. This is also the site of the largest colonic dilatation measuring up to 7.4 cm. There are a few foci of air and changes consistent with fecalization suggesting a long-term progressive obstruction. Sign ificant small bowel obstruction. Abdominal wall: Suprapubic catheter in a nondistended urinary bladder. Pelvis: Small amount of free fluid in the pelvis. Bones: Unremarkable. CT/CT abdomen pelvis w con* [id number] IMPRESSION: 1. Very high-grade distal small bowel obstruction. Largest diameter of colon w ith early fecalization is near the anastomotic sutures deep in the pelvis. Nargis ent's had multiple prior episodes of GI tract obstruction at a similar location . 2. There is a small amount of ascites. No free air identified. No ischemia at this time. 3. Known large abdominal aortic aneurysm, maximum 4.8 cm. 4. Suprapubic Paulino catheter. 5. Bilateral renal cysts.
[2024-08-21 12:09] LABS: Covid PCR NEGATIVE (Negative); Influenza A NEGATIVE (Negative); Influenza B NEGATIVE (Negative); Respiratory Syncytial Virus Ce NEGATIVE (Negative)
[2024-08-21] MEDS: iohexol 350 mg/mL 500 mL Btl (per mL) IV (12:27)
[2024-08-21 12:32] LABS: Add Urine Culture? No; Calcium Oxalate Crystals Urine 0-4 /hpf; UA Slide Review UA Slide Review Perf
--- NOTE | 2024-08-21 13:40 | P.CONIM_ITS ---
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 CT scan done in the emergency department show evidence of a small bowel obstruction with a transition point at the level of the anastomosis deep into the pelvis. Review of Systems 2 General: Reports: 10 or more systems reviewed and unremarkable except in HPI and below Medications/Allergies Home Medications Medication Instructions Recorded Confirmed Last Taken Type atorvastatin 20 mg tablet 20 mg PO QPM 01/15/20 08/21/24 08/20/24 History budesonide-formoterol HFA 160 2 puff inhalation Q12H 04/07/22 08/21/24 08/20/24 History mcg-4.5 mcg/actuation aerosol inhaler (Symbicort) albuterol sulfate 90 mcg/actuation 2 puff inhalation Q6H PRN 01/23/23 08/21/24 01/22/23 History aerosol inhaler Shortness Of Breath Or Wheezing aspirin 81 mg tablet,delayed 81 mg PO QPM 01/23/23 08/21/24 02/11/23 History release ipratropium 20 mcg-albuterol 100 1 puff inhalation BID shortness of 01/23/23 08/21/24 02/12/23 History mcg/actuation mist for inhalation breath (Combivent Respimat) sertraline 50 mg tablet 50 mg PO DAILY 02/04/23 08/21/24 08/20/24 History ipratropium 0.5 mg-albuterol 3 mg 3 ml inhalation QID PRN shortness 02/21/23 08/21/24 Unknown Rx (2.5 mg base)/3 mL nebulization of breath or wheezing #180 mL soln amiodarone 200 mg tablet 200 mg PO DAILY 01/30/24 08/21/24 08/20/24 History potassium chloride 20 mEq 40 meq PO DAILY 01/30/24 08/21/24 08/20/24 History tablet,extended release Lactobacillus acidophilus and 1 cap PO DAILY 08/21/24 08/21/24 08/20/24 History rhamnosus 15 billion cell capsule (Probiotic) ciprofloxacin HCl 500 mg tablet 500 mg PO BID 08/21/24 08/21/24 08/20/24 History cyanocobalamin (vitamin B-12) 250 250 mcg PO DAILY 08/21/24 08/21/24 08/20/24 History mcg tablet (Vitamin B-12) oxybutynin chloride 10 mg 10 mg PO DAILY 08/21/24 08/21/24 Unknown History tablet,extended release 24 hr Allergies Allergy/AdvReac Type Severity Reaction Status Date / Time iodine Allergy Unknown Verified 01/30/24 09:05 PFSH Acute 2 PFSH: Medical History Ischemic cardiomyopathy Atrial fibrillation HTN (hypertension) CAD (coronary artery disease) Acute exacerbation of CHF (congestive heart failure) Hypoxia Acute anemia Pseudo-obstruction of colon Bowel obstruction Peripheral vascular disease Severe distal aortic disease, aortic aneurysm Encounter for smoking cessation counseling Goals of care, counseling/discussion Hypokalemia Abdominal pain COPD (chronic obstructive pulmonary disease) Shortness of breath Acute hypokalemia Bladder outlet obstruction Acute urinary retention Preoperative clearance Hx of retinal detachment Surgical History Hx of colectomy S/P coronary artery stent placement (~2013) S/P cataract surgery Family History Father CAD (coronary artery disease) Lung disease Family/Other CAD (coronary artery disease) Grandfather CAD (coronary artery disease) Social History Smoking and tobacco/nicotine status: current every day tobacco/nicotine user cigarettes Alcohol intake: current Alcohol intake frequency: other Substance/Drug Use: never Vitals/I&O/Wt Last Vital Signs Temp 97.8 F 08/21/24 10:28 Pulse 61 08/21/24 10:28 Resp 17 08/21/24 10:28 BP 113/64 08/21/24 10:28 Pulse Ox 97 08/21/24 10:28 O2 Del Method Room Air 08/21/24 10:28 08/20/24 08/21/24 08/21/24 22:59 06:59 14:59 Intake Total 0 / 0 Balance 0 / 0 Weight last 48 hrs Weight 134 lb Physical Exam 2 Narrative: General : Patient is well developed , no acute distress, oriented x3 Head : Normal cephalic, a-traumatic. Nose : Mucous membranes are without erythema. Lungs : Equal chest rise bilaterally, no use of accessory muscles, trachea is midline. CV : Rate and rhythm are normal. Abdomen : Soft, minimally tender to palpation, nondistended, there is suprapubic catheter in place. Extremities : No edema. Upper extremities are normal bilaterally. Back : non-tender to palpation, no CVA tenderness. Data 08/21/24 11:11 08/21/24 13:16 Micro: Microbiology 08/21/24 11:18 Blood Culture - Preliminary Blood SPECIMEN COLLECTED 08/21/24 11:16 Blood Culture - Preliminary Blood SPECIMEN COLLECTED A&P Assessment and plan (1) Hx of colectomy: (2) Small bowel obstruction: Plan After complete history, physical examination and review of all available clinical data the following is my assessment. Patient does have signs and symptoms concerning for the possibility of a recurrent small bowel obstruction. Transition point appears to be at the level of the previous bowel anastomosis. Vital signs are stable he does not have a white count and CT scan does not show evidence of breath and bowel at this time. We will attempt nonoperative management with NG tube decompression as this Seemed to help in the past. I Splane to the patient that in the case of failure of nonoperative management probably or only option will be to give him an ileostomy as he has history of a subtotal colectomy and the transition point appears to be near the anastomosis. I have explained to him that he is a very high risk candidate for any kind of surgical intervention due to history of ischemic cardiomyopathy, chronic deconditioning as well as history of multiple intra-abdominal surgeries including a suprapubic catheter. She shows understanding is agreeable to proceed with the current treatment plan. Patient will be admitted to the hospitalist team we will follow-up as a consult. -NG tube to low intermittent wall suction -Trend labs and lactate -If there is any changes in clinical status patient may require diagnostic laparoscopy and possible exploratory laparotomy. Coding Level of Care Code 24005 Diagnoses Hx of colectomy Z90.49 Small bowel obstruction K56.609
[2024-08-21 13:44] LABS: Alanine Aminotransferase 7 U/L (0-41); Albumin Level 3.6 g/dL (3.5-5.2); Alkaline Phosphatase 71 U/L (40-130); Anion Gap 12.8 (5-19); Aspartate Amino Transferase 10 U/L (0-40); Blood Urea Nitrogen 15 mg/dL (8-23); Calcium 8.7 mg/dL (8.5-10.5); Carbon Dioxide 26 mmol/L (22-29); Chloride 103 mmol/L (98-107); Creatinine Clr Calc Pharmacy 49.1656; Globulin 2.6 g/dL (1.3-4.6); Glucose 91 mg/dL (65-115); Lipase 38 U/L (13-60); Osmolality Calculated 284 mOsm/kg (285-295); Potassium 4.8 mmol/L (3.5-5.1); Sodium 137 mmol/L (136-145); Total Bilirubin 0.4 mg/dL (0.15-1.2); Total Protein 6.2 g/dL (6.6-8.7)
[2024-08-21] MEDS: HYDROmorphone 1 mg/mL INJ 1 mL IVP (13:48)
--- NOTE | 2024-08-21 14:20 | P.HP_ITS ---
Providers/Chief Complaint 2 Admitting Physician: Mia Carrero MD Primary Care Provider: GAMAL Stout Chief Complaint: abd pain History of Present Illness Abisai Hicks is a 74 year old male with past medical history of [place] syndrome, post subtotal colectomy due to bowel ischemia, recurrent bowel obstruction with last admission in hospital for similar complaints back in July 2024, atrial fibrillation, CAD post PCI, chronic smoker, COPD, atrial fibrillation, history of ischemic cardiomyopathy presented to the ER today because of abdominal pain with episode of nausea which started last night. Patient's last bowel movement was yesterday. As per the family members he does not use his false teeth prior to eating recently. Patient denies any chest pain or difficulty breathing. Review of Systems 2 General: Reports: 10 or more systems reviewed and unremarkable except in HPI and below Const: Denies: fever(s), chills, body aches, change in appetite, change in weight, malaise, night sweats, diaphoresis, change in sleep pattern, daytime sleepiness or snoring Eyes: Denies: change in vision, blurry vision, photophobia, eye discomfort or eye discharge ENMT: Denies: throat pain, enlarged tonsils, hoarseness, mouth pain, oral sores, dry mouth, tinnitus, nasal congestion or post nasal drip Card: Denies: chest pain, palpitations, irregular heart rhythm, edema, swelling of feet/ankles, lightheadedness, syncope, pre-syncope, dyspnea on exertion, orthopnea, leg pain with exertion or acrocyanosis Resp: Denies: dyspnea, productive cough, non-productive cough, wheezing, stridor, pain on inspiration, change in phlegm color, hemoptysis or chest congestion GI: Denies: abdominal pain, nausea, vomiting, hematemesis, coffee ground emesis, dysphagia, heartburn, diarrhea, constipation, bloating, GI cramping, change in bowel habits, pain on defecation, hematochezia or melena : Denies: flank pain, difficulty urinating, dysuria, urinary frequency, urinary urgency, urinary hesitancy, urinary dribbling, difficulty starting urination, change in urine stream, nocturia or hematuria Musc: Denies: neck pain, back pain, extremity pain, joint pain, joint swelling, joint redness, joint stiffness or limited range of motion Neuro: Denies: headache(s), numbness in extremities, weakness in extremities, sensory changes, lack of coordination, difficulty walking, frequent falls, dizziness, vertigo, confusion, Slurred speech present, difficulty communicating thoughts or seizure-like activity Psych: Denies: anxiety, depression, mood swings, panic attacks, hopelessness or irritability Endo: Denies: polyuria, polydipsia, tired all the time, cold intolerance, excessive sweating, flushing or heat intolerance Manfred/Lymph: Denies: easy bruising or easy bleeding All/Imm: Denies: tongue swelling, facial swelling or acute wheezing Medications/Allergies Home Medications Medication Instructions Recorded Confirmed Last Taken Type atorvastatin 20 mg tablet 20 mg PO QPM 01/15/20 08/21/24 08/20/24 History budesonide-formoterol HFA 160 2 puff inhalation Q12H 04/07/22 08/21/24 08/20/24 History mcg-4.5 mcg/actuation aerosol inhaler (Symbicort) albuterol sulfate 90 mcg/actuation 2 puff inhalation Q6H PRN 01/23/23 08/21/24 01/22/23 History aerosol inhaler Shortness Of Breath Or Wheezing aspirin 81 mg tablet,delayed 81 mg PO QPM 01/23/23 08/21/24 02/11/23 History release ipratropium 20 mcg-albuterol 100 1 puff inhalation BID shortness of 01/23/23 08/21/24 02/12/23 History mcg/actuation mist for inhalation breath (Combivent Respimat) sertraline 50 mg tablet 50 mg PO DAILY 02/04/23 08/21/24 08/20/24 History ipratropium 0.5 mg-albuterol 3 mg 3 ml inhalation QID PRN shortness 02/21/23 08/21/24 Unknown Rx (2.5 mg base)/3 mL nebulization of breath or wheezing #180 mL soln amiodarone 200 mg tablet 200 mg PO DAILY 01/30/24 08/21/24 08/20/24 History potassium chloride 20 mEq 40 meq PO DAILY 01/30/24 08/21/24 08/20/24 History tablet,extended release Lactobacillus acidophilus and 1 cap PO DAILY 08/21/24 08/21/24 08/20/24 History rhamnosus 15 billion cell capsule (Probiotic) ciprofloxacin HCl 500 mg tablet 500 mg PO BID 08/21/24 08/21/24 08/20/24 History cyanocobalamin (vitamin B-12) 250 250 mcg PO DAILY 08/21/24 08/21/24 08/20/24 History mcg tablet (Vitamin B-12) oxybutynin chloride 10 mg 10 mg PO DAILY 08/21/24 08/21/24 Unknown History tablet,extended release 24 hr Allergies Allergy/AdvReac Type Severity Reaction Status Date / Time iodine Allergy Unknown Verified 01/30/24 09:05 PFSH Acute 2 PFSH: Medical History (Updated 08/21/24 @ 14:[address] MD) Paulino catheter in place Ischemic cardiomyopathy Atrial fibrillation HTN (hypertension) CAD (coronary artery disease) Acute exacerbation of CHF (congestive heart failure) Hypoxia Acute anemia Pseudo-obstruction of colon Bowel obstruction Peripheral vascular disease Severe distal aortic disease, aortic aneurysm Encounter for smoking cessation counseling Goals of care, counseling/discussion Hypokalemia Abdominal pain COPD (chronic obstructive pulmonary disease) Shortness of breath Acute hypokalemia Bladder outlet obstruction Acute urinary retention Preoperative clearance Hx of retinal detachment Surgical History (Updated 07/23/24 @ 00:00 by LYNETTE Dow) Hx of colectomy S/P coronary artery stent placement (~2013) S/P cataract surgery Family History Father CAD (coronary artery disease) Lung disease Family/Other CAD (coronary artery disease) Grandfather CAD (coronary artery disease) Social History Smoking and tobacco/nicotine status: current every day tobacco/nicotine user cigarettes Alcohol intake: current Alcohol intake frequency: other Substance/Drug Use: never Vitals/I&O/Wt Last Vital Signs Temp 97.8 F 08/21/24 10:28 Pulse 61 08/21/24 10:28 Resp 17 08/21/24 10:28 BP 113/64 08/21/24 10:28 Pulse Ox 97 08/21/24 10:28 O2 Del Method Room Air 08/21/24 10:28 08/20/24 08/21/24 08/21/24 22:59 06:59 14:59 Intake Total 0 / 0 Balance 0 / 0 Weight last 48 hrs Weight 60.781 kg Physical Exam 2 Narrative: General: No acute distress, AO x3 HEENT: PERRLA, pupils bilaterally equal and reactive Chest: Normal vesicular breath sounds, no added sounds, equal good air entry bilaterally CVS: S1-S2 regular, no murmurs, no tachycardia, no gallops, no rubs Abdomen: Soft, generalized mild tenderness, no organomegaly, bowel sounds present but sluggish Neuro: No focal deficits, no facial deformity, AO x3, power 5/5 in all limbs Data 08/21/24 11:11 08/21/24 13:16 Micro: Microbiology 08/21/24 11:18 Blood Culture - Preliminary Blood SPECIMEN COLLECTED 08/21/24 11:16 Blood Culture - Preliminary Blood SPECIMEN COLLECTED A&P Assessment and plan (1) Small bowel obstruction: Surgery consulted from ER. Plan for conservative treatment. NG tube placement. IV hydration with D5 NS at 50 cc/h. Out of bed to chair. Early ambulation. Serial abdominal examination. Protonix daily, Zofran as needed. NPO. Does not improve patient might need ileostomy (2) Hx of colectomy: (3) HTN (hypertension): Goal blood pressure less than 140/90 mmHg. Continue to monitor. If needed will add IV medication Qualifiers: Hypertension type: primary hypertension Qualified Code(s): I10 - Essential (primary) hypertension (4) Ischemic cardiomyopathy: Past history. Currently euvolemic. Hydration as above. 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 Currently on hold because patient is NPO. Not on anticoagulation. Qualifiers: Atrial fibrillation type: paroxysmal Qualified Code(s): I48.0 - Paroxysmal atrial fibrillation (6) Paulino catheter in place: Chronic Paulino in place. Last changed on 08/12/2024 as per patient. Plan Chronic smoker. Discussed in detail regarding cessation of smoking. Nicotine patch. History of COPD: Not in exacerbation. Ipratropium, Xopenex every 6 hours, Pulmicort twice daily. Full code N.p.o. Protonix OPD prophylaxis Morphine 2 mg 4 hours as needed for pain Heparin 5000 Q12 hourly for DVT prophylaxis. Attestations 2 Medical Necessity Statement*: Admission for more than 2 midnights for management of small bowel obstruction in a patient post total colectomy, atrial fibrillation, ischemic cardiomyopathy while conservative treatment is tried Diagnoses Small bowel obstruction K56.609 Hx of colectomy Z90.49 Primary hypertension I10 Hypertension type: primary hypertension Ischemic cardiomyopathy I25.5 Paroxysmal atrial fibrillation I48.0 Atrial fibrillation type: paroxysmal Paulino catheter in place Z97.8
[2024-08-21 14:44] LABS: Lactic Sepsis W/Reflex 0.7 mmol/L (0.5-2.2)
--- NOTE | 2024-08-21 15:26 | XR_ITS ---
WS: [id number] Exam: XR chest 1V portable [id number] Date/Time of Exam: 08/21/2024 3:30 PM Reason For Exam: ng tube placement Exam: XR chest 1V portable [id number] Date/Time of Exam: 08/21/2024 3:30 PM Reason For Exam: ng tube placement Comparison with previous exam performed on the same day at 10:52 a.m. An enteric tube has been placed and ends in the body of the stomach. The lungs are clear and fully ex panded. Heart size top limits normal. No pleural effusions. Signs of coronary artery stenting. Bony s tructures appear normal. IMPRESSION1. Enteric tube looped in the body the stomach. 2. The chest is otherwise unremarkable.
--- NOTE | 2024-08-21 15:36 | PC.NURSE ---
patient has made multiple racial comments against foreign physicians during his care in the ER. He stated, they never slow down to explain, and I can't understand them. They're the same people that did 05/21 as far as I'm concerned. Patient was agitated during attempt for NG insertion with nurse. He demanded I discontinue the procedure and get a smaller tube. Dr. Turner was notified who later came and performed the insertion himself. The patient continued to display agitation. Ativan 1mg verbal order received from Dr. Fiore. Patient states, I am worked up. I just need to calm down. Security and charge notified.
[2024-08-21] MEDS: LORazepam 2 mg/mL INJ 1 mL 1 MG IVP (15:43)
[2024-08-21 15:46] LABS: Procalcitonin 0.04 ng/mL (0-0.5)
[2024-08-21 16:58] LABS: Thyroid Stimulating Hormone 3.73 uIU/mL (0.27-4.20)
[2024-08-21] MEDS: heparin 5,000 unit/mL INJ 1 mL 5000 UNIT SUBCUT (17:42)
[2024-08-21] MEDS: dextrose 5%-sod chloride 0.9% 1,000 ML 50 ML IV (17:42)
[2024-08-21] MEDS: nicotine 21 mg Patch 1 PATCH TRANSDERMA (17:43)
[2024-08-21] MEDS: ipratropium 0.5 mg/2.5 mL Neb INHALATION (20:25)
[2024-08-21] MEDS: budesonide 0.5 mg/2 mL Neb INHALATION (20:25)
[2024-08-21] MEDS: levalbuterol 0.63 mg/3 mL Neb INHALATION (20:25)
[2024-08-21] MEDS: morphine 4 mg/mL SDV 1 mL 2 MG IVP (21:06)
[2024-08-22] VITALS (19 sets, daily range): BP systolic 106–124; BP diastolic 56–76; PULSE 70–80; RESP 15–18; TEMP 36.1–36.8; O2SAT 91–97
[2024-08-22] MEDS: HYDROmorphone 1 mg/mL INJ 1 mL 0.4 MG IVP ×2 (01:08→05:39)
[2024-08-22] MEDS: ipratropium 0.5 mg/2.5 mL Neb INHALATION ×4 (01:12→20:20)
[2024-08-22] MEDS: levalbuterol 0.63 mg/3 mL Neb INHALATION ×4 (01:12→20:20)
[2024-08-22] MEDS: heparin 5,000 unit/mL INJ 1 mL 5000 UNIT SUBCUT ×2 (04:27→17:23)
[2024-08-22] MEDS: lanolin oint 7 gm 1 APPLIC TOPICAL (04:27)
[2024-08-22 05:29] LABS: Basophils # 0.1 10^3/uL (0.0-0.1); Eosinophils # 0.2 10^3/uL (0.0-0.8); Eosinophils % 2.6 %; Hematocrit 47.6 % (37-53); Lymphocytes # 1.2 10^3/uL (0.8-4.8); Lymphocytes % 13.2 %; Mean Corpuscular HGB Conc 30.7 g/dL (30-55); Mean Corpuscular Hemoglobin 30.1 pg (27-33); Mean Corpuscular Volume 98.1 fl (82-101); Mean Platelet Volume 9.6 fL (7.4-10.4); Monocytes # 0.8 10^3/uL (0.2-0.9); Monocytes % 8.3 %; Neutrophils # 6.96 10^3/uL (1.8-7.7); Neutrophils % 74.4 %; Nucleated Red Blood Cells % 0 %; Platelet Count 298 10^3/cmm (157-399); Red Blood Count 4.85 10^6/uL (3.85-5.65); Red Cell Distribution Width 13.5 % (12.1-15.1); White Blood Count 9.36 10^3/uL (3.29-11.43)
[2024-08-22 06:04] LABS: Procalcitonin 0.06 ng/mL (0-0.5)
[2024-08-22 06:06] LABS: Alanine Aminotransferase 8 U/L (0-41); Albumin Level 3.8 g/dL (3.5-5.2); Alkaline Phosphatase 84 U/L (40-130); Anion Gap 13.3 (5-19); Aspartate Amino Transferase 11 U/L (0-40); Blood Urea Nitrogen 16 mg/dL (8-23); Carbon Dioxide 24 mmol/L (22-29); Chloride 105 mmol/L (98-107); Creatinine Clr Calc Pharmacy 41.8027; Globulin 2.8 g/dL (1.3-4.6); Glucose 113 mg/dL (65-115); Magnesium 2.2 mg/dL (1.7-2.3); Osmolality Calculated 288 mOsm/kg (285-295); Phosphorus 3.6 mg/dL (2.5-4.5); Potassium 4.3 mmol/L (3.5-5.1); Sodium 138 mmol/L (136-145); Total Bilirubin 0.5 mg/dL (0.15-1.2); Total Protein 6.6 g/dL (6.6-8.7)
[2024-08-22 06:12] LABS: Chol HDL Ratio 2.13 mg/dL (1.0-5.00); Cholesterol 145 mg/dL (0-200); HDL Cholesterol 68 mg/dL (60-100); LDL Cholesterol Calculated 57 mg/dL (50-129); LDL HDL Ratio 0.84 RATIO (0.00-3.22); Triglycerides 98 mg/dL (0-150)
[2024-08-22 06:16] LABS: Estmated Average Glucose 100; Hemoglobin A1C 5.1 % (4.0-6.0)
[2024-08-22] MEDS: budesonide 0.5 mg/2 mL Neb INHALATION ×2 (07:30→20:20)
--- NOTE | 2024-08-22 08:16 | P.PN_ITS ---
Subjective 2 Subjective: Is a 74-year-old male who was admitted yesterday with a small bowel obstruction in the setting of previous near-total colectomy. Patient has been doing okay overnight, abdominal pain has improved does not really feel distended at this time. According to the patient he did have a bowel movement, but I Checked the bedside, all the there is no evidence of a bowel movement as well as reported by nursing staff is that they have not seen a bowel movement. He has not passed gas yet, the output from the NG tube is about 200 cc. Vitals/I&O/Wt Last Vital Signs Temp 97.0 F L 08/22/24 07:25 Pulse 70 08/22/24 07:30 Resp 16 08/22/24 07:30 BP 106/65 08/22/24 07:25 Pulse Ox 91 08/22/24 07:30 O2 Del Method Room Air 08/22/24 07:30 08/21/24 08/22/24 08/22/24 22:59 06:59 14:59 Output Total 400 / 400 Balance -400 / -400 Weight last 48 hrs Weight 131 lb 1.6 oz Weight 129 lb 9.6 oz Weight 134 lb Physical Exam 2 Narrative: General : Patient is well developed , no acute distress, oriented x3 Head : Normal cephalic, a-traumatic. Nose : Mucous membranes are without erythema. Lungs : Equal chest rise bilaterally, no use of accessory muscles, trachea is midline. CV : Rate and rhythm are normal. Abdomen : Soft, ND, NT, no g/r/m, Suprapubic catheter in place. Extremities : No edema. Upper extremities are normal bilaterally. Back : non-tender to palpation, no CVA tenderness. Data 08/22/24 04:11 08/22/24 04:11 Micro: Microbiology 08/21/24 11:18 Blood Culture - Preliminary Blood SPECIMEN COLLECTED 08/21/24 11:16 Blood Culture - Preliminary Blood SPECIMEN COLLECTED A&P Assessment and plan (1) Hx of colectomy: (2) Small bowel obstruction: Plan Adequate progression with conservative management of small bowel obstruction in the setting of previous intra-abdominal surgeries. Plan is to decompress for another 24 hours, unless there is verified bowel movement and patient is passing gas the next step would be to obtain A Gastrografin study tomorrow to evaluate for resolution of SBO an to evaluate for the need of any additional procedures. Clinically is stable vital signs are normal and white count has remained stable. Lactate was normal. Attestations 2 Medical Necessity Statement*: Patient will require 48 to 72 hours of hospital stay for management of SBO Coding Level of Care Code 65582 Diagnoses Hx of colectomy Z90.49 Small bowel obstruction K56.609
[2024-08-22] MEDS: nicotine 21 mg Patch 1 PATCH TRANSDERMA (08:58)
[2024-08-22 09:38] LABS: Bilirubin Urine Negative (Negative); Blood Urine 3+ (Negative); Glucose Urine UA Negative (Normal); Ketones Urine Negative (Negative); Leukocyte Esterase Urine Negative (Negative); Nitrate Urine Negative (Negative); Protein Urine 1+ (Negative); Urine Appearance Cloudy (CLEAR); Urine Color Yellow (Yellow)
[2024-08-22 09:41] LABS: Add Urine Microscopic? YES; Bacteria Urine None Seen /hpf; Hyaline Casts Urine 17.77 /lpf; Squamous Epithelial Cell Urine 0-5 /hpf (0-5)
[2024-08-22 10:00] LABS: Specific Gravity, Urine 1.065 (1.005-1.030)
[2024-08-22 10:03] LABS: UA Slide Review UA Slide Review Perf
[2024-08-22 10:04] LABS: Add Urine Culture? No; Amorphous Sediment Urine TRACE /hpf
[2024-08-22] MEDS: morphine 4 mg/mL SDV 1 mL 2 MG IVP (11:05)
[2024-08-22] MEDS: dextrose 5%-sod chloride 0.9% 1,000 ML 50 ML IV (12:22)
--- NOTE | 2024-08-22 15:27 | P.PN_ITS ---
Subjective 2 Subjective: No acute events overnight. Overnight had 200 cc of output from NG tube. Complaining of pain in the right lower abdomen. Denies any nausea, vomiting though. Asking if he can drink some water. Vitals/I&O/Wt Last Vital Signs Temp 97.8 F 08/22/24 12:00 Pulse 78 08/22/24 13:54 Resp 18 08/22/24 13:46 BP 121/76 08/22/24 12:00 Pulse Ox 92 08/22/24 13:46 O2 Del Method Room Air 08/22/24 13:46 08/22/24 08/22/24 08/22/24 06:59 14:59 22:59 Intake Total 933.333 / 933.333 Output Total 400 / 400 Balance -400 / -400 933.333 / 933.333 Weight last 48 hrs Weight 59.466 kg Weight 58.786 kg Weight 60.781 kg Physical Exam 2 Narrative: General: No acute distress, AO x3 HEENT: PERRLA, pupils bilaterally equal and reactive Chest: Normal vesicular breath sounds, no added sounds, equal good air entry bilaterally CVS: S1-S2 regular, no murmurs, no tachycardia, no gallops, no rubs Abdomen: Soft, generalized mild tenderness, no organomegaly, bowel sounds present but sluggish Neuro: No focal deficits, no facial deformity, AO x3, power 5/5 in all limbs Data 08/22/24 04:11 08/22/24 04:11 Micro: Microbiology 08/21/24 11:18 Blood Culture - Preliminary Blood NEGATIVE TO DATE 08/21/24 11:16 Blood Culture - Preliminary Blood NEGATIVE TO DATE A&P Assessment and plan (1) Small bowel obstruction: Surgery consulted from ER. Plan for conservative treatment. NG tube placement. IV hydration with D5 NS at 50 cc/h. Out of bed to chair. Early ambulation. Serial abdominal examination. Protonix daily, Zofran as needed. NPO. Does not improve patient might need ileostomy (2) Hx of colectomy: (3) HTN (hypertension): Goal blood pressure less than 140/90 mmHg. Continue to monitor. If needed will add IV medication Qualifiers: Hypertension type: primary hypertension Qualified Code(s): I10 - Essential (primary) hypertension (4) Ischemic cardiomyopathy: Past history. Currently euvolemic. Hydration as above. 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 Currently on hold because patient is NPO. Not on anticoagulation. Qualifiers: Atrial fibrillation type: paroxysmal Qualified Code(s): I48.0 - Paroxysmal atrial fibrillation (6) Paulino catheter in place: Chronic Paulino in place. Last changed on 08/12/2024 as per patient. (7) PRESLEY (acute kidney injury): Plan Chronic smoker. Discussed in detail regarding cessation of smoking. Nicotine patch. History of COPD: Not in exacerbation. Ipratropium, Xopenex every 6 hours, Pulmicort twice daily. Full code N.p.o. Protonix OPD prophylaxis Morphine 2 mg 4 hours as needed for pain Heparin 5000 Q12 hourly for DVT prophylaxis. Plan for the day: Continue with conservative treatment with NG tube. Management of NG tube as per surgical team. Possible plan for Gastrografin study in AM. Heart rate stable. Continue to monitor. If needed can plan for 2.5 mg of IV metoprolol as needed for heart of more than 100 bpm. Monitor electrolytes daily. Creatinine up to 1.4 today. Continue with D5 NS at 75 cc/h. Attestations 2 Medical Necessity Statement*: Requires further hospitalization for management of small bowel obstruction in a patient with history of colectomy while considered treatment is tried, ischemic cardiomyopathy, A-fib developing mild PRESLEY Diagnoses Small bowel obstruction K56.609 Hx of colectomy Z90.49 Primary hypertension I10 Hypertension type: primary hypertension Ischemic cardiomyopathy I25.5 Paroxysmal atrial fibrillation I48.0 Atrial fibrillation type: paroxysmal Paulino catheter in place Z97.8 PRESLEY (acute kidney injury) N17.9
[2024-08-22] MEDS: HYDROmorphone 1 mg/mL INJ 1 mL 0.2 MG IVP ×2 (17:46→22:31)
[2024-08-23] VITALS (20 sets, daily range): BP systolic 102–133; BP diastolic 63–82; PULSE 67–86; RESP 16–18; TEMP 36.5–37.1; O2SAT 90–96
[2024-08-23] MEDS: dextrose 5%-sod chloride 0.9% 1,000 ML 75 ML IV ×2 (01:46→16:09)
[2024-08-23] MEDS: ipratropium 0.5 mg/2.5 mL Neb INHALATION ×4 (02:42→20:40)
[2024-08-23] MEDS: levalbuterol 0.63 mg/3 mL Neb INHALATION ×4 (02:42→20:40)
[2024-08-23 02:53] LABS: Basophils # 0.1 10^3/uL (0.0-0.1); Basophils % 0.8 %; Eosinophils # 0.2 10^3/uL (0.0-0.8); Eosinophils % 2.8 %; Hematocrit 40.7 % (37-53); Lymphocytes # 1.2 10^3/uL (0.8-4.8); Lymphocytes % 16.7 %; Mean Corpuscular Hemoglobin 29.9 pg (27-33); Mean Corpuscular Volume 96.4 fl (82-101); Mean Platelet Volume 9.9 fL (7.4-10.4); Monocytes # 0.7 10^3/uL (0.2-0.9); Monocytes % 9.4 %; Neutrophils # 4.96 10^3/uL (1.8-7.7); Neutrophils % 69.9 %; Nucleated Red Blood Cells % 0 %; Platelet Count 204 10^3/cmm (157-399); Red Blood Count 4.22 10^6/uL (3.85-5.65); Red Cell Distribution Width 13.5 % (12.1-15.1); White Blood Count 7.11 10^3/uL (3.29-11.43)
[2024-08-23] MEDS: HYDROmorphone 1 mg/mL INJ 1 mL 0.2 MG IVP ×5 (02:53→22:00)
[2024-08-23 03:14] LABS: Alanine Aminotransferase < 5 U/L (0-41); Albumin Level 3.2 g/dL (3.5-5.2); Alkaline Phosphatase 70 U/L (40-130); Anion Gap 11.7 (5-19); Aspartate Amino Transferase 9 U/L (0-40); Blood Urea Nitrogen 14 mg/dL (8-23); Calcium 8.1 mg/dL (8.5-10.5); Carbon Dioxide 23 mmol/L (22-29); Chloride 107 mmol/L (98-107); Creatinine Clr Calc Pharmacy 53.2035; Globulin 2.4 g/dL (1.3-4.6); Glucose 104 mg/dL (65-115); Osmolality Calculated 287 mOsm/kg (285-295); Potassium 3.7 mmol/L (3.5-5.1); Sodium 138 mmol/L (136-145); Total Bilirubin 0.3 mg/dL (0.15-1.2); Total Protein 5.6 g/dL (6.6-8.7)
[2024-08-23] MEDS: heparin 5,000 unit/mL INJ 1 mL 5000 UNIT SUBCUT ×2 (04:12→16:12)
[2024-08-23] MEDS: budesonide 0.5 mg/2 mL Neb INHALATION ×2 (07:19→20:40)
[2024-08-23] MEDS: nicotine 21 mg Patch 1 PATCH TRANSDERMA (07:23)
--- NOTE | 2024-08-23 09:38 | P.PN_ITS ---
Subjective 2 Subjective: Hospital day 2 after meeting admitted for small bowel obstruction. NG output has been about 200 cc of secretion like fluid with no bilious component. Continues to complain some pain on the right hemiabdomen especially radiating to the back. No fever chills no changes in vital signs. Vitals/I&O/Wt Last Vital Signs Temp 97.7 F 08/23/24 07:39 Pulse 75 08/23/24 07:39 Resp 16 08/23/24 07:39 BP 133/75 08/23/24 07:39 Pulse Ox 93 08/23/24 07:39 O2 Del Method Room Air 08/23/24 07:39 08/22/24 08/23/24 08/23/24 22:59 06:59 14:59 Intake Total 250 / 1183.333 630 / 1813.333 Output Total Balance 225 / 1158.333 630 / 1788.333 Weight last 48 hrs Weight 133 lb 3 oz Weight 131 lb 1.6 oz Weight 129 lb 9.6 oz Weight 134 lb Physical Exam 2 GI: OTHER: Abdominal examination is benign, abdomen is soft there is minimal tenderness in the right hemiabdomen the abdomen is not distended, there is presence of a suprapubic catheter. Urinary Catheter Management: Suprapubic: Cath Placed During This Visit: no Reason for Continuing Indwelling Catheter: Chronic Indwelling Urinary Catheter on Admission Data 08/23/24 02:04 08/23/24 02:04 Micro: Microbiology 08/21/24 11:18 Blood Culture - Preliminary Blood NEGATIVE TO DATE 08/21/24 11:16 Blood Culture - Preliminary Blood NEGATIVE TO DATE A&P Assessment and plan (1) Hx of colectomy: (2) Small bowel obstruction: Plan The plan is to proceed with a Gastrografin trial today. If there is failure of the Gastrografin trial I will have to discuss with the patient the possibility of surgery, I have informed him that surgical intervention in his clinical condition is extremely risky, he has cardiomyopathy, he is deconditioned and malnourished and has had Miragel abdominal surgery in the past. As well as a suprapubic catheter. Patient shows understanding he will ambulate today after we administer Gastrografin and we will obtain serial x-rays. Gastrografin was given 100 cc diluted in 5 to cc of water and the tube has been clamped, the patient will start ambulating today. Attestations 2 Medical Necessity Statement*: Will require 24 to 48 hours of hospital stay for small bowel obstruction Coding Level of Care Code Acute Code for Chg Fwd Diagnoses Hx of colectomy Z90.49 Small bowel obstruction K56.609
--- NOTE | 2024-08-23 10:15 | XRR_ITS ---
PROCEDURE INFORMATION: Exam: XR Chest Exam date and time: 08/23/2024 11:33 AM Age: 74 years old Clinical indication: Other: H/o chf, possible pna; Prior surgery; Surgery date: 6+ months; Surgery type: Cardiac stents TECHNIQUE: Imaging protocol: Radiologic exam of the chest. Views: 1 view. COMPARISON: CR XR chest 1V portable [id number] 08/21/2024 3:23 PM FINDINGS: Tubes, catheters and devices: The nasogastric tube has its tip within the gastric cardia. The proximal side hole lies in the distal esophagus, just above the GE junction. Lungs: Unremarkable. No consolidation or mass. Pleural spaces: Unremarkable. No pleural effusion. No pneumothorax. Heart/Mediastinum: Unremarkable. No cardiomegaly. Bones/joints: Unremarkable. XR/XR chest 1V portable [id number] IMPRESSION: 1. No evidence of pneumonia 2. Suboptimal NG tube positioning
[2024-08-23] MEDS: morphine 4 mg/mL SDV 1 mL 2 MG IVP ×2 (13:20→18:56)
--- NOTE | 2024-08-23 13:31 | PC.NURSE ---
Per Dr. Acosta V.Brittany. ambulated pt multiple times, advanced NG tube approx 10 cm placed new Venaguard to secure.
--- NOTE | 2024-08-23 13:49 | P.PN_ITS ---
Subjective 2 Subjective: No acute events overnight. Patient has remained hemodynamically stable and afebrile. 200 cc output from NG tube. Continues to complain of mild right- sided abdominal pain. Denies any dysuria or difficulty in breathing. Frustrated that he still not feeling better. Vitals/I&O/Wt Last Vital Signs Temp 97.7 F 08/23/24 11:52 Pulse 75 08/23/24 11:52 Resp 18 08/23/24 13:20 BP 132/76 08/23/24 11:52 Pulse Ox 94 08/23/24 11:52 O2 Del Method Room Air 08/23/24 11:52 08/22/24 08/23/24 08/23/24 22:59 06:59 14:59 Intake Total 250 / 1183.333 630 / 1813.333 Output Total Balance 225 / 1158.333 630 / 1788.333 Weight last 48 hrs Weight 60.413 kg Weight 59.466 kg Weight 58.786 kg Physical Exam 2 Narrative: General: No acute distress, AO x3 HEENT: PERRLA, pupils bilaterally equal and reactive Chest: Normal vesicular breath sounds, no added sounds, equal good air entry bilaterally CVS: S1-S2 regular, no murmurs, no tachycardia, no gallops, no rubs Abdomen: Soft, generalized mild tenderness, no organomegaly, bowel sounds present but sluggish Neuro: No focal deficits, no facial deformity, AO x3, power 5/5 in all limbs Urinary Catheter Management: Suprapubic: Cath Placed During This Visit: no Reason for Continuing Indwelling Catheter: Chronic Indwelling Urinary Catheter on Admission Data 08/23/24 02:04 08/23/24 02:04 Micro: Microbiology 08/21/24 11:18 Blood Culture - Preliminary Blood NEGATIVE TO DATE 08/21/24 11:16 Blood Culture - Preliminary Blood NEGATIVE TO DATE A&P Assessment and plan (1) Small bowel obstruction: Surgery consulted from ER. Plan for conservative treatment. NG tube placement. IV hydration with D5 NS at 50 cc/h. Out of bed to chair. Early ambulation. Serial abdominal examination. Protonix daily, Zofran as needed. NPO. Does not improve patient might need ileostomy (2) Hx of colectomy: (3) HTN (hypertension): Goal blood pressure less than 140/90 mmHg. Continue to monitor. If needed will add IV medication Qualifiers: Hypertension type: primary hypertension Qualified Code(s): I10 - Essential (primary) hypertension (4) Ischemic cardiomyopathy: Past history. Currently euvolemic. Hydration as above. 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 residential monitor. 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 Currently on hold because patient is NPO. Not on anticoagulation. Qualifiers: Atrial fibrillation type: paroxysmal Qualified Code(s): I48.0 - Paroxysmal atrial fibrillation (6) Paulino catheter in place: Chronic Paulino in place. Last changed on 08/12/2024 as per patient. (7) PRESLEY (acute kidney injury): Plan Chronic smoker. Discussed in detail regarding cessation of smoking. Nicotine patch. History of COPD: Not in exacerbation. Ipratropium, Xopenex every 6 hours, Pulmicort twice daily. Full code N.p.o. Protonix OPD prophylaxis Morphine 2 mg 4 hours as needed for pain Heparin 5000 Q12 hourly for DVT prophylaxis. Plan for the day: Continue with conservative treatment. Gastrografin study as per surgical team. NG tube management. Ambulation. Creatinine improving. Electrolytes. Target magnesium around 2, potassium around 4. Continue with D5 NS at 75 cc/h. Current pain medication. Metoprolol as needed for heart rate of more than 100 bpm 2.5 mg IV every 4 hours as needed. Attestations 2 Medical Necessity Statement*: Requires further hospitalization for management of small bowel obstruction in a patient with history of colectomy on trial of conservative treatment, chronic history of A-fib, cardiomyopathy Diagnoses Small bowel obstruction K56.609 Hx of colectomy Z90.49 Primary hypertension I10 Hypertension type: primary hypertension Ischemic cardiomyopathy I25.5 Paroxysmal atrial fibrillation I48.0 Atrial fibrillation type: paroxysmal Paulino catheter in place Z97.8 PRESLEY (acute kidney injury) N17.9
--- NOTE | 2024-08-23 14:07 | XRR_ITS ---
PROCEDURE INFORMATION: Exam: XR Abdomen Exam date and time: 08/23/2024 2:15 PM Age: 74 years old Clinical indication: Screening exam; Other: Gastrograffin trial; Patient HX: Abdominal distention; Gastrogrtaffin trial; 5hr film; 100ml gastrograffin through ng @ [address] Turner; Additional info: Gastrografin trial TECHNIQUE: Imaging protocol: Radiologic exam of the abdomen. Views: Frontal supine view of the abdomen. 1 View. COMPARISON: CT abdomen pelvis w con* [id number] 08/21/2024 12:22 PM FINDINGS: Gastrointestinal tract: Contrasts is present within proximal small bowel. The small bowel loops are dilated and a obstruction is probably present. Bones/joints: Unremarkable. XR/XR abdomen 1V* [id number] IMPRESSION: The findings suggest small bowel obstruction.
[2024-08-23] MEDS: diatrizoate meglumine 120 mL Sol PO (15:12)
[2024-08-23] MEDS: saliva stimulant spray 30 mL Btl 1 SPRAY MUCOUS MEM (18:49)
[2024-08-24] VITALS (19 sets, daily range): BP systolic 118–138; BP diastolic 68–79; PULSE 68–83; RESP 16–18; TEMP 36.3–37; O2SAT 91–98
--- NOTE | 2024-08-24 00:23 | PC.NURSE ---
@ approximately 2200 while administering pain medication to the pt he stated that he would not be having surgery tomorrow. He states that he has had a colectomy before and it did not help. Pt is also afraid that he will not wake up after being put under anesthesia. Will inform physician.
[2024-08-24] MEDS: levalbuterol 0.63 mg/3 mL Neb INHALATION ×3 (02:42→13:43)
[2024-08-24] MEDS: ipratropium 0.5 mg/2.5 mL Neb INHALATION ×3 (02:42→13:43)
[2024-08-24] MEDS: HYDROmorphone 1 mg/mL INJ 1 mL 0.2 MG IVP ×5 (03:12→21:50)
[2024-08-24] MEDS: heparin 5,000 unit/mL INJ 1 mL 5000 UNIT SUBCUT ×2 (03:12→16:05)
[2024-08-24 03:31] LABS: Basophils # 0.1 10^3/uL (0.0-0.1); Basophils % 0.8 %; Eosinophils # 0.1 10^3/uL (0.0-0.8); Eosinophils % 1.6 %; Hematocrit 40.3 % (37-53); Lymphocytes # 1.1 10^3/uL (0.8-4.8); Lymphocytes % 14.1 %; Mean Corpuscular HGB Conc 31.3 g/dL (30-55); Mean Corpuscular Hemoglobin 30.5 pg (27-33); Mean Corpuscular Volume 97.6 fl (82-101); Mean Platelet Volume 10.3 fL (7.4-10.4); Monocytes # 0.9 10^3/uL (0.2-0.9); Monocytes % 12.2 %; Neutrophils # 5.34 10^3/uL (1.8-7.7); Neutrophils % 70.9 %; Nucleated Red Blood Cells % 0 %; Platelet Count 196 10^3/cmm (157-399); Red Blood Count 4.13 10^6/uL (3.85-5.65); Red Cell Distribution Width 13.6 % (12.1-15.1); White Blood Count 7.53 10^3/uL (3.29-11.43)
[2024-08-24 03:58] LABS: Alanine Aminotransferase < 5 U/L (0-41); Albumin Level 3.5 g/dL (3.5-5.2); Alkaline Phosphatase 74 U/L (40-130); Blood Urea Nitrogen 15 mg/dL (8-23); Calcium 8.6 mg/dL (8.5-10.5); Carbon Dioxide 24 mmol/L (22-29); Chloride 111 mmol/L (98-107); Creatinine Clr Calc Pharmacy 49.0548; Globulin 2.1 g/dL (1.3-4.6); Glucose 116 mg/dL (65-115); Magnesium 2.3 mg/dL (1.7-2.3); Osmolality Calculated 304 mOsm/kg (285-295); Sodium 146 mmol/L (136-145); Total Bilirubin 0.3 mg/dL (0.15-1.2); Total Protein 5.6 g/dL (6.6-8.7)
[2024-08-24 04:00] LABS: Anion Gap 14.9 (5-19); Potassium 3.9 mmol/L (3.5-5.1)
[2024-08-24 04:01] LABS: Aspartate Amino Transferase 10 U/L (0-40)
[2024-08-24] MEDS: dextrose 5%-sod chloride 0.9% 1,000 ML 75 ML IV (05:03)
--- NOTE | 2024-08-24 07:18 | PC.NURSE ---
Dr. Arrieta notified of pt's refusal to have surgery performed today, physician to speak with pt later this morning prior to scheduled surgery.
[2024-08-24] MEDS: budesonide 0.5 mg/2 mL Neb INHALATION (07:46)
--- NOTE | 2024-08-24 08:47 | XRR_ITS ---
PROCEDURE INFORMATION: Exam: XR Abdomen Exam date and time: 08/24/2024 9:02 AM Age: 74 years old Clinical indication: Condition or disease; Intestinal condition; Obstruction; Additional info: Sbo, gastrografin, can be portable if needed TECHNIQUE: Imaging protocol: Radiologic exam of the abdomen. Views: Frontal supine view of the abdomen. 1 View. COMPARISON: CR XR abdomen 1V* [id number] 08/23/2024 2:15 PM FINDINGS: Gastrointestinal tract: There is contrast in proximal to distal dilated small bowel loops. No large bowel contrast is seen. Bones/joints: Unremarkable. XR/XR abdomen 1V* [id number] IMPRESSION: Findings as detailed above are consistent with a distal small bowel obstruction.
--- NOTE | 2024-08-24 08:53 | P.PN_ITS ---
Subjective 2 Subjective: A Gastrografin trial was attempted yesterday, patient failed a trial vomit of bilious material about 4 hours after Gastrografin administration. He states that he is passing some gas feels like he wants to have a bowel movement and has not had a bowel movement yet. Vitals/I&O/Wt Last Vital Signs Temp 97.4 F L 08/24/24 08:11 Pulse 70 08/24/24 08:11 Resp 16 08/24/24 08:11 BP 135/79 08/24/24 08:11 Pulse Ox 92 08/24/24 08:11 O2 Del Method Room Air 08/24/24 08:11 08/23/24 08/24/24 08/24/24 22:59 06:59 14:59 Intake Total 1000 / 1000 967.5 / 1967.5 Output Total 100 / 100 1700 / 1800 Balance 900 / 900 -732.5 / 167.5 Weight last 48 hrs Weight 133 lb 9.6 oz Weight 133 lb 3 oz Physical Exam 2 GI: OTHER: Abdomen is soft minimally tender to palpation in the lower abdomen not distended Urinary Catheter Management: Suprapubic: Cath Placed During This Visit: no Reason for Continuing Indwelling Catheter: Chronic Indwelling Urinary Catheter on Admission Data 08/24/24 02:45 08/24/24 02:45 A&P Assessment and plan (1) Hx of colectomy: (2) Small bowel obstruction: Plan I had had extensive discussion with the patient, informed the patient that unfortunately a failure on his Gastrografin trial indicates that the bowel obstruction is unlikely to resolve with medical management and therefore exploratory surgery is indicated. This will likely require laparotomy with high chances of an ostomy creation as patient has already had a near total colectomy. I discussed all risk benefits of the operation with the patient including the risks of bowel injury, fistula formation, need for ostomy, intra-abdominal infection, need for additional operations sepsis and . I have explained to the patient that unfortunately at this point that probably is her only option as he failed his Gastrografin trial, he had explained to me that he feels like his last operation did him more harm than good and he is not planning on having another surgery. I have explained that if this is the decision most likely his obstruction is not going to resolve and can lead to perforation, he will like to speak with his family members before taking any decision but as of now he does not want to proceed with surgery. General surgery remains available, I have him on the schedule for today and if he changes his mind we can proceed to the OR otherwise we will continue decompression until patient makes a decision. Attestations 2 Medical Necessity Statement*: Patient will require 2 to 3 days of hospital stay for small bowel obstruction. Coding Level of Care Code Acute Code for Chg Fwd Diagnoses Hx of colectomy Z90.49 Small bowel obstruction K56.609
[2024-08-24] MEDS: nicotine 21 mg Patch 1 PATCH TRANSDERMA (09:09)
[2024-08-24] MEDS: dextrose 5%-sod chloride 0.45% 1,000 ML 75 ML IV ×2 (09:17→21:52)
--- NOTE | 2024-08-24 12:33 | P.MISC_ITS ---
Miscellaneous Note Purpose of Documentation: Update on patient care Note: This is a 74-year-old male who has a high-grade bowel obstruction in the setting of a previous near-total colectomy, he has failed conservative management as evidenced by lack of progression during a Gastrografin trial. I have offered him exploratory laparotomy with lysis of additions and possible ostomy creation, patient has self the time of this note has refused surgical intervention, he is states that he does not want to get the ostomy bag and is not sure if any kind of intervention is actually going to improve his quality of life, I Extensive discussion with him I have explained that surgery is the only option at this time as he has failed conservative management, I have explained to him that I cannot offer to take him to the OR without him being aware that most likely he w ill get an ostomy as his obstruction appears to be at the level of his previous bowel anastomosis and therefore may require a resection and terminal ileostomy versus a loop ileostomy. Patient at this time has decided not to proceed, he has requested a second opinion by Dr. Reinoso as he was the doctor who did his first operation. As of today I have explained that Dr. Reinoso is not in town, he refuses to go to the OR without having second opinion by Dr. Reinoso. We will continue NG tube decompression until tomorrow, tomorrow morning I will discuss the case with Dr. Reinoso for second opinion.
--- NOTE | 2024-08-24 14:18 | P.PN_ITS ---
Subjective 2 Subjective: No acute events overnight. Patient failed Gastrografin study yesterday. He vomited Gastrografin out. NG tube in place. Seen with family at bedside. Has remained hemodynamically stable and afebrile. Vitals/I&O/Wt Last Vital Signs Temp 97.5 F L 08/24/24 11:24 Pulse 72 08/24/24 13:44 Resp 18 08/24/24 13:44 BP 130/74 08/24/24 11:24 Pulse Ox 92 08/24/24 13:47 O2 Del Method Room Air 08/24/24 13:47 08/23/24 08/24/24 08/24/24 22:59 06:59 14:59 Intake Total 1000 / 1000 967.5 / 1967.5 311.25 / 311.25 Output Total 100 / 100 1700 / 1800 Balance 900 / 900 -732.5 / 167.5 311.25 / 311.25 Weight last 48 hrs Weight 60.6 kg Weight 60.413 kg Physical Exam 2 Narrative: General: No acute distress, AO x3, NG tube in place HEENT: PERRLA, pupils bilaterally equal and reactive Chest: Normal vesicular breath sounds, no added sounds, equal good air entry bilaterally CVS: S1-S2 regular, no murmurs, no tachycardia, no gallops, no rubs Abdomen: Soft, generalized mild tenderness, no organomegaly, bowel sounds present but sluggish Neuro: No focal deficits, no facial deformity, AO x3, power 5/5 in all limbs Urinary Catheter Management: Suprapubic: Cath Placed During This Visit: no Reason for Continuing Indwelling Catheter: Chronic Indwelling Urinary Catheter on Admission Data 08/24/24 02:45 08/24/24 02:45 A&P Assessment and plan (1) Small bowel obstruction: Surgery consulted from ER. Plan for conservative treatment. NG tube placement. IV hydration with D5 NS at 50 cc/h. Out of bed to chair. Early ambulation. Serial abdominal examination. Protonix daily, Zofran as needed. NPO. Does not improve patient might need ileostomy (2) Hx of colectomy: (3) HTN (hypertension): Goal blood pressure less than 140/90 mmHg. Continue to monitor. If needed will add IV medication Qualifiers: Hypertension type: primary hypertension Qualified Code(s): I10 - Essential (primary) hypertension (4) Ischemic cardiomyopathy: Past history. Currently euvolemic. Hydration as above. 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 case monitor. 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 Currently on hold because patient is NPO. Not on anticoagulation. Qualifiers: Atrial fibrillation type: paroxysmal Qualified Code(s): I48.0 - Paroxysmal atrial fibrillation (6) Paulino catheter in place: Chronic Paulino in place. Last changed on 08/12/2024 as per patient. (7) PRESLEY (acute kidney injury): Plan Chronic smoker. Discussed in detail regarding cessation of smoking. Nicotine patch. History of COPD: Not in exacerbation. Ipratropium, Xopenex every 6 hours, Pulmicort twice daily. Full code N.p.o. Protonix OPD prophylaxis Morphine 2 mg 4 hours as needed for pain Heparin 5000 Q12 hourly for DVT prophylaxis. Plan for the day: Patient failed Gastrografin study. Repeat x-ray continues to show bowel obstruction. Patient advised to undergo surgical correction today. After multiple detailed discussions with the patient both medical and surgical team he continues to refuse and would like to have a second opinion. Have informed the surgery. Team. They would like to have a second opinion with Dr. Reinoso once available. Patient developing mild hypernatremia today. Switch to D5 half NS at 75 cc/h. Check BMP in evening. If needed we will switch to D5W. Continue monitor sodium levels. Continue with ambulation. Jean Carlos as needed. Monitor vitals. Attestations 2 Medical Necessity Statement*: Requires further hospitalization for management of persistent bowel obstruction as patient is failing conservative treatment and would need surgical correction while patient is requesting second surgical opinion. Diagnoses Small bowel obstruction K56.609 Hx of colectomy Z90.49 Primary hypertension I10 Hypertension type: primary hypertension Ischemic cardiomyopathy I25.5 Paroxysmal atrial fibrillation I48.0 Atrial fibrillation type: paroxysmal Paulino catheter in place Z97.8 PRESLEY (acute kidney injury) N17.9
[2024-08-24 16:10] LABS: Anion Gap 11.7 (5-19); Blood Urea Nitrogen 13 mg/dL (8-23); Calcium 8.4 mg/dL (8.5-10.5); Carbon Dioxide 25 mmol/L (22-29); Chloride 110 mmol/L (98-107); Creatinine Clr Calc Pharmacy 53.5758; Glucose 112 mg/dL (65-115); Osmolality Calculated 297 mOsm/kg (285-295); Potassium 3.7 mmol/L (3.5-5.1); Sodium 143 mmol/L (136-145)
--- NOTE | 2024-08-24 16:30 | PM.MISC ---
Miscellaneous Note Purpose of Documentation: Update on patient care Note: Acute to evaluate the patient this afternoon, he has changed his mind regarding proceeding to the OR for surgery. He has decided he wants to get the intervention and is agreeable to have an ostomy. Does not want a second opinion anymore. I discussed with the patient the proposed operation exploratory laparotomy with possible bowel resection and ostomy creation. I discussed with the patient the risks and benefits of the operation, there is risk of enterotomy, there is risks of recurrent obstruction, there is risk of major bleeding due to history of abdominal aortic aneurysm, there is risk of perforation of the intestine, there is reasonable enterocutaneous fistula formation, there is a risk of ostomy failure, I have explained to the patient that this procedure will include an ostomy creation either a loop ileostomy or at an ileostomy depending on intraoperative findings, there is high risk for bladder injury due to suprapubic catheter location. There is risk of sepsis and , wound dehiscence, hernia formation, need for additional operations. Patient shows understanding and wishes to proceed. The procedure will be booked for tomorrow morning in the interim we will continue decompression with NG tube
[2024-08-25] VITALS (27 sets, daily range): BP systolic 114–152; BP diastolic 57–77; PULSE 65–82; RESP 16–18; TEMP 36.3–37; O2SAT 90–94
[2024-08-25] MEDS: HYDROmorphone 1 mg/mL INJ 1 mL 0.2 MG IVP ×2 (02:03→06:24)
[2024-08-25] MEDS: levalbuterol 0.63 mg/3 mL Neb INHALATION ×4 (02:57→20:39)
[2024-08-25] MEDS: ipratropium 0.5 mg/2.5 mL Neb INHALATION ×4 (02:57→20:39)
[2024-08-25] MEDS: heparin 5,000 unit/mL INJ 1 mL 5000 UNIT SUBCUT (04:25)
[2024-08-25 05:52] LABS: Basophils % 0.4 %; Eosinophils # 0.2 10^3/uL (0.0-0.8); Eosinophils % 2.2 %; Hematocrit 39.3 % (37-53); Lymphocytes % 13.4 %; Mean Corpuscular Hemoglobin 29.4 pg (27-33); Mean Corpuscular Volume 94.7 fl (82-101); Mean Platelet Volume 9.7 fL (7.4-10.4); Monocytes # 0.7 10^3/uL (0.2-0.9); Monocytes % 8.9 %; Neutrophils # 5.48 10^3/uL (1.8-7.7); Neutrophils % 74.8 %; Nucleated Red Blood Cells % 0 %; Platelet Count 220 10^3/cmm (157-399); Red Blood Count 4.15 10^6/uL (3.85-5.65); Red Cell Distribution Width 13.4 % (12.1-15.1); White Blood Count 7.32 10^3/uL (3.29-11.43)
[2024-08-25 06:15] LABS: Alanine Aminotransferase < 5 U/L (0-41); Albumin Level 3.1 g/dL (3.5-5.2); Alkaline Phosphatase 64 U/L (40-130); Anion Gap 12.1 (5-19); Aspartate Amino Transferase 9 U/L (0-40); Blood Urea Nitrogen 10 mg/dL (8-23); Calcium 8.3 mg/dL (8.5-10.5); Carbon Dioxide 25 mmol/L (22-29); Chloride 106 mmol/L (98-107); Creatinine Clr Calc Pharmacy 58.9824; Globulin 2.6 g/dL (1.3-4.6); Glucose 106 mg/dL (65-115); Osmolality Calculated 289 mOsm/kg (285-295); Potassium 3.1 mmol/L (3.5-5.1); Sodium 140 mmol/L (136-145); Total Bilirubin 0.3 mg/dL (0.15-1.2); Total Protein 5.7 g/dL (6.6-8.7)
[2024-08-25] MEDS: budesonide 0.5 mg/2 mL Neb INHALATION ×2 (07:54→20:39)
[2024-08-25] MEDS: nicotine 21 mg Patch 1 PATCH TRANSDERMA (09:09)
--- NOTE | 2024-08-25 10:04 | P.ANESASSM_ITS ---
Pre-Anesthetic Assessment Height/Weight: Height 1.73 m Weight 60.509 kg Temp Pulse Resp BP Pulse Ox O2 Del Method 98.6 F 69 18 143/72 94 Room Air 08/25/24 09:45 08/25/24 09:45 08/25/24 09:45 08/25/24 09:45 08/25/24 09:45 08/25/24 09:45 Operation Date: 08/24/24 11:50 Proposed Procedures p Exploratory Laparotomy, possible bowel resection , possible ostomy creation(Not Applicable) - Madan Arrieta MD Operation Date: 08/25/24 10:35 Proposed Procedures p Exploratory Laparotomy(Not Applicable) - Madan Arrieta MD s Poss Laparoscopic Small Bowel Resection, poss ostomy(Not Applicable) - Madan Arrieta MD Familial anesthetic complications: None Was Beta Judie taken within 24 hours: N/A Was Clonidine taken within 24 hours: N/A Last intake: Intake Last Liquid Date 08/24/24 Last Liquid Time 23:59 Last Solid Date 08/20/24 Last Solid Time 23:59 Social Tobacco and No alcohol Exam alert, oriented x 3, clear to auscultation bilaterally and regular rate & rhythm Airway Mallampati: Class II Dentition: other (no teeth) CV/HEM Atrial Fibrillation, Congestive Heart Failure (hx ICM), Hypertension and Myocardial Infarction GI SBO Anesthetic Plan ASA status: 5 Anesthesia: General Risk of > 500 ml blood loss (7ml/kg in children): No Medications/Allergies Home Medications Medication Instructions Recorded Confirmed Last Taken Type atorvastatin 20 mg tablet 20 mg PO QPM 01/15/20 08/21/24 08/20/24 History budesonide-formoterol HFA 160 2 puff inhalation Q12H 04/07/22 08/21/24 08/20/24 History mcg-4.5 mcg/actuation aerosol inhaler (Symbicort) albuterol sulfate 90 mcg/actuation 2 puff inhalation Q6H PRN 01/23/23 08/21/24 01/22/23 History aerosol inhaler Shortness Of Breath Or Wheezing aspirin 81 mg tablet,delayed 81 mg PO QPM 01/23/23 08/21/24 02/11/23 History release ipratropium 20 mcg-albuterol 100 1 puff inhalation BID shortness of 0508/21/24 02/12/23 History mcg/actuation mist for inhalation breath (Combivent Respimat) sertraline 50 mg tablet 50 mg PO DAILY 02/04/23 08/21/24 08/20/24 History ipratropium 0.5 mg-albuterol 3 mg 3 ml inhalation QID PRN shortness 02/21/23 08/21/24 Unknown Rx (2.5 mg base)/3 mL nebulization of breath or wheezing #180 mL soln amiodarone 200 mg tablet 200 mg PO DAILY 01/30/24 08/21/24 08/20/24 History potassium chloride 20 mEq 40 meq PO DAILY 01/30/24 08/21/24 08/20/24 History tablet,extended release Lactobacillus acidophilus and 1 cap PO DAILY 08/21/24 08/21/24 08/20/24 History rhamnosus 15 billion cell capsule (Probiotic) ciprofloxacin HCl 500 mg tablet 500 mg PO BID 08/21/24 08/21/24 08/20/24 History cyanocobalamin (vitamin B-12) 250 250 mcg PO DAILY 08/21/24 08/21/24 08/20/24 History mcg tablet (Vitamin B-12) oxybutynin chloride 10 mg 10 mg PO DAILY 08/21/24 08/21/24 Unknown History tablet,extended release 24 hr Allergies Allergy/AdvReac Type Severity Reaction Status Date / Time iodine Allergy Unknown Verified 01/30/24 09:05 muscle relaxers Allergy Unknown Uncoded 08/21/24 17:02 Current Medications Generic Name Dose Route Start Last Admin Trade Name Freq PRN Reason Stop Dose Admin Budesonide 0.5 mg 08/21/24 20:00 08/25/24 07:54 Budesonide 0.5 Mg/2 Ml Neb INHALATION 0.5 mg BID.RESPIRATORY MYRA Administration Heparin Sodium (Porcine) 5,000 unit 08/21/24 16:11 08/25/24 04:25 Heparin 5,000 Unit/Ml Inj 1 Ml SUBCUT 5,000 unit Q12H MYRA Administration Hydromorphone HCl 0.2 mg 08/22/24 12:34 08/25/24 06:24 Hydromorphone 1 Mg/Ml Inj 1 Ml IVP 0.2 mg Q4H PRN Administration severe pain Dextrose/Sodium Chloride 1,000 mls @ 75 mls/hr 08/24/24 07:30 08/24/24 21:52 Dextrose 5%-Sod Chloride 0.45% IV 75 mls/hr .[id number] MYRA Administration Ipratropium [place] 0.5 mg 08/21/24 20:00 08/25/24 07:54 Ipratropium 0.5 Mg/2.5 Ml Neb INHALATION 0.5 mg Q6H.RESP MYRA Administration Lanolin 1 applic 08/22/24 03:45 08/22/24 04:27 Lanolin Oint 7 Gm TOPICAL 1 applic PRN PRN Administration DRYNESS Levalbuterol HCl 0.63 mg 08/21/24 20:00 08/25/24 07:54 Levalbuterol 0.63 Mg/3 Ml Neb INHALATION 0.63 mg Q6H.RESP MYRA Administration Nicotine 1 patch 08/21/24 16:11 08/25/24 09:09 Nicotine 21 Mg Patch TRANSDERMA 1 patch DAILY MYRA Administration Saliva Substitute 1 spray 08/23/24 18:08 08/23/24 18:49 Saliva Stimulant Gage 30 Ml Btl MUCOUS MEM 1 spray PRN PRN Administration DRY MOUTH PFSH Anesthesia Medical History (Updated 08/22/24 @ 15:[address] MD) Paulino catheter in place Ischemic cardiomyopathy Atrial fibrillation HTN (hypertension) CAD (coronary artery disease) Acute exacerbation of CHF (congestive heart failure) Hypoxia Acute anemia Pseudo-obstruction of colon Bowel obstruction Peripheral vascular disease Severe distal aortic disease, aortic aneurysm Encounter for smoking cessation counseling Goals of care, counseling/discussion Hypokalemia Abdominal pain COPD (chronic obstructive pulmonary disease) Shortness of breath Acute hypokalemia Bladder outlet obstruction Acute urinary retention Preoperative clearance Hx of retinal detachment Surgical History (Updated 07/23/24 @ 00:00 by LYNETTE Dow) Hx of colectomy S/P coronary artery stent placement (~2013) S/P cataract surgery Family History Father CAD (coronary artery disease) Lung disease Family/Other CAD (coronary artery disease) Grandfather CAD (coronary artery disease) Social History Smoking and tobacco/nicotine status: current every day tobacco/nicotine user cigarettes Alcohol intake: current Alcohol intake frequency: other Substance/Drug Use: never Data Anesthesia 08/25/24 05:12 08/25/24 05:12 Short CBC 08/24/24 08/25/24 Range/Units 02:45 05:12 WBC 7.53 7.32 (3.29-11.43) 10^3/uL Hgb 12.60 12.20 (11.27-16.99) g/dL Hct 40.3 39.3 (37-53) % MCV 97.6 94.7 (82-101) fl Plt Count 196 220 (157-399) 10^3/cmm Neut % (Auto) 70.9 74.8 % Neut # (Auto) 5.34 5.48 (1.8-7.7) 10^3/uL BMP 08/24/24 08/24/24 08/25/24 02:45 15:33 05:12 Sodium 146 H 143 140 Potassium 3.9 3.7 3.1 L Chloride 111 H 110 H 106 Carbon Dioxide 24 25 25 BUN 15 13 10 Creatinine 1.2 1.1 1.0 Glucose 116 H 112 106 Calcium 8.6 8.4 L 8.3 L Liver Function 08/24/24 08/25/24 Range/Units 02:45 05:12 Total Bilirubin 0.3 0.3 (0.15-1.2) mg/dL AST 10 9 (0-40) U/L ALT < 5 < 5 (0-41) U/L Alkaline Phosphatase 74 64 (40-130) U/L Albumin 3.5 3.1 L (3.5-5.2) g/dL Blood Bank 08/24/24 18:35 Blood Type A Positive Rho(D) Type Rh positive Antibody Screen Negative Cardiac Studies: 2 Echocardiogram 01/23/23
[2024-08-25] MEDS: sodium chloride 0.9% 1,000 ML 30 ML IV (10:22)
--- NOTE | 2024-08-25 10:25 | P.HPUD_ITS ---
Surgery/Procedure H&P Update DATE OF PROCEDURE: August 25, 2024 DATE H&P PERFORMED: 08/21/24 H&P UPDATE INFORMATION: I have reviewed H&P completed within last 30 days, I have examined patient prior to procedure, No changes to prior documentation and H&P is in [facility] [place] EMR on date indicated CHANGES TO PREVIOUS DOCUMENTATION: Persistent SBO, has not passed any gas or stool. NG tube continues to be productive of bilious fluid. Plan is for exploratory laparotomy with possible ostomy creation. PLANNED PROCEDURE: Operation Date: 08/24/24 11:50 Proposed Procedures p Exploratory Laparotomy, possible bowel resection , possible ostomy creation(Not Applicable) - Madan Arrieta MD Operation Date: 08/25/24 10:35 Proposed Procedures p Exploratory Laparotomy(Not Applicable) - Madan Arrieta MD s Poss Laparoscopic Small Bowel Resection, poss ostomy(Not Applicable) - Madan Arrieta MD
[2024-08-25] MEDS: ceFAZolin 2,000 mg SDV 2000 MG IVP (10:37)
--- NOTE | 2024-08-25 13:44 | P.PN_ITS ---
Subjective 2 Subjective: No acute events overnight. Yesterday in the evening after talking to the surgeon patient had agreed to go ahead for or today. Patient seen postoperation today. Seen with multiple family was at bedside. Patient complaining of mild pain. NG tube in place. Has remained hemodynamically stable and afebrile. Remains on room air. Vitals/I&O/Wt Last Vital Signs Temp 98.6 F 08/25/24 09:45 Pulse 69 08/25/24 09:45 Resp 18 08/25/24 09:45 BP 143/72 08/25/24 09:45 Pulse Ox 94 08/25/24 09:45 O2 Del Method Room Air 08/25/24 09:45 08/24/24 08/25/24 08/25/24 22:59 06:59 14:59 Intake Total 943.75 / 1255.00 Output Total 800 / 800 400 / 1200 Balance 143.75 / 455.00 -400 / 55.00 Weight last 48 hrs Weight 60.509 kg Weight 60.736 kg Weight 60.6 kg Physical Exam 2 Narrative: General: No acute distress, AO x3, NG tube in place HEENT: PERRLA, pupils bilaterally equal and reactive Chest: Normal vesicular breath sounds, no added sounds, equal good air entry bilaterally CVS: S1-S2 regular, no murmurs, no tachycardia, no gallops, no rubs Abdomen: Surgical bandage present. Soft. Neuro: No focal deficits, no facial deformity, AO x3, power 5/5 in all limbs Urinary Catheter Management: Suprapubic: Cath Placed During This Visit: no Reason for Continuing Indwelling Catheter: Chronic Indwelling Urinary Catheter on Admission Data 08/25/24 05:12 08/25/24 05:12 Micro: Microbiology 08/25/24 11:28 Gram Stain - Final Peritoneal Fluid A&P Assessment and plan (1) Small bowel obstruction: Failed conservative treatment. Failed Gastrografin study. Post expiratory laparotomy, bowel resection and end ileostomy day 0. NG tube management, advancement of diet, physical therapy, pain control, anticoagulation as per surgical team. Continue with IV fluids with D5 half NS at 75 cc/h. Early ambulation. Serial abdominal examination. Protonix daily, Zofran as needed. NPO. Does not improve patient might need ileostomy (2) Hx of colectomy: (3) HTN (hypertension): Goal blood pressure less than 140/90 mmHg. Continue to monitor. If needed will add IV medication Qualifiers: Hypertension type: primary hypertension Qualified Code(s): I10 - Essential (primary) hypertension (4) Ischemic cardiomyopathy: Past history. Currently euvolemic. Hydration as above. 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 consultant in ergonomics and safety. 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 Currently on hold because patient is NPO. Not on anticoagulation. Qualifiers: Atrial fibrillation type: paroxysmal Qualified Code(s): I48.0 - Paroxysmal atrial fibrillation (6) Paulino catheter in place: Chronic Paulino in place. Last changed on 08/12/2024 as per patient. (7) PRESLEY (acute kidney injury): (8) Encounter for postoperative care: (9) S/P exploratory laparotomy: (10) Ileostomy status: Plan Chronic smoker. Discussed in detail regarding cessation of smoking. Nicotine patch. History of COPD: Not in exacerbation. Ipratropium, Xopenex every 6 hours, Pulmicort twice daily. Replace potassium 80 mg IV. Full code N.p.o. Protonix OPD prophylaxis Morphine 2 mg 4 hours as needed for pain Heparin 5000 Q12 hourly for DVT prophylaxis. Attestations 2 Medical Necessity Statement*: Requires further hospitalization for postop care, post expiratory protamine, and ileostomy creation in a patient who failed conservative treatment for small bowel obstruction with a history of colostomy Diagnoses Small bowel obstruction K56.609 Hx of colectomy Z90.49 Primary hypertension I10 Hypertension type: primary hypertension Ischemic cardiomyopathy I25.5 Paroxysmal atrial fibrillation I48.0 Atrial fibrillation type: paroxysmal Paulino catheter in place Z97.8 PRESLEY (acute kidney injury) N17.9 Encounter for postoperative care Z48.89 S/P exploratory laparotomy Z98.890 Ileostomy status Z93.2
--- NOTE | 2024-08-25 14:01 | P.OP_ITS ---
Operative Report Date of procedure: August 25, 2024 Pre-op diagnosis: High-grade small bowel obstruction Post-op diagnosis: Same, intra-abdominal adhesions Post-op findings: Small bowel was dilated from the level of the duodenum all the way down to the level of the anastomosis with the sigmoid colon, there was an additional from the proximal jejunum to the left lateral abdominal wall causing a small kink, which was lysed. There were adhesions from the mid jejunum to the right lateral abdominal wall and gallbladder that did not appear to be causing any obstruction. Distal obstruction was mechanical at the level of the anastomosis between the terminal ileum and the colon, there was a big mesenteric defect with what appeared to be small internal hernia, once in hernia or hernia was reduced it was apparent that the mesentery of the distal ileum leading to the anastomosis was twisted between 180 and to 70 degrees causing a misalignment between the small bowel and the colon at the level of the anastomosis which most likely was causing intermittent obstruction. The distal terminal ileum appeared dusky at this level with no devyn perforation yet Procedure done: Exploratory laparotomy, bowel resection and end ileostomy creation Specimens removed/disposition: Segment of small bowel Surgeon: Madan Arrieta MD Mold Cutting Machine Operator: SARAN OR Staff Estimated blood loss: 50 Complications: none apparent Brief History: This is a 74-year-old male with history of near-total colectomy presents with a second episode of a small bowel obstruction in the last 2 months, he failed a Gastrografin trial and therefore we decided to proceed to the OR for exploration Procedure: Patient was brought into the OR, he was placed in the supine position, the abdomen was prepped and draped in the usual sterile fashion. A timeout was conducted. There is a suprapubic catheter that is about 4 cm from the level of the pubic bone therefore I decided to start my laparotomy had a year to avoid disturbing the catheter and injuring the bladder as it appeared to be left on imaging. I did a midline laparotomy from the epigastrium all the way down to about 1 cm from the area where the supra catheter was located. The incision was deepened until the fascia was identified, I then elevated fascia with 2 Rd's and incised with a knife, once I verified that there was no additions to anterior abdominal wall I proceeded to open the whole abdomen with electrocautery. Significant amount of ascites was noted, cultures were taken and the fluid was aspirated. The bowel appear distended in his whole course. I then proceeded to eviscerate the bowel and started running the bowel from the level of the ligament of Treitz distally, in the very proximal jejunum there was a take application to the left lateral abdominal wall this was taken down with Metzenbaum scissors, no evidence of bowel perforation was noted about due to bowel distention I decided to be extra cautious and proceeded to protect the are a of the adhesion with 3-0 Vicryl Lembert suture. Fibrin glue was also placed on top. I continued running the bowel, at the level of the mid jejunum there were adhesions from the jejunum to the gallbladder and the right lateral abdominal wall but there was no kinks at that level and the bowel appeared to be distended distally to the area of the adhesions so I decided not to proceed with lysis and continue to run the bowel. Once I got to the level of the anastomosis I noticed there was mesentery defect just posterior to the anastomosis and some of the bowel had herniated through the defect, the bowel herniation was resolved by pulling the intestine through the hernia defect, once the internal hernia was resolved and the mesentery was returned to the anatomic position it was noticed that the orientation of the mesentery of the small bowel leading to the anastomosis with the sigmoid colon was not in in anatomical position, causing an 180 to 270 degree twist in the small bowel, which was the cause of the small bowel obstruction that was also identified in imaging. At this point I realized that there was no way for me to relieve this obstruction without taking out the anastomosis, the distal segment of the terminal ileum leading to the anastomosis appeared slightly dusky, I started to transect distal to this just proximal to the area of the previous anastomosis with the sigmoid colon, I did this using a contour stapler. Staple line that the remaining the colon appeared healthy, and the distal colon was decompressed. I then proceeded to evaluate the bowel and realized that the last 10 cm of the terminal ileum appeared dusky and did not improve this by warming for about 5 minutes and therefore I decided to resect this in an standard fashion using a 55 mm blue load HERBERT stapler. I then placed a 19 Mongolian Javier drain in the pelvis and delivered through the right lower quadrant, the drain was fixed with #2-0 nylon. I decided not to proceed with reanastomosis of the small bowel with the remaining colon as this patient is very high risk for the possibility of leak and therefore I decided to give him an ileostomy. I choose a place for the end ileostomy in the left lower quadrant, I proceeded to make a circular incision in the skin about 2.5 cm in diameter, the incision was deepened to the level of the anterior rectus sheath, the anterior rectus sheath was opened and then I spread the muscle to get access into the abdomen. 2 fingers were able to be pulled through the ostomy site without difficulty I then proceeded to deliver the terminal ileum through the sk in through the ostomy site, a good line of it was able to be exteriorized. I took careful consideration not twisting the mesentery. I then proceeded to close the abdomen, using #1 looped PDS to close the fascia, the subcutaneous tissue was irrigated and then I closed the skin with fred. A sterile dressing was applied and then I proceeded to mature the ileostomy in a standard fashion with Megan sutures. Colostomy appears pink and healthy at the end of the case, there was good bleeding when I opened the intestine to mature the ileostomy. Ileostomy appliance was applied. At the end of the procedure all counts were correct, the patient tolerated well the procedure was transferred to the PACU in stable condition.
--- NOTE | 2024-08-25 14:45 | ANE.PACU2 ---
Inpatient post-anesthesia follow up: Airway intact: Yes Vital signs: Temperature 97.9 F Pulse Rate 72 Respiratory Rate 16 Blood Pressure 152/75 Pulse Oximetry 90 Oxygen Delivery Me thod Room Air Oxygen Flow Rate Fraction of Inspir ed Oxygen Hydration adequate: Yes Nausea and vomiting: No Pain level: 1 Mental status: Baseline
--- NOTE | 2024-08-25 15:20 | PC.NURSE ---
gave verbal orders to hold Heparin until tomorrow on patient due to surgical procedure.
--- NOTE | 2024-08-25 15:28 | PC.SOCIAL ---
IMM Updated. Updated pt on IMM. No questions voiced. Provided pt a copy. Initialed, dated, & timed a copy & placed in chart.
[2024-08-25] MEDS: acetaminophen 1,000 MG/100 ML PIGGYBACK 400 MG IV (17:49)
[2024-08-25] MEDS: HYDROmorphone 1 mg/mL INJ 1 mL 0.5 MG IVP (17:53)
[2024-08-25] MEDS: lidocaine 1% 5 ML in potassium chloride premix 100 ML 26.25 ML IV ×2 (20:06→23:34)
[2024-08-25] MEDS: dextrose 5%-sod chloride 0.45% 1,000 ML 75 ML IV (22:19)
[2024-08-26] VITALS (17 sets, daily range): BP systolic 129–149; BP diastolic 65–83; PULSE 64–78; RESP 16–18; TEMP 36.4–36.6; O2SAT 87–96
[2024-08-26] MEDS: HYDROmorphone 1 mg/mL INJ 1 mL 0.5 MG IVP ×4 (00:17→20:04)
[2024-08-26] MEDS: acetaminophen 1,000 MG/100 ML PIGGYBACK 400 MG IV ×2 (01:08→08:32)
[2024-08-26] MEDS: levalbuterol 0.63 mg/3 mL Neb INHALATION ×3 (02:01→14:23)
[2024-08-26] MEDS: ipratropium 0.5 mg/2.5 mL Neb INHALATION ×3 (02:01→14:23)
[2024-08-26] MEDS: heparin 5,000 unit/mL INJ 1 mL 5000 UNIT SUBCUT ×2 (03:13→17:33)
[2024-08-26 06:04] LABS: Basophils % 0.2 %; Eosinophils % 0.1 %; Lymphocytes # 0.4 10^3/uL (0.8-4.8); Lymphocytes % 4.6 %; Mean Corpuscular HGB Conc 31.3 g/dL (30-55); Mean Corpuscular Hemoglobin 30.3 pg (27-33); Mean Corpuscular Volume 96.9 fl (82-101); Mean Platelet Volume 9.6 fL (7.4-10.4); Monocytes # 0.7 10^3/uL (0.2-0.9); Monocytes % 7.8 %; Neutrophils # 7.39 10^3/uL (1.8-7.7); Neutrophils % 86.8 %; Nucleated Red Blood Cells % 0 %; Platelet Count 212 10^3/cmm (157-399); Red Blood Count 4.13 10^6/uL (3.85-5.65); Red Cell Distribution Width 13.2 % (12.1-15.1); White Blood Count 8.51 10^3/uL (3.29-11.43)
[2024-08-26 06:31] LABS: Alanine Aminotransferase < 5 U/L (0-41); Albumin Level 3.1 g/dL (3.5-5.2); Alkaline Phosphatase 58 U/L (40-130); Blood Urea Nitrogen 15 mg/dL (8-23); Calcium 7.8 mg/dL (8.5-10.5); Carbon Dioxide 21 mmol/L (22-29); Chloride 110 mmol/L (98-107); Creatinine Clr Calc Pharmacy 54.1007; Globulin 1.8 g/dL (1.3-4.6); Glucose 139 mg/dL (65-115); Osmolality Calculated 295 mOsm/kg (285-295); Sodium 141 mmol/L (136-145); Total Bilirubin 0.2 mg/dL (0.15-1.2); Total Protein 4.9 g/dL (6.6-8.7)
[2024-08-26 06:33] LABS: Anion Gap 14.9 (5-19); Aspartate Amino Transferase 13 U/L (0-40); Potassium 4.9 mmol/L (3.5-5.1)
[2024-08-26 06:35] LABS: Magnesium 1.8 mg/dL (1.7-2.3)
--- NOTE | 2024-08-26 07:38 | P.PN_ITS ---
Subjective 2 Subjective: Postoperative day 1 status post oratory laparotomy, bowel resection and end ileostomy creation. Patient is doing well complains of abdominal pain, NG output appears bilious. JEAN drains been out serosanguineous output. Vitals/I&O/Wt Last Vital Signs Temp 97.6 F 08/26/24 04:00 Pulse 71 08/26/24 05:10 Resp 17 08/26/24 04:00 BP 147/68 08/26/24 04:00 Pulse Ox 93 08/26/24 04:00 O2 Del Method Room Air 08/26/24 04:00 08/25/24 08/26/24 08/26/24 22:59 06:59 14:59 Intake Total 1100 / 1600 1296 / 2896 Output Total 450 / 525 200 / 725 90 / 90 Balance 650 / 1075 1096 / 2171 -90 / -90 Weight last 48 hrs Weight 137 lb 2 oz Weight 133 lb 6.4 oz Weight 133 lb 14.4 oz Physical Exam 2 GI: OTHER: Abdominal examination is benign abdomen is soft appropriately tender to palpation, ostomy in the left lower quadrant is pink and healthy but this is slightly edematous which is expected. JEAN drain with serosanguineous output Urinary Catheter Management: Suprapubic: Cath Placed During This Visit: no Reason for Continuing Indwelling Catheter: Chronic Indwelling Urinary Catheter on Admission Data 08/26/24 05:54 08/26/24 05:54 Micro: Microbiology 08/25/24 11:28 Gram Stain - Final Peritoneal Fluid A&P Assessment and plan (1) Small bowel obstruction: Plan Today's postoperative day 1 after laparotomy and end ileostomy creation. Patient will require at least 2-3 more days of decompression with NG tube while we wait for return of bowel function. Patient has been encouraged to ambulate, I we will obtain physical therapy consultation for this. While the patient is in bed we will place SCDs. Pain control at the moment is being done by IV Tylenol and Dilaudid, we may start small dose of Toradol if the pain control is suboptimal. Patient shows understanding. -N.p.o. with NG tube to low intermittent suction -Pain control -IV fluids -Ambulate as tolerated -Will plan on restarting diet once ostomy is productive. Attestations 2 Medical Necessity Statement*: Patient required 3 to 5 days of hospital stay for postoperative management after laparotomy with ileostomy creation Coding Level of Care Code Acute Code for Chg Fwd Diagnoses Small bowel obstruction K56.609
[2024-08-26] MEDS: budesonide 0.5 mg/2 mL Neb INHALATION (08:19)
[2024-08-26] MEDS: pantoprazole 40 mg SDV IVP (08:24)
[2024-08-26] MEDS: nicotine 21 mg Patch 1 PATCH TRANSDERMA (08:25)
[2024-08-26] MEDS: dextrose 5%-sod chloride 0.45% 1,000 ML 75 ML IV ×2 (11:42→22:31)
--- NOTE | 2024-08-26 14:19 | PM.PN ---
Subjective Subjective: Postop day 1. No acute events overnight. Patient complaining of abdominal pain. Does not want to stand up today. Discussed in detail with the patient regarding need of mobilizing to get a relief of pain. Discussed he can get an extra pain medication around ambulation. JEAN drain output appreciated of serosanguineous fluid. NG tube bilious. Vitals/I&O/Wt Last Vital Signs Temp 97.5 F L 08/26/24 11:30 Pulse 64 08/26/24 14:00 Resp 16 08/26/24 14:17 BP 132/67 08/26/24 11:30 Pulse Ox 91 08/26/24 11:30 O2 Del Method Room Air 08/26/24 11:30 08/25/24 08/26/24 08/26/24 22:59 06:59 14:59 Intake Total 1100 / 1600 1296 / 2896 1100 / 1100 Output Total 450 / 525 200 / 725 240 / 240 Balance 650 / 1075 1096 / 2171 860 / 860 Weight last 48 hrs Weight 62.199 kg Weight 60.509 kg Weight 60.736 kg Physical Exam Narrative: General: No acute distress, AO x3, NG tube in place HEENT: PERRLA, pupils bilaterally equal and reactive Chest: Normal vesicular breath sounds, no added sounds, equal good air entry bilaterally CVS: S1-S2 regular, no murmurs, no tachycardia, no gallops, no rubs Abdomen: Surgical bandage present. Soft. Neuro: No focal deficits, no facial deformity, AO x3, power 5/5 in all limbs Urinary Catheter Management: Suprapubic: Cath Placed During This Visit: no Reason for Continuing Indwelling Catheter: Chronic Indwelling Urinary Catheter on Admission Data 08/26/24 05:54 08/26/24 05:54 Micro: Microbiology 08/25/24 11:28 Gram Stain - Final Peritoneal Fluid Anaerobic Culture - Preliminary Body Fluid Culture - Preliminary 08/21/24 11:18 Blood Culture - Final Blood NO GROWTH AFTER 5 DAYS 08/21/24 11:16 Blood Culture - Final Blood NO GROWTH AFTER 5 DAYS A&P Assessment and plan (1) Small bowel obstruction: Failed conservative treatment. Failed Gastrografin study. Post expiratory laparotomy, bowel resection and end ileostomy day 0. NG tube management, advancement of diet, physical therapy, pain control, anticoagulation as per surgical team. Continue with IV fluids with D5 half NS at 75 cc/h. Early ambulation. Serial abdominal examination. Protonix daily, Zofran as needed. NPO. Does not improve patient might need ileostomy (2) Hx of colectomy: (3) HTN (hypertension): Goal blood pressure less than 140/90 mmHg. Continue to monitor. If needed will add IV medication Qualifiers: Hypertension type: primary hypertension Qualified Code(s): I10 - Essential (primary) hypertension (4) Ischemic cardiomyopathy: Past history. Currently euvolemic. Hydration as above. 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 drier and grinder tender. 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 Currently on hold because patient is NPO. Not on anticoagulation. Qualifiers: Atrial fibrillation type: paroxysmal Qualified Code(s): I48.0 - Paroxysmal atrial fibrillation (6) Paulino catheter in place: Chronic Paulino in place. Last changed on 08/12/2024 as per patient. (7) PRESLEY (acute kidney injury): (8) Encounter for postoperative care: (9) S/P exploratory laparotomy: (10) Ileostomy status: Plan Chronic smoker. Discussed in detail regarding cessation of smoking. Nicotine patch. History of COPD: Not in exacerbation. Ipratropium, Xopenex every 6 hours, Pulmicort twice daily. Replace potassium 80 mg IV. Plan for the day: Postop day 1. NG tube management, diet as per surgical team. Pain management Dilaudid 0.5 every 6 as needed. Early ambulation. Out of bed to chair. Metoprolol as needed. Continue with gentle IV hydration D5 half NS at 75 cc/h. Monitor electrolytes daily. Keep potassium around 4, magnesium around 2. If patient remains n.p.o. for next 24 hours we will consider TPN. Full code N.p.o. Protonix OPD prophylaxis Heparin 5000 Q12 hourly for DVT prophylaxis. Attestations Medical Necessity Statement*: Requires further hospitalization for postoperative care in a patient who underwent open laparotomy, ileostomy after failing conservative treatment for small bowel obstruction Diagnoses Small bowel obstruction K56.609 Hx of colectomy Z90.49 Primary hypertension I10 Hypertension type: primary hypertension Ischemic cardiomyopathy I25.5 Paroxysmal atrial fibrillation I48.0 Atrial fibrillation type: paroxysmal Paulino catheter in place Z97.8 PRESLEY (acute kidney injury) N17.9 Encounter for postoperative care Z48.89 S/P exploratory laparotomy Z98.890 Ileostomy status Z93.2
[2024-08-26] MEDS: ondansetron 2 mg/ML SDV 2 mL 4 MG IVP (17:45)
[2024-08-27] VITALS (16 sets, daily range): BP systolic 111–138; BP diastolic 64–81; PULSE 62–87; RESP 14–20; TEMP 36.3–36.8; O2SAT 88–94
[2024-08-27] MEDS: levalbuterol 0.63 mg/3 mL Neb INHALATION ×5 (00:31→20:54)
[2024-08-27] MEDS: ipratropium 0.5 mg/2.5 mL Neb INHALATION ×5 (00:31→20:54)
[2024-08-27] MEDS: HYDROmorphone 1 mg/mL INJ 1 mL 0.5 MG IVP ×2 (03:34→10:01)
[2024-08-27] MEDS: heparin 5,000 unit/mL INJ 1 mL 5000 UNIT SUBCUT ×2 (03:34→16:19)
--- NOTE | 2024-08-27 04:44 | PC.NURSE ---
Desaturation: HOTEL YARDPERSON was getting 0400 vitals and pt's oxygen saturation was 73%. This nurse put pt on 10L simple face mask. Pt's oxygen saturation came up to 92% after a few minutes. This nurse notified respiratory to come and assess the pt. The respiratory therapist weaned the pt down to 3L simple face mask and the pt is saturating 91-92%. Pt was also placed on a continuous pulse ox.
[2024-08-27 06:41] LABS: Basophils % 0.2 %; Eosinophils % 0.3 %; Hematocrit 36.4 % (37-53); Lymphocytes % 11.5 %; Mean Corpuscular HGB Conc 31.3 g/dL (30-55); Mean Corpuscular Hemoglobin 30.6 pg (27-33); Mean Corpuscular Volume 97.6 fl (82-101); Mean Platelet Volume 9.9 fL (7.4-10.4); Monocytes # 0.7 10^3/uL (0.2-0.9); Monocytes % 7.5 %; Neutrophils # 7.12 10^3/uL (1.8-7.7); Neutrophils % 80.2 %; Nucleated Red Blood Cells % 0 %; Platelet Count 203 10^3/cmm (157-399); Red Blood Count 3.73 10^6/uL (3.85-5.65); Red Cell Distribution Width 13.4 % (12.1-15.1); White Blood Count 8.89 10^3/uL (3.29-11.43)
[2024-08-27 07:03] LABS: Alanine Aminotransferase < 5 U/L (0-41); Albumin Level 2.7 g/dL (3.5-5.2); Alkaline Phosphatase 74 U/L (40-130); Aspartate Amino Transferase 10 U/L (0-40); Blood Urea Nitrogen 15 mg/dL (8-23); Calcium 7.9 mg/dL (8.5-10.5); Carbon Dioxide 26 mmol/L (22-29); Chloride 105 mmol/L (98-107); Creatinine Clr Calc Pharmacy 66.0091; Globulin 2.5 g/dL (1.3-4.6); Glucose 127 mg/dL (65-115); Osmolality Calculated 290 mOsm/kg (285-295); Sodium 139 mmol/L (136-145); Total Bilirubin 0.2 mg/dL (0.15-1.2); Total Protein 5.2 g/dL (6.6-8.7)
--- NOTE | 2024-08-27 07:32 | XR_ITS ---
WS: [id number] Portable AP semiupright chest, 08/27/2024 Clinical Data: shortness of breath Comparison: Portable chest, 08/23/2024 Findings: There are bilateral patchy opacities in both lower lobes which may represent pneumonia, ate lectasis and/or effusion. The upper lobes are clear. There are no nodules or masses. No pneumothorax is present. The heart is slightly enlarged. The aortic arch and descending thoracic aorta show calcif ication and tortuosity. The nasogastric tube probably ends in the stomach. Monitor leads are on the c hest wall. XR/XR chest 1V portable [id number] Impression: 1. Development of bilateral basilar pulmonary opacities. 2. Cardiomegaly and atherosclerosis.
[2024-08-27] MEDS: budesonide 0.5 mg/2 mL Neb INHALATION ×2 (08:11→20:54)
[2024-08-27] MEDS: nicotine 21 mg Patch 1 PATCH TRANSDERMA (08:13)
[2024-08-27] MEDS: pantoprazole 40 mg SDV IVP (08:13)
--- NOTE | 2024-08-27 08:17 | ECG_ITS ---
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 Measurements Intervals [place] Rate: 66 P: 60 CA: 169 QRS: 77 QRSD: 98 T: 89 QT: 415 QTc: 437 Interpretive Statements SINUS RHYTHM SEPTAL MYOCARDIAL INFARCTION , OF INDETERMINATE AGE [40+ ms Q WAVE IN V1/V2] Compared to ECG 01/30/2024 09:29:03 No significant changes Electronically Signed On 08-27-2024 21:18:58 CONTAINER MAKER by Tenisha Perdomo M.D. [id number]
--- NOTE | 2024-08-27 08:43 | P.PN_ITS ---
Subjective 2 Subjective: Postoperative day 2 status post end ileostomy creation. Patient is complaining of chest pain this morning he has some pain in the right upper chest that radiates to the upper back, his oxygen saturation dropped to the 70s overnight and he was placed on oxygen. No significant abdominal pain at this time JEAN output is putting serosanguineous fluid ostomy is weeping but no actual production yet Vitals/I&O/Wt Last Vital Signs Temp 97.5 F L 08/27/24 04:00 Pulse 66 08/27/24 08:13 Resp 16 08/27/24 08:13 BP 111/64 08/27/24 04:00 Pulse Ox 91 08/27/24 08:13 O2 Del Method Oxymask 08/27/24 08:13 O2 Flow Rate 2 08/27/24 08:13 08/26/24 08/27/24 08/27/24 22:59 06:59 14:59 Intake Total 1000 / 2100 0 / 2100 Output Total 465 / 765 540 / 1305 Balance 535 / 1335 -540 / 795 Weight last 48 hrs Weight 136 lb 8 oz Weight 137 lb 2 oz Physical Exam 2 Chest: OTHER: I hear some wheezing on the right upper chest GI: OTHER: Abdomen is soft nondistended appropriately tender to palpation ostomy is healthy and weeping, JEAN drain is putting out serosanguineous output. Urinary Catheter Management: Suprapubic: Cath Placed During This Visit: no Reason for Continuing Indwelling Catheter: Chronic Indwelling Urinary Catheter on Admission Data 08/27/24 06:13 08/27/24 06:13 Micro: Microbiology 08/25/24 11:28 Gram Stain - Final Peritoneal Fluid Anaerobic Culture - Preliminary Body Fluid Culture - Preliminary 08/21/24 11:18 Blood Culture - Final Blood NO GROWTH AFTER 5 DAYS 08/21/24 11:16 Blood Culture - Final Blood NO GROWTH AFTER 5 DAYS A&P Assessment and plan (1) Small bowel obstruction: Plan Adequate progression from the surgical standpoint, we will continue NG tube decompression until there is production from the ostomy bag. Due to new symptoms including chest pain wheezing on the right upper chest we will start additional workup including EKG chest x-ray troponins and D-dimer, this has been discussed with the medical team, they also plan to do imaging depending on the results. From my standpoint patient is to ambulate as much as possible, yesterday he only got out of bed but decided not to ambulate due to pain. We will work on his pain control to allow him to ambulate. Attestations 2 Medical Necessity Statement*: 3 to 5 days of hospital stay for managem ent after surgery for small bowel obstruction. Coding Level of Care Code 11064 Diagnoses Small bowel obstruction K56.609
[2024-08-27 08:47] LABS: D Dimer 2.48 ug/mLFEU (0-0.59)
[2024-08-27 09:00] LABS: Procalcitonin 0.55 ng/mL (0-0.5)
[2024-08-27 10:06] LABS: Troponin(5th) Baseline 15 ng/L (0-15)
--- NOTE | 2024-08-27 10:34 | CTR_ITS ---
PROCEDURE INFORMATION: Exam: CTA Chest With Contrast Exam date and time: 08/27/2024 12:46 PM Age: 74 years old Clinical indication: Abnormal findings; Abnormal diagnostic tests; Elevated d-dimer; Shortness of breath; Additional info: Hypoxia, possible aspiration, elevated dimer TECHNIQUE: Imaging protocol: Computed tomographic angiography of the chest with contrast. Exam focused on the arteries. 3D rendering (Not supervised by radiologist): MIP and/or 3D reconstructed images were created by the technologist. Radiation optimization: All CT scans at this facility use at least one of these dose optimization techniques: automated exposure control; mA and/or kV adjustment per patient size (includes targeted exams where dose is matched to clinical indication); or iterative reconstruction. Contrast material: OMNI 350; Contrast volume: 100 ml; Contrast route: INTRAVENOUS (IV); COMPARISON: CT angio chest PE protcl [id number] 02/20/2023 11:19 AM RADIATION DOSE METRICS: Total DLP (mGy-cm): 290.04 FINDINGS: Tubes, catheters and devices: The feeding tube is in good position within the stomach. Pulmonary arteries: Normal. No pulmonary emboli. Aorta: Unremarkable. No aortic aneurysm. No aortic dissection. Lungs: Both lungs demonstrate prominent centrilobular and paraseptal emphysematous changes. There is extensive atelectasis involving both lung bases. A large amount of fluid can be seen throughout the primary bronchi bilaterally as well as multiple bronchi in both lungs. Pleural spaces: Moderate bilateral pleural effusions are noted. Heart: Unremarkable. No cardiomegaly. No pericardial effusion. Lymph nodes: Unremarkable. No enlarged lymph nodes. Bones/joints: Unremarkable. No acute fracture. Soft tissues: Unremarkable. CT/CT angio chest PE protcl [id number] IMPRESSION: 1. Extensive fluid within bronchial airways consistent with aspiration 2. Extensive bibasilar atelectasis with pleural effusions 3. Emphysematous changes COMMENTS: The presence of pulmonary emphysema on CT is an independent risk factor for lung cancer. In the absence of a history or active diagnosis of lung cancer, it is recommended that this patient with emphysema be evaluated for enrollment in a low dose CT lung cancer screening program.
--- NOTE | 2024-08-27 10:44 | ECG_ITS ---
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 Measurements Intervals [place] Rate: 65 P: 7 HI: 156 QRS: 55 QRSD: 97 T: 76 QT: 423 QTc: 441 Interpretive Statements SINUS RHYTHM LOW QRS VOLTAGE IN PRECORDIAL LEADS [QRS DEFLECTION < 1.0 mV IN CHEST LEADS] SEPTAL MYOCARDIAL INFARCTION , OF INDETERMINATE AGE [40+ ms Q WAVE IN V1/V2] MODERATE T-WAVE ABNORMALITY, CONSIDER ANTERIOR ISCHEMIA [-0.1+ mV T-WAVE IN V3/V4] Compared to ECG 08/27/2024 08:17:31 Low QRS voltage now present T-wave abnormality now present Possible ischemia now present Myocardial infarct finding still present Electronically Signed On 08-27-2024 21:42:13 MUNICIPAL CLERK by Tenisha Perdomo M.D. [id number]
[2024-08-27] MEDS: vancomycin 2,000 MG/400 ML PIGGYBACK 200 MG IV (10:49)
[2024-08-27] MEDS: piperacillin-tazobactam 3.375 GM in sodium chloride 0.9% (plus) 50 ML IV ×2 (10:50→16:20)
--- NOTE | 2024-08-27 11:23 | PC.SOCIAL ---
IMM Updated. Updated pt on IMM. No questions voiced. Provided pt a copy. Initialed, dated, & timed copy in chart.
[2024-08-27] MEDS: dextrose 5%-sod chloride 0.45% 1,000 ML 50 ML IV (11:53)
[2024-08-27 12:36] LABS: Troponin 5 2HR 14.36 ng/L (0-15)
[2024-08-27 12:38] LABS: Troponin 5 2HR Delta -0.64 ABS# (0-10)
[2024-08-27] MEDS: iohexol 350 mg/mL 500 mL Btl (per mL) IV (13:09)
--- NOTE | 2024-08-27 13:49 | ECG_ITS ---
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 Measurements Intervals [place] Rate: 75 P: 33 IN: 149 QRS: 62 QRSD: 97 T: 74 QT: 412 QTc: 462 Interpretive Statements SINUS RHYTHM LOW QRS VOLTAGE IN PRECORDIAL LEADS [QRS DEFLECTION < 1.0 mV IN CHEST LEADS] PROBABLE ANTEROLATERAL MYOCARDIAL INFARCTION , OF INDETERMINATE AGE [35 ms Q WAVE IN I/aVL/V3-V6] Compared to ECG 08/27/2024 10:44:55 T-wave abnormality no longer present Possible ischemia no longer present Myocardial infarct finding still present Electronically Signed On 08-27-2024 21:42:22 COVER OPERATOR by Tenisha Perdomo M.D. [id number]
[2024-08-27 14:01] LABS: MRSA PCR OZH (swab) NOT DETECTED (Negative)
[2024-08-27 15:01] LABS: Troponin 5 6HR 10.94 ng/L (0-15)
[2024-08-27 15:02] LABS: Troponin 5 6HR Delta -4.06 ng/L (0-12)
--- NOTE | 2024-08-27 15:12 | P.PN_ITS ---
Subjective 2 Subjective: Overnight patient had episode of respiratory distress and saturations were down to 70s and he was placed on 10 L of oxygen mask. Today morning has been transition down to 3 L saturating more than 90%. Patient complaining of mild chest tightness. States breathing is improving. Denies any nausea, vomiting, headache. Denies trying to drink anything overnight. Patient did not work well with physical therapy yesterday. As per the nursing staff did sit at the edge of the bed after repeated requests. Vitals/I&O/Wt Last Vital Signs Temp 97.7 F 08/27/24 12:00 Pulse 68 08/27/24 13:13 Resp 18 08/27/24 13:13 BP 124/79 08/27/24 12:00 Pulse Ox 92 08/27/24 13:13 O2 Del Method Oxymask 08/27/24 13:13 O2 Flow Rate 3 08/27/24 13:13 08/27/24 08/27/24 08/27/24 06:59 14:59 22:59 Intake Total 0 / 2100 1000 / 1000 Output Total 540 / 1305 Balance -540 / 795 1000 / 1000 Weight last 48 hrs Weight 61.915 kg Weight 62.199 kg Physical Exam 2 Narrative: General: No acute distress, AO x3, NG tube in place HEENT: PERRLA, pupils bilaterally equal and reactive Chest: Bilateral bronchial breath sounds all over lung gates, with coarse crackles bilateral lower zone. CVS: S1-S2 regular, no murmurs, no tachycardia, no gallops, no rubs Abdomen: Surgical bandage present. Soft. Neuro: No focal deficits, no facial deformity, AO x3, power 5/5 in all limbs Urinary Catheter Management: Suprapubic: Cath Placed During This Visit: no Reason for Continuing Indwelling Catheter: Chronic Indwelling Urinary Catheter on Admission Data 08/27/24 06:13 08/27/24 06:13 Micro: Microbiology 08/25/24 11:28 Gram Stain - Final Peritoneal Fluid Anaerobic Culture - Preliminary Body Fluid Culture - Preliminary 08/21/24 11:18 Blood Culture - Final Blood NO GROWTH AFTER 5 DAYS 08/21/24 11:16 Blood Culture - Final Blood NO GROWTH AFTER 5 DAYS A&P Assessment and plan (1) Small bowel obstruction: Failed conservative treatment. Failed Gastrografin study. Post expiratory laparotomy, bowel resection and end ileostomy day 0. NG tube management, advancement of diet, physical therapy, pain control, anticoagulation as per surgical team. Continue with IV fluids with D5 half NS at 75 cc/h. Early ambulation. Serial abdominal examination. Protonix daily, Zofran as needed. NPO. Does not improve patient might need ileostomy (2) S/P exploratory laparotomy: Postoperative day 2. Patient continues to work very poorly with physical therapy. Complaining of pain on trying to stand up. Increase Dilaudid to 0.5 every 4 hours as needed. Discussed in detail with the patient regarding need for early ambulation to regain bowel functions, prevent atelectasis versus pneumonia. He is agreeable after getting pain medications. Management of NG tube, diet as per surgical team. Out of bed to chair. Protonix daily, Zofran as needed. Continue with D5 half NS at 50 cc/h. (3) Ileostomy status: (4) Hypoxic respiratory failure: Most likely in setting of aspiration. Appreciate chest x-ray. Patient has an NG tube in place. As per surgical team NG tube in good position. Oxygen supplementation keeping saturation over 88%. Patient does not have any leukocytosis but as he is postoperative for now we will start empirically on IV antibiotics with Zosyn and vancomycin. D-dimer mildly elevated though better than last time. Will check CTA to rule out PE versus consolidation. Does have history of COPD. For now we will start on very low-dose IV steroids of 30 mg every 8 hourly. Will be hesitant to go higher as patient has been postoperative status. Continue nebulization treatment with ipratropium, Xopenex and Pulmicort. Aggressive pulmonary toilet with I-S and Acapella. Discussed in detail with the patient regarding need to work aggressively with both. He is agreeable for now. (5) Hx of colectomy: (6) HTN (hypertension): Goal blood pressure less than 140/90 mmHg. Continue to monitor. If needed will add IV medication Qualifiers: Hypertension type: primary hypertension Qualified Code(s): I10 - Essential (primary) hypertension (7) Ischemic cardiomyopathy: Past history. Currently euvolemic. Hydration as above. Monitor for fluid overload (8) Atrial fibrillation: Currently rate controlled to mild bradycardia. 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 Currently on hold because patient is NPO. Not on anticoagulation. Qualifiers: Atrial fibrillation type: paroxysmal Qualified Code(s): I48.0 - Paroxysmal atrial fibrillation (9) Paulino catheter in place: Chronic Paulino in place. Last changed on 08/12/2024 as per patient. (10) PRESLEY (acute kidney injury): (11) Encounter for postoperative care: Plan Chronic smoker. Discussed in detail regarding cessation of smoking. Nicotine patch. Full code N.p.o. Protonix OPD prophylaxis Heparin 5000 Q12 hourly for DVT prophylaxis. Attestations 2 Medical Necessity Statement*: Requires further hospitalization for management of acute hypoxic respiratory failure most likely in setting of aspiration in a patient with postoperative status post expiratory laparotomy, ileostomy in setting of bowel obstruction Diagnoses Small bowel obstruction K56.609 S/P exploratory laparotomy Z98.890 Ileostomy status Z93.2 Hypoxic respiratory failure J96.91 Hx of colectomy Z90.49 Primary hypertension I10 Hypertension type: primary hypertension Ischemic cardiomyopathy I25.5 Paroxysmal atrial fibrillation I48.0 Atrial fibrillation type: paroxysmal Paulino catheter in place Z97.8 PRESLEY (acute kidney injury) N17.9 Encounter for postoperative care Z48.89
[2024-08-27] MEDS: HYDROmorphone 1 mg/mL INJ 1 mL 0.4 MG IVP (15:38)
--- NOTE | 2024-08-27 16:03 | PHA.VACGOAL ---
Vancomycin Goal - Goal Vancomycin Goal:: 15-20 mg/L Vancomycin Indication:: Pneumonia - Therapy Current therapy:: Pip/Tazo Day of therpy:: Day [1]of [] . Actual body weight (kg): 61.915 kg - Data Labs: WBC 8.89 10^3/uL (3.29-11.43) 08/27/24 06:13 RBC 3.73 10^6/uL (3.85-5.65) L 08/27/24 06:13 Hgb 11.40 g/dL (11.27-16.99) 08/27/24 06:13 Hct 36.4 % (37-53) L 08/27/24 06:13 MCV 97.6 fl (82-101) 08/27/24 06:13 MCH 30.6 pg (27-33) 08/27/24 06:13 MCHC 31.3 g/dL (30-55) 08/27/24 06:13 RDW 13.4 % (12.1-15.1) 08/27/24 06:13 Sodium 139 mmol/L (136-145) 08/27/24 06:13 Potassium 4.0 mmol/L (3.5-5.1) 08/27/24 06:13 Chloride 105 mmol/L (98-107) 08/27/24 06:13 Carbon Dioxide 26 mmol/L (22-29) 08/27/24 06:13 Anion Gap 12.0 (5-19) 08/27/24 06:13 BUN 15 mg/dL (8-23) 08/27/24 06:13 Creatinine 0.9 mg/dL (0.7-1.2) 08/27/24 06:13 GFR Calculation Not Reportable 08/27/24 06:13 Treatment plan:: new consult Regimen:: New start vancomycin for Hypoxic respiratory failure. 2000 mg load dose ordered. 750 mg q12h started based on population based pharmacokinetic nomogram.
[2024-08-27] MEDS: methylPREDNISolone sod succ 125 mg/2 mL INJ IVP (17:40)
--- NOTE | 2024-08-27 18:04 | XRR_ITS ---
PROCEDURE INFORMATION: Exam: XR Chest Exam date and time: 08/27/2024 6:05 PM Age: 74 years old Clinical indication: Device placement; Picc; Additional info: Picc placement TECHNIQUE: Imaging protocol: Radiologic exam of the chest. Views: 1 view. COMPARISON: CT angio chest PE protcl [id number] 08/27/2024 12:46 PM FINDINGS: Tubes, catheters and devices: Right-sided PICC with its distal tip the SVC. Enteric feeding tube with its side port at the gastroesophageal junction and will require some advancement. Lungs: Bibasilar atelectasis and/or infiltrates greater on the left. Pleural spaces: Small bilateral pleural effusions. Heart/Mediastinum: Mild cardiomegaly. Bones/joints: Unremarkable. XR/XR chest 1V portable [id number] IMPRESSION: As above.
[2024-08-27] MEDS: FAMOTIDINE IV (19:31)
[2024-08-27] MEDS: AA DEX IV (19:31)
[2024-08-27] MEDS: LYTES IV (19:31)
[2024-08-27] MEDS: MULTIVITAMIN IV (19:31)
[2024-08-27] MEDS: methylPREDNISolone sod succ 40 mg/mL INJ IVP (21:38)
[2024-08-27] MEDS: VANCOMYCIN ADD-Vantage 750 MG in 0.9% NaCl ADD-Vantage 250 ML 250 MG IV (23:02)
[2024-08-28] VITALS (12 sets, daily range): BP systolic 115–129; BP diastolic 53–72; PULSE 62–85; RESP 16–24; TEMP 36.4–37.2; O2SAT 90–97
[2024-08-28] MEDS: piperacillin-tazobactam 3.375 GM in sodium chloride 0.9% (plus) 50 ML IV ×3 (00:09→16:10)
[2024-08-28] MEDS: levalbuterol 0.63 mg/3 mL Neb INHALATION ×4 (02:15→21:00)
[2024-08-28] MEDS: ipratropium 0.5 mg/2.5 mL Neb INHALATION ×4 (02:15→21:00)
[2024-08-28] MEDS: methylPREDNISolone sod succ 40 mg/mL INJ IVP ×3 (04:12→20:41)
[2024-08-28] MEDS: heparin 5,000 unit/mL INJ 1 mL 5000 UNIT SUBCUT ×2 (04:13→16:10)
[2024-08-28 06:13] LABS: Hematocrit 37.4 % (37-53); Lymphocytes # 0.2 10^3/uL (0.8-4.8); Lymphocytes % 2.2 %; Mean Corpuscular HGB Conc 31.3 g/dL (30-55); Mean Corpuscular Volume 95.9 fl (82-101); Mean Platelet Volume 10.3 fL (7.4-10.4); Monocytes # 0.1 10^3/uL (0.2-0.9); Monocytes % 1.5 %; Neutrophils % 95.9 %; Nucleated Red Blood Cells % 0 %; Platelet Count 184 10^3/cmm (157-399); Red Cell Distribution Width 13.3 % (12.1-15.1); White Blood Count 8.03 10^3/uL (3.29-11.43)
[2024-08-28 07:43] LABS: Alanine Aminotransferase < 5 U/L (0-41); Albumin Level 2.8 g/dL (3.5-5.2); Alkaline Phosphatase 51 U/L (40-130); Anion Gap 12.2 (5-19); Aspartate Amino Transferase 8 U/L (0-40); Blood Urea Nitrogen 13 mg/dL (8-23); Calcium 7.9 mg/dL (8.5-10.5); Carbon Dioxide 29 mmol/L (22-29); Chloride 103 mmol/L (98-107); Creatinine Clr Calc Pharmacy 75.0538; Globulin 2.5 g/dL (1.3-4.6); Glucose 191 mg/dL (65-115); Osmolality Calculated 295 mOsm/kg (285-295); Potassium 4.2 mmol/L (3.5-5.1); Sodium 140 mmol/L (136-145); Total Bilirubin 0.2 mg/dL (0.15-1.2); Total Protein 5.3 g/dL (6.6-8.7)
[2024-08-28] MEDS: budesonide 0.5 mg/2 mL Neb INHALATION ×2 (08:42→21:00)
[2024-08-28] MEDS: nicotine 21 mg Patch 1 PATCH TRANSDERMA (09:15)
[2024-08-28] MEDS: pantoprazole 40 mg SDV IVP (09:15)
--- NOTE | 2024-08-28 10:24 | P.PN_ITS ---
Subjective 2 Subjective: He is now postoperative day 3 status post exploratory laparotomy with an ileostomy creation. Patient is doing much better reports minimal abdominal pain, JEAN output has been around 950 over the last 24 hours and is serous. Ostomy appears to start producing small amount of stool, per patient report he felt some gas moving around. NG has been only 150 cc over the last 24 hours. Vitals/I&O/Wt Last Vital Signs Temp 97.8 F 08/28/24 08:23 Pulse 63 08/28/24 08:44 Resp 18 08/28/24 08:44 BP 122/71 08/28/24 08:23 Pulse Ox 90 08/28/24 08:44 O2 Del Method Room Air 08/28/24 08:44 O2 Flow Rate 5 08/28/24 02:00 08/27/24 08/28/24 08/28/24 22:59 06:59 14:59 Intake Total 50 / 1500 442.0 / 1942.0 Output Total 100 / 100 1270 / 1370 Balance -50 / 1400 -828.0 / 572.0 Weight last 48 hrs Weight 140 lb 6 oz Weight 136 lb 8 oz Physical Exam 2 Narrative: Abdominal examination is benign, abdomen is soft and nontender, ostomy is healthy bleeding or libido output of mucus no devyn stool yet. Urinary Catheter Management: Suprapubic: Cath Placed During This Visit: no Reason for Continuing Indwelling Catheter: Chronic Indwelling Urinary Catheter on Admission Data 08/28/24 05:42 08/28/24 07:10 Micro: Microbiology 08/25/24 11:28 Gram Stain - Final Peritoneal Fluid Anaerobic Culture - Preliminary Body Fluid Culture - Preliminary A&P Assessment and plan (1) Small bowel obstruction: (2) S/P exploratory laparotomy: (3) Ileostomy status: Plan From the abdominal standpoint he is showing good progression, NG output has been minimal in the last 24 hours I will clamp it today and probably remove it tomorrow the role and allow him to have some clear liquids. From the medical standpoint he did have evidence of possible aspiration on the x-ray he is now being managed with antibiotics has been afebrile and no leukocytosis as of yet. Plan is to slowly advance diet as tolerated starting tomorrow and after that patient will need to transition to subacute rehab Attestations 2 Medical Necessity Statement*: Per medical team Coding Level of Care Code Acute Code for Chg Fwd Diagnoses Small bowel obstruction K56.609 S/P exploratory laparotomy Z98.890 Ileostomy status Z93.2
[2024-08-28] MEDS: dextrose 5%-sod chloride 0.45% 1,000 ML 50 ML IV (10:40)
[2024-08-28] MEDS: VANCOMYCIN ADD-Vantage 750 MG in 0.9% NaCl ADD-Vantage 250 ML 250 MG IV ×2 (11:17→23:09)
--- NOTE | 2024-08-28 13:26 | PM.PN ---
Subjective Subjective: No acute events overnight. States feeling a lot better. States breathing is better. On examination not on supplemental oxygen saturating somewhere between 84 to 86%. States he seems to be breathing at his baseline. Is agreeable to use minimal oxygen with oxime mask as possible. Agreeable to work with physical therapy and sit in chair today. Vitals/I&O/Wt Last Vital Signs Temp 98.1 F 08/28/24 12:27 Pulse 64 08/28/24 12:27 Resp 16 08/28/24 12:27 BP 129/71 08/28/24 12:27 Pulse Ox 93 08/28/24 12:27 O2 Del Method Nasal Cannula, Simple Mask 08/28/24 12:27 O2 Flow Rate 5 08/28/24 02:00 08/27/24 08/28/24 08/28/24 22:59 06:59 14:59 Intake Total 50 / 1500 442.0 / 1942.0 1350 / 1350 Output Total 100 / 100 1270 / 1370 Balance -50 / 1400 -828.0 / 572.0 1350 / 1350 Weight last 48 hrs Weight 63.673 kg Weight 61.915 kg Physical Exam Narrative: General: No acute distress, AO x3, NG tube in place HEENT: PERRLA, pupils bilaterally equal and reactive Chest: Bilateral bronchial breath sounds all over lung gates, with coarse crackles bilateral lower zone. CVS: S1-S2 regular, no murmurs, no tachycardia, no gallops, no rubs Abdomen: Surgical bandage present. Soft. Neuro: No focal deficits, no facial deformity, AO x3, power 5/5 in all limbs Urinary Catheter Management: Suprapubic: Cath Placed During This Visit: no Reason for Continuing Indwelling Catheter: Chronic Indwelling Urinary Catheter on Admission Data 08/28/24 05:42 08/28/24 07:10 Micro: Microbiology 08/25/24 11:28 Gram Stain - Final Peritoneal Fluid Anaerobic Culture - Preliminary Body Fluid Culture - Final A&P Assessment and plan (1) Small bowel obstruction: Failed conservative treatment. Failed Gastrografin study. Post expiratory laparotomy, bowel resection and end ileostomy day 0. NG tube management, advancement of diet, physical therapy, pain control, anticoagulation as per surgical team. Continue with IV fluids with D5 half NS at 75 cc/h. Early ambulation. Serial abdominal examination. Protonix daily, Zofran as needed. NPO. Has been n.p.o. for around 7 days. Started on TPN on 08/27. Does not improve patient might need ileostomy (2) S/P exploratory laparotomy: Postoperative day 2. Patient continues to work very poorly with physical therapy. Complaining of pain on trying to stand up. Increase Dilaudid to 0.5 every 4 hours as needed. Discussed in detail with the patient regarding need for early ambulation to regain bowel functions, prevent atelectasis versus pneumonia. He is agreeable after getting pain medications. Management of NG tube, diet as per surgical team. Out of bed to chair. Protonix daily, Zofran as needed. Continue with D5 half NS at 50 cc/h. (3) Ileostomy status: (4) Hypoxic respiratory failure: Most likely in setting of aspiration. Appreciate chest x-ray. Patient has an NG tube in place. As per surgical team NG tube in good position. Oxygen supplementation keeping saturation over 88%. Patient does not have any leukocytosis but as he is postoperative for now we will start empirically on IV antibiotics with Zosyn and vancomycin. D-dimer mildly elevated though better than last time. Will check CTA to rule out PE versus consolidation. Does have history of COPD. For now we will start on very low-dose IV steroids of 30 mg every 8 hourly. Will be hesitant to go higher as patient has been postoperative status. Continue nebulization treatment with ipratropium, Xopenex and Pulmicort. Aggressive pulmonary toilet with I-S and Acapella. Discussed in detail with the patient regarding need to work aggressively with both. He is agreeable for now. (5) Hx of colectomy: (6) HTN (hypertension): Goal blood pressure less than 140/90 mmHg. Continue to monitor. If needed will add IV medication Qualifiers: Hypertension type: primary hypertension Qualified Code(s): I10 - Essential (primary) hypertension (7) Ischemic cardiomyopathy: Past history. Currently euvolemic. Hydration as above. Monitor for fluid overload (8) Atrial fibrillation: Currently rate controlled to mild bradycardia. surveillance monitor. 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 Currently on hold because patient is NPO. Not on anticoagulation. Qualifiers: Atrial fibrillation type: paroxysmal Qualified Code(s): I48.0 - Paroxysmal atrial fibrillation (9) Paulino catheter in place: Chronic Paulino in place. Last changed on 08/12/2024 as per patient. (10) PRESLEY (acute kidney injury): (11) Encounter for postoperative care: Plan Chronic smoker. Discussed in detail regarding cessation of smoking. Nicotine patch. Full code N.p.o. Protonix OPD prophylaxis Heparin 5000 Q12 hourly for DVT prophylaxis. Plan for the day: Respiratory failure in setting of aspiration pneumonitis. Pneumonia less likely. But for now we will continue with IV antibiotics to finish a 3-day course. Continue with Solu-Medrol 40 mg every 8 hourly. Will plan to wean within next 24 hours. Oxygen supplementation keeping saturation more than 86 to 88%. Started on TPN. Have reached a goal of 42 cc/h. Stop IV fluids. Dietitian consult. Out of bed to chair. Ambulation. Working with physical therapy. Patient more agreeable today. NG tube management, diet advancement, ostomy care as per surgical team. Attestations Medical Necessity Statement*: Requires further hospitalization for management of respiratory failure in setting of aspiration pneumonitis in a patient who underwent expiratory laparotomy, ileostomy for management of small bowel obstruction who has failed conservative treatment Coding Level of Care Code Acute Code for [facility] Fwd Diagnoses Small bowel obstruction K56.609 S/P exploratory laparotomy Z98.890 Ileostomy status Z93.2 Hypoxic respiratory failure J96.91 Hx of colectomy Z90.49 Primary hypertension I10 Hypertension type: primary hypertension Ischemic cardiomyopathy I25.5 Paroxysmal atrial fibrillation I48.0 Atrial fibrillation type: paroxysmal Paulino catheter in place Z97.8 PRESLEY (acute kidney injury) N17.9 Encounter for postoperative care Z48.89
[2024-08-28] MEDS: HYDROmorphone 1 mg/mL INJ 1 mL 0.5 MG IVP (14:29)
[2024-08-28] MEDS: FAMOTIDINE IV (17:01)
[2024-08-28] MEDS: MULTIVITAMIN IV (17:01)
[2024-08-28] MEDS: AA DEX IV (17:01)
[2024-08-28] MEDS: LYTES IV (17:01)
[2024-08-29] VITALS (12 sets, daily range): BP systolic 113–134; BP diastolic 53–75; PULSE 54–76; RESP 12–20; TEMP 36.4–36.8; O2SAT 91–96
[2024-08-29] MEDS: piperacillin-tazobactam 3.375 GM in sodium chloride 0.9% (plus) 50 ML IV ×2 (00:14→09:11)
[2024-08-29] MEDS: ipratropium 0.5 mg/2.5 mL Neb INHALATION ×4 (02:50→20:26)
[2024-08-29] MEDS: levalbuterol 0.63 mg/3 mL Neb INHALATION ×4 (02:50→20:26)
[2024-08-29] MEDS: heparin 5,000 unit/mL INJ 1 mL 5000 UNIT SUBCUT ×2 (04:15→17:07)
[2024-08-29] MEDS: methylPREDNISolone sod succ 40 mg/mL INJ IVP ×2 (04:15→17:10)
[2024-08-29 05:14] LABS: Basophils % 0.1 %; Eosinophils % 0.1 %; Hematocrit 34.7 % (37-53); Lymphocytes # 0.3 10^3/uL (0.8-4.8); Lymphocytes % 2.3 %; Mean Corpuscular HGB Conc 31.4 g/dL (30-55); Mean Corpuscular Hemoglobin 29.9 pg (27-33); Mean Corpuscular Volume 95.3 fl (82-101); Mean Platelet Volume 10.5 fL (7.4-10.4); Monocytes # 0.3 10^3/uL (0.2-0.9); Monocytes % 2.8 %; Neutrophils # 10.38 10^3/uL (1.8-7.7); Neutrophils % 94.2 %; Nucleated Red Blood Cells % 0 %; Platelet Count 196 10^3/cmm (157-399); Red Blood Count 3.64 10^6/uL (3.85-5.65); Red Cell Distribution Width 13.2 % (12.1-15.1); White Blood Count 11.01 10^3/uL (3.29-11.43)
[2024-08-29 05:31] LABS: Alanine Aminotransferase 8 U/L (0-41); Albumin Level 2.4 g/dL (3.5-5.2); Alkaline Phosphatase 52 U/L (40-130); Blood Urea Nitrogen 22 mg/dL (8-23); Calcium 7.9 mg/dL (8.5-10.5); Carbon Dioxide 26 mmol/L (22-29); Chloride 104 mmol/L (98-107); Creatinine Clr Calc Pharmacy 75.0538; Globulin 2.6 g/dL (1.3-4.6); Glucose 140 mg/dL (65-115); Osmolality Calculated 296 mOsm/kg (285-295); Sodium 140 mmol/L (136-145); Total Bilirubin 0.2 mg/dL (0.15-1.2)
[2024-08-29 05:32] LABS: Anion Gap 13.9 (5-19); Aspartate Amino Transferase 14 U/L (0-40); Potassium 3.9 mmol/L (3.5-5.1)
[2024-08-29] MEDS: budesonide 0.5 mg/2 mL Neb INHALATION ×2 (08:10→20:26)
--- NOTE | 2024-08-29 08:24 | P.PN_ITS ---
Subjective 2 Subjective: He is postoperative day 4 status post exploratory laparotomy with end ileostomy creation. Patient is doing well from the surgical standpoint does not complain of significant abdominal pain the ostomy is productive of gas and some liquid stool.Has been afebrile, respiratory status has remained stable. Vitals/I&O/Wt Last Vital Signs Temp 97.7 F 08/29/24 04:00 Pulse 76 08/29/24 08:12 Resp 16 08/29/24 08:12 BP 113/53 08/29/24 04:00 Pulse Ox 95 08/29/24 08:12 O2 Del Method Room Air 08/29/24 08:12 O2 Flow Rate 1.5 08/28/24 21:01 08/28/24 08/29/24 08/29/24 22:59 06:59 14:59 Intake Total 974 / 2374 420 / 2794 Output Total 785 / 1245 200 / 1445 Balance 189 / 1129 220 / 1349 Weight last 48 hrs Weight 140 lb 9.6 oz Weight 140 lb 6 oz Physical Exam 2 GI: OTHER: Abdominal examination is benign abdomen is soft appropriately tender to palpation, ostomy in the left lower quadrant is healthy and producing gas and some stool, JEAN drain with serous output. Urinary Catheter Management: Suprapubic: Cath Placed During This Visit: no Reason for Continuing Indwelling Catheter: Required Immobilization for Trauma or Surgery or Anesthesia Data 08/29/24 04:26 08/29/24 04:26 Micro: Microbiology 08/25/24 11:28 Gram Stain - Final Peritoneal Fluid Anaerobic Culture - Preliminary Body Fluid Culture - Final A&P Assessment and plan (1) Hx of colectomy: (2) S/P exploratory laparotomy: (3) Ileostomy status: Plan Patient has had a good progression from the general surgery standpoint over the last 24 hours she is ostomy has become productive NG tube was removed he has been started on clears this morning he states that he is very hungry. I have encouraged him to ambulate, we will give him an incentive spirometer to try to encourage improvement of his respiratory status. The plan will be to assess for tolerance today if he is tolerating by tomorrow we can advance him to a GI soft diet. JEAN drain may be removed tomorrow morning. Attestations 2 Medical Necessity Statement*: Patient will require 2 to 3 days of hospital stay for continued management after exploratory laparotomy with end ileostomy creation for SBO. Coding Level of Care Code Acute Code for [facility] Fwd Diagnoses Hx of colectomy Z90.49 S/P exploratory laparotomy Z98.890 Ileostomy status Z93.2
[2024-08-29] MEDS: nicotine 21 mg Patch 1 PATCH TRANSDERMA (09:11)
[2024-08-29] MEDS: pantoprazole 40 mg SDV IVP (09:12)
--- NOTE | 2024-08-29 09:22 | PC.SOCIAL ---
IMM Updated Updated pt on IMM. No questions voiced. Provided pt a copy. Initialed, dated, & timed copy in chart.
--- NOTE | 2024-08-29 11:46 | PM.PN ---
Subjective Subjective: No acute events overnight. Sat up in chair yesterday. Overnight patient started producing some stool in ileostomy. Passing gas in ostomy. NG tube removed as per surgical recommendations. Patient states he is feeling better. On room air. Vitals/I&O/Wt Last Vital Signs Temp 98.2 F 08/29/24 08:00 Pulse 76 08/29/24 08:12 Resp 16 08/29/24 08:12 BP 133/57 08/29/24 08:00 Pulse Ox 95 08/29/24 08:12 O2 Del Method Room Air 08/29/24 08:12 O2 Flow Rate 1.5 08/28/24 21:01 08/28/24 08/29/24 08/29/24 22:59 06:59 14:59 Intake Total 974 / 2374 420 / 2794 240 / 240 Output Total 785 / 1245 200 / 1445 Balance 189 / 1129 220 / 1349 240 / 240 Weight last 48 hrs Weight 63.775 kg Weight 63.673 kg Physical Exam Narrative: General: No acute distress, AO x3, HEENT: PERRLA, pupils bilaterally equal and reactive Chest: Bilateral bronchial breath sounds all over lung gates, with coarse crackles bilateral lower zone. CVS: S1-S2 regular, no murmurs, no tachycardia, no gallops, no rubs Abdomen: Surgical bandage present. Soft. Neuro: No focal deficits, no facial deformity, AO x3, power 5/5 in all limbs Urinary Catheter Management: Suprapubic: Cath Placed During This Visit: no Reason for Continuing Indwelling Catheter: Required Immobilization for Trauma or Surgery or Anesthesia Data 08/29/24 04:26 08/29/24 04:26 Micro: Microbiology 08/25/24 11:28 Gram Stain - Final Peritoneal Fluid Anaerobic Culture - Preliminary Body Fluid Culture - Final A&P Assessment and plan (1) Small bowel obstruction: Failed conservative treatment. Failed Gastrografin study. Post expiratory laparotomy, bowel resection and end ileostomy day 4. JEAN drain, NG tube management and diet as per surgical team. Started on clear liquid diet as per surgical team. NG tube removed. Early ambulation. Serial abdominal examination. Protonix daily, Zofran as needed. (2) S/P exploratory laparotomy: Postoperative day 4. Continue to ambulate. Patient more agreeable with physical therapy. Plan to sit in chair as much as possible later in the day today. Continue with current IV pain medications. Continue with TPN. IV fluids discontinued as TPN at goal rate. Started on clear liquid diet as per surgical team. NG tube removed. Protonix daily, Zofran as needed. (3) Ileostomy status: (4) Hypoxic respiratory failure: Most likely in setting of aspiration. Patient continues to improve. Back on room air. Saturating well. States breathing is improved. Wean Solu-Medrol to 40 mg twice daily today. Oxygen supplementation keeping saturation over 88%. Advance to clear liquid diet today. Continue nebulization treatment. I-S and Acapella. Discontinue antibiotics. (5) Hx of colectomy: (6) HTN (hypertension): Goal blood pressure less than 140/90 mmHg. Continue to monitor. If needed will add IV medication Qualifiers: Hypertension type: primary hypertension Qualified Code(s): I10 - Essential (primary) hypertension (7) Ischemic cardiomyopathy: Past history. Currently euvolemic. Hydration as above. Monitor for fluid overload (8) Atrial fibrillation: Currently rate controlled to mild bradycardia. 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 Currently on hold because patient is NPO. Not on anticoagulation. Qualifiers: Atrial fibrillation type: paroxysmal Qualified Code(s): I48.0 - Paroxysmal atrial fibrillation (9) Paulino catheter in place: Chronic Paulino in place. Last changed on 08/12/2024 as per patient. (10) PRESLEY (acute kidney injury): (11) Encounter for postoperative care: Plan Chronic smoker. Discussed in detail regarding cessation of smoking. Nicotine patch. Full code Clear liquid diet. Protonix OPD prophylaxis Heparin 5000 Q12 hourly for DVT prophylaxis. Attestations Medical Necessity Statement*: Requires further hospitalization for management of postsurgical care, posthospital protamine, and ostomy creation in a patient with failed conservative treatment for small bowel obstruction Diagnoses Small bowel obstruction K56.609 S/P exploratory laparotomy Z98.890 Ileostomy status Z93.2 Hypoxic respiratory failure J96.91 Hx of colectomy Z90.49 Primary hypertension I10 Hypertension type: primary hypertension Ischemic cardiomyopathy I25.5 Paroxysmal atrial fibrillation I48.0 Atrial fibrillation type: paroxysmal Paulino catheter in place Z97.8 PRESLEY (acute kidney injury) N17.9 Encounter for postoperative care Z48.89
[2024-08-29] MEDS: MULTIVITAMIN IV (17:07)
[2024-08-29] MEDS: FAMOTIDINE IV (17:07)
[2024-08-29] MEDS: AA DEX IV (17:07)
[2024-08-29] MEDS: LYTES IV (17:07)
[2024-08-29] MEDS: HYDROmorphone 1 mg/mL INJ 1 mL 0.5 MG IVP (20:13)
[2024-08-30] VITALS (12 sets, daily range): BP systolic 132–157; BP diastolic 63–80; PULSE 58–77; RESP 15–18; TEMP 36.3–36.8; O2SAT 93–95
[2024-08-30] MEDS: ipratropium 0.5 mg/2.5 mL Neb INHALATION ×4 (02:57→20:14)
[2024-08-30] MEDS: levalbuterol 0.63 mg/3 mL Neb INHALATION ×4 (02:57→20:14)
[2024-08-30] MEDS: heparin 5,000 unit/mL INJ 1 mL 5000 UNIT SUBCUT ×2 (03:46→16:44)
[2024-08-30 05:49] LABS: Basophils % 0.1 %; Eosinophils % 0.2 %; Hematocrit 35.5 % (37-53); Lymphocytes # 0.3 10^3/uL (0.8-4.8); Lymphocytes % 2.9 %; Mean Corpuscular HGB Conc 32.1 g/dL (30-55); Mean Corpuscular Hemoglobin 29.8 pg (27-33); Mean Corpuscular Volume 92.7 fl (82-101); Monocytes # 0.5 10^3/uL (0.2-0.9); Monocytes % 4.1 %; Neutrophils % 92.2 %; Nucleated Red Blood Cells % 0 %; Platelet Count 206 10^3/cmm (157-399); Red Blood Count 3.83 10^6/uL (3.85-5.65); Red Cell Distribution Width 13.2 % (12.1-15.1)
--- NOTE | 2024-08-30 07:59 | P.PN_ITS ---
Subjective 2 Subjective: Patient is in good spirits this morning, now is postoperative day 5 after laparotomy bowel resection and end ileostomy creation. Ostomy has been productive of gas and stool, no abdominal pain reported, he is feeling well. Vitals/I&O/Wt Last Vital Signs Temp 97.9 F 08/30/24 04:00 Pulse 64 08/30/24 04:00 Resp 16 08/30/24 04:00 BP 133/67 08/30/24 04:00 Pulse Ox 95 08/30/24 04:00 O2 Del Method Room Air 08/30/24 04:00 O2 Flow Rate 1.5 08/28/24 21:01 08/29/24 08/30/24 08/30/24 22:59 06:59 14:59 Intake Total 1132.2 / 1410.325 650 / 2060.325 Output Total 1140 / 1500 35 / 35 Balance 1132.2 / 1050.325 -490 / 560.325 -35 / -35 Weight last 48 hrs Weight 147 lb 14.4 oz Weight 140 lb 9.6 oz Physical Exam 2 GI: OTHER: Abdomen is soft, appropriately tender to palpation there is no distention, ostomy productive of gas there is some stool in the ostomy at this time. JEAN drain has produced only 90 cc of serous output 24 hours, he was removed this morning Urinary Catheter Management: Suprapubic: Cath Placed During This Visit: no Reason for Continuing Indwelling Catheter: Other Data 08/30/24 05:38 08/29/24 04:26 Micro: Microbiology 08/28/24 19:04 Gram Stain - Final Sputum - Expectorated Sputum 08/25/24 11:28 Gram Stain - Final Peritoneal Fluid Anaerobic Culture - Preliminary Body Fluid Culture - Final A&P Assessment and plan (1) Hx of colectomy: (2) Small bowel obstruction: (3) S/P exploratory laparotomy: Plan Excellent progression after respiratory laparotomy with bowel resection and end ileostomy creation for small bowel obstruction. Patient will be advanced to full liquid diet today, he has been encouraged to ambulate. If he tolerates full liquids today or tomorrow I will give him regular diet. If he is tolerating diet he will be able to transition to the outpatient setting. Additional management per medical team is appreciated. He is stable from the GI standpoint. Attestations 2 Medical Necessity Statement*: Patient will require 24 to 48 hours of hospital stay for management of small bowel obstruction status post laparotomy and possible aspiration pneumonia Coding Level of Care Code Acute Code for [facility] Fwd Diagnoses Hx of colectomy Z90.49 Small bowel obstruction K56.609 S/P exploratory laparotomy Z98.890
[2024-08-30] MEDS: nicotine 21 mg Patch 1 PATCH TRANSDERMA (08:03)
[2024-08-30] MEDS: methylPREDNISolone sod succ 40 mg/mL INJ IVP ×2 (08:05→17:58)
[2024-08-30] MEDS: pantoprazole 40 mg SDV IVP (08:06)
[2024-08-30 08:35] LABS: Alanine Aminotransferase 257 U/L (0-41); Albumin Level 2.6 g/dL (3.5-5.2); Alkaline Phosphatase 109 U/L (40-130); Aspartate Amino Transferase 184 U/L (0-40); Blood Urea Nitrogen 23 mg/dL (8-23); Carbon Dioxide 26 mmol/L (22-29); Chloride 103 mmol/L (98-107); Creatinine Clr Calc Pharmacy 76.5944; Globulin 2.2 g/dL (1.3-4.6); Glucose 126 mg/dL (65-115); Osmolality Calculated 291 mOsm/kg (285-295); Sodium 138 mmol/L (136-145); Total Bilirubin 0.3 mg/dL (0.15-1.2); Total Protein 4.8 g/dL (6.6-8.7)
[2024-08-30 08:37] LABS: Anion Gap 12.6 (5-19); Potassium 3.6 mmol/L (3.5-5.1)
[2024-08-30] MEDS: budesonide 0.5 mg/2 mL Neb INHALATION ×2 (08:37→20:14)
--- NOTE | 2024-08-30 15:49 | PM.PN ---
Subjective Subjective: No acute interim events. Diet has been advanced to full liquid today. He has kept his lunch down. Will assess for continued tolerability and advance per surgical recommendations. Medications: Reviewed: Yes Vitals/I&O/Wt Last Vital Signs Temp 98.3 F 08/30/24 12:00 Pulse 74 08/30/24 13:19 Resp 16 08/30/24 13:19 BP 132/71 08/30/24 12:00 Pulse Ox 94 08/30/24 13:19 O2 Del Method Room Air 08/30/24 13:19 O2 Flow Rate 1.5 08/28/24 21:01 08/30/24 08/30/24 08/30/24 06:59 14:59 22:59 Intake Total 650 / 2060.325 470 / 470 Output Total 1140 / 1500 35 / 35 Balance -490 / 560.325 435 / 435 Weight last 48 hrs Weight 67.086 kg Weight 63.775 kg Physical Exam Narrative: General: No acute distress, AO x3 HEENT: PERRLA, pupils bilaterally equal and reactive, pallors not present Chest: Normal vesicular breath sounds, no added sounds, equal good air entry bilaterally CVS: S1-S2 regular, no murmurs, no tachycardia, no gallops, no rubs Abdomen: Soft, nondistended, ileostomy in place over left abdomen. Neuro: No focal deficits, no facial deformity, AO x3, power 5/5 in all limbs Urinary Catheter Management: Suprapubic: Cath Placed During This Visit: no Reason for Continuing Indwelling Catheter: Other Data 08/30/24 05:38 08/30/24 07:56 Micro: Microbiology 08/28/24 19:04 Gram Stain - Final Sputum - Expectorated Sputum Sputum Culture - Preliminary Gram Negative Rods 08/25/24 11:28 Gram Stain - Final Peritoneal Fluid Anaerobic Culture - Preliminary Body Fluid Culture - Final A&P Assessment and plan (1) Small bowel obstruction: Failed conservative treatment. Failed Gastrografin study. Post expiratory laparotomy, bowel resection and end ileostomy day 4. JEAN drain, NG tube management and diet as per surgical team. Started on clear liquid diet as per surgical team. NG tube removed. Early ambulation. Serial abdominal examination. Protonix daily, Zofran as needed. (2) S/P exploratory laparotomy: Postoperative day 4. Continue to ambulate. Patient more agreeable with physical therapy. Plan to sit in chair as much as possible later in the day today. Continue with current IV pain medications. Continue with TPN. IV fluids discontinued as TPN at goal rate. Started on clear liquid diet as per surgical team. NG tube removed. Protonix daily, Zofran as needed. (3) Ileostomy status: (4) Hypoxic respiratory failure: Most likely in setting of aspiration. Patient continues to improve. Back on room air. Saturating well. States breathing is improved. Wean Solu-Medrol to 40 mg twice daily today. Oxygen supplementation keeping saturation over 88%. Advance to clear liquid diet today. Continue nebulization treatment. I-S and Acapella. Discontinue antibiotics. (5) Hx of colectomy: (6) HTN (hypertension): Goal blood pressure less than 140/90 mmHg. Continue to monitor. If needed will add IV medication Qualifiers: Hypertension type: primary hypertension Qualified Code(s): I10 - Essential (primary) hypertension (7) Ischemic cardiomyopathy: Past history. Currently euvolemic. Hydration as above. Monitor for fluid overload (8) Atrial fibrillation: Currently rate controlled to mild bradycardia. 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 Currently on hold because patient is NPO. Not on anticoagulation. Qualifiers: Atrial fibrillation type: paroxysmal Qualified Code(s): I48.0 - Paroxysmal atrial fibrillation (9) Paulino catheter in place: Chronic Paulino in place. Last changed on 08/12/2024 as per patient. (10) PRESLEY (acute kidney injury): (11) Encounter for postoperative care: Plan Chronic smoker. Discussed in detail regarding cessation of smoking. Nicotine patch. Full code Clear liquid diet. Protonix OPD prophylaxis Heparin 5000 Q12 hourly for DVT prophylaxis. 08/30/24: Patient was advanced to a full liquid diet today which she is currently tolerating. States he feels better today. We will continue TPN today with attempt to discontinue once he is consistently able to tolerate an oral diet. Stoma has output. Sputum culture with gram-negative rods, patient has received a course of IV piperacillin/tazobactam and vancomycin for aspiration pneumonia which has since been discontinued. Monitor closely for any respiratory worsening. Attestations Medical Necessity Statement*: Advance diet, continue TPN, monitor for continued bowel function Coding Level of Care Code Acute Code for Chg Fwd Moderate MDM includes number and complexity of problems actively addressed during encounter, amount and/or complexity of data reviewed/ordered and described risk of complication, morbidity or mortality of management as documented Diagnoses Small bowel obstruction K56.609 S/P exploratory laparotomy Z98.890 Ileostomy status Z93.2 Hypoxic respiratory failure J96.91 Hx of colectomy Z90.49 Primary hypertension I10 Hypertension type: primary hypertension Ischemic cardiomyopathy I25.5 Paroxysmal atrial fibrillation I48.0 Atrial fibrillation type: paroxysmal Paulino catheter in place Z97.8 PRESLEY (acute kidney injury) N17.9 Encounter for postoperative care Z48.89
[2024-08-30] MEDS: LYTES IV (17:44)
[2024-08-30] MEDS: MULTIVITAMIN IV (17:44)
[2024-08-30] MEDS: AA DEX IV (17:44)
[2024-08-30] MEDS: FAMOTIDINE IV (17:44)
[2024-08-31] VITALS (13 sets, daily range): BP systolic 118–137; BP diastolic 60–75; PULSE 64–104; RESP 16–18; TEMP 36.4–37; O2SAT 94–97
[2024-08-31] MEDS: ipratropium 0.5 mg/2.5 mL Neb INHALATION ×4 (02:30→21:12)
[2024-08-31] MEDS: levalbuterol 0.63 mg/3 mL Neb INHALATION ×4 (02:30→21:12)
[2024-08-31] MEDS: heparin 5,000 unit/mL INJ 1 mL 5000 UNIT SUBCUT ×2 (04:17→16:17)
[2024-08-31 06:46] LABS: Hematocrit 37.2 % (37-53); Lymphocytes # 0.3 10^3/uL (0.8-4.8); Lymphocytes % 2.9 %; Mean Corpuscular HGB Conc 31.7 g/dL (30-55); Mean Corpuscular Hemoglobin 29.5 pg (27-33); Mean Platelet Volume 10.4 fL (7.4-10.4); Monocytes # 0.6 10^3/uL (0.2-0.9); Monocytes % 5.4 %; Neutrophils # 10.15 10^3/uL (1.8-7.7); Neutrophils % 90.6 %; Nucleated Red Blood Cells % 0 %; Platelet Count 246 10^3/cmm (157-399); Red Cell Distribution Width 13.3 % (12.1-15.1); White Blood Count 11.21 10^3/uL (3.29-11.43)
--- NOTE | 2024-08-31 07:37 | P.PN_ITS ---
Subjective 2 Subjective: Patient doing very well this morning, no significant pain ostomy has been productive of gas and stool. Total of 400 cc over the last 24 hours. No other significant issues Vitals/I&O/Wt Last Vital Signs Temp 98.6 F 08/31/24 04:00 Pulse 68 08/31/24 04:00 Resp 18 08/31/24 04:00 BP 129/75 08/31/24 04:00 Pulse Ox 94 08/31/24 04:00 O2 Del Method Room Air 08/31/24 04:00 O2 Flow Rate 1.5 08/28/24 21:01 08/30/24 08/31/24 08/31/24 22:59 06:59 14:59 Intake Total 2074 / 2544 720 / 3264 Output Total 850 / 885 2150 / 3035 Balance 1224 / 1659 -1430 / 229 Weight last 48 hrs Weight 147 lb Weight 147 lb 8 oz Weight 147 lb 14.4 oz Physical Exam 2 GI: OTHER: Abdomen is soft, appropriately tender, surgical incision is dry and covered with dressing, ostomy is productive of large amounts of gas and stool. Urinary Catheter Management: Suprapubic: Cath Placed During This Visit: no Reason for Continuing Indwelling Catheter: Other Data 08/31/24 05:32 08/30/24 07:56 Micro: Microbiology 08/25/24 11:28 Gram Stain - Final Peritoneal Fluid Anaerobic Culture - Preliminary Body Fluid Culture - Final 08/28/24 19:04 Gram Stain - Final Sputum - Expectorated Sputum Sputum Culture - Preliminary Gram Negative Rods A&P Assessment and plan (1) Small bowel obstruction: (2) Ileostomy status: Plan Patient showing excellent progression after exploratory laparotomy with bowel resection and end ileostomy creation. He will be advanced to soft diet today, the plan is to discharge him on a GI soft diet once he is tolerating. Patient is adamant that he does not want to go to rehab he will prefer to go home, we need to ensure that patient is able to manage his ostomy at home, ostomy teaching to be done by nursing staff today and tomorrow. All other management per primary team Attestations 2 Medical Necessity Statement*: Per primary Coding Level of Care Code Acute Code for g Fwd Diagnoses Small bowel obstruction K56.609 Ileostomy status Z93.2
[2024-08-31] MEDS: methylPREDNISolone sod succ 40 mg/mL INJ IVP (08:04)
[2024-08-31] MEDS: nicotine 21 mg Patch 1 PATCH TRANSDERMA (08:04)
[2024-08-31] MEDS: pantoprazole 40 mg SDV IVP (08:04)
[2024-08-31] MEDS: budesonide 0.5 mg/2 mL Neb INHALATION ×2 (08:22→21:12)
[2024-08-31 08:56] LABS: Alanine Aminotransferase 520 U/L (0-41); Albumin Level 2.6 g/dL (3.5-5.2); Alkaline Phosphatase 132 U/L (40-130); Blood Urea Nitrogen 27 mg/dL (8-23); Carbon Dioxide 26 mmol/L (22-29); Chloride 104 mmol/L (98-107); Creatinine Clr Calc Pharmacy 76.4102; Globulin 2.2 g/dL (1.3-4.6); Glucose 121 mg/dL (65-115); Magnesium 2.1 mg/dL (1.7-2.3); Osmolality Calculated 294 mOsm/kg (285-295); Sodium 139 mmol/L (136-145); Total Bilirubin 0.3 mg/dL (0.15-1.2); Total Protein 4.8 g/dL (6.6-8.7)
[2024-08-31 08:58] LABS: Anion Gap 13.2 (5-19); Aspartate Amino Transferase 184 U/L (0-40); Potassium 4.2 mmol/L (3.5-5.1)
--- NOTE | 2024-08-31 14:50 | PM.PN ---
Subjective Subjective: No acute events overnight. Patient has remained hemodynamically stable and afebrile. Diet advance as per surgical team. Patient states he is feeling better. Medications: Reviewed: Yes Vitals/I&O/Wt Last Vital Signs Temp 97.6 F 08/31/24 11:23 Pulse 76 08/31/24 14:03 Resp 16 08/31/24 13:52 BP 132/69 08/31/24 11:23 Pulse Ox 97 08/31/24 13:52 O2 Del Method Room Air 08/31/24 13:52 O2 Flow Rate 1.5 08/28/24 21:01 08/30/24 08/31/24 08/31/24 22:59 06:59 14:59 Intake Total 2074 / 2544 720 / 3264 600 / 600 Output Total 850 / 885 2150 / 3035 Balance 1224 / 1659 -1430 / 229 600 / 600 Weight last 48 hrs Weight 66.678 kg Weight 66.905 kg Weight 67.086 kg Physical Exam Narrative: General: No acute distress, AO x3, HEENT: PERRLA, pupils bilaterally equal and reactive Chest: Bilateral bronchial breath sounds all over lung gates, with coarse crackles bilateral lower zone. CVS: S1-S2 regular, no murmurs, no tachycardia, no gallops, no rubs Abdomen: Surgical bandage present. Soft. Neuro: No focal deficits, no facial deformity, AO x3, power 5/5 in all limbs Urinary Catheter Management: Suprapubic: Cath Placed During This Visit: no Reason for Continuing Indwelling Catheter: Other Data 08/31/24 05:32 08/31/24 08:02 Micro: Microbiology 08/25/24 11:28 Gram Stain - Final Peritoneal Fluid Anaerobic Culture - Preliminary Body Fluid Culture - Final 08/28/24 19:04 Gram Stain - Final Sputum - Expectorated Sputum Sputum Culture - Preliminary Gram Negative Rods A&P Assessment and plan (1) Small bowel obstruction: Failed conservative treatment. Failed Gastrografin study. Post expiratory laparotomy, bowel resection and end ileostomy. JEAN drain, NG tube management and diet as per surgical team. Started on clear liquid diet as per surgical team. NG tube removed. Early ambulation. Serial abdominal examination. Protonix daily, Zofran as needed. (2) S/P exploratory laparotomy: Continue to ambulate. Patient more agreeable with physical therapy. Plan to sit in chair as much as possible later in the day today. Continue with current IV pain medications. Continue with TPN. IV fluids discontinued as TPN at goal rate. Started on clear liquid diet as per surgical team. NG tube removed. Protonix daily, Zofran as needed. (3) Ileostomy status: (4) Hypoxic respiratory failure: Most likely in setting of aspiration. Patient continues to improve. Back on room air. Saturating well. States breathing is improved. Wean Solu-Medrol to 40 mg twice daily today. Oxygen supplementation keeping saturation over 88%. Advance to clear liquid diet today. Continue nebulization treatment. I-S and Acapella. Discontinue antibiotics. (5) Hx of colectomy: (6) HTN (hypertension): Goal blood pressure less than 140/90 mmHg. Continue to monitor. If needed will add IV medication Qualifiers: Hypertension type: primary hypertension Qualified Code(s): I10 - Essential (primary) hypertension (7) Ischemic cardiomyopathy: Past history. Currently euvolemic. Hydration as above. Monitor for fluid overload (8) Atrial fibrillation: Currently rate controlled to mild bradycardia. 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 Currently on hold because patient is NPO. Not on anticoagulation. Qualifiers: Atrial fibrillation type: paroxysmal Qualified Code(s): I48.0 - Paroxysmal atrial fibrillation (9) Paulino catheter in place: Chronic Paulino in place. Last changed on 08/12/2024 as per patient. (10) PRESLEY (acute kidney injury): (11) Encounter for postoperative care: Plan Chronic smoker. Discussed in detail regarding cessation of smoking. Nicotine patch. Full code Clear liquid diet. Protonix OPD prophylaxis Heparin 5000 Q12 hourly for DVT prophylaxis. Plan for the day: Diet advance as per surgical team. Currently on GI soft. Wean TPN off. Restart other home oral medications including amiodarone, sertraline, oxybutynin. Ambulate. Colostomy care. Wean Solu-Medrol to 40 mg daily. Ox supplementation keeping saturation over 88%. Discussed in detail with the patient regarding need for close monitoring specially in postoperative setting, ileostomy care going forward. Discussed options of home with home health versus SNF. Patient adamantly says no to SNF and would want to go home with home health. Discharge plan: Can plan to discharge within next 24 hours if patient continues to tolerate diet well. Attestations Medical Necessity Statement*: Requires further hospitalization of postoperative care, post expiratory protamine, ostomy in a patient with failed conservative treatment for small bowel obstruction while safe discharge planning is sought. Diagnoses Small bowel obstruction K56.609 S/P exploratory laparotomy Z98.890 Ileostomy status Z93.2 Hypoxic respiratory failure J96.91 Hx of colectomy Z90.49 Primary hypertension I10 Hypertension type: primary hypertension Ischemic cardiomyopathy I25.5 Paroxysmal atrial fibrillation I48.0 Atrial fibrillation type: paroxysmal Paulino catheter in place Z97.8 PRESLEY (acute kidney injury) N17.9 Encounter for postoperative care Z48.89
[2024-08-31] MEDS: aspirin 81 mg EC Tablet PO (17:26)
[2024-09-01 02:50] VITALS: PULSE 78; RESP 17; O2SAT 95
[2024-09-01] MEDS: levalbuterol 0.63 mg/3 mL Neb INHALATION ×2 (02:51→08:52)
[2024-09-01] MEDS: ipratropium 0.5 mg/2.5 mL Neb INHALATION ×2 (02:51→08:52)
[2024-09-01 03:57] VITALS: BP 128/81; PULSE 71; RESP 18; TEMP 36.9; O2SAT 96
[2024-09-01] MEDS: heparin 5,000 unit/mL INJ 1 mL 5000 UNIT SUBCUT (04:18)
[2024-09-01 04:27] LABS: Basophils % 0.1 %; Eosinophils % 0.1 %; Hematocrit 38.9 % (37-53); Lymphocytes # 0.7 10^3/uL (0.8-4.8); Lymphocytes % 4.6 %; Mean Corpuscular HGB Conc 32.1 g/dL (30-55); Mean Corpuscular Hemoglobin 29.9 pg (27-33); Mean Corpuscular Volume 93.1 fl (82-101); Mean Platelet Volume 9.8 fL (7.4-10.4); Monocytes # 1.2 10^3/uL (0.2-0.9); Monocytes % 7.6 %; Neutrophils % 85.5 %; Nucleated Red Blood Cells % 0 %; Platelet Count 296 10^3/cmm (157-399); Red Blood Count 4.18 10^6/uL (3.85-5.65); Red Cell Distribution Width 13.4 % (12.1-15.1); White Blood Count 15.33 10^3/uL (3.29-11.43)
[2024-09-01 04:32] LABS: Glucose Point of Care 106 mg/dL (70-110)
[2024-09-01 06:19] LABS: Alanine Aminotransferase 355 U/L (0-41); Albumin Level 2.6 g/dL (3.5-5.2); Alkaline Phosphatase 116 U/L (40-130); Blood Urea Nitrogen 26 mg/dL (8-23); Calcium 7.9 mg/dL (8.5-10.5); Carbon Dioxide 26 mmol/L (22-29); Chloride 104 mmol/L (98-107); Creatinine Clr Calc Pharmacy 76.3077; Globulin 1.8 g/dL (1.3-4.6); Glucose 105 mg/dL (65-115); Osmolality Calculated 291 mOsm/kg (285-295); Sodium 138 mmol/L (136-145); Total Bilirubin 0.2 mg/dL (0.15-1.2); Total Protein 4.4 g/dL (6.6-8.7)
[2024-09-01 06:20] LABS: Anion Gap 12.1 (5-19); Aspartate Amino Transferase 61 U/L (0-40); Potassium 4.1 mmol/L (3.5-5.1)
[2024-09-01 08:00] VITALS: BP 123/74; PULSE 66; PULSE 94; RESP 18; TEMP 36.7; O2SAT 95; O2SAT 96
[2024-09-01] MEDS: budesonide 0.5 mg/2 mL Neb INHALATION (08:52)
--- NOTE | 2024-09-01 09:00 | P.PN_ITS ---
Subjective 2 Subjective: Colace postoperative day 7 status post exploratory laparotomy with bowel resection and end ileostomy creation. Patient is doing well, has tolerated diet no significant abdominal pain ostomy is productive of gas and stool. Vitals/I&O/Wt Last Vital Signs Temp 98.0 F 09/01/24 08:00 Pulse 66 09/01/24 08:00 Resp 18 09/01/24 08:00 BP 123/74 09/01/24 08:00 Pulse Ox 96 09/01/24 08:00 O2 Del Method Room Air 09/01/24 08:00 O2 Flow Rate 1.5 08/28/24 21:01 08/31/24 09/01/24 09/01/24 22:59 06:59 14:59 Intake Total 481.500 / 1974.000 240 / 2214.000 Output Total 1250 / 1250 900 / 2150 Balance -768.500 / 724.000 -660 / 64.000 Weight last 48 hrs Weight 146 lb 8 oz Weight 147 lb Weight 147 lb 8 oz Physical Exam 2 GI: OTHER: Abdominal examination is benign abdomen is soft appropriately tender to palpation ostomy is productive of gas and stool. Urinary Catheter Management: Suprapubic: Cath Placed During This Visit: no Reason for Continuing Indwelling Catheter: Other Data 09/01/24 04:15 09/01/24 05:26 Micro: Microbiology 08/25/24 11:28 Gram Stain - Final Peritoneal Fluid Anaerobic Culture - Preliminary Body Fluid Culture - Final A&P Assessment and plan (1) S/P exploratory laparotomy: (2) Ileostomy status: Plan Patient is in good spirits and showing good progression. He will receive ostomy teaching today by nursing staff. Once he is comfortable with ostomy management he will be able to transition to the outpatient setting from the general surgery standpoint. Additional management as guided by primary team for possible aspiration pneumonia. Follow-up with general surgery will be in 2 weeks for staple removal. Patient shows understanding agrees with the plan. Attestations 2 Medical Necessity Statement*: Per medical team Coding Level of Care Code Acute Code for Chg Fwd Diagnoses S/P exploratory laparotomy Z98.890 Ileostomy status Z93.2
[2024-09-01] MEDS: amiodarone 200 mg Tablet PO (09:49)
[2024-09-01] MEDS: nicotine 21 mg Patch 1 PATCH TRANSDERMA (09:50)
[2024-09-01] MEDS: pantoprazole 40 mg SDV IVP (09:53)
[2024-09-01] MEDS: methylPREDNISolone sod succ 40 mg/mL INJ IVP (09:53)
[2024-09-01] MEDS: sertraline 50 mg Tablet PO (09:53)
--- NOTE | 2024-09-01 11:10 | PC.SOCIAL ---
IMM Update pg 2 of IMM Updated and reviewed w/ patient. Copy provided and copy dated, initialed and placed in chart.
[2024-09-01 11:56] VITALS: BP 119/68; PULSE 66; RESP 16; TEMP 36.4; O2SAT 94
--- NOTE | 2024-09-01 12:19 | PM.DCS ---
Discharge Providers Date of Admission: 08/21/24 14:15 Date of Discharge: September 01, 2024 Attending Provider at Admission: Mia Carrero MD Attending Provider at Discharge: Serafin Lane MD Primary Care Provider: GAMAL Stout Diagnoses at Discharge Discharge Diagnosis (1) S/P exploratory laparotomy: Status: Acute (2) Ileostomy status: Status: Acute Reason for Visit Reason for Visit: abd pain Hospital Course Hospital Course Abisai Hicks is a 74 year old male with past medical history of o[place]il[place] syndrome, post subtotal colectomy due to bowel ischemia, recurrent bowel obstruction with last admission in hospital for similar complaints back in July 2024, atrial fibrillation, CAD post PCI, chronic smoker, COPD, atrial fibrillation, history of ischemic cardiomyopathy presented to the ER today because of abdominal pain with episode of nausea which started last night. Patient's last bowel movement was yesterday. As per the family members he does not use his false teeth prior to eating recently. Patient denies any chest pain or difficulty breathing. Patient was admitted to the hospital further evaluation and management of small bowel obstruction. Surgery was consulted. First he was tried a conservative treatment with bowel rest and NG tube placement. As patient continued to have persistent small bowel obstruction even after conservative treatment he underwent open laparotomy with end ileostomy along with release of intra-abdominal ideation on 08/25. His postoperative status was complicated by him developing aspiration pneumonitis for which he was started on IV antibiotics. He was started on TPN which has been gradually weaned off. Gradually patient improved and has currently been on room air for last 48 to 72 hours. He has been having good output through the ileostomy and has been tolerating mechanical soft GI diet for last 24 to 48 hours. He has been discharged in hemodynamically stable condition with advised to follow-up with surgical team as an outpatient in 2 weeks for staple removal. Patient is advised to continue with mechanical soft diet going forward at least for next 1 week. Safe discharge plan were discussed in detail with the patient. Possible transfer to SNF versus home with home health were discussed in detail. Patient adamantly refused SNF and wants to go home with home health which has been arranged. During hospitalization his blood culture remained negative but sputum culture positive for stenotrophomonas for which she has been discharged on oral Bactrim for next 7 days. Physical Exam Narrative: General: No acute distress, AO x3, HEENT: PERRLA, pupils bilaterally equal and reactive Chest: Bilateral bronchial breath sounds all over lung gates, with coarse crackles bilateral lower zone. CVS: S1-S2 regular, no murmurs, no tachycardia, no gallops, no rubs Abdomen: Surgical bandage present. Soft. Neuro: No focal deficits, no facial deformity, AO x3, power 5/5 in all limbs Urinary Catheter Management: Suprapubic: Cath Placed During This Visit: no Reason for Continuing Indwelling Catheter: Other Discharge Data Studies Completed and Pending Completed Studies During Hospitalization Category Date Time Status CT abdomen pelvis w con* [id number] Stat Cat Scan 08/21/24 11:50 Completed CTA chest [CT angio chest PE protcl 57551] Routine Cat Scan 08/27/24 10:34 Completed XR abdomen 1V* [id number] Stat Exams 08/23/24 14:07 Completed XR abdomen 1V* [id number] Stat Exams 08/24/24 08:47 Completed XR acute abdomen series [id number] Stat Exams 08/21/24 10:28 Completed XR chest 1V portable [id number] Routine Exams 08/23/24 10:15 Completed XR chest 1V portable [id number] Stat Exams 08/21/24 15:26 Completed XR chest 1V portable [id number] Stat Exams 08/27/24 07:32 Completed XR chest 1V portable [id number] Stat Exams 08/27/24 18:04 Completed Pathology: Surgical [PTH] Routine Pth 08/25/24 13:46 Completed Pending at discharge Category Date Time Status Anaerobic Culture Routine Lab 08/25/24 11:28 Results Body Fluid Culture & GS Routine Lab 08/25/24 11:28 Results Sputum Culture and Gram Stain Stat Lab 08/28/24 19:04 Results Radiology Impressions Chest/Abdomen X-ray 08/21/24 10:28 IMPRESSION: 1. Several moderately dilated small bowel loops in the central abdomen. Early or incomplete small bowel obstruction is not excluded. 2. Pulmonary hyperinflation but no acute cardiopulmonary finding. Abdomen/Pelvis CT 08/21/24 11:50 IMPRESSION: 1. Very high-grade distal small bowel obstruction. Largest diameter of colon with early fecalization is near the anastomotic sutures deep in the pelvis. Patient's had multiple prior episodes of GI tract obstruction at a similar location. 2. There is a small amount of ascites. No free air identified. No ischemia at this time. 3. Known large abdominal aortic aneurysm, maximum 4.8 cm. 4. Suprapubic Paulino catheter. 5. Bilateral renal cysts. Abdomen X-Ray 08/24/24 08:47 IMPRESSION: Findings as detailed above are consistent with a distal small bowel obstruction. Chest CTA 08/27/24 10:34 IMPRESSION: 1. Extensive fluid within bronchial airways consistent with aspiration 2. Extensive bibasilar atelectasis with pleural effusions 3. Emphysematous changes COMMENTS: The presence of pulmonary emphysema on CT is an independent risk factor for lung cancer. In the absence of a history or active diagnosis of lung cancer, it is recommended that this patient with emphysema be evaluated for enrollment in a low dose CT lung cancer screening program. Chest X-Ray 08/27/24 18:04 IMPRESSION: As above. Microbiology 08/28/24 19:04 Sputum - Expectorated Sputum Gram Stain - Final 08/28/24 19:04 Sputum - Expectorated Sputum Sputum Culture - Final Stenotrophomonas maltophilia 08/25/24 11:28 Peritoneal Fluid Gram Stain - Final 08/25/24 11:28 Peritoneal Fluid Anaerobic Culture - Preliminary 08/25/24 11:28 Peritoneal Fluid Body Fluid Culture - Final 08/21/24 11:18 Blood Blood Culture - Final NO GROWTH AFTER 5 DAYS 08/21/24 11:16 Blood Blood Culture - Final NO GROWTH AFTER 5 DAYS Laboratory Results WBC 15.33 10^3/uL (3.29-11.43) H 09/01/24 04:15 RBC 4.18 10^6/uL (3.85-5.65) 09/01/24 04:15 Hgb 12.50 g/dL (11.27-16.99) 09/01/24 04:15 Hct 38.9 % (37-53) 09/01/24 04:15 MCV 93.1 fl (82-101) 09/01/24 04:15 MCH 29.9 pg (27-33) 09/01/24 04:15 MCHC 32.1 g/dL (30-55) 09/01/24 04:15 RDW 13.4 % (12.1-15.1) 09/01/24 04:15 Plt Count 296 10^3/cmm (157-399) 09/01/24 04:15 MPV 9.8 fL (7.4-10.4) 09/01/24 04:15 Neut % (Auto) 85.5 % 09/01/24 04:15 Lymph % (Auto) 4.6 % 09/01/24 04:15 [place] % (Auto) 7.6 % 09/01/24 04:15 Eos % (Auto) 0.1 % 09/01/24 04:15 Baso % (Auto) 0.1 % 09/01/24 04:15 Neut # (Auto) 13.10 10^3/uL (1.8-7.7) H 09/01/24 04:15 Lymph # (Auto) 0.7 10^3/uL (0.8-4.8) L 09/01/24 04:15 [place] # (Auto) 1.2 10^3/uL (0.2-0.9) H 09/01/24 04:15 Eos # (Auto) 0.0 10^3/uL (0.0-0.8) 09/01/24 04:15 Baso # (Auto) 0.0 10^3/uL (0.0-0.1) 09/01/24 04:15 Nucleated RBC % (auto) 0 % 09/01/24 04:15 Nucleated RBCs # 0.0 /100WBC 09/01/24 04:15 D-Dimer 2.48 ug/mLFEU (0-0.59) H 08/27/24 07:37 Sodium 138 mmol/L (136-145) 09/01/24 05:26 Potassium 4.1 mmol/L (3.5-5.1) 09/01/24 05:26 Chloride 104 mmol/L (98-107) 09/01/24 05:26 Carbon Dioxide 26 mmol/L (22-29) 09/01/24 05:26 Anion Gap 12.1 (5-19) 09/01/24 05:26 BUN 26 mg/dL (8-23) H 09/01/24 05:26 Creatinine 0.8 mg/dL (0.7-1.2) 09/01/24 05:26 GFR Calculation Not Reportable 09/01/24 05:26 Glucose 105 mg/dL (65-115) 09/01/24 05:26 POC Glucose 106 mg/dL (70-110) 09/01/24 04:27 Estimat Average Glucose 100 08/22/24 04:11 Hemoglobin A1c 5.1 % (4.0-6.0) 08/22/24 04:11 Calculated Osmolality 291 mOsm/kg (285-295) 09/01/24 05:26 Lactic Acid 0.7 mmol/L (0.5-2.2) 08/21/24 14:00 Calcium 7.9 mg/dL (8.5-10.5) L 09/01/24 05:26 Phosphorus 3.6 mg/dL (2.5-4.5) 08/22/24 04:11 Magnesium 2.1 mg/dL (1.7-2.3) 08/31/24 08:02 Total Bilirubin 0.2 mg/dL (0.15-1.2) 09/01/24 05:26 AST 61 U/L (0-40) H 09/01/24 05:26 ALT 355 U/L (0-41) H 09/01/24 05:26 Alkaline Phosphatase 116 U/L (40-130) 09/01/24 05:26 Troponin T Baseline 15 ng/L (0-15) 08/27/24 09:07 Troponin T 120 Minute 14.36 ng/L (0-15) 08/27/24 11:56 Delta Troponin T -0.64 ABS# (0-10) L 08/27/24 11:56 Troponin T Hi Sens 6Hr 10.94 ng/L (0-15) 08/27/24 14:20 Troponin T Hi Sens 6Hr Delta -4.06 ng/L (0-12) L 08/27/24 14:20 Total Protein 4.4 g/dL (6.6-8.7) L 09/01/24 05:26 Albumin 2.6 g/dL (3.5-5.2) L 09/01/24 05:26 Globulin 1.8 g/dL (1.3-4.6) 09/01/24 05:26 Triglycerides 98 mg/dL (0-150) 08/22/24 04:11 Cholesterol 145 mg/dL (0-200) 08/22/24 04:11 LDL Cholesterol, Calc 57 mg/dL (50-129) 08/22/24 04:11 HDL Cholesterol 68 mg/dL (60-100) 08/22/24 04:11 LDL/HDL Ratio 0.84 RATIO (0.00-3.22) 08/22/24 04:11 Cholesterol/HDL Ratio 2.13 mg/dL (1.0-5.00) 08/22/24 04:11 Lipase 38 U/L (13-60) 08/21/24 13:16 Procalcitonin 0.55 ng/mL (0-0.5) H 08/27/24 06:13 TSH 3.73 uIU/mL (0.27-4.20) 08/21/24 13:16 Urine Color Yellow (Yellow) 08/22/24 09:09 Urine Appearance Cloudy (CLEAR) A 08/22/24 09:09 Urine pH 5.0 (5-7) 08/22/24 09:09 Ur Specific [place] 1.065 (1.005-1.030) H 08/22/24 09:09 Urine Protein 1+ (Negative) A 08/22/24 09:09 Urine Glucose (UA) Negative (Normal) 08/22/24 09:09 Urine Ketones Negative (Negative) 08/22/24 09:09 Urine Blood 3+ (Negative) A 08/22/24 09:09 Urine Nitrate Negative (Negative) 08/22/24 09:09 Urine Bilirubin Negative (Negative) 08/22/24 09:09 Urine Urobilinogen 1.0 mg/dL (Negative) 08/22/24 09:09 Ur Leukocyte Esterase Negative (Negative) 08/22/24 09:09 Urine RBC 6-10 /hpf (0-2) 08/22/24 09:09 Urine WBC 11-20 /hpf (0-5) H 08/22/24 09:09 Ur Squamous Epith Cells 0-5 /hpf (0-5) 08/22/24 09:09 Calcium Oxalate Crystal 0-4 /hpf H 08/21/24 11:11 Amorphous Sediment Trace /hpf 08/22/24 09:09 Urine Bacteria None seen /hpf (NONE) 08/22/24 09:09 Hyaline Casts 17.77 /lpf 08/22/24 09:09 Fine Granular Casts 5-10 /lpf H 08/22/24 09:09 Nasal MRSA (PCR) Not detected (Negative) 08/27/24 11:58 Vancomycin Trough 8.0 ug/mL (10-15) L 08/29/24 10:58 Coronavirus (PCR) Negative (Negative) 08/21/24 11:11 Influenza A (PCR) Negative (Negative) 08/21/24 11:11 Influenza Type B (PCR) Negative (Negative) 08/21/24 11:11 RSV (PCR) Negative (Negative) 08/21/24 11:11 Blood Type A Positive 08/24/24 18:35 Rho(D) Type Rh positive 08/24/24 18:35 Antibody Screen Negative 08/24/24 18:35 Vitals Last Vital Signs Temp 97.6 F 09/01/24 11:56 Pulse 66 09/01/24 11:56 Resp 16 09/01/24 11:56 BP 119/68 09/01/24 11:56 Pulse Ox 94 09/01/24 11:56 O2 Del Method Room Air 09/01/24 11:56 O2 Flow Rate 1.5 08/28/24 21:01 Discharge Plan Discharge Patient Disposition: Home Health Service Condition: Stable Prescriptions: New nicotine 7 mg/24 hr patch 24 hour 1 patch transdermal Q24H Qty: 14 0RF sulfamethoxazole-trimethoprim [Bactrim DS] 800-160 mg tablet 1 tab PO BID 7 Days Qty: 14 0RF Continued atorvastatin 20 mg tablet 20 mg PO QPM budesonide-formoterol [Symbicort] 160-4.5 mcg/actuation HFA aerosol inhaler 2 puff inhalation Q12H amiodarone 200 mg tablet 200 mg PO DAILY potassium chloride 20 mEq tablet extended release 40 meq PO DAILY sertraline 50 mg Tablet 50 mg PO DAILY aspirin 81 mg Tablet,Delayed Release (Dr/Ec) 81 mg PO QPM albuterol sulfate 90 mcg/actuation HFA aerosol inhaler 2 puff INHALATION Q6H PRN (Reason: Shortness Of Breath Or Wheezing) Combivent Respimat 20-100 mcg/actuation mist 1 puff INHALATION BID ipratropium-albuterol 0.5 mg-3 mg(2.5 mg base)/3 mL solution for nebulization 3 ml inhalation QID PRN (Reason: shortness of breath or wheezing) Qty: 180 0RF oxybutynin chloride 10 mg tablet extended release 24hr 10 mg PO DAILY cyanocobalamin (vitamin B-12) [Vitamin B-12] 250 mcg Tablet 250 mcg PO DAILY Probiotic 15 billion cell Capsule 1 cap PO DAILY Discontinued ciprofloxacin HCl 500 mg tablet 500 mg PO BID Discharge Orders: Discharge Order (Routine); Ordered 09/01/24 Ordered By: Serafin Lane Referrals: [facility] [Outside] Madan Arrieta MD [Physician] - 2 weeks (We have notified your physician's clinic of the need for a follow-up appointment to be scheduled. If you have not heard from them within the next 2 business days, please call them directly. ) Margie Orozco FNP [Primary Care Provider] - 4-7 days (We have notified your physician's clinic of the need for a follow-up appointment to be scheduled. If you have not heard from them within the next 2 business days, please call them directly. ) Discharge Diet: Advance as tolerated and GI Soft Discharge Activity: Resume usual activity and Increase activity as tolerated Patient Instructions: Nicotine (Absorbed through the skin), How to Stop Smoking (GEN), Acute Wound Care (DC), Bowel Obstruction (GEN), Ileostomy Diet (GEN), Laparoscopic Bowel Resection (GEN), Opioid Safety, Post Anesthesia Care Activity Restrictions/Additional Instructions: Follow-up with surgical team as an outpatient within next 2 weeks for staple removal. You will be on antibiotic called as Bactrim DS twice daily for next 1 week. Please continue with GI soft diet and advance gradually within next 1 week. Discharge Attestations Time Spent in Discharge Care*: greater than 30 min Specific Discharge Activities: educating patient, educating and/or supporting family/caregiver, discussing with pcp/other providers, discussing with case making machine operator/social workers/dc planners, documenting/other paperwork and evaluating patient/reviewing data Time Spent in Smoking Cessation: more than 10 minutes Status at Discharge: Cognitive status at discharge: cognitively intact, Behavioral status at discharge: cooperative, Functional status at discharge: independent ambulation, Overall status at discharge: patient is progressing back to baseline Quality Metrics Clinical Quality Measures [ No reported AMI, CVA or VTE this stay] Coding Level of Care Code 80016 Total time (in minutes) for Discharge: 60 Diagnoses S/P exploratory laparotomy Z98.890 Ileostomy status Z93.2
--- NOTE | 2024-09-01 15:45 | PC.NURSE ---
Talked with patient and demonstrated changing the illiostomy on abdomen. Took the old one off which was leaking and applied a new one which is a 1 3/4 . Showed patient how to cut the wafer to fit stoma. Sent one bag home with patient along with barrier wipes. Patient stated he was confident to change the bag at home. Home Health to come to patients home as well.
--- NOTE | 2024-09-01 15:48 | PC.NURSE ---
Discussed discharge with patient and family member in the room. Went over follow up appointments, medications and care for wound on abdomen. Demonstrated emptying contents from illiostomy bag and supra pubic ybarra bag as well. Discussed signs and symptoms of infection as well as any abnormal pain to please return to ER or notify the physician.
[2024-09-01 15:51] VITALS: BP 119/68; PULSE 66; RESP 16; TEMP 36.4; O2SAT 94
== END 2024-09-01 13:50 | disposition home health service (06) | DRG 329 ==
LOC: ER 13:06 → MEDSURG 14:15
PROVIDERS: Surgery; Admitting Provider Student in an Organized Health Care Education/Training Program; Emergency Provider Emergency Medicine; PCP Nurse Practitioner Family; Visit Provider Student in an Organized Health Care Education/Training Program
PROC: 0DB80ZZ Excision of Small Intestine, Open Approach (ICD-10-PCS; CPT 49000; principal; 2024-08-25 10:15)
PROC: 0DT84ZZ Resection of Small Intestine, Percutaneous Endoscopic Approach (ICD-10-PCS; CPT 44202; 2024-08-25 10:15)
DX: K56.609 Unspecified intestinal obstruction, unspecified as to partial versus complete obstruction (principal); J69.0 Pneumonitis due to inhalation of food and vomit; J96.91 Respiratory failure, unspecified with hypoxia; K45.0 Other specified abdominal hernia with obstruction, without gangrene; N17.9 Acute kidney failure, unspecified; R18.8 Other ascites; E87.0 Hyperosmolality and hypernatremia; I25.5 Ischemic cardiomyopathy; I48.0 Paroxysmal atrial fibrillation; I50.9 Heart failure, unspecified; I11.0 Hypertensive heart disease with heart failure; I25.10 Atherosclerotic heart disease of native coronary artery without angina pectoris; I73.9 Peripheral vascular disease, unspecified; I71.40 Abdominal aortic aneurysm, without rupture, unspecified; J44.9 Chronic obstructive pulmonary disease, unspecified; F17.210 Nicotine dependence, cigarettes, uncomplicated; N32.0 Bladder-neck obstruction; R33.9 Retention of urine, unspecified; I25.2 Old myocardial infarction; Z97.8 Presence of other specified devices; Z95.5 Presence of coronary angioplasty implant and graft; Z90.49 Acquired absence of other specified parts of digestive tract; Z79.82 Long term (current) use of aspirin; Z91.041 Radiographic dye allergy status; Z82.49 Family history of ischemic heart disease and other diseases of the circulatory system
CPT/HCPCS: 0241U; 36415; 36416; 36573; 36592; 71045; 71275; 74018; 74022; 74177; 80048; 80053; 80061; 80202; 81001; 82962; 83036; 83605; 83690; 83735; 84100; 84145; 84443; 84484; 85025; 85378; 86850; 86900; 87040; 87070; 87075; 87077; 87186; 87205; 88307; 93005; 94640; 94664; 96372; 96374; 96375; 97116; 97162; 97530; 99285; J0131; J0690; J1100; J1171; J1644; J2060; J2270; J2405; J2470; J2543; J2704; J2919; J3010; J3370; J3372; J3480; J3490; J7030; J7042; J7050; J7614; J7626; J7644; J7799

== ENCOUNTER 2024-09-22 13:24 | Outpatient (CLI) | payer MEDICARE, SELFPAY ==
[2024-09-22 14:40] LABS: Anion Gap 13.3 (5-19); Blood Urea Nitrogen 12 mg/dL (8-23); Calcium 8.7 mg/dL (8.5-10.5); Carbon Dioxide 27 mmol/L (22-29); Chloride 99 mmol/L (98-107); Glucose 108 mg/dL (65-115); Osmolality Calculated 280 mOsm/kg (285-295); Potassium 4.3 mmol/L (3.5-5.1); Sodium 135 mmol/L (136-145)
== END 2024-09-22 13:25 | disposition home or self-care (01) ==
PROVIDERS: PCP Nurse Practitioner Family; Visit Provider Nurse Practitioner Family
DX: N31.9 Neuromuscular dysfunction of bladder, unspecified (principal)
CPT/HCPCS: 80048

== ENCOUNTER → 2025-03-09 15:05 | Outpatient (BNVA) | payer MEDICARE, SELFPAY | PROVIDERS: PCP Nurse Practitioner Family; Visit Provider Internal Medicine | DX: I48.91 Unspecified atrial fibrillation (principal); Z79.82 Long term (current) use of aspirin; I25.10 Atherosclerotic heart disease of native coronary artery without angina pectoris; I10 Essential (primary) hypertension; I42.9 Cardiomyopathy, unspecified; F17.210 Nicotine dependence, cigarettes, uncomplicated; Z95.5 Presence of coronary angioplasty implant and graft | CPT/HCPCS: 99213 ==

== ENCOUNTER 2025-04-20 03:39 | Emergency (ER) | payer MEDICARE, SELFPAY ==
--- OUTSIDE RECORDS SUMMARY | 2024-09-11 06:00 | XMS_ITS ---
Author Organization [facility] Address [address] [place] [address] Care Team Providers Care Mooner Name Role Phone Margie Orozco APRN Primary Care Provider KRYSTEN Baugh Unavailable [phone] ANDREA RODAS Unavailable [phone] REASON FOR VISIT 4 wk sp tube chg Encounters Encounter Location Date Provider Diagnosis [facility] [address] [facility] [place] [address] 09/11/2024 ANDREA RODAS Plan Of Treatment Next Appt Details Provider Name:BEATRIZ Ervin CAI NS, 04/23/2025 11:20:00 AM, [address] [place], [address], Progress Notes * Abisai HOPKINS GDOB:1950 (74 yo M)Acc No.[id number]:09/11/2024 Progress Note Patient: Abisai CHILDERS Provider: Maria De Jesus Rodas APRN-TACTICAL DEBRIEFER :1950 A ge:74 Y S ex:Male Date:09/11/2024 Address:[address] [place], [place] [id number] Pcp:Margie Orozco APRN Subjective: * Chief Complaints: * 1 . 4 wk sp tube chg. * Medical History: Objective: * Vitals: Assessment: Plan: * Treatment: * Billing Information: * Visit Code: * Procedure Codes: * Electronic signature of ANDREA RODAS APRN on 04/22/2025 at 08:03 AM CDT Sign off status: Pending * Provider: KELLY Yates Date: 0 09/11/2024 Generated for Ayaka Cruz/Hayes on: 0 04/22/2025 08:03 AM CDT
[2025-04-20 03:43] VITALS: BP 154/83; PULSE 73; RESP 20; TEMP 36.3; O2SAT 99; BMI 20.5
--- NOTE | 2025-04-20 03:53 | W.ED.MALEGU ---
HPI - Male Genitourinary General: Chief complaint: Urogenital-Male Stated complaint: Super pubic cath clogged. Time Seen by Provider: 04/20/25 03:43 History of Present Illness: 74-year-old male patient with history of suprapubic catheter. His current catheter was placed 03 April. He presents with sudden onset decrease in output of the catheter with increasing abdominal and pelvic pain. He feels full, and his belly is distended. No fever. No vomiting. No blood in the urine from the Paulino. Related Data Home Medications ?Medication ?Instructions ?Recorded ?Confirmed atorvastatin 20 mg tablet 20 mg PO QPM 01/15/20 03/09/25 budesonide-formoterol HFA 160 2 puff inhalation Q12H 04/07/22 03/09/25 mcg-4.5 mcg/actuation aerosol inhaler (Symbicort) albuterol sulfate 90 mcg/actuation 2 puff inhalation Q6H PRN 01/23/23 03/09/25 aerosol inhaler Shortness Of Breath Or Wheezing aspirin 81 mg tablet,delayed 81 mg PO QPM 01/23/23 03/09/25 release ipratropium 20 mcg-albuterol 100 1 puff inhalation BID shortness of 01/23/23 03/09/25 mcg/actuation mist for inhalation breath (Combivent Respimat) sertraline 50 mg tablet 50 mg PO DAILY 02/04/23 03/09/25 amiodarone 200 mg tablet 200 mg PO DAILY 01/30/24 03/09/25 potassium chloride 20 mEq 40 meq PO DAILY 01/30/24 03/09/25 tablet,extended release cyanocobalamin (vitamin B-12) 250 250 mcg PO DAILY 08/21/24 03/09/25 mcg tablet (Vitamin B-12) Previous Rx's ?Medication ?Instructions ?Recorded ipratropium 0.5 mg-albuterol 3 mg 3 ml inhalation QID PRN shortness 02/21/23 (2.5 mg base)/3 mL nebulization of breath or wheezing #180 mL soln ciprofloxacin HCl 500 mg tablet 500 mg PO Q12H #14 tabs 04/20/25 Allergies Allergy/AdvReac Type Severity Reaction Status Date / Time baclofen Allergy Unknown Verified 03/09/25 15:16 carisoprodol Allergy Unknown Verified 03/09/25 15:16 cyclobenzaprine Allergy Unknown Verified 03/09/25 15:16 iodine Allergy Unknown Verified 03/09/25 15:16 metaxalone Allergy Unknown Verified 03/09/25 15:16 methocarbamol Allergy Unknown Verified 03/09/25 15:16 orphenadrine Allergy Unknown Verified 03/09/25 15:16 PFSH ED PFSH: Medical History (Updated 04/20/25 @ 04:50 by hSyam Millan DO) Paulino catheter in place Ischemic cardiomyopathy Atrial fibrillation HTN (hypertension) CAD (coronary artery disease) Acute exacerbation of CHF (congestive heart failure) Hypoxia Acute anemia Pseudo-obstruction of colon Bowel obstruction Peripheral vascular disease Severe distal aortic disease, aortic aneurysm Encounter for smoking cessation counseling Goals of care, counseling/discussion Hypokalemia Abdominal pain COPD (chronic obstructive pulmonary disease) Shortness of breath Acute hypokalemia Bladder outlet obstruction Acute urinary retention Preoperative clearance Hx of retinal detachment Surgical History Hx of colectomy S/P coronary artery stent placement (~2013) S/P cataract surgery Family History Father CAD (coronary artery disease) Lung disease Family/Other CAD (coronary artery disease) Grandfather CAD (coronary artery disease) Social History Smoking and tobacco/nicotine status: current every day tobacco/nicotine user cigarettes Alcohol intake: current Alcohol intake frequency: other Substance/Drug Use: never Physical Exam Const: COMMON NORMALS: no acute distress GENERAL APPEARANCE: cooperative; not ill appearing Eye: COMMON NORMALS: Equal, round and reactive pupils present and EOMs intact bilaterally PUPIL: Yes Equal, round and reactive pupils present Resp: COMMON NORMALS: normal respiratory effort and No retractions AUSCULTATION: wheezes Cardio: COMMON NORMALS: regular rate and regular rhythm RATE: regular rate RHYTHM: regular rhythm GI: COMMON NORMALS: Soft to palpation PALPATION: Yes Soft to palpation and Yes Tenderness to palpation present (GI) (Periumbilical suprapubic) : OTHER: No drainage from the catheter site. No bleeding or redness. Catheter in place, with sediment. Very little urine output in the bag. Course Vital Signs: Vital signs: Vital Signs Temperature 97.4 F L 04/20/25 03:43 Pulse Rate 73 04/20/25 03:43 Respiratory Rate 20 H 04/20/25 03:43 Blood Pressure 154/83 04/20/25 03:43 Pulse Oximetry 99 04/20/25 03:43 Oxygen Delivery Me thod Room Air 04/20/25 03:43 MDM - Male Medical Decision Making Catheter was removed and replaced by a nursing staff with output after bladder scan showed greater than 500 mL of urine in the bladder. His symptoms are resolved. Immediate output of 550 mL of urine once catheter replaced. Urinalysis does show urinary tract infection. He will be placed on antibiotics for this. Lab Data Laboratory Results Urine Color Yellow (Yellow) 04/20/25 04:27 Urine Appearance Clear (CLEAR) 04/20/25 04:27 Urine pH 8.0 (5-7) A 04/20/25 04:27 Ur Specific Slaughter 1.009 (1.005-1.030) 04/20/25 04:27 Urine Protein Negative (Negative) 04/20/25 04:27 Urine Glucose (UA) Negative (Normal) 04/20/25 04:27 Urine Ketones Negative (Negative) 04/20/25 04:27 Urine Blood 2+ (Negative) A 04/20/25 04:27 Urine Nitrate Positive (Negative) A 04/20/25 04:27 Urine Bilirubin Negative (Negative) 04/20/25 04:27 Urine Urobilinogen 0.2 mg/dL (Negative) 04/20/25 04:27 Ur Leukocyte Esterase 3+ (Negative) A 04/20/25 04:27 Urine RBC 0-2 /hpf (0-2) 04/20/25 04:27 Urine WBC 51-100 /hpf (0-5) H 04/20/25 04:27 Ur Squamous Epith Cells 0-5 /hpf (0-5) 04/20/25 04:27 Amorphous Sediment Not Reportable 04/20/25 04:27 Urine Bacteria 1+ /hpf (NONE) H 04/20/25 04:27 Hyaline Casts None /lpf 04/20/25 04:27 No radiology studies performed this visit Discharge Plan Discharge Patient Disposition: Home Clinical Impression: Acute retention of urine, Urinary tract infection Condition: Stable Prescriptions: New ciprofloxacin HCl 500 mg tablet 500 mg PO Q12H Qty: 14 0RF No Action atorvastatin 20 mg tablet 20 mg PO QPM budesonide-formoterol [Symbicort] 160-4.5 mcg/actuation HFA aerosol inhaler 2 puff inhalation Q12H amiodarone 200 mg tablet 200 mg PO DAILY potassium chloride 20 mEq tablet extended release 40 meq PO DAILY sertraline 50 mg Tablet 50 mg PO DAILY aspirin 81 mg Tablet,Delayed Release (Dr/Ec) 81 mg PO QPM albuterol sulfate 90 mcg/actuation HFA aerosol inhaler 2 puff INHALATION Q6H PRN (Reason: Shortness Of Breath Or Wheezing) Combivent Respimat 20-100 mcg/actuation mist 1 puff INHALATION BID ipratropium-albuterol 0.5 mg-3 mg(2.5 mg base)/3 mL solution for nebulization 3 ml inhalation QID PRN (Reason: shortness of breath or wheezing) Qty: 180 0RF cyanocobalamin (vitamin B-12) [Vitamin B-12] 250 mcg Tablet 250 mcg PO DAILY Discharge Orders: Discharge ED (Routine); Ordered 04/20/25 Ordered By: Shyam Millan Referrals: Margie Orozco, JOB PRINTER APPRENTICE [Primary Care Provider, Unknown] - 4-7 days Patient Instructions: Urinary Retention in Men (ED), Urinary Tract Infection in Men (ED), Paulino Catheter Placement and Care (ED), Opioid Safety, Pain Management, Patient Portal & Alex Instructions Activity Restrictions/Additional Instructions: Return for any problems such as fever, vomiting liquids or medications, mental status changes, worsening pain, any other concerns. See your doctor next week. Antibiotics as directed. Print Language: Pashto Coding Level of Care Code ED Slasher Tender Helper for Benito Nugent
[2025-04-20 04:33] LABS: Glucose Urine UA Negative (Normal); Nitrate Urine Positive (Negative); Specific Gravity, Urine 1.009 (1.005-1.030)
--- NOTE | 2025-04-20 04:33 | PC.NURSE ---
Pt presented with a suprapubic catheter that has not been draining since before he went to bed last evening. Suprapubic cath removed with some discomfort and immediately there was urine drainage. Replaced the suprapubic cath without issue.
[2025-04-20 04:35] LABS: Add Urine Microscopic? YES
[2025-04-20 04:47] LABS: UA Slide Review UA Slide Review Perf
[2025-04-20 05:15] VITALS: BP 127/70; PULSE 72; RESP 17; O2SAT 97
--- NOTE | 2025-04-20 05:19 | PC.NURSE ---
pt given a leg bag for home use, pt verbalized understanding of aseptic technique for switching the bags.
--- OUTSIDE RECORDS SUMMARY | 2025-04-22 08:03 | XMS_ITS | Patient Health Record ---
Author Organization [facility] Address [address] [place] [address] Care Team Providers Care Integration Developer Name Role Phone Margie Orozco APRN Primary Care Provider Lizzie James [phone] Allergies No Known Allergies Reason For Referral No Information Medications Medication SIG (Take, Route, Frequency, Duration) Notes Start Date End Date Status Furosemide 20 MG Tablet 1 tablet Orally as needed Active Albuterol Sulfate Ac tive Eliquis 5 MG Tablet 1 tablet Orally Twic e a day Active Aspirin 81 MG Tablet Chewable 1 tablet Orally Once a day Active Atorvastatin Calcium Active Potassium Chloride A ctive Amiodarone HCl Activ e Sertraline HCl Activ e Budesonide Active Combivent Active Tamsulosin HCl 0.4 MG Capsule 1 capsule Orally Once a day Active Social History Tobacco Use: Social History Observation Description Date Details (start date - stop date) Current Smoker NA - NA Social History Tobacco Use: Social Info Question Answer Notes xTobacco Use/Smoking Are you a current smoker How often do you smoke cigarettes? every day Additional Findings: Tobacco User Moderate cigar ette smoker (10-19 cigs/day) Problems Problem Type SNOMED Code ICD Code Onset Dates Problem Status W/U Status Risk Notes Problem Obstructive uropathy (8756896) Other obstructive and reflux uropathy (N13.8) Active confirmed Problem Urinary tract obstruction (0807769) Obstructive and reflux uropathy, unspecified (N13.9) Active confirmed Problem Lower urinary tract symptoms due to benign prostatic hypertrophy (53334408614600) Benign prostatic hyperplasia with lower urinary tract symptoms (N40.1) Active confirmed Problem Urinary retention (607440575) Urinary retention (R33.9) Active confirmed Problem Change of urinary catheter bag (procedure) (878387539) Catheter (urine) change required (Z46.6) Active confirmed Plan Of Treatment No Information Insurance Providers Payer Name Payer Address Payer Phone Subscriber Number Group Number Insured Name Patient Relationship to Insured Coverage Start Date Coverage End Date [employer] Medicare Replacement [address] [address] [place] [address] [id number] Abisai Hicks Self - patient is the insured Medical (General) History Medical History History ICD Code Measles Mumps Chicken Pox Pneumonia Bladder Infections Back Trouble High Blood Pressure Hives or Eczema Bronchitis Surgical History Surgery Date(Month/Year) Colon 02/2023 Hospitalization History Reason Date(Month/Year) surgery
--- OUTSIDE RECORDS SUMMARY | 2025-04-22 08:04 | XMS_ITS | Patient Health Record ---
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 Name Role Phone Ernesto Margie ERNST Primary Care Provider Unavailtali ANTOINEMARLO ANAYA Unavailable [phone] YASMINE NIMO Unavailable [phone] BEATRIZ LI Unavailable [phone] ANDREA RODAS Unavailable [phone] Allergies Allergen (clinical drug ingredient) Drug/Non Drug Allergy documented on EMR Reaction Allergy Type Onset Date Status Iodine Unknown Drug Allergy Active Results Component Value Reference Range Notes Urinalysis, Routine Reviewed date:06/17/2024 12:09:19 PM Interpretation: Performing Lab: Notes/Report: Urine-Color Dark Yellow Appearance Slightly Cloudy Glucose - Bilirubin - Ketones - Specific [place] 1.025 Occult Blood 3+ pH 6.0 Urine Protein 1+ Urobilinogen,Semi-Qn 0.2 Nitrite, Urine - WBC Esterase 2+ Basic Metabolic Panel Reviewed date:09/22/2024 04:37:53 PM Interpretation: Performing Lab: Notes/Report: US Renal w/bladder--[id number] Reviewed date:04/09/2025 08:31:57 AM Interpretation: Performing Lab: Notes/Report: See Below For Report US Renal w/bladder Read See Below For Report Gx - Recurrent Persistent Co mplicated UTI Reviewed date:08/14/2024 10:25:21 AM Interpretation: Performing Lab:, [id number] Notes/Report: PatientName: : Gender: PatientRelation: PatientAddress: , , , InsuranceName: InsuranceCode: Test Result: Guidance 7.0, Cathet erized Urine, UTI Surgical, Test Result: PATHOGENIC DNA DETECTED#A*F UTIAbnormalFlag: Guidance 7.0, Cathet erized Urine, UTI Surgical, UTIAbnormalFlag: A Urinalysis, Routine Reviewed date:08/12/2024 03:12:04 PM Interpretation: Performing Lab: Notes/Report: Urine-Color Dark yellow Appearance turbid Glucose - Bilirubin - Ketones - Specific [place] 1.025 Occult Blood 3+ pH 6.0 Urine Protein 1+ Urobilinogen,Semi-Qn 0.2 Nitrite, Urine + WBC Esterase 3+ zzzAbdomen AP Reviewed date:04/09/2025 03:15:25 PM Interpretation: Performing Lab: Notes/Report: See Below For Report Abdomen AP Read See Below For Report Reason For Referral No Information Medications Medication SIG (Take, Route, Frequency, Duration) Notes Start Date End Date Status oxyBUTYnin Chloride ER 10 MG TAKE 1 TABLET BY MOUTH EVERY DAY FOR 30 DAYS; Duration: 90 Active Aspirin 81 MG 1 tablet Orally Once a day Active Tamsulosin HCl 0.4 MG TAKE 1 CAPSULE BY MOUTH EVERY DAY FOR 30 DAYS; Duration: 30 Not-Taking Combivent Active Albuterol Sulfate Ac tive Budesonide Active Furosemide 20 MG 1 tablet Orally as needed Active Sertraline HCl Activ e Atorvastatin Calcium Active Eliquis 5 MG 1 tablet Orally Twic e a day Active Amiodarone HCl Activ e Potassium Chloride A ctive Social History Tobacco Use: Social History Observation Description Date Details (start date - stop date) Current Smoker NA - NA Tobacco Control (Standard) Question Answer Notes Tobacco use: Current smoker Problems Problem Type SNOMED Code ICD Code Onset Dates Problem Status W/U Status Risk Notes Problem Essential hypertension (40098083) Essential (primary) hypertension (I10) Active confirmed Problem Obstructive uropathy (0593951) Other obstructive and reflux uropathy (N13.8) Active confirmed Problem Urinary tract obstruction (7263232) Obstructive and reflux uropathy, unspecified (N13.9) Active confirmed Problem Incision of bladder (31962303) Encounter for attention to cystostomy (Z43.5) Active confirmed Problem Lower urinary tract symptoms due to benign prostatic hypertrophy (50775233687323) Benign prostatic hyperplasia with lower urinary tract symptoms (N40.1) Active confirmed Problem Neurogenic bladder (205057682) Neurogenic bladder (N31.9) Active confirmed Problem S/P transurethra l resection of prostate (Z90.79) Active confirmed Problem Encounter for suprapubic catheter care (Z43.5) Active confirmed Problem Change of urinary catheter bag (procedure) (429255376) Catheter (urine) change required (Z46.6) Active confirmed Problem Spasm of bladder (145661785) Bladder spasms (N32.89) Active confirmed Problem Hematuria (93760678) Hematuria (R31.9) Active confirmed Problem Urinary retention (298056435) Urinary retention (R33.9) Active confirmed Problem Benign prostatic hypertrophy with outflow obstruction (374120343) BPH loc w urin obs/LUTS (N40.1) Active confirmed Vital Signs Heart Rate 79 /min 10/09/2024 Blood pressure diastolic 87 mm Hg 10/09/2024 Height-cm 172.72 cm 10/09/2024 Weight-kg 61.24 kg 10/09/2024 Height 68 in 10/09/2024 Blood pressure systolic 135 mm Hg 10/09/2024 Weight 135 lbs 10/09/2024 BMI 20.52 kg/m2 10/09/2024 Procedures Procedure Date Ordered Date Performed Result Body Sit e SP Tube Change 04/22/2024 04/24/2024 N/A SP Tube Change 05/20/2024 05/20/2024 N/A SP Tube Change 06/17/2024 06/17/2024 N/A SP Tube Change 07/15/2024 07/15/2024 N/A SP Tube Change 08/12/2024 08/13/2024 N/A SP Tube Change 10/09/2024 N/A Encounters Encounter Location Date Provider Diagnosis [facility] [address] [place] [address] 09/11/2024 ANDREA Boyce [facility], [facility] [address] [place] [address] 04/22/2024 BEATRIZ LI Encounter for attention to cystostomy Z43.5 and Benign prostatic hyperplasia with lower urinary tract symptoms N40.1 [facility] [address] [place] [address] 05/20/2024 ANDREA RODAS Encounter for suprapubic catheter care Z43.5 and Urinary retention R33.9 [facility], [facility] [address] [place] [address] 06/17/2024 NIMO YASMINE Encounter for attention to cystostomy Z43.5 ; Urinary retention R33.9 ; Bladder spasms N32.89 ; Bladder pain R39.89 and Hematuria R31.9 [facility], [facility] [address] [place] [address] 07/15/2024 BEATRIZ LI Encounter for suprapubic catheter care Z43.5 and Neurogenic bladder N31.9 [facility], [facility] [address] [place] [address] 08/12/2024 NIMO UNDERWOOD Complicated UTI (urinary tract infection) N39.0 ; Urinary retention with incomplete bladder emptying R33.9 and Encounter for attention to cystostomy Z43.5 [facility], [facility] [address] [place] [address] 10/09/2024 MARLO QUINTANILLA BPH loc w urin obs/LUTS N40.1 ; Urinary retention R33.9 ; S/P transurethral resection of prostate Z90.79 ; Encounter for attention to cystostomy Z43.5 and Complicated UTI (urinary tract infection) N39.0 [facility], [facility] [address] [place] [address] 06/18/2024 MARLO QUINTANILLA [facility], [facility] [address] [place] [address] 08/14/2024 ANDREA RODAS [facility], [facility] [address] [place] [address] 09/08/2024 MARLO QUINTANILLA Neurogenic bladder N31.9 [facility], [facility] [address] [place] [address] 02/23/2025 MARLO QUINTANILLA Neurogenic bladder N31.9 Assessments Encounter Date Diagnosis (ICD Code) Assessment Notes Treatment Notes Treatment Clinical Notes Section Notes 04/22/2024 Encounter for attention to cystostomy (ICD-10 - Z43.5) Pt here, per Dr Mildred Quintanilla for initial s/p tube change. Suture clipped, bulb deflated and d/c'd without difficulty. Reinserted 16fr s/p tube after prep with Betadine. Tolerated well. Connected to leg bag, night bag given. 04/22/2024 Benign prostatic hyperplasia with lower urinary tract symptoms (ICD-10 - N40.1) Pt here, per Dr Mildred Quintanilla for initial s/p tube change. Suture clipped, bulb deflated and d/c'd without difficulty. Reinserted 16fr s/p tube after prep with Betadine. Tolerated well. Connected to leg bag, night bag given. 05/20/2024 Encounter for suprapubic catheter care (ICD-10 - Z43.5) Pt here for sptube change. He tolerated well and will return in 4wks for routine change 05/20/2024 Urinary retention (ICD-10 - R33.9) Pt here for sptube change. He tolerated well and will return in 4wks for routine change 06/17/2024 Encounter for attention to cystostomy (ICD-10 - Z43.5) Pt here for routine sptube change. Pt had noticably painful bladder spasms during tube change. Noting that these bladder spasms have became more frequent in the last few wks. He also noted to have had some fever and chills this morning. UA obtained and will be sent for HT to rule out UTI and he will be treated accordingly. Otherwise he will return in 4wks for routine sptube change. 06/17/2024 Urinary retention (ICD-10 - R33.9) Pt here for routine sptube change. Pt had noticably painful bladder spasms during tube change. Noting that these bladder spasms have became more frequent in the last few wks. He also noted to have had some fever and chills this morning. UA obtained and will be sent for HT to rule out UTI and he will be treated accordingly. Otherwise he will return in 4wks for routine sptube change. 07/15/2024 Neurogenic bladder (ICD-10 - N31.9) Pt here for routine sptube change. He tolerated well and will return in 4wks for repeat change. He completed ABX from previous UTI. Still with bother from painful bladder spasms and Per Harriet Li APRN, Rx Oxybutynin 10mg ER given today to trial until next visit. 07/15/2024 Encounter for suprapubic catheter care (ICD-10 - Z43.5) Pt here for routine sptube change. He tolerated well and will return in 4wks for repeat change. He completed ABX from previous UTI. Still with bother from painful bladder spasms and Per Harriet Li APRN, Rx Oxybutynin 10mg ER given today to trial until next visit. 08/12/2024 Complicated UTI (urinary tract infection) (ICD-10 - N39.0) Here today for routine sptube change; he tolerated well and will return in 4wks for routine change. Pt had severe constipation from Oxybutynin; with the need for a hospital visit to have bowel removed. 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 UA obtained and will be sent for PCR testing to rule out further UTI. This patient has clinical indication for infectious disease testing. Urinalysis performed indicates the need for further sensitive detection by PCR. The patient is at higher risk for UTI complications and is being seen in the urologic setting. The enhanced diagnostic accuracy, identification of possible resistance mutations, and quicker result to better guide antibiotics and prevention infection complications that PCR provides is recommended. He will be treated accordingly to results. 08/12/2024 Urinary retention with incomplete bladder emptying (ICD-10 - R33.9) Here today for routine sptube change; he tolerated well and will return in 4wks for routine change. Pt had severe constipation from Oxybutynin; with the need for a hospital visit to have bowel removed. 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 UA obtained and will be sent for PCR testing to rule out further UTI. This patient has clinical indication for infectious disease testing. Urinalysis performed indicates the need for further sensitive detection by PCR. The patient is at higher risk for UTI complications and is being seen in the urologic setting. The enhanced diagnostic accuracy, identification of possible resistance mutations, and quicker result to better guide antibiotics and prevention infection complications that PCR provides is recommended. He will be treated accordingly to results. 09/08/2024 Neurogenic bladder (ICD-10 - N31.9) 10/09/2024 Urinary retention (ICD-10 - R33.9) 74 y/o M with BPH/LUTS and chronic urinary retention managed with SP tube. Doing well at this time. stable Creat at 1.0. Continue monthly SP tube changes with HH. He will return in 6m with KUB and KELLY. RTC with any concerns Plan: -Continue Monthly SP tube changes with HH -RTC in 6m with KELLY and KUB with Piper Li APRN I, Stormy Kapelski, Scribe, am scribing for, and in the presence of, Dr. Quintanilla. I, Dr. Marlo Quintanilla, personally performed the services prescribed in this documentation, as scribed by Yelitza Damico, in my presence, and it is both accurate and complete. 10/09/2024 BPH loc w urin obs/LUTS (ICD-10 - N40.1) 74 y/o M with BPH/LUTS and chronic urinary retention managed with SP tube. Doing well at this time. stable Creat at 1.0. Continue monthly SP tube changes with HH. He will return in 6m with KUB and KELLY. RTC with any concerns Plan: -Continue Monthly SP tube changes with HH -RTC in 6m with KELLY and KUB with Piper Li APRN I, Stormy Kapelski, Scribe, am scribing for, and in the presence of, Dr. Quintanilla. I, Dr. Marlo Quintanilla, personally performed the services prescribed in this documentation, as scribed by Yelitza Damico, in my presence, and it is both accurate and complete. 02/23/2025 Neurogenic bladder (ICD-10 - N31.9) 06/17/2024 Bladder spasms (ICD-10 - N32.89) Pt here for routine sptube change. Pt had noticably painful bladder spasms during tube change. Noting that these bladder spasms have became more frequent in the last few wks. He also noted to have had some fever and chills this morning. UA obtained and will be sent for HT to rule out UTI and he will be treated accordingly. Otherwise he will return in 4wks for routine sptube change. 10/09/2024 S/P transurethral resection of prostate (ICD-10 - Z90.79) 74 y/o M with BPH/LUTS and chronic urinary retention managed with SP tube. Doing well at this time. stable Creat at 1.0. Continue monthly SP tube changes with HH. He will return in 6m with KUB and KELLY. RTC with any concerns Plan: -Continue Monthly SP tube changes with HH -RTC in 6m with KELLY and KUB with Piper Li APRN I, Stormy Kapelski, Scribe, quinton scribing for, and in the presence of, Dr. Quintanilla. I, Dr. Marlo Quintanilla, personally performed the services prescribed in this documentation, as scribed by Yelitza Damico, in my presence, and it is both accurate and complete. 08/12/2024 Encounter for attention to cystostomy (ICD-10 - Z43.5) Here today for routine sptube change; he tolerated well and will return in 4wks for routine change. Pt had severe constipation from Oxybutynin; with the need for a hospital visit to have bowel removed. 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 UA obtained and will be sent for PCR testing to rule out further UTI. This patient has clinical indication for infectious disease testing. Urinalysis performed indicates the need for further sensitive detection by PCR. The patient is at higher risk for UTI complications and is being seen in the urologic setting. The enhanced diagnostic accuracy, identification of possible resistance mutations, and quicker result to better guide antibiotics and prevention infection complications that PCR provides is recommended. He will be treated accordingly to results. 06/17/2024 Bladder pain (ICD-10 - R39.89) Pt here for routine sptube change. Pt had noticably painful bladder spasms during tube change. Noting that these bladder spasms have became more frequent in the last few wks. He also noted to have had some fever and chills this morning. UA obtained and will be sent for HT to rule out UTI and he will be treated accordingly. Otherwise he will return in 4wks for routine sptube change. 10/09/2024 Encounter for attention to cystostomy (ICD-10 - Z43.5) 74 y/o M with BPH/LUTS and chronic urinary retention managed with SP tube. Doing well at this time. stable Creat at 1.0. Continue monthly SP tube changes with HH. He will return in 6m with KUB and KELLY. RTC with any concerns Plan: -Continue Monthly SP tube changes with HH -RTC in 6m with KELLY and KUB with Piper Li APRN I, Stormy Kapelski, Scribe am scribing for, and in the presence of, Dr. Quintanilla. I, Dr. Marlo Quintanilla, personally performed the services prescribed in this documentation, as scribed by Yelitza Damico, in my presence, and it is both accurate and complete. 10/09/2024 Complicated UTI (urinary tract infection) (ICD-10 - N39.0) 74 y/o M with BPH/LUTS and chronic urinary retention managed with SP tube. Doing well at this time. stable Creat at 1.0. Continue monthly SP tube changes with HH. He will return in 6m with KUB and KELLY. RTC with any concerns Plan: -Continue Monthly SP tube changes with -RTC in 6m with KELLY and KUB with Piper Li APRN I, Stormy Kapelski, Scribe am scribing for, and in the presence of, Dr. Quintanilla. I, Dr. Marlo Quintanilla, personally performed the services prescribed in this documentation, as scribed by Yelitza Damico, in my presence, and it is both accurate and complete. 06/17/2024 Hematuria (ICD-10 - R31.9) Pt here for routine sptube change. Pt had noticably painful bladder spasms during tube change. Noting that these bladder spasms have became more frequent in the last few wks. He also noted to have had some fever and chills this morning. UA obtained and will be sent for HT to rule out UTI and he will be treated accordingly. Otherwise he will return in 4wks for routine sptube change. Plan Of Treatment Pending Test Test Name Order Date [id number] KUB, X-Ray: Abdomen, Kidney, Urete r, bladder 02/23/2025 UA Without Micro-Auto [id number] 03/26/2023 Voiding Trial 12/31/2023 SP Tube Change 10/09/2024 SP Tube Change 07/18/2023 SP Tube Change 09/06/2023 SP Tube Change 10/04/2023 Catheter Insertion-Routine 12/31/2023 Basic Metabolic Panel 03/10/2024 CBC w/ Auto Diff 03/10/2024 UA Reflex -- [id number] 03/10/2024 Electrocardiogram, 12 Lead Tracing-[id number] 03/10/2024 Next Appt Details Provider Name:BEATRIZ CAI FOSTER, 04/23/2025 11:20:00 AM, [address] [place], [address], Insurance Providers Payer Name Payer Address Payer Phone Subscriber Number Group Number Insured Name Patient Relationship to Insured Coverage Start Date Coverage End Date [employer] Replacement [address] [address] [place], [place] [id number] Abisai Hicks Self - patient is the insured Medical (General) History Medical History History ICD Code Measles Mumps Chicken Pox Pneumonia Bladder Infections Back Trouble High Blood Pressure Hives or Eczema Bronchitis Surgical History Surgery Date(Month/Year) Colon 02/2023 Green light laser 05/22/23 Stoma creation Hospitalization History Reason Date(Month/Year) surgery
== END 2025-04-20 05:15 | disposition home or self-care (01) ==
PROVIDERS: Emergency Provider Emergency Medicine; PCP Nurse Practitioner Family
DX: R33.9 Retention of urine, unspecified (principal); N39.0 Urinary tract infection, site not specified; Z79.82 Long term (current) use of aspirin; J44.9 Chronic obstructive pulmonary disease, unspecified; I25.10 Atherosclerotic heart disease of native coronary artery without angina pectoris; I10 Essential (primary) hypertension
CPT/HCPCS: 51702; 51798; 81001; 87077; 87086; 87186; 99283; J9999

== ENCOUNTER 2025-07-07 13:18 | Inpatient (IN) | payer MEDICARE, SELFPAY ==
--- OUTSIDE RECORDS SUMMARY | 2024-09-11 06:00 | XMS_ITS ---
Author Organization [facility] Address [address] [place] [address] Care Team Providers Care Dark Room Attendant Name Role Phone Margie Orozco APRN Primary Care Provider Unavaila KRYSTEN Casanova Unavailable [phone] ANDREA RODAS Unavailable [phone] REASON FOR VISIT 4 wk sp tube chg Encounters Encounter Location Date Provider Diagnosis [facility] [address] [place] [address] 09/11/2024 ANDREA RODAS Plan Of Treatment Next Appt Details Provider Name:BEATRIZ CAI NS, 10/15/2025 10:00:00 AM, [address] [place], [address], Progress Notes * SANDEEP Abisai GDOB:1950 (74 yo M)Acc No.[id number]:09/11/2024 Progress Note Patient: Marii SOSA Abisai Tamiko Provider: Maria De Jesus Rodas APRN-SOPHIA :1950 A ge:74 Y S ex:Male Date:09/11/2024 Address:[address] [place], [place] [id number] Pcp:Margie Orozco APRN Subjective: * Chief Complaints: * 1 . 4 wk sp tube chg. * Medical History: Objective: * Vitals: Assessment: Plan: * Treatment: * Billing Information: * Visit Code: * Procedure Codes: * Electronic signature of ANDREA RODAS APRN on 07/07/2025 at 02:36 PM CDT Sign off status: Pending * Provider: Maria De Jesus Rodas APRN-BUDGET CONSULTANT Date: 0 09/11/2024 Generated for Ayaka wyatt/Desirae/Hayes on: 1 02:36 PM CDT
[2025-07-07] VITALS (19 sets, daily range): BP systolic 92–153; BP diastolic 56–92; PULSE 65–86; RESP 16–26; TEMP 35.9; O2SAT 92–99
[2025-07-07 14:18] LABS: Hematocrit 51.0 % (37-53); Hemoglobin 16.60 g/dL (11.27-16.99); Mean Corpuscular HGB Conc 32.5 g/dL (30-55); Mean Corpuscular Hemoglobin 30.9 pg (27-33); Mean Corpuscular Volume 95.0 fl (82-101); Nucleated Red Blood Cells % 0 %; Platelet Count 389 10^3/cmm (157-399); Red Blood Count 5.37 10^6/uL (3.85-5.65); White Blood Count 15.49 10^3/uL (3.29-11.43)
--- OUTSIDE RECORDS SUMMARY | 2025-07-07 14:37 | XMS_ITS | Patient Health Record ---
Author Organization [facility] Address [address] [place] [address] Care Team Providers Care Supervisor Carding Name Role Phone Ernesto Margie ERNST Primary Care Provider Unavailtali PARKERMARLO Unavailable [phone] YASMINE NIMO Unavailable [phone] BEATRIZ LI Unavailable [phone] ANDREA RODAS Unavailable [phone] Allergies Allergen (clinical drug ingredient) Drug/Non Drug Allergy documented on EMR Reaction Allergy Type Onset Date Status Iodine Unknown Drug Allergy Active Results Component Value Reference Range Notes US Renal w/bladder--[id number] Reviewed date:04/09/2025 08:31:57 AM Interpretation: Performing Lab: Notes/Report: See Below For Report US Renal w/bladder Read See Below For Report zzzAbdomen AP Reviewed date:04/09/2025 03:15:25 PM Interpretation: Performing Lab: Notes/Report: See Below For Report Abdomen AP Read See Below For Report Gx - Recurrent Persistent Co mplicated UTI Reviewed date:08/14/2024 10:25:21 AM Interpretation: Performing Lab:, [id number] Notes/Report: PatientName: : Gender: PatientRelation: PatientAddress: , , , InsuranceName: InsuranceCode: Test Result: Guidance 7.0, Cathet erized Urine, UTI Surgical, Test Result: PATHOGENIC DNA DETECTED#A*F UTIAbnormalFlag: Guidance 7.0, Cathet erized Urine, UTI Surgical, UTIAbnormalFlag: A Urinalysis, Routine Reviewed date:08/12/2024 03:12:04 PM Interpretation: Performing Lab: Notes/Report: Urine-Color Dark yellow Appearance turbid Glucose - Bilirubin - Ketones - Specific [place] 1.025 Occult Blood 3+ pH 6.0 Urine Protein 1+ Urobilinogen,Semi-Qn 0.2 Nitrite, Urine + WBC Esterase 3+ Basic Metabolic Panel Reviewed date:09/22/2024 04:37:53 PM Interpretation: Performing Lab: Notes/Report: Reason For Referral No Information Medications Medication SIG (Take, Route, Frequency, Duration) Notes Start Date End Date Status Furosemide 20 MG 1 tablet Orally as needed Not-Taking Eliquis 5 MG 1 tablet Orally Twic e a day Active Atorvastatin Calcium Active Potassium Chloride A ctive Amiodarone HCl Activ e Aspirin 81 MG 1 tablet Orally Once a day Active Tamsulosin HCl 0.4 MG TAKE 1 CAPSULE BY MOUTH EVERY DAY FOR 30 DAYS; Duration: 30 Not-Taking oxyBUTYnin Chloride ER 10 MG TAKE 1 TABLET BY MOUTH EVERY DAY FOR 30 DAYS; Duration: 90 Not-Taking Combivent Active Budesonide Active Albuterol Sulfate Ac tive Sertraline HCl Activ e Social History Tobacco Use: Social History Observation Description Date Details (start date - stop date) Current Smoker NA - NA Tobacco Control (Standard) Question Answer Notes Tobacco use: Current smoker Problems Problem Type SNOMED Code ICD Code Onset Dates Problem Status W/U Status Risk Notes Problem Essential hypertension (78480165) Essential (primary) hypertension (I10) Active confirmed Problem Obstructive uropathy (7793636) Other obstructive and reflux uropathy (N13.8) Active confirmed Problem Urinary tract obstruction (0935869) Obstructive and reflux uropathy, unspecified (N13.9) Active confirmed Problem Incision of bladder (92425719) Encounter for attention to cystostomy (Z43.5) Active confirmed Problem Lower urinary tract symptoms due to benign prostatic hypertrophy (64461544691448) Benign prostatic hyperplasia with lower urinary tract symptoms (N40.1) Active confirmed Problem Neurogenic bladder (310067404) Neurogenic bladder (N31.9) Active confirmed Problem S/P transurethra l resection of prostate (Z90.79) Active confirmed Problem Encounter for suprapubic catheter care (Z43.5) Active confirmed Problem Change of urinary catheter bag (procedure) (005757044) Catheter (urine) change required (Z46.6) Active confirmed Problem Spasm of bladder (438512193) Bladder spasms (N32.89) Active confirmed Problem Hematuria (35508461) Hematuria (R31.9) Active confirmed Problem Urinary retention (684401623) Urinary retention (R33.9) Active confirmed Problem Benign prostatic hypertrophy with outflow obstruction (129969066) BPH loc w urin obs/LUTS (N40.1) Active confirmed Vital Signs Heart Rate 73 /min 04/23/2025 Height-cm 172.72 cm 04/23/2025 Blood pressure diastolic 88 mm Hg 04/23/2025 Weight-kg 58.97 kg 04/23/2025 Height 68 in 04/23/2025 Blood pressure systolic 150 mm Hg 04/23/2025 Weight 130 lbs 04/23/2025 BMI 19.76 kg/m2 04/23/2025 Procedures Procedure Date Ordered Date Performed Result Body Sit e SP Tube Change 07/15/2024 07/15/2024 N/A SP Tube Change 08/12/2024 08/13/2024 N/A SP Tube Change 10/09/2024 N/A SP Tube Change 04/23/2025 N/A Encounters Encounter Location Date Provider Diagnosis [facility], [facility] [address] [place] [address] 09/11/2024 ANDREA RODAS [facility], [facility] [address] [place] [address] 07/15/2024 BEATRIZ LI Encounter for suprapubic catheter care Z43.5 and Neurogenic bladder N31.9 [facility], [facility] [address] [place] [address] 08/12/2024 NIMO UNDERWOOD Complicated UTI (urinary tract infection) N39.0 ; Urinary retention with incomplete bladder emptying R33.9 and Encounter for attention to cystostomy Z43.5 [facility], [facility] [address] [place] [address] 10/09/2024 MARLO PARKER BPH loc w urin obs/LUTS N40.1 ; Urinary retention R33.9 ; S/P transurethral resection of prostate Z90.79 ; Encounter for attention to cystostomy Z43.5 and Complicated UTI (urinary tract infection) N39.0 [facility], [facility] [address] [place] [address] 04/23/2025 BEATRIZ LI Urinary retention R33.9 ; Neurogenic bladder N31.9 ; BPH loc w urin obs/LUTS N40.1 ; S/P transurethral resection of prostate Z90.79 ; Acquired renal cyst of right kidney N28.1 and Encounter for attention to cystostomy Z43.5 [facility], [facility] [address] [place] [address] 08/14/2024 ANDREA RODAS [facility] [address] [place] [address] 09/08/2024 MARLO PARKER Neurogenic bladder N31.9 [facility], [facility] [address] [place] [address] 02/23/2025 MARLO PARKER Neurogenic bladder N31.9 Assessments Encounter Date Diagnosis (ICD Code) Assessment Notes Treatment Notes Treatment Clinical Notes Section Notes 07/15/2024 Neurogenic bladder (ICD-10 - N31.9) Pt [...] with Piper Li APRN I, Stormy Kapelski, Scrnidia, am scribing for, and in the presence of, Dr. Parker. I, Dr. Marlo Parker, personally performed the services prescribed in this [...] for, and in the presence of, Dr. Parker. I, Dr. Marlo Parker, personally performed the services prescribed in this documentation, as scribed by Yelitza Damico, in my presence, and it is both accurate and complete. 02/23/2025 Neurogenic bladder (ICD-10 - N31.9) 04/23/2025 Neurogenic bladder (ICD-10 - N31.9) 04/23/2025 Urinary retention (ICD-10 - R33.9) Pt doing well with SPT management of his chronic urinary retention. Imaging negative for hydronephrosis . Will continue q4w changes with home health. 04/23/2025 BPH loc w urin obs/LUTS (ICD-10 - N40.1) 10/09/2024 S/P transurethral resection of prostate (ICD-10 [...] for, and in the presence of, Dr. Parker. I, Dr. Marlo Parker, personally performed the services prescribed in this [...] He will be treated accordingly to results. 10/09/2024 Encounter for attention to cystostomy (ICD-10 [...] for, and in the presence of, Dr. Parker. I, Dr. Marlo Parker, personally performed the services prescribed in this documentation, as scribed by Yelitza Damico, in my presence, and it is both accurate and complete. 04/23/2025 S/P transurethral resection of prostate (ICD-10 - Z90.79) 04/23/2025 Acquired renal cyst of right kidney (ICD-10 - N28.1) Pt has benign appearing cysts of the b/l kidney. Will monitor. Repeat KELLY in 6m. 10/09/2024 Complicated UTI (urinary tract infection) (ICD-10 [...] for, and in the presence of, Dr. Parker. I, Dr. Marlo aPrker, personally performed the services prescribed in this documentation, as scribed by Yelitza Damico, in my presence, and it is both accurate and complete. 04/23/2025 Encounter for attention to cystostomy (ICD-10 - Z43.5) 04/23/2025 Other I saw this patient today following the plan of care established by Dr. Parker. Supervision in the clinic, during the encounter was performed by the Doctor. Plan Of Treatment Pending Test Test Name Order Date [id number] KUB, X-Ray: Abdomen, Kidney, Urete r, bladder 02/23/2025 UA Without Micro-Auto [id number] 03/26/2023 Voiding Trial 12/31/2023 SP Tube Change 10/09/2024 SP Tube Change 07/18/2023 SP Tube Change 09/06/2023 SP Tube Change 10/04/2023 SP Tube Change 04/23/2025 Catheter Insertion-Routine 12/31/2023 Basic Metabolic Panel 03/10/2024 Basic Metabolic Panel 04/23/2025 CBC w/ Auto Diff 03/10/2024 UA Reflex -- [id number] 03/10/2024 Electrocardiogram, 12 Lead Tracing-[id number] 03/10/2024 Next Appt Details Provider Name:BEATRIZ HUTCHISON, 10/15/2025 10:00:00 AM, [address] [place], [address], Insurance Providers Payer Name Payer Address Payer Phone Subscriber Number Group Number Insured Name Patient Relationship to Insured Coverage Start Date Coverage End Date [employer] Medicare Replacement [address] [address] [place], [place] [id number] Abisai Hicks Self - patient is the insured Medical (General) History Medical History History ICD Code Measles Mumps Chicken Pox Pneumonia Bladder Infections Back Trouble High Blood Pressure Hives or Eczema Bronchitis Surgical History Surgery Date(Month/Year) Colon 02/2023 Green light laser 05/22/23 Stoma creation Hospitalization History Reason Date(Month/Year) surgery
--- OUTSIDE RECORDS SUMMARY | 2025-07-07 14:37 | XMS_ITS | Patient Health Record ---
Author Organization [facility] Address [address] [place] [address] Care Team Providers Care Obstetrics Gyn Name Role Phone Margie Orozco APRN Primary Care Provider Lizzie James [phone] Allergies No Known Allergies Reason For Referral [...] W/U Status Risk Notes Problem Obstructive uropathy (5728570) Other obstructive and reflux uropathy (N13.8) Active confirmed Problem Urinary tract obstruction (5632092) Obstructive and reflux uropathy, unspecified (N13.9) Active confirmed Problem Lower urinary tract symptoms due to benign prostatic hypertrophy (75710250131521) Benign prostatic hyperplasia with lower urinary tract symptoms (N40.1) Active confirmed Problem Urinary retention (896074333) Urinary retention (R33.9) Active confirmed Problem Change of urinary catheter bag (procedure) (422021733) Catheter (urine) change required (Z46.6) Active confirmed Plan Of Treatment No Information Insurance Providers Payer Name Payer Address Payer Phone Subscriber Number Group Number Insured Name Patient Relationship to Insured Coverage Start Date Coverage End Date [employer] Medicare Replacement [address] [address] [place] [address] [id number] Abisai Hicks Self - patient is the insured Medical (General) History Medical History History ICD Code Measles Mumps Chicken Pox Pneumonia Bladder Infections Back Trouble High Blood Pressure Hives or Eczema Bronchitis Surgical History Surgery Date(Month/Year) Colon 02/2023 Hospitalization History Reason Date(Month/Year) surgery
[2025-07-07 14:38] LABS: Alanine Aminotransferase 13 U/L (0-41); Albumin Level 4.4 g/dL (3.5-5.2); Alkaline Phosphatase 99 U/L (40-130); Anion Gap 18.6 (5-19); Aspartate Amino Transferase 14 U/L (0-40); Blood Urea Nitrogen 21 mg/dL (8-23); Calcium 9.8 mg/dL (8.5-10.5); Carbon Dioxide 23 mmol/L (22-29); Chloride 95 mmol/L (98-107); Creatinine Clr Calc Pharmacy 38.8958; Globulin 3.3 g/dL (1.3-4.6); Glucose 115 mg/dL (65-115); Osmolality Calculated 274 mOsm/kg (285-295); Sodium 130 mmol/L (136-145); Total Protein 7.7 g/dL (6.6-8.7)
--- NOTE | 2025-07-07 14:38 | W.ED.MALEGU ---
HPI - Male Genitourinary General: Chief complaint: Urogenital-Male Stated complaint: Abd pain Time Seen by Provider: 07/07/25 14:17 Related Data Home Medications ?Medication ?Instructions ?Recorded ?Confirmed atorvastatin 20 mg tablet 20 mg PO QPM 01/15/20 03/09/25 budesonide-formoterol HFA 160 2 puff inhalation Q12H 04/07/22 03/09/25 mcg-4.5 mcg/actuation aerosol inhaler (Symbicort) albuterol sulfate 90 mcg/actuation 2 puff inhalation Q6H PRN 01/23/23 03/09/25 aerosol inhaler Shortness Of Breath Or Wheezing aspirin 81 mg tablet,delayed 81 mg PO QPM 01/23/23 03/09/25 release ipratropium 20 mcg-albuterol 100 1 puff inhalation BID shortness of 01/23/23 03/09/25 mcg/actuation mist for inhalation breath (Combivent Respimat) sertraline 50 mg tablet 50 mg PO DAILY 02/04/23 03/09/25 amiodarone 200 mg tablet 200 mg PO DAILY 01/30/24 03/09/25 potassium chloride 20 mEq 40 meq PO DAILY 01/30/24 03/09/25 tablet,extended release cyanocobalamin (vitamin B-12) 250 250 mcg PO DAILY 08/21/24 03/09/25 mcg tablet (Vitamin B-12) Previous Rx's ?Medication ?Instructions ?Recorded ipratropium 0.5 mg-albuterol 3 mg 3 ml inhalation QID PRN shortness 02/21/23 (2.5 mg base)/3 mL nebulization of breath or wheezing #180 mL soln ciprofloxacin HCl 500 mg tablet 500 mg PO Q12H #14 tabs 04/20/25 Allergies Allergy/AdvReac Type Severity Reaction Status Date / Time baclofen Allergy Unknown Verified 03/09/25 15:16 carisoprodol Allergy Unknown Verified 03/09/25 15:16 cyclobenzaprine Allergy Unknown Verified 03/09/25 15:16 iodine Allergy Unknown Verified 03/09/25 15:16 metaxalone Allergy Unknown Verified 03/09/25 15:16 methocarbamol Allergy Unknown Verified 03/09/25 15:16 orphenadrine Allergy Unknown Verified 03/09/25 15:16 PFSH ED PFSH: Medical History (Updated 04/28/25 @ 00:00 by LYNETTE Dow) Paulino catheter in place Ischemic cardiomyopathy Atrial fibrillation HTN (hypertension) CAD (coronary artery disease) Acute exacerbation of CHF (congestive heart failure) Hypoxia Acute anemia Pseudo-obstruction of colon Bowel obstruction Peripheral vascular disease Severe distal aortic disease, aortic aneurysm Encounter for smoking cessation counseling Goals of care, counseling/discussion Hypokalemia Abdominal pain COPD (chronic obstructive pulmonary disease) Shortness of breath Acute hypokalemia Bladder outlet obstruction Acute urinary retention Preoperative clearance Hx of retinal detachment Surgical History Hx of colectomy S/P coronary artery stent placement (~2013) S/P cataract surgery Family History Father CAD (coronary artery disease) Lung disease Family/Other CAD (coronary artery disease) Grandfather CAD (coronary artery disease) Social History Smoking and tobacco/nicotine status: current every day tobacco/nicotine user cigarettes Alcohol intake: current Alcohol intake frequency: other Substance/Drug Use: never Course Vital Signs: Vital signs: Vital Signs Pulse Rate 81 07/07/25 13:24 Respiratory Rate 18 07/07/25 13:24 Blood Pressure 92/56 07/07/25 13:24 Pulse Oximetry 98 07/07/25 13:24 Oxygen Delivery Me thod Room Air 07/07/25 13:24 MDM - Male Lab Data 07/07/25 14:12 07/07/25 14:12 Laboratory Results WBC 15.49 10^3/uL (3.29-11.43) H 07/07/25 14:12 RBC 5.37 10^6/uL (3.85-5.65) 07/07/25 14:12 Hgb 16.60 g/dL (11.27-16.99) 07/07/25 14:12 Hct 51.0 % (37-53) 07/07/25 14:12 MCV 95.0 fl (82-101) 07/07/25 14:12 MCH 30.9 pg (27-33) 07/07/25 14:12 MCHC 32.5 g/dL (30-55) 07/07/25 14:12 RDW 12.7 % (12.1-15.1) 07/07/25 14:12 Plt Count 389 10^3/cmm (157-399) 07/07/25 14:12 MPV 9.3 fL (7.4-10.4) 07/07/25 14:12 Neut % (Auto) 85.7 % 07/07/25 14:12 Lymph % (Auto) 6.1 % 07/07/25 14:12 [place] % (Auto) 6.3 % 07/07/25 14:12 Eos % (Auto) 0.9 % 07/07/25 14:12 Baso % (Auto) 0.3 % 07/07/25 14:12 Neut # (Auto) 13.27 10^3/uL (1.8-7.7) H 07/07/25 14:12 Lymph # (Auto) 1.0 10^3/uL (0.8-4.8) 07/07/25 14:12 [place] # (Auto) 1.0 10^3/uL (0.2-0.9) H 07/07/25 14:12 Eos # (Auto) 0.1 10^3/uL (0.0-0.8) 07/07/25 14:12 Baso # (Auto) 0.1 10^3/uL (0.0-0.1) 07/07/25 14:12 Nucleated RBC % (auto) 0 % 07/07/25 14:12 Nucleated RBCs # 0.0 /100WBC 07/07/25 14:12 Discharge Plan Discharge Condition: Stable Prescriptions: No Action atorvastatin 20 mg tablet 20 mg PO QPM budesonide-formoterol [Symbicort] 160-4.5 mcg/actuation HFA aerosol inhaler 2 puff inhalation Q12H amiodarone 200 mg tablet 200 mg PO DAILY potassium chloride 20 mEq tablet extended release 40 meq PO DAILY sertraline 50 mg Tablet 50 mg PO DAILY ciprofloxacin HCl 500 mg tablet 500 mg PO Q12H Qty: 14 0RF aspirin 81 mg Tablet,Delayed Release (Dr/Ec) 81 mg PO QPM albuterol sulfate 90 mcg/actuation HFA aerosol inhaler 2 puff INHALATION Q6H PRN (Reason: Shortness Of Breath Or Wheezing) Combivent Respimat 20-100 mcg/actuation mist 1 puff INHALATION BID ipratropium-albuterol 0.5 mg-3 mg(2.5 mg base)/3 mL solution for nebulization 3 ml inhalation QID PRN (Reason: shortness of breath or wheezing) Qty: 180 0RF cyanocobalamin (vitamin B-12) [Vitamin B-12] 250 mcg Tablet 250 mcg PO DAILY Referrals: Margie Orozco FNP [Primary Care Provider, Unknown] Print Language: [place] Coding Level of Care Code ED Wire Brusher for Uteg Jovanna
[2025-07-07 14:43] LABS: Potassium 6.6 mmol/L (3.5-5.1)
--- NOTE | 2025-07-07 14:46 | CT_ITS ---
WS: [id number] CT ABDOMEN AND PELVIS NONCONTRAST HISTORY: change in ostomy output; elevated creat-suprapubic cath TECHNIQUE: Imaging performed through the abdomen and pelvis. Coronal and sagittal reformats are submitted. All CT scans at [facility] use at least one of these dose optimization techniques: automated exposure control; mA and/or kV adjustment per patient size (includes targeted exams where dose is matched to clinical indication); or iterative reconstruction. DLP: 254.52 mGy.cm COMPARISON: 08/21/2024 Lower thorax: Chronic emphysematous changes at the lung bases. Liver: Normal size liver. No mass or bile duct dilatation. Gallbladder: Normally distended. Cholelithiasis without acute cholecystitis. Pancreas: Normal size and attenuation. Normal pancreatic duct. No pancreatitis or mass. Spleen: Normal size with granulomata. Adrenal glands: Normal. No mass. Right kidney: Normal size kidney. No renal obstruction. Patient has known previously described cyst. Left kidney: Known previously described cyst. No obstruction. Aorta: Abdominal aortic aneurysm is reidentified. Aneurysm is fusiform extending over a length of 9.7 cm. Maximum transverse diameter 5.1 cm which is similar to the prior study of 08/21/2024. No para-aortic fluid collection or hematoma. No free fluid, intraperitoneal air or significant lymphadenopathy. GI tract: Stomach is nondistended. Fluid-filled small bowel loops. Status post partial colectomy. Colectomy sutures noted deep in the pelvis. Increasing diameter of the small bowel and portions of the colon. Decompression of the loop extending into the colostomy. Site of the obstruction is not apparent but it does appear to be distal. Abdominal wall: No hernia. LEFT lower quadrant ostomy site. Pelvis: Suprapubic catheter. Urinary bladder is not distended. There are new bladder calcifications that were not present on the prior study. Osseous structures: Unremarkable. CT/CT abdomen pelvis wo con [id number] IMPRESSION: 1. Increasing small bowel and colon distention with fluid and fecal material. Patient is status post partial colectomy. LEFT lower quadrant ostomy site. Obst ruction is proximal to the ostomy. At the ostomy there is a small caliber loop of bowel. Site of the obstruction is not apparent. 2. No free air or free fluid. 3. Stable large abdominal aortic aneurysm at 5.1 cm. 4. Suprapubic Paulino catheter unchanged. The bladder is not distended. Bladder calcifications are noted which were not present on the prior study. No renal ob struction or perinephric stranding. 5. Cholelithiasis without acute cholecystitis. 6. Extensive calcification of the aorta and iliac arteries.
[2025-07-07 14:48] LABS: Lactic Sepsis W/Reflex 1.0 mmol/L (0.5-2.2)
--- NOTE | 2025-07-07 14:49 | W.ED.ABDPA2 ---
Documented by User: ADAN Torrez 07/07/25 16:28 HPI - Abdominal Pain General: Chief Complaint: Urogenital-Male Stated Complaint: Abd pain Time Seen by Provider: 07/07/25 14:17 Source: patient Mode of arrival: ambulatory Limitations: no limitations History of Present Illness: Patient is a 74-year-old male with a complex past medical history including subtotal colectomy due to bowel ischemia and subsequent episodes of small bowel obstruction along with chronic bladder outlet obstruction with a chronic suprapubic catheter here for complaints of abdominal pain and abnormal output through his ostomy. Patient states yesterday he was not having much out but then feels like it exploded and since then he has had excessive amounts accompanied with abdominal pain. He has also noted blood in his leg bag from his suprapubic catheter. He does feel like this is continuing to drain. He has not been running fevers. He states he has not ate or drink much over the past day or two. He has had a few episodes of vomiting. MD elicited complaint: abdominal pain Pertinent past history: other (subtotal colectomy, chronic suprapubic ybarra) Onset (ago): day(s) Pain Consistency: constant Location: Periumbilical Severity: severe Quality: cramping and sharp Migration to: no migration Exacerbating factors: nothing Relieving factors: nothing Associated Symptoms: Reports vomiting and other (reports change in ostomy output); Denies chills, fever(s), heartburn, hematochezia, melena, nausea and syncope Related Data Home Medications ?Medication ?Instructions ?Recorded ?Confirmed atorvastatin 20 mg tablet 20 mg PO QPM 01/15/20 07/07/25 budesonide-formoterol HFA 160 2 puff inhalation Q12H 04/07/22 07/07/25 mcg-4.5 mcg/actuation aerosol inhaler (Symbicort) albuterol sulfate 90 mcg/actuation 2 puff inhalation Q6H PRN 01/23/23 07/07/25 aerosol inhaler Shortness Of Breath Or Wheezing aspirin 81 mg tablet,delayed 81 mg PO QPM 01/23/23 07/07/25 release ipratropium 20 mcg-albuterol 100 1 puff inhalation BID shortness of 01/23/23 07/07/25 mcg/actuation mist for inhalation breath (Combivent Respimat) sertraline 50 mg tablet 50 mg PO DAILY 02/04/23 07/07/25 amiodarone 200 mg tablet 200 mg PO DAILY 01/30/24 07/07/25 potassium chloride 20 mEq 20 meq PO .QOD 01/30/24 07/07/25 tablet,extended release cyanocobalamin (vitamin B-12) 250 250 mcg PO DAILY 08/21/24 07/07/25 mcg tablet (Vitamin B-12) apixaban 5 mg tablet (Eliquis) 5 mg PO BID 07/07/25 07/07/25 Previous Rx's ?Medication ?Instructions ?Recorded ipratropium 0.5 mg-albuterol 3 mg 3 ml inhalation QID PRN shortness 02/21/23 (2.5 mg base)/3 mL nebulization of breath or wheezing #180 mL soln Allergies Allergy/AdvReac Type Severity Reaction Status Date / Time baclofen Allergy Unknown Verified 03/09/25 15:16 carisoprodol Allergy Unknown Verified 03/09/25 15:16 cyclobenzaprine Allergy Unknown Verified 03/09/25 15:16 iodine Allergy Unknown Verified 03/09/25 15:16 metaxalone Allergy Unknown Verified 03/09/25 15:16 methocarbamol Allergy Unknown Verified 03/09/25 15:16 orphenadrine Allergy Unknown Verified 03/09/25 15:16 Review of Systems Const: Reports: other (weakness); Denies: fever(s), chills, body aches, fatigue or malaise Eyes: Denies: change in vision or blurry vision Card: Denies: chest pain, palpitations, irregular heart rhythm, lightheadedness, syncope or dyspnea on exertion Resp: Denies: dyspnea, productive cough or pain on inspiration GI: Reports: abdominal pain, vomiting and other (reports change in ostomy output); Denies: nausea, heartburn, hematochezia or melena : Reports: other (blood in suprapubic cath bag-reports seems to be draining normally); Denies: flank pain Musc: Denies: neck pain, back pain or joint pain Skin/Breast: Denies: rash Neuro: Reports: other (generalized weakness); Denies: headache(s), numbness in extremities or sensory changes PFSH ED PFSH: Medical History Ybarra catheter in place Ischemic cardiomyopathy Atrial fibrillation HTN (hypertension) CAD (coronary artery disease) Acute exacerbation of CHF (congestive heart failure) Hypoxia Acute anemia Pseudo-obstruction of colon Bowel obstruction Peripheral vascular disease Severe distal aortic disease, aortic aneurysm Encounter for smoking cessation counseling Goals of care, counseling/discussion Hypokalemia Abdominal pain COPD (chronic obstructive pulmonary disease) Shortness of breath Acute hypokalemia Bladder outlet obstruction Acute urinary retention Preoperative clearance Hx of retinal detachment Surgical History Hx of colectomy S/P coronary artery stent placement (~2013) S/P cataract surgery Family History Father CAD (coronary artery disease) Lung disease Family/Other CAD (coronary artery disease) Grandfather CAD (coronary artery disease) Social History Smoking and tobacco/nicotine status: current every day tobacco/nicotine user cigarettes Alcohol intake: current Alcohol intake frequency: other Substance/Drug Use: never Physical Exam Const: COMMON NORMALS: no acute distress, patient oriented x3, no limitations, alert and well nourished GENERAL APPEARANCE: cooperative, disheveled and frail appearing ORIENTATION/CONSCIOUSNESS: Yes awake, Yes oriented to person, Yes oriented to place and Yes oriented to time HENMT: COMMON NORMALS: normocephalic and atraumatic HEAD & SCALP: normal to inspection, normocephalic and atraumatic Neck/C-Spine: COMMON NORMALS: full ROM, no lymphadenopathy, supple and no meningeal signs Chest: COMMONS NORMALS: normal inspection of the chest Resp: COMMON NORMALS: normal respiratory effort and clear to auscultation bilaterally AUSCULTATION: clear to auscultation bilaterally Cardio: COMMON NORMALS: regular rate and regular rhythm RATE: regular rate RHYTHM: regular rhythm GI: COMMON NORMALS: Soft to palpation, No hepatosplenomegaly present and no masses INSPECTION: Yes other (ostomy, suprapubic catheter) AUSCULTATION: Yes Hypoactive bowel sounds present PALPATION: Yes Soft to palpation, Yes Tenderness to palpation present (GI) (near periumbilical region) and Yes No hepatosplenomegaly present : COMMON NORMALS: Yes no CVA tenderness BLADDER/KIDNEY EXAM: Yes no CVA tenderness Back/Pelvis: COMMON NORMALS: no CVA tenderness and thoracic and lumbar spine normal to inspection Extremity: COMMON NORMALS: normal to inspection GENERAL: Yes normal exam except as noted Neuro: CARLO COMA SCALE: document GCS findings Carlo coma scale eye opening: Spontaneous [place] coma scale verbal response: Orientated [place] coma scale motor response: Obey commands Carlo coma scale total score: 15 COMMON NORMALS: patient oriented x3, moves all extremities, no focal motor deficits and no sensory deficits noted SENSORIUM/ORIENTATION: Yes alert, Yes oriented to person, Yes oriented to place and Yes oriented to time MENINGEAL SIGNS: Yes no meningeal signs Skin: COMMON NORMALS: no rashes or lesions noted GENERAL SKIN EXAM: no rashes or lesions noted Course Consultations: Consultation #1: Dr. Arrieta-requests NG tube and will consult on patient Consultation #2: Dr. Ortega-recommending 500ml D5, additional albuterol 2.5mg q 20 mins x 3, and another gram of calcium gluconate Vital Signs: Vital signs: Vital Signs Temperature 96.6 F L 07/07/25 15:03 Pulse Rate 74 07/07/25 16:43 Respiratory Rate 16 07/07/25 16:43 Blood Pressure 153/87 07/07/25 15:48 Pulse Oximetry 96 07/07/25 16:43 Oxygen Delivery Me thod Room Air 07/07/25 16:43 MDM - Abdominal Pain Medical Decision Making Patient is 74-year-old male here with a main complaint of abdominal pain and changes in his ostomy output. Patient was found to have a small bowel obstruction on his CT scan. I have consulted with general surgeon, but Dr. Arrieta who is recommending NG tube and will consult on patient. His vital signs are stable. He does have chronic bladder outlet obstruction. He does have a chronic suprapubic Ybarra. This seems to be draining appropriately. His bladder is not distended on CT scan. Patient does have an elevated creatinine to 1.5 but no evidence for a postrenal obstruction. Labs showing a critically high potassium at 6.6. He does have EKG changes with peaked T waves. Patient was given calcium gluconate, albuterol, insulin/dextrose. Will hold off on additional GI meds for hyperkalemia treatment due to his known bowel obstruction. I did chart critical care time due to treatment of critically high hyperkalemia in the setting of a symptomatic patient with acute EKG changes. Dr. Fiore aware of patient and agrees with care here in the emergency department. I have spoken to hospitalist Dr. Ortega who will admit to ICU. I am still waiting on a UA at this time. Differential Diagnosis Likely abdominal pain and small bowel obstruction Medical Records I reviewed the patient's medical records. Lab Data I reviewed the patient's lab results. 07/07/25 14:12 07/07/25 14:12 Labs/Radiology: Radiology Impressions Abdomen/Pelvis CT 07/07/25 14:46 IMPRESSION: 1. Increasing small bowel and colon distention with fluid and fecal material. Patient is status post partial colectomy. LEFT lower quadrant ostomy site. Obstruction is proximal to the ostomy. At the ostomy there is a small caliber loop of bowel. Site of the obstruction is not apparent. 2. No free air or free fluid. 3. Stable large abdominal aortic aneurysm at 5.1 cm. 4. Suprapubic Ybarra catheter unchanged. The bladder is not distended. Bladder calcifications are noted which were not present on the prior study. No renal obstruction or perinephric stranding. 5. Cholelithiasis without acute cholecystitis. 6. Extensive calcification of the aorta and iliac arteries. Laboratory Results WBC 15.49 10^3/uL (3.29-11.43) H 07/07/25 14:12 RBC 5.37 10^6/uL (3.85-5.65) 07/07/25 14:12 Hgb 16.60 g/dL (11.27-16.99) 07/07/25 14:12 Hct 51.0 % (37-53) 07/07/25 14:12 MCV 95.0 fl (82-101) 07/07/25 14:12 MCH 30.9 pg (27-33) 07/07/25 14:12 MCHC 32.5 g/dL (30-55) 07/07/25 14:12 RDW 12.7 % (12.1-15.1) 07/07/25 14:12 Plt Count 389 10^3/cmm (157-399) 07/07/25 14:12 MPV 9.3 fL (7.4-10.4) 07/07/25 14:12 Neut % (Auto) 85.7 % 07/07/25 14:12 Lymph % (Auto) 6.1 % 07/07/25 14:12 [place] % (Auto) 6.3 % 07/07/25 14:12 Eos % (Auto) 0.9 % 07/07/25 14:12 Baso % (Auto) 0.3 % 07/07/25 14:12 Neut # (Auto) 13.27 10^3/uL (1.8-7.7) H 07/07/25 14:12 Lymph # (Auto) 1.0 10^3/uL (0.8-4.8) 07/07/25 14:12 [place] # (Auto) 1.0 10^3/uL (0.2-0.9) H 07/07/25 14:12 Eos # (Auto) 0.1 10^3/uL (0.0-0.8) 07/07/25 14:12 Baso # (Auto) 0.1 10^3/uL (0.0-0.1) 07/07/25 14:12 Nucleated RBC % (auto) 0 % 07/07/25 14:12 Nucleated RBCs # 0.0 /100WBC 07/07/25 14:12 Sodium 130 mmol/L (136-145) L 07/07/25 14:12 Potassium 6.6 mmol/L (3.5-5.1) H* 07/07/25 14:12 Chloride 95 mmol/L (98-107) L 07/07/25 14:12 Carbon Dioxide 23 mmol/L (22-29) 07/07/25 14:12 Anion Gap 18.6 (5-19) 07/07/25 14:12 BUN 21 mg/dL (8-23) 07/07/25 14:12 Creatinine 1.5 mg/dL (0.7-1.2) H 07/07/25 14:12 GFR Calculation Not Reportable 07/07/25 14:12 Glucose 115 mg/dL (65-115) 07/07/25 14:12 Calculated Osmolality 274 mOsm/kg (285-295) L 07/07/25 14:12 Lactic Acid 1.0 mmol/L (0.5-2.2) 07/07/25 14:12 Calcium 9.8 mg/dL (8.5-10.5) 07/07/25 14:12 Magnesium 2.3 mg/dL (1.7-2.3) 07/07/25 14:12 Total Bilirubin 0.6 mg/dL (0.15-1.2) 07/07/25 14:12 AST 14 U/L (0-40) 07/07/25 14:12 ALT 13 U/L (0-41) 07/07/25 14:12 Alkaline Phosphatase 99 U/L (40-130) 07/07/25 14:12 Total Protein 7.7 g/dL (6.6-8.7) 07/07/25 14:12 Albumin 4.4 g/dL (3.5-5.2) 07/07/25 14:12 Globulin 3.3 g/dL (1.3-4.6) 07/07/25 14:12 All radiology interpretation(s) finalized by discharge Critical Care Time Critical Care Time: Critical Care Time: Yes Total Critical Care Time: 15 Attestation: This case had a high probability of a clinically significant, sudden, or life threatening deterioration of this patient's condition which required my full and direct attention, intervention and personal management. Discharge Plan Discharge Patient Disposition: Admitted As Inpatient Clinical Impression: Small bowel obstruction, Hx of colectomy, Acute hyperkalemia, Chronic suprapubic catheter, PRESLEY (acute kidney injury) Condition: Stable Coding Level of Care Code ED Gauge Machine Operator for Chg Fwd Documented by User: Katheryn Fiore MD 07/07/25 16:50 HPI - Abdominal Pain General: Chief Complaint: Urogenital-Male Stated Complaint: Abd pain Time Seen by Provider: 07/07/25 14:17 Related Data Home Medications ?Medication ?Instructions ?Recorded ?Confirmed atorvastatin 20 mg tablet 20 mg PO QPM 01/15/20 07/07/25 budesonide-formoterol HFA 160 2 puff inhalation Q12H 04/07/22 07/07/25 mcg-4.5 mcg/actuation aerosol inhaler (Symbicort) albuterol sulfate 90 mcg/actuation 2 puff inhalation Q6H PRN 01/23/23 07/07/25 aerosol inhaler Shortness Of Breath Or Wheezing aspirin 81 mg tablet,delayed 81 mg PO QPM 01/23/23 07/07/25 release ipratropium 20 mcg-albuterol 100 1 puff inhalation BID shortness of 01/23/23 07/07/25 mcg/actuation mist for inhalation breath (Combivent Respimat) sertraline 50 mg tablet 50 mg PO DAILY 02/04/23 07/07/25 amiodarone 200 mg tablet 200 mg PO DAILY 01/30/24 07/07/25 potassium chloride 20 mEq 20 meq PO .QOD 01/30/24 07/07/25 tablet,extended release cyanocobalamin (vitamin B-12) 250 250 mcg PO DAILY 08/21/24 07/07/25 mcg tablet (Vitamin B-12) apixaban 5 mg tablet (Eliquis) 5 mg PO BID 07/07/25 07/07/25 Previous Rx's ?Medication ?Instructions ?Recorded ipratropium 0.5 mg-albuterol 3 mg 3 ml inhalation QID PRN shortness 02/21/23 (2.5 mg base)/3 mL nebulization of breath or wheezing #180 mL soln Allergies Allergy/AdvReac Type Severity Reaction Status Date / Time baclofen Allergy Unknown Verified 03/09/25 15:16 carisoprodol Allergy Unknown Verified 03/09/25 15:16 cyclobenzaprine Allergy Unknown Verified 03/09/25 15:16 iodine Allergy Unknown Verified 03/09/25 15:16 metaxalone Allergy Unknown Verified 03/09/25 15:16 methocarbamol Allergy Unknown Verified 03/09/25 15:16 orphenadrine Allergy Unknown Verified 03/09/25 15:16 PFSH ED PFSH: Medical History Ybarra catheter in place Ischemic cardiomyopathy Atrial fibrillation HTN (hypertension) CAD (coronary artery disease) Acute exacerbation of CHF (congestive heart failure) Hypoxia Acute anemia Pseudo-obstruction of colon Bowel obstruction Peripheral vascular disease Severe distal aortic disease, aortic aneurysm Encounter for smoking cessation counseling Goals of care, counseling/discussion Hypokalemia Abdominal pain COPD (chronic obstructive pulmonary disease) Shortness of breath Acute hypokalemia Bladder outlet obstruction Acute urinary retention Preoperative clearance Hx of retinal detachment Surgical History Hx of colectomy S/P coronary artery stent placement (~2013) S/P cataract surgery Family History Father CAD (coronary artery disease) Lung disease Family/Other CAD (coronary artery disease) Grandfather CAD (coronary artery disease) Social History Smoking and tobacco/nicotine status: current every day tobacco/nicotine user cigarettes Alcohol intake: current Alcohol intake frequency: other Substance/Drug Use: never Physical Exam Neuro: CARLO COMA SCALE: document GCS findings [place] coma scale total score: 15 Course Vital Signs: Vital signs: Vital Signs Temperature 96.6 F L 07/07/25 15:03 Pulse Rate 74 07/07/25 16:43 Respiratory Rate 16 07/07/25 16:43 Blood Pressure 153/87 07/07/25 15:48 Pulse Oximetry 96 07/07/25 16:43 Oxygen Delivery Me thod Room Air 07/07/25 16:43 MDM - Abdominal Pain Medical Decision Making Patient is 74-year-old male here with a main complaint of abdominal pain and changes in his ostomy output. Patient was found to have a small bowel obstruction on his CT scan. I have consulted with general surgeon, but Dr. Arrieta who is recommending NG tube and will consult on patient. His vital signs are stable. He does have chronic bladder outlet obstruction. He does have a chronic suprapubic Ybarra. This seems to be draining appropriately. His bladder is not distended on CT scan. Patient does have an elevated creatinine to 1.5 but no evidence for a postrenal obstruction. Labs showing a critically high potassium at 6.6. He does have EKG changes with peaked T waves. Patient was given calcium gluconate, albuterol, insulin/dextrose. Will hold off on additional GI meds for hyperkalemia treatment due to his known bowel obstruction. I did chart critical care time due to treatment of critically high hyperkalemia in the setting of a symptomatic patient with acute EKG changes. Dr. Fiore aware of patient and agrees with care here in the emergency department. I have spoken to hospitalist Dr. Ortega who will admit to ICU. I am still waiting on a UA at this time. The case was discussed with the midlevel provider. Evaluation and management service: I agree with the evaluation and management decisions made in this patient's care. Results interpretation: I agree with the study interpretation in this patient's care, I agree with the documentation of the study interpretation. Lab Data 07/07/25 14:12 07/07/25 14:12 Labs/Radiology: Radiology Impressions Abdomen/Pelvis CT 07/07/25 14:46 IMPRESSION: 1. Increasing small bowel and colon distention with fluid and fecal material. Patient is status post partial colectomy. LEFT lower quadrant ostomy site. Obstruction is proximal to the ostomy. At the ostomy there is a small caliber loop of bowel. Site of the obstruction is not apparent. 2. No free air or free fluid. 3. Stable large abdominal aortic aneurysm at 5.1 cm. 4. Suprapubic Ybarra catheter unchanged. The bladder is not distended. Bladder calcifications are noted which were not present on the prior study. No renal obstruction or perinephric stranding. 5. Cholelithiasis without acute cholecystitis. 6. Extensive calcification of the aorta and iliac arteries. Laboratory Results WBC 15.49 10^3/uL (3.29-11.43) H 07/07/25 14:12 RBC 5.37 10^6/uL (3.85-5.65) 07/07/25 14:12 Hgb 16.60 g/dL (11.27-16.99) 07/07/25 14:12 Hct 51.0 % (37-53) 07/07/25 14:12 MCV 95.0 fl (82-101) 07/07/25 14:12 MCH 30.9 pg (27-33) 07/07/25 14:12 MCHC 32.5 g/dL (30-55) 07/07/25 14:12 RDW 12.7 % (12.1-15.1) 07/07/25 14:12 Plt Count 389 10^3/cmm (157-399) 07/07/25 14:12 MPV 9.3 fL (7.4-10.4) 07/07/25 14:12 Neut % (Auto) 85.7 % 07/07/25 14:12 Lymph % (Auto) 6.1 % 07/07/25 14:12 [place] % (Auto) 6.3 % 07/07/25 14:12 Eos % (Auto) 0.9 % 07/07/25 14:12 Baso % (Auto) 0.3 % 07/07/25 14:12 Neut # (Auto) 13.27 10^3/uL (1.8-7.7) H 07/07/25 14:12 Lymph # (Auto) 1.0 10^3/uL (0.8-4.8) 07/07/25 14:12 [place] # (Auto) 1.0 10^3/uL (0.2-0.9) H 07/07/25 14:12 Eos # (Auto) 0.1 10^3/uL (0.0-0.8) 07/07/25 14:12 Baso # (Auto) 0.1 10^3/uL (0.0-0.1) 07/07/25 14:12 Nucleated RBC % (auto) 0 % 07/07/25 14:12 Nucleated RBCs # 0.0 /100WBC 07/07/25 14:12 Sodium 130 mmol/L (136-145) L 07/07/25 14:12 Potassium 6.6 mmol/L (3.5-5.1) H* 07/07/25 14:12 Chloride 95 mmol/L (98-107) L 07/07/25 14:12 Carbon Dioxide 23 mmol/L (22-29) 07/07/25 14:12 Anion Gap 18.6 (5-19) 07/07/25 14:12 BUN 21 mg/dL (8-23) 07/07/25 14:12 Creatinine 1.5 mg/dL (0.7-1.2) H 07/07/25 14:12 GFR Calculation Not Reportable 07/07/25 14:12 Glucose 115 mg/dL (65-115) 07/07/25 14:12 Calculated Osmolality 274 mOsm/kg (285-295) L 07/07/25 14:12 Lactic Acid 1.0 mmol/L (0.5-2.2) 07/07/25 14:12 Calcium 9.8 mg/dL (8.5-10.5) 07/07/25 14:12 Magnesium 2.3 mg/dL (1.7-2.3) 07/07/25 14:12 Total Bilirubin 0.6 mg/dL (0.15-1.2) 07/07/25 14:12 AST 14 U/L (0-40) 07/07/25 14:12 ALT 13 U/L (0-41) 07/07/25 14:12 Alkaline Phosphatase 99 U/L (40-130) 07/07/25 14:12 Total Protein 7.7 g/dL (6.6-8.7) 07/07/25 14:12 Albumin 4.4 g/dL (3.5-5.2) 07/07/25 14:12 Globulin 3.3 g/dL (1.3-4.6) 07/07/25 14:12 Discharge Plan Discharge Patient Disposition: Admitted As Inpatient Clinical Impression: Small bowel obstruction, Hx of colectomy, Acute hyperkalemia, Chronic suprapubic catheter, PRESLEY (acute kidney injury) Condition: Stable Coding Level of Care Code ED Gauge 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
--- NOTE | 2025-07-07 14:55 | ECG_ITS ---
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 [id number]
[2025-07-07 15:01] LABS: Magnesium 2.3 mg/dL (1.7-2.3)
--- NOTE | 2025-07-07 15:15 | XRR_ITS ---
PROCEDURE INFORMATION: Exam: XR Chest Exam date and time: 07/07/2025 4:02 PM Age: 74 years old Clinical indication: Other: Weakness; Prior surgery; Surgery date: 6+ months; Surgery type: Cardiac stents TECHNIQUE: Imaging protocol: Radiologic exam of the chest. Views: 1 view. COMPARISON: CR (CHEST, ) 08/27/2024 6:05 PM FINDINGS: Lungs: Unremarkable. No consolidation. Pleural spaces: Unremarkable. No pleural effusion. No pneumothorax. Heart/Mediastinum: Unremarkable. No cardiomegaly. Bones/joints: Unremarkable. XR/XR chest 1V portable [id number] IMPRESSION: No acute findings.
[2025-07-07] MEDS: ondansetron 2 mg/ML SDV 2 mL 4 MG IVP (15:39)
[2025-07-07] MEDS: morphine 4 mg/mL SDV 1 mL IVP ×2 (15:40→19:56)
[2025-07-07] MEDS: calcium gluconate 0.1 gm/mL 10% SDV 10mL 1 GM IVP ×2 (15:44→17:48)
--- NOTE | 2025-07-07 17:03 | XRR_ITS ---
PROCEDURE INFORMATION: Exam: XR Chest Exam date and time: 07/07/2025 5:05 PM Age: 74 years old Clinical indication: Device placement; Ng tube; Additional info: Post ng tube placement TECHNIQUE: Imaging protocol: Radiologic exam of the chest. Views: 1 view. COMPARISON: CR XR chest 1V portable [id number] 07/07/2025 4:02 PM FINDINGS: Tubes, catheters and devices: Gastric tube terminus projects at the expected area of the stomach. Lungs: No large focal consolidation. Pleural spaces: No large pleural effusion. No distinct pneumothorax. Heart/Mediastinum: Cardiomediastinal silhouette is midline and stable in size. Bones/joints: Osseous structures are unchanged. XR/XR chest 1V portable [id number] IMPRESSION: 1. Gastric tube terminus projects at the expected area of the stomach. 2. No acute cardiopulmonary findings.
--- NOTE | 2025-07-07 17:31 | PM.CONSULT ---
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 At the time I offered him surgery and in the operative findings the small bowel to sigmoid anastomosis was twisted therefore I ended up resecting the segment and giving him an end ileostomy. He has been doing good with that but over the last 24 to 48 hours he has noticed decreased ostomy output abdominal pain nausea and vomiting. He presented to the ER where a CT scan of the abdomen pelvis showed evidence of possible obstruction, without identifiable transition point. Of note he has been having gas and stool still on the back. Is important to note that patient has been receiving daily supplementation of potassium and upon arrival today he is hyperkalemic. Review of Systems General: Reports: 10 or more systems reviewed and unremarkable except in HPI and below Medications/Allergies Home Medications ?Medication ?Instructions ?Recorded ?Confirmed ?Last Taken ?Type atorvastatin 20 mg tablet 20 mg PO QPM 01/15/20 07/07/25 07/06/25 History budesonide-formoterol HFA 160 2 puff inhalation Q12H 04/07/22 07/07/25 07/07/25 History mcg-4.5 mcg/actuation aerosol inhaler (Symbicort) albuterol sulfate 90 mcg/actuation 2 puff inhalation Q6H PRN 01/23/23 07/07/25 01/22/23 History aerosol inhaler Shortness Of Breath Or Wheezing aspirin 81 mg tablet,delayed 81 mg PO QPM 01/23/23 07/07/25 07/06/25 History release ipratropium 20 mcg-albuterol 100 1 puff inhalation BID shortness of 01/23/23 07/07/25 07/07/25 History mcg/actuation mist for inhalation breath (Combivent Respimat) sertraline 50 mg tablet 50 mg PO DAILY 02/04/23 07/07/25 07/07/25 History ipratropium 0.5 mg-albuterol 3 mg 3 ml inhalation QID PRN shortness 02/21/23 07/07/25 Unknown Rx (2.5 mg base)/3 mL nebulization of breath or wheezing #180 mL soln amiodarone 200 mg tablet 200 mg PO DAILY 01/30/24 07/07/25 07/07/25 History potassium chloride 20 mEq 20 meq PO .QOD 01/30/24 07/07/25 07/06/25 History tablet,extended release cyanocobalamin (vitamin B-12) 250 250 mcg PO DAILY 08/21/24 07/07/25 07/07/25 History mcg tablet (Vitamin B-12) apixaban 5 mg tablet (Eliquis) 5 mg PO BID 07/07/25 07/07/25 07/07/25 History Allergies Allergy/AdvReac Type Severity Reaction Status Date / Time baclofen Allergy Unknown Verified 03/09/25 15:16 carisoprodol Allergy Unknown Verified 03/09/25 15:16 cyclobenzaprine Allergy Unknown Verified 03/09/25 15:16 iodine Allergy Unknown Verified 03/09/25 15:16 metaxalone Allergy Unknown Verified 03/09/25 15:16 methocarbamol Allergy Unknown Verified 03/09/25 15:16 orphenadrine Allergy Unknown Verified 03/09/25 15:16 Current Medications Generic Name Dose Route Start Last Admin Trade Name Freq PRN Reason Stop Dose Admin Dextrose 250 mls @ 4 mls/hr 07/07/25 15:00 07/07/25 15:56 D10w IV 4 mls/hr .Q24H MYRA Administration PFSH Acute PFSH: Medical History (Updated 07/07/25 @ 16:28 by ADAN Torrez) Paulino catheter in place Ischemic cardiomyopathy Atrial fibrillation HTN (hypertension) CAD (coronary artery disease) Acute exacerbation of CHF (congestive heart failure) Hypoxia Acute anemia Pseudo-obstruction of colon Bowel obstruction Peripheral vascular disease Severe distal aortic disease, aortic aneurysm Encounter for smoking cessation counseling Goals of care, counseling/discussion Hypokalemia Abdominal pain COPD (chronic obstructive pulmonary disease) Shortness of breath Acute hypokalemia Bladder outlet obstruction Acute urinary retention Preoperative clearance Hx of retinal detachment Surgical History (Updated 07/07/25 @ 16:28 by ADAN Torrez) Hx of colectomy S/P coronary artery stent placement (~2013) S/P cataract surgery Family History Father CAD (coronary artery disease) Lung disease Family/Other CAD (coronary artery disease) Grandfather CAD (coronary artery disease) Social History Smoking and tobacco/nicotine status: current every day tobacco/nicotine user cigarettes Alcohol intake: current Alcohol intake frequency: other Substance/Drug Use: never Vitals/I&O/Wt Last Vital Signs Temp 96.6 F L 07/07/25 15:03 Pulse 78 07/07/25 17:09 Resp 16 07/07/25 16:43 BP 130/75 07/07/25 17:09 Pulse Ox 93 07/07/25 17:09 O2 Del Method Room Air 07/07/25 17:09 07/07/25 07/07/25 07/07/25 06:59 14:59 22:59 Intake Total 1000 / 1000 Balance 1000 / 1000 Weight last 48 hrs Weight 130 lb Physical Exam GI: OTHER: Benign abdominal exam, abdomen is soft minimally tender, there are some good bowel sounds Data 07/07/25 14:12 07/07/25 14:12 A&P Assessment and plan 1. Ileostomy status: 2. Hx of colectomy: 3. Small bowel obstruction: 4. Acute hyperkalemia: 5. Chronic suprapubic catheter: Plan: After complete history, physical examination and review of all available clinical data the following is my assessment. This is a patient with multiple comorbidities who presents to the hospital with a possible small bowel obstruction after near-total colectomy with end ileostomy. Patient has been still passing gas into the bag as well as producing some fluid. I have reviewed the CT scan of the abdomen and pelvis I think that more than an mechanical obstruction it is likely due to slow intestinal transit and maybe secondary to electrolyte abnormalities, currently patient has a potassium of 6.6 upon arrival. We have placed an NG tube and procedure has been verified with imaging the plan from the surgical standpoint will be to decompress over the next 24 to 48 hours and after that I do a Gastrografin trial to evaluate intestinal transit. I do not anticipate the need of surgery at this point for the patient. I think with medical management and correction of his electrolytes he is likely to improve. He shows understanding agrees with the plan, I will continue to follow-up on a daily basis. I will request medical team to please hold the apixaban in anticipation of possible need for surgery in the near future. All other care per primary PDMP PDMP Reviewed: Not Reviewed Coding Level of Care Code Acute Code for Chg Fwd Diagnoses Ileostomy status Z93.2 Hx of colectomy Z90.49 Small bowel obstruction K56.609 Acute hyperkalemia E87.5 Chronic suprapubic catheter Z93.59
[2025-07-07 17:34] LABS: Glucose Urine UA Negative (Normal); Nitrate Urine Positive (Negative); Specific Gravity, Urine 1.005 (1.005-1.030)
[2025-07-07 17:37] LABS: Add Urine Microscopic? YES
[2025-07-07] MEDS: dextrose 5 % 500 ML IV (17:49)
[2025-07-07] MEDS: insulin regular-human 100 units/1 mL 10 UNIT IVP (17:52)
[2025-07-07 17:56] LABS: UA Slide Review UA Slide Review Perf
--- NOTE | 2025-07-07 18:00 | PM.HP ---
Providers/Chief Complaint Admitting Physician: Papo Ortega MD Primary Care Provider: GAMAL Stout Chief Complaint: Abd pain History of Present Illness As per the patient and the previous notes: Abisai Hicks is a 74 year old male with a complex past medical history including subtotal colectomy due to bowel ischemia, current smoker with history of COPD on inhalers, history of subsequent episodes of small bowel obstruction along with chronic bladder outlet obstruction with a chronic suprapubic catheter that has been regularly changed by the visiting nurse, came to ER for complaints of abdominal pain and abnormal output through his ostomy. Patient states yesterday he was not having much out but then feels like it exploded and since then he has had excessive amounts accompanied with abdominal pain. He has also noted some blood in his urinary bag attached with the suprapubic catheter. He does feel like this is continuing to drain. He has not been running fevers. He states he has not ate or drink much over the past day or two. He has had a few episodes of vomiting. The patient did not report any chest pain, chest pressure, any dizziness. There was no history of lower leg swellings. The patient was able to pass some gas through the end ileostomy site. Rest of the review of system unremarkable Review of Systems General: Reports: 10 or more systems reviewed and unremarkable except in HPI and below Medications/Allergies Home Medications ?Medication ?Instructions ?Recorded ?Confirmed ?Last Taken ?Type atorvastatin 20 mg tablet 20 mg PO QPM 01/15/20 07/07/25 07/06/25 History budesonide-formoterol HFA 160 2 puff inhalation Q12H 04/07/22 07/07/25 07/07/25 History mcg-4.5 mcg/actuation aerosol inhaler (Symbicort) albuterol sulfate 90 mcg/actuation 2 puff inhalation Q6H PRN 01/23/23 07/07/25 01/22/23 History aerosol inhaler Shortness Of Breath Or Wheezing aspirin 81 mg tablet,delayed 81 mg PO QPM 01/23/23 07/07/25 07/06/25 History release ipratropium 20 mcg-albuterol 100 1 puff inhalation BID shortness of 01/23/23 07/07/25 07/07/25 History mcg/actuation mist for inhalation breath (Combivent Respimat) sertraline 50 mg tablet 50 mg PO DAILY 02/04/23 07/07/25 07/07/25 History ipratropium 0.5 mg-albuterol 3 mg 3 ml inhalation QID PRN shortness 02/21/23 07/07/25 Unknown Rx (2.5 mg base)/3 mL nebulization of breath or wheezing #180 mL soln amiodarone 200 mg tablet 200 mg PO DAILY 01/30/24 07/07/25 07/07/25 History potassium chloride 20 mEq 20 meq PO .QOD 01/30/24 07/07/25 07/06/25 History tablet,extended release cyanocobalamin (vitamin B-12) 250 250 mcg PO DAILY 08/21/24 07/07/25 07/07/25 History mcg tablet (Vitamin B-12) apixaban 5 mg tablet (Eliquis) 5 mg PO BID 07/07/25 07/07/25 07/07/25 History Allergies Allergy/AdvReac Type Severity Reaction Status Date / Time baclofen Allergy Unknown Verified 03/09/25 15:16 carisoprodol Allergy Unknown Verified 03/09/25 15:16 cyclobenzaprine Allergy Unknown Verified 03/09/25 15:16 iodine Allergy Unknown Verified 03/09/25 15:16 metaxalone Allergy Unknown Verified 03/09/25 15:16 methocarbamol Allergy Unknown Verified 03/09/25 15:16 orphenadrine Allergy Unknown Verified 03/09/25 15:16 PFSH Acute PFSH: Medical History (Updated 07/07/25 @ 19:29 by Papo Ortega MD) COPD (chronic obstructive pulmonary disease) Paulino catheter in place Ischemic cardiomyopathy Atrial fibrillation HTN (hypertension) CAD (coronary artery disease) Acute exacerbation of CHF (congestive heart failure) Hypoxia Acute anemia Pseudo-obstruction of colon Bowel obstruction Peripheral vascular disease Severe distal aortic disease, aortic aneurysm Encounter for smoking cessation counseling Goals of care, counseling/discussion Hypokalemia Abdominal pain Shortness of breath Acute hypokalemia Bladder outlet obstruction Acute urinary retention Preoperative clearance Hx of retinal detachment Surgical History (Updated 07/07/25 @ 16:28 by ADAN Torrez) Hx of colectomy S/P coronary artery stent placement (~2013) S/P cataract surgery Family History Father CAD (coronary artery disease) Lung disease Family/Other CAD (coronary artery disease) Grandfather CAD (coronary artery disease) Social History Smoking and tobacco/nicotine status: current every day tobacco/nicotine user cigarettes Alcohol intake: current Alcohol intake frequency: other Substance/Drug Use: never Vitals/I&O/Wt Last Vital Signs Temp 96.6 F L 07/07/25 15:03 Pulse 78 07/07/25 17:09 Resp 16 07/07/25 16:43 BP 130/75 07/07/25 17:09 Pulse Ox 93 07/07/25 17:09 O2 Del Method Room Air 07/07/25 17:09 07/07/25 07/07/25 07/07/25 06:59 14:59 22:59 Intake Total 1000 / 1000 Balance 1000 / 1000 Weight last 48 hrs Weight 58.967 kg Physical Exam Narrative: General: Alert and oriented, lying comfortably without any distress HEENT: Normocephalic, atraumatic, grossly unremarkable exam Cardio: normal rate rhythm, normal S1-S2 without any murmurs, rubs, or gallops and JVD normal Respiratory: Patient having bilateral mild wheezing on both sides with equal air entry and no stridor, rhonchi, at room air without desaturation GI: Patient on NGT suction, abdomen mild distended and tender on deep palpation with midline scar, having suprapubic catheter in place attached to the urinary bag, end ileostomy working. Normal bowel sounds. Neuro: intact cranial nerves motor and sensory and cerebellar/coordination function without any focal neurological deficit Behavior: Appropriate and cooperative Extremities: Adequate palpable pulses, mild trace edema Data 07/07/25 14:12 07/07/25 18:10 A&P Assessment and plan 1. Acute hyperkalemia: Patient has been taking potassium supplements and did not check his potassium that could be the reason of his hyperkalemia along with small bowel obstruction and mild PRESLEY Continue gentle hydration Patient received treatment for hyperkalemia with insulin and dextrose water, albuterol and follow-up potassium levels were 5.7 Repeat insulin with dextrose and continue dextrose water with normal saline hydration Follow-up BMP in 4 hours Telemetry monitoring Maintain hemodynamics 2. Small bowel obstruction: Patient seen by the surgeon, on NGT suction Bowel rest N.p.o. Monitor intake and output monitoring Monitor output monitoring from the end ileostomy site 3. PRESLEY (acute kidney injury): Patient having mild PRESLEY secondary to dehydration underlying nausea and vomiting due to subacute bowel obstruction Continue gentle hydration with dextrose Monitor intake and output Monitor renal functions Correction and monitoring for electrolytes to be done accordingly Maintain normal hemodynamics 4. Atrial fibrillation: Home dose Eliquis 5 mg twice daily and amiodarone 200 mg tablet daily Monitor heart rate 5. Ischemic cardiomyopathy: Continue aspirin and atorvastatin 6. Ileostomy status: Monitor output from the ileostomy site 7. HTN (hypertension): Patient blood pressure more or less controlled and currently is n.p.o. therefore to hold on any antihypertensive medications 8. COPD (chronic obstructive pulmonary disease): Patient mildly wheezy however no respiratory distress and normal saturation at room air Continue DuoNebs as scheduled and monitor for any respiratory distress Maintain normal pulse ox with continuous monitoring as well PDMP PDMP Reviewed: Not Reviewed Attestations Medical Necessity Statement*: Abisai Hicks's hospital stay will require greater than 2 midnights for management of severe hyperkalemia and subacute bowel obstruction with surgery onboard Time Spent in Patient Care: 16 - 35 minutes (>than 50% of time spent in counselling and/or direct pt care on unit). Critical Care Time: The high probability of a clinically significant, sudden or life threatening deterioration, as referenced in this documentation, required my full and direct attention, intervention and personal management. The critical care time shown is in addition to time spent performing any reported separately billable procedures and includes the following: [x] Data and vital sign review and interpretation [x] Patient assessment, examination and intervention [x] Medication orders and management [x] Patient/Family updates as able [x] Care Coordination and Documentation. Critical Care Time (min): 35 Other Attestations: Patient condition has been discussed at length with the patient/family, I have independently reviewed the chart labs imaging/diagnostics/EKG. the goals of care and code status with the patient/family/NOK/legal desk representative, and documented accordingly. The management has been done according to the current clinical condition with respect to patient goals of care and based on recommendations/guidelines. The patient/family has been informed about the current condition and further plan of care. Agreed with the plan of care and understood without any language barrier. Every effort was made to ensure accuracy of yard switch operator. Any obvious errors or omissions should be clarified with the author of the document. Coding Level of Care Code Critical Care >/= 30 minutes Diagnoses Acute hyperkalemia E87.5 Small bowel obstruction K56.609 PRESLEY (acute kidney injury) N17.9 Atrial fibrillation I48.91 Ischemic cardiomyopathy I25.5 Ileostomy status Z93.2 HTN (hypertension) I10 COPD (chronic obstructive pulmonary disease) J44.9
[2025-07-07 18:53] LABS: Blood Urea Nitrogen 21 mg/dL (8-23); Calcium 10.1 mg/dL (8.5-10.5); Carbon Dioxide 22 mmol/L (22-29); Chloride 101 mmol/L (98-107); Creatinine Clr Calc Pharmacy 41.6740; Glucose 117 mg/dL (65-115); Osmolality Calculated 276 mOsm/kg (285-295); Sodium 131 mmol/L (136-145); Thyroid Stimulating Hormone 1.74 uIU/mL (0.27-4.20)
[2025-07-07 18:55] LABS: Anion Gap 13.7 (5-19); Potassium 5.7 mmol/L (3.5-5.1)
[2025-07-07] MEDS: piperacillin-tazobactam 3.375 GM in sodium chloride 0.9% (plus) 50 ML IV (19:26)
[2025-07-07] MEDS: metroNIDAZOLE IV 500 MG/100 ML PREMIX 100 MG IV (19:27)
[2025-07-07] MEDS: heparin 5,000 unit/mL INJ 1 mL 5000 UNIT SUBCUT (19:32)
--- NOTE | 2025-07-07 20:35 | PC.NURSE ---
This nurse took pt a gown to assist pt change into, pt refused states No I ain't wearing a damn gown, I'm already freezing to and you want me to change into a gown. I'll be fine in my clothes at least this way I can be warm.
[2025-07-07] MEDS: dextrose 5%-sod chloride 0.9% 1,000 ML 75 ML IV (20:42)
[2025-07-07 23:52] LABS: Anion Gap 15.2 (5-19); Blood Urea Nitrogen 18 mg/dL (8-23); Calcium 8.9 mg/dL (8.5-10.5); Carbon Dioxide 23 mmol/L (22-29); Chloride 101 mmol/L (98-107); Creatinine Clr Calc Pharmacy 45.1667; Glucose 119 mg/dL (65-115); Osmolality Calculated 281 mOsm/kg (285-295); Potassium 5.2 mmol/L (3.5-5.1); Sodium 134 mmol/L (136-145)
[2025-07-08] VITALS (41 sets, daily range): BP systolic 89–141; BP diastolic 50–73; PULSE 53–99; RESP 12–23; TEMP 36.3–37.2; O2SAT 86–98
[2025-07-08] MEDS: metroNIDAZOLE IV 500 MG/100 ML PREMIX 100 MG IV ×5 (00:26→23:22)
[2025-07-08] MEDS: piperacillin-tazobactam 3.375 GM in sodium chloride 0.9% (plus) 50 ML IV ×3 (02:29→18:21)
[2025-07-08] MEDS: pantoprazole 40 mg SDV IVP (04:25)
[2025-07-08] MEDS: morphine 4 mg/mL SDV 1 mL IVP (04:26)
[2025-07-08 04:34] LABS: Hematocrit 42.5 % (37-53); Hemoglobin 13.40 g/dL (11.27-16.99); Mean Corpuscular HGB Conc 31.5 g/dL (30-55); Mean Corpuscular Hemoglobin 30.3 pg (27-33); Mean Corpuscular Volume 96.2 fl (82-101); Nucleated Red Blood Cells % 0 %; Platelet Count 241 10^3/cmm (157-399); Red Blood Count 4.42 10^6/uL (3.85-5.65); White Blood Count 8.10 10^3/uL (3.29-11.43)
[2025-07-08 04:52] LABS: Alanine Aminotransferase 10 U/L (0-41); Albumin Level 3.4 g/dL (3.5-5.2); Alkaline Phosphatase 74 U/L (40-130); Aspartate Amino Transferase 13 U/L (0-40); Blood Urea Nitrogen 16 mg/dL (8-23); Calcium 8.6 mg/dL (8.5-10.5); Carbon Dioxide 22 mmol/L (22-29); Chloride 101 mmol/L (98-107); Creatinine Clr Calc Pharmacy 48.9306; Globulin 2.4 g/dL (1.3-4.6); Glucose 111 mg/dL (65-115); Osmolality Calculated 280 mOsm/kg (285-295); Sodium 134 mmol/L (136-145); Total Protein 5.8 g/dL (6.6-8.7)
[2025-07-08 05:04] LABS: Anion Gap 15.7 (5-19); Potassium 4.7 mmol/L (3.5-5.1)
--- NOTE | 2025-07-08 08:12 | P.PN_ITS ---
Subjective 2 Subjective: Doing well overnight no significant abdominal pain, unfortunately output from the ostomy and NG tube were not documented overnight. Per my discussion with nursing staff there was gas in the bag this morning. Vitals/I&O/Wt Last Vital Signs Temp 97.4 F L 07/08/25 04:00 Pulse 65 07/08/25 06:00 Resp 13 07/08/25 06:00 BP 106/52 07/08/25 06:00 Pulse Ox 97 07/08/25 06:00 O2 Del Method Nasal Cannula 07/08/25 06:00 O2 Flow Rate 2 07/08/25 06:00 07/07/25 07/08/25 07/08/25 22:59 06:59 14:59 Intake Total 1865.067 / 1865.067 200 / 2065.067 100 / 100 Output Total 450 / 450 Balance 1865.067 / 1865.067 -250 / 1615.067 100 / 100 Weight last 48 hrs Weight 132 lb 4.438 oz Weight 132 lb 4.438 oz Weight 132 lb 4.438 oz Weight 130 lb Physical Exam 2 Narrative: Benign abdominal exam the abdomen is soft nontender nondistended with good bowel sounds there are some stool in the bag Urinary Catheter Management: Suprapubic: Cath Placed During This Visit: no Reason for Continuing Indwelling Catheter: Accurate Measurement of Urinary Output in Critically Ill Patients Data 07/08/25 04:07 07/08/25 04:07 Micro: Microbiology 07/07/25 18:16 Blood Culture - Preliminary Blood SPECIMEN COLLECTED 07/07/25 18:10 Blood Culture - Preliminary Blood SPECIMEN COLLECTED A&P Assessment and plan 1. Small bowel obstruction: Plan: Patient appears to be significantly improved. Leukocytosis and hyperkalemia have resolved. NG output appears to be minimal although it is difficult to know as it was not quantified overnight. I will continue the NG tube to low intermittent suction until noon depending on the residue I will plan to do a Gastrografin trial starting at noon today. No other intervention is anticipated at this time. I will continue to monitor progression. All other management per primary PDMP PDMP Reviewed: Not Reviewed Attestations 2 Medical Necessity Statement*: Per primary Coding Level of Care Code Acute Code for [facility] Fwd Diagnoses Small bowel obstruction K56.609
[2025-07-08] MEDS: HYDROcodone-acetaminophen 5-325 mg Tablet 1 TAB PO ×2 (08:34→12:30)
[2025-07-08] MEDS: dextrose 5%-sod chloride 0.9% 1,000 ML 75 ML IV (09:53)
--- NOTE | 2025-07-08 12:07 | PM.MISC ---
Miscellaneous Note Purpose of Documentation: Update on patient care Note: No NG output during the morning, no abdominal pain abdomen soft and nontender. Gastrografin administered today at noon. I will obtain an x-ray at 4 PM and then tomorrow morning to evaluate progression of the contrast. NG tube will remain clamped patient will be out of bed and I have encouraged ambulation.
--- NOTE | 2025-07-08 13:34 | P.PN_ITS ---
Subjective 2 Subjective: Patient doing well in the morning. Output from NGT or ostomy was not documented however patient is able to pass gas from the ostomy site. He is feeling better today Vitals/I&O/Wt Last Vital Signs Temp 97.6 F 07/08/25 08:00 Pulse 68 07/08/25 11:08 Resp 17 07/08/25 11:00 BP 127/65 07/08/25 09:00 Pulse Ox 94 07/08/25 11:00 O2 Del Method Room Air 07/08/25 11:00 O2 Flow Rate 2 07/08/25 08:10 07/07/25 07/08/25 07/08/25 22:59 06:59 14:59 Intake Total 1865.067 / 1865.067 200 / 2065.067 1088.75 / 1088.75 Output Total 450 / 450 0 / 0 Balance 1865.067 / 1865.067 -250 / 0793.627 4622.75 / 1088.75 Weight last 48 hrs Weight 60 kg Weight 60 kg Weight 60 kg Weight 58.967 kg Physical Exam 2 Narrative: General: Alert and oriented, lying comfortably without any distress HEENT: Normocephalic, atraumatic, grossly unremarkable exam Cardio: normal rate rhythm, normal S1-S2 without any murmurs, rubs, or gallops and JVD normal Respiratory: Bilateral equal air entry on both sides without any wheezing crackles or any stridor. GI: Patient on NGT suction, abdomen distention is better mild tenderness of deep palpation, midline scar, having suprapubic catheter in place attached to the urinary bag, end ileostomy working. Normal bowel sounds. Neuro: intact cranial nerves motor and sensory and cerebellar/coordination function without any focal neurological deficit Behavior: Appropriate and cooperative Extremities: Adequate palpable pulses, mild trace edema Urinary Catheter Management: Suprapubic: Cath Placed During This Visit: no Reason for Continuing Indwelling Catheter: Accurate Measurement of Urinary Output in Critically Ill Patients Data 07/08/25 04:07 07/08/25 04:07 Micro: Microbiology 07/07/25 17:05 Urine Culture - Preliminary Urine,Clean Catch Gram Negative Rods 07/07/25 18:16 Blood Culture - Preliminary Blood SPECIMEN COLLECTED 07/07/25 18:10 Blood Culture - Preliminary Blood SPECIMEN COLLECTED A&P Assessment and plan 1. Small bowel obstruction: Patient seen by the surgeon, on NGT suction Bowel rest Surgery recommended for Gastrografin follow-through study and to follow the result N.p.o. Monitor intake and output monitoring Monitor output monitoring from the end ileostomy site Continue broad-spectrum antibiotics with Zosyn 2. Acute hyperkalemia: Secondary to potassium supplements, currently improved Continue gentle hydration with normal saline Follow BMP in the morning Telemetry monitoring Maintain hemodynamics 3. PRESLEY (acute kidney injury): Patient PRESLEY resolved after fluid resuscitation Gentle hydration to continue Monitor and correct renal parameters and electrolytes accordingly 4. Paroxysmal atrial fibrillation: Home dose Eliquis 5 mg twice daily and amiodarone 200 mg tablet daily Monitor heart rate 5. Ischemic cardiomyopathy: Continue aspirin and atorvastatin 6. Ileostomy status: Monitor output from the ileostomy site 7. Primary hypertension: Patient blood pressure more or less controlled and currently is n.p.o. therefore to hold on any antihypertensive medications 8. COPD (chronic obstructive pulmonary disease): Patient mildly wheezy however no respiratory distress and normal saturation at room air Continue DuoNebs as scheduled and monitor for any respiratory distress Maintain normal pulse ox with continuous monitoring as well PDMP PDMP Reviewed: Not Reviewed Attestations 2 Medical Necessity Statement*: Patient will stay more than 2 midnights for the management of his subacute bowel obstruction Time Spent in Patient Care: 16 - 35 minutes (>than 50% of time sp ent in counselling and/or direct pt care on unit) . Other Attestations: Patient condition has been discussed at length with the patient/family, I have independently reviewed the chart labs imaging/diagnostics/EKG. the goals of care and code status with the patient/family/NOK/legal manufacturing sales representative, and documented accordingly. The management has been done according to the current clinical condition with respect to patient goals of care and based on recommendations/guidelines. The patient/family has been informed about the current condition and further plan of care. Agreed with the plan of care and understood without any language barrier. Every effort was made to ensure accuracy of channel executive. Any obvious errors or omissions should be clarified with the author of the document. Coding Level of Care Code 21708 Diagnoses Small bowel obstruction K56.609 Acute hyperkalemia E87.5 PRESLEY (acute kidney injury) N17.9 Paroxysmal atrial fibrillation I48.0 Atrial fibrillation type: paroxysmal Ischemic cardiomyopathy I25.5 Ileostomy status Z93.2 Primary hypertension I10 Hypertension type: primary hypertension COPD (chronic obstructive pulmonary disease) J44.9
--- NOTE | 2025-07-08 15:31 | XR_ITS ---
WS: [id number] Exam: XR abdomen 1V* [id number] Date/Time of Exam: 07/08/2025 3:43 PM Reason For Exam: gastrografin follow up 4 hours DLP: Gastrografin noted in the jejunum and ileum. No contrast definitely seen in the large bowel at this time. Small bowel loops are mildly dilated. No free air. There is still some Gastrografin in the stomach. XR/XR abdomen 1V* [id number] IMPRESSION: 1. Gastrografin identified in the stomach, jejunum and ileum with mild small ayanna wel dilatation. This may indicate early or incomplete small bowel obstruction. No contrast in the large bowel at this time. Continued delayed abdominal radiographs would probably be beneficial.
[2025-07-08] MEDS: ATORVASTATIN 20 MG TABLET PO (16:46)
[2025-07-08 17:19] LABS: Magnesium 2.0 mg/dL (1.7-2.3)
[2025-07-09] VITALS (19 sets, daily range): BP systolic 102–144; BP diastolic 56–69; PULSE 67–84; RESP 12–22; TEMP 36.6–37.2; O2SAT 90–96
[2025-07-09] MEDS: piperacillin-tazobactam 3.375 GM in sodium chloride 0.9% (plus) 50 ML IV ×2 (02:27→10:53)
[2025-07-09] MEDS: pantoprazole 40 mg SDV IVP (04:41)
[2025-07-09 05:38] LABS: Hematocrit 39.4 % (37-53); Hemoglobin 12.50 g/dL (11.27-16.99); Mean Corpuscular HGB Conc 31.7 g/dL (30-55); Mean Corpuscular Hemoglobin 30.5 pg (27-33); Mean Corpuscular Volume 96.1 fl (82-101); Nucleated Red Blood Cells % 0 %; Platelet Count 228 10^3/cmm (157-399); Red Blood Count 4.10 10^6/uL (3.85-5.65); White Blood Count 7.20 10^3/uL (3.29-11.43)
--- NOTE | 2025-07-09 05:47 | XRR_ITS ---
PROCEDURE INFORMATION: Exam: XR Abdomen Exam date and time: 07/09/2025 5:47 AM Age: 74 years old Clinical indication: Abdominal pain; Generalized; Additional info: F/u gastrografin (can be portable), patient has a terminal ileostomy, history of near total TECHNIQUE: Imaging protocol: Radiologic exam of the abdomen. Views: Frontal supine view of the abdomen. 1 View. COMPARISON: CR XR abdomen 1V* [id number] 07/08/2025 3:41 PM FINDINGS: Tubes, catheters and devices: Enteric tube terminates in the stomach, kinking at the level of the side port. No bowel dilation. Gastrointestinal tract: Nonspecific bowel gas pattern. Gas within nondistended loops of colon and small bowel. Bones/joints: Unremarkable. XR/XR abdomen 1V* [id number] IMPRESSION: 1. Nonspecific bowel gas pattern. 2. Kinking of the enteric tube.
[2025-07-09 05:58] LABS: Alanine Aminotransferase 8 U/L (0-41); Albumin Level 3.3 g/dL (3.5-5.2); Alkaline Phosphatase 61 U/L (40-130); Anion Gap 16.8 (5-19); Aspartate Amino Transferase 11 U/L (0-40); Blood Urea Nitrogen 13 mg/dL (8-23); Calcium 8.1 mg/dL (8.5-10.5); Carbon Dioxide 20 mmol/L (22-29); Chloride 108 mmol/L (98-107); Creatinine Clr Calc Pharmacy 53.3788; Globulin 2.4 g/dL (1.3-4.6); Glucose 80 mg/dL (65-115); Osmolality Calculated 291 mOsm/kg (285-295); Potassium 3.8 mmol/L (3.5-5.1); Sodium 141 mmol/L (136-145); Total Protein 5.7 g/dL (6.6-8.7)
[2025-07-09] MEDS: metroNIDAZOLE IV 500 MG/100 ML PREMIX 100 MG IV ×2 (06:03→14:26)
--- NOTE | 2025-07-09 06:53 | PM.PN ---
Subjective Subjective: Excellent progression from the surgical standpoint, no abdominal pain abdomen is soft and nontender. Vitals/I&O/Wt Last Vital Signs Temp 98.1 F 07/09/25 04:00 Pulse 84 07/09/25 06:00 Resp 17 07/09/25 06:00 BP 110/58 07/09/25 06:00 Pulse Ox 92 07/09/25 06:00 O2 Del Method Room Air 07/09/25 06:00 O2 Flow Rate 2 07/08/25 18:00 07/08/25 07/08/25 07/09/25 14:59 22:59 06:59 Intake Total 1188.75 / 1188.75 170 / 1358.75 1195 / 2553.75 Output Total 0 / 0 1375 / 1375 525 / 1900 Balance 1188.75 / 1188.75 -1205 / -16.25 670 / 653.75 Weight last 48 hrs Weight 132 lb 4.438 oz Weight 132 lb 4.438 oz Weight 132 lb 4.438 oz Weight 132 lb 4.438 oz Weight 132 lb 4.438 oz Weight 130 lb Physical Exam Narrative: Abdomen soft nontender ostomy productive of gas and the stool Urinary Catheter Management: Suprapubic: Cath Placed During This Visit: no Reason for Continuing Indwelling Catheter: Accurate Measurement of Urinary Output in Critically Ill Patients Data 07/09/25 04:40 07/09/25 04:40 Micro: Microbiology 07/07/25 18:16 Blood Culture - Preliminary Blood NEGATIVE TO DATE 07/07/25 18:10 Blood Culture - Preliminary Blood NEGATIVE TO DATE 07/07/25 17:05 Urine Culture - Preliminary Urine,Clean Catch Gram Negative Rods A&P Assessment and plan 1. Small bowel obstruction: Plan: patient showing excellent progression, after Gastrografin trial he have good amount of output from his ostomy. An x-ray done this morning showed evidence of a nonspecific bowel gas pattern and all the contrast has passed into the back. At this point no additional obstruction is suspected, I think patient will have a slower transit due to the fact that he has a near total colectomy and this is an end ileostomy. Plan will be to advance his diet to full liquid diet and then advance as tolerated once he is tolerating GI soft diet he can be transition to the outpatient setting. All other management per primary PDMP PDMP Reviewed: Not Reviewed [facility] Necessity Statement*: Per primary Coding Level of Care Code Acute Code for Chg Fwd Diagnoses Small bowel obstruction K56.609
[2025-07-09] MEDS: polyethylene glycol 3350 Pkt 17 gm PO (07:40)
[2025-07-09] MEDS: ondansetron 2 mg/ML SDV 2 mL 4 MG IVP (08:17)
--- NOTE | 2025-07-09 11:10 | PC.NURSE ---
Bladder Scan: Patient has a urostomy. Bag remains empty since shift change. Palpation of the bladder reveals distention, patient complains of a tightness . Nurse bladder scanned and it shows 300mL retained. Nurse removed leg bag from catheter to further asses and possibly flush the catheter. Upon removal of bag, the bladder was able to drain through the existing catheter. Inspection of the patient's home urostomy bag shows it has a filter like device in the bag and it was clogged. Nurse replaced bag with a new leg bag. patient reports relief of tightness.
--- NOTE | 2025-07-09 12:00 | PC.NURSE ---
Monitoring: Patient no longer wants to wear constant monitoring devices such as spo2, cardiac, and BP cuff. THese have been removed. Patient is agreeable to occaisonally checking vitals throughout the day.
--- NOTE | 2025-07-09 12:00 | PC.NURSE ---
AMbulation: Patient ambulated approximately 200 feet around unit. No difficulties with ambulation. WHen asked, patient states that he feels safe going home at his current activity level.
--- NOTE | 2025-07-09 15:50 | PM.DCS ---
Discharge Providers Date of Admission: 07/07/25 17:32 Date of Discharge: July 09, 2025 Attending Provider at Admission: Papo Ortega MD Attending Provider at Discharge: Papo Ortega MD Primary Care Provider: GAMAL Stout Diagnoses at Discharge Discharge Diagnosis 1. Small bowel obstruction: Reason for Visit Reason for Visit: Abd pain Brief History: As per the patient and the previous notes: Abisai Hicks is a 74 year old male with a complex past medical history including subtotal colectomy due to bowel ischemia, current smoker with history of COPD on inhalers, history of subsequent episodes of small bowel obstruction along with chronic bladder outlet obstruction with a chronic suprapubic catheter that has been regularly changed by the visiting nurse, came to ER for complaints of abdominal pain and abnormal output through his ostomy. Patient states yesterday he was not having much out but then feels like it exploded and since then he has had excessive amounts accompanied with abdominal pain. He has also noted some blood in his urinary bag attached with the suprapubic catheter. He does feel like this is continuing to drain. He has not been running fevers. He states he has not ate or drink much over the past day or two. He has had a few episodes of vomiting. The patient did not report any chest pain, chest pressure, any dizziness. There was no history of lower leg swellings. The patient was able to pass some gas through the end ileostomy site. Rest of the review of system unremarkable Hospital Course Hospital Course The patient was admitted as a case of subacute bowel obstruction, he was seen by the surgeons and was placed on NGT with suction. Further recommendation were followed guided by surgeons. With adequate bowel rest and antibiotics the patient gradually improved. His end ileostomy was producing flatus and having good output. His abdominal distention improved. He was found to have severe hyperkalemia that required monitoring under telemetry versus ICU since that severe hyperkalemia was putting the patient at risk of arrhythmia and arrest. The patient hyperkalemia improved after management with calcium gluconate insulin dextrose. The patient was kept on dextrose saline as maintenance fluids which also improved his potassium level in the next 24 to 48 hours.Blood cultures and urine cultures were drawn and urine culture showed E. coli which was sensitive. During his course of stay he received metronidazole and ciprofloxacin and later discharged on Augmentin for further 5 to 7 days. Patient was taking potassium supplements which likely aggravated his hyperkalemia since his kidney functions were more or less stable and he had good urine output. His medications were reconciled. After initiation of clear fluids advised to GI soft diet and further assessing the tolerability of diet and establishing the stability of his clinical situation after discussing with the surgeons as well the patient was discharged. Appropriate referrals were provided. Patient condition has been discussed at length with the patient/family, I have independently reviewed the chart labs imaging/diagnostics/EKG. the goals of care and code status with the patient/family/NOK/legal premium representative, and documented accordingly. The management has been done according to the current clinical condition with respect to patient goals of care and based on recommendations/guidelines. The patient/family has been informed about the current condition and further plan of care. Agreed with the plan of care and understood without any language barrier. Every effort was made to ensure accuracy of solutions development analyst. Any obvious errors or omissions should be clarified with the author of the document. Physical Exam Narrative: General: Alert and oriented, lying comfortably without any distress at room air and NGT removed in the morning HEENT: Normocephalic, atraumatic, grossly unremarkable exam Cardio: normal rate rhythm, normal S1-S2 without any murmurs, rubs, or gallops and JVD normal Respiratory: Bilateral equal air entry on both sides without any wheezing crackles or any stridor. GI: Soft nontender abdomen, midline scar, having suprapubic catheter in place attached to the urinary bag, end ileostomy working. Normal bowel sounds. Neuro: intact cranial nerves motor and sensory and cerebellar/coordination function without any focal neurological deficit Behavior: Appropriate and cooperative Extremities: Adequate palpable pulses, mild trace edema Urinary Catheter Management: Suprapubic: Cath Placed During This Visit: no Reason for Continuing Indwelling Catheter: Accurate Measurement of Urinary Output in Critically Ill Patients Discharge Data Studies Completed and Pending Completed Studies During Hospitalization Category Date Time Status CT abdomen pelvis wo con [id number] Stat Cat Scan 07/07/25 14:46 Completed XR abdomen 1V* [id number] Routine Exams 07/08/25 15:31 Completed XR abdomen 1V* [id number] Stat Exams 07/09/25 05:47 Completed XR chest 1V portable [id number] Stat Exams 07/07/25 17:03 Completed XR chest 1V portable [id number] Urgent Exams 07/07/25 15:15 Completed Pending at discharge Category Date Time Status Blood Culture Stat Lab 07/07/25 18:16 Results Radiology Impressions Abdomen/Pelvis CT 07/07/25 14:46 IMPRESSION: 1. Increasing small bowel and colon distention with fluid and fecal material. Patient is status post partial colectomy. LEFT lower quadrant ostomy site. Obstruction is proximal to the ostomy. At the ostomy there is a small caliber loop of bowel. Site of the obstruction is not apparent. 2. No free air or free fluid. 3. Stable large abdominal aortic aneurysm at 5.1 cm. 4. Suprapubic Paulino catheter unchanged. The bladder is not distended. Bladder calcifications are noted which were not present on the prior study. No renal obstruction or perinephric stranding. 5. Cholelithiasis without acute cholecystitis. 6. Extensive calcification of the aorta and iliac arteries. Chest X-Ray 07/07/25 17:03 IMPRESSION: 1. Gastric tube terminus projects at the expected area of the stomach. 2. No acute cardiopulmonary findings. Abdomen X-Ray 07/09/25 05:47 IMPRESSION: 1. Nonspecific bowel gas pattern. 2. Kinking of the enteric tube. Laboratory Results WBC 7.20 10^3/uL (3.29-11.43) 07/09/25 04:40 RBC 4.10 10^6/uL (3.85-5.65) 07/09/25 04:40 Hgb 12.50 g/dL (11.27-16.99) 07/09/25 04:40 Hct 39.4 % (37-53) 07/09/25 04:40 MCV 96.1 fl (82-101) 07/09/25 04:40 MCH 30.5 pg (27-33) 07/09/25 04:40 MCHC 31.7 g/dL (30-55) 07/09/25 04:40 RDW 13.0 % (12.1-15.1) 07/09/25 04:40 Plt Count 228 10^3/cmm (157-399) 07/09/25 04:40 MPV 9.6 fL (7.4-10.4) 07/09/25 04:40 Neut % (Auto) 74.1 % 07/09/25 04:40 Lymph % (Auto) 13.2 % 07/09/25 04:40 [place] % (Auto) 9.9 % 07/09/25 04:40 Eos % (Auto) 1.8 % 07/09/25 04:40 Baso % (Auto) 0.6 % 07/09/25 04:40 Neut # (Auto) 5.34 10^3/uL (1.8-7.7) 07/09/25 04:40 Lymph # (Auto) 1.0 10^3/uL (0.8-4.8) 07/09/25 04:40 [place] # (Auto) 0.7 10^3/uL (0.2-0.9) 07/09/25 04:40 Eos # (Auto) 0.1 10^3/uL (0.0-0.8) 07/09/25 04:40 Baso # (Auto) 0.0 10^3/uL (0.0-0.1) 07/09/25 04:40 Nucleated RBC % (auto) 0 % 07/09/25 04:40 Nucleated RBCs # 0.0 /100WBC 07/09/25 04:40 Sodium 141 mmol/L (136-145) 07/09/25 04:40 Potassium 3.8 mmol/L (3.5-5.1) 07/09/25 04:40 Chloride 108 mmol/L (98-107) H 07/09/25 04:40 Carbon Dioxide 20 mmol/L (22-29) L 07/09/25 04:40 Anion Gap 16.8 (5-19) 07/09/25 04:40 BUN 13 mg/dL (8-23) 07/09/25 04:40 Creatinine 1.1 mg/dL (0.7-1.2) 07/09/25 04:40 GFR Calculation Not Reportable 07/09/25 04:40 Glucose 80 mg/dL (65-115) 07/09/25 04:40 POC Glucose 123 mg/dL (70-110) H 07/08/25 00:25 Calculated Osmolality 291 mOsm/kg (285-295) 07/09/25 04:40 Lactic Acid 1.0 mmol/L (0.5-2.2) 07/07/25 14:12 Calcium 8.1 mg/dL (8.5-10.5) L 07/09/25 04:40 Phosphorus 3.6 mg/dL (2.5-4.5) 07/07/25 18:10 Magnesium 2.0 mg/dL (1.7-2.3) 07/08/25 04:07 Total Bilirubin 0.4 mg/dL (0.15-1.2) 07/09/25 04:40 AST 11 U/L (0-40) 07/09/25 04:40 ALT 8 U/L (0-41) 07/09/25 04:40 Alkaline Phosphatase 61 U/L (40-130) 07/09/25 04:40 Creatine Kinase 33 U/L (39-308) L 07/07/25 14:12 Total Protein 5.7 g/dL (6.6-8.7) L 07/09/25 04:40 Albumin 3.3 g/dL (3.5-5.2) L 07/09/25 04:40 Globulin 2.4 g/dL (1.3-4.6) 07/09/25 04:40 TSH 1.74 uIU/mL (0.27-4.20) 07/07/25 18:10 Urine Color Yellow (Yellow) 07/07/25 17:05 Urine Appearance Turbid (CLEAR) A 07/07/25 17:05 Urine pH 5.0 (5-7) 07/07/25 17:05 Ur Specific [place] 1.005 (1.005-1.030) 07/07/25 17:05 Urine Protein Negative (Negative) 07/07/25 17:05 Urine Glucose (UA) Negative (Normal) 07/07/25 17:05 Urine Ketones Negative (Negative) 07/07/25 17:05 Urine Blood 2+ (Negative) A 07/07/25 17:05 Urine Nitrate Positive (Negative) A 07/07/25 17:05 Urine Bilirubin Negative (Negative) 07/07/25 17:05 Urine Urobilinogen 0.2 mg/dL (Negative) 07/07/25 17:05 Ur Leukocyte Esterase Trace (Negative) A 07/07/25 17:05 Urine RBC 11-20 /hpf (0-2) H 07/07/25 17:05 Urine WBC 51-100 /hpf (0-5) H 07/07/25 17:05 Ur Squamous Epith Cells 0-5 /hpf (0-5) 07/07/25 17:05 Amorphous Sediment 2+ /hpf 07/07/25 17:05 Urine Bacteria 4+ /hpf (NONE) H 07/07/25 17:05 Hyaline Casts 3.30 /lpf 07/07/25 17:05 Coarse Granular Casts 0-4 /lpf H 07/07/25 17:05 Vitals Last Vital Signs Temp 97.9 F 07/09/25 12:39 Pulse 79 07/09/25 15:06 Resp 16 07/09/25 15:05 BP 139/68 07/09/25 13:00 Pulse Ox 94 07/09/25 15:05 O2 Del Method Room Air 07/09/25 15:05 O2 Flow Rate 2 07/08/25 18:00 Discharge Plan Discharge Patient Disposition: Home Condition: Stable Prescriptions: New amoxicillin-pot clavulanate [Augmentin] 500-125 mg tablet 1 tab PO Q8H 5 Days Qty: 15 0RF famotidine 20 mg tablet 20 mg PO DAILY Qty: 60 0RF ondansetron 4 mg tablet,disintegrating 4 mg PO Q8H PRN (Reason: nausea and vomiting) 7 Days Qty: 30 0RF Continued atorvastatin 20 mg tablet 20 mg PO QPM budesonide-formoterol [Symbicort] 160-4.5 mcg/actuation HFA aerosol inhaler 2 puff inhalation Q12H amiodarone 200 mg tablet 200 mg PO DAILY sertraline 50 mg Tablet 50 mg PO DAILY Eliquis 5 mg tablet 5 mg PO BID aspirin 81 mg Tablet,Delayed Release (Dr/Ec) 81 mg PO QPM albuterol sulfate 90 mcg/actuation HFA aerosol inhaler 2 puff INHALATION Q6H PRN (Reason: Shortness Of Breath Or Wheezing) Combivent Respimat 20-100 mcg/actuation mist 1 puff INHALATION BID ipratropium-albuterol 0.5 mg-3 mg(2.5 mg base)/3 mL solution for nebulization 3 ml inhalation QID PRN (Reason: shortness of breath or wheezing) Qty: 180 0RF cyanocobalamin (vitamin B-12) [Vitamin B-12] 250 mcg Tablet 250 mcg PO DAILY Discontinued potassium chloride 20 mEq tablet extended release 20 meq PO .QOD Compressor Station Chief Engineer OK for DC: Surgery Discharge Order = DC NOW: Discharge Order (Routine); Ordered 07/09/25 Ordered By: Papo Ortega Referrals: Madan Arrieta MD [Physician, General Surgery] - 07/22/25 11:00 am Referral Note: Subacute bowel obstruction postdischarge follow-up Margei Orozco FNP [Primary Care Provider, Unknown] - 7-10 days Referral Note: Postdischarge follow-up Mr.Ronald Hicks will need to call [facility] ,in am to schedule appointment. Discharge Diet: Advance as tolerated and GI Soft Discharge Activity: Resume usual activity and Increase activity as tolerated Patient Instructions: Famotidine (By mouth) (Acid Controller, Acid Babysitter, Pepcid AC, Pepcid), Amoxicillin/Clavulanate Potassium (By mouth), Ondansetron (By mouth) (Zofran, Zofran ODT, Zuplenz), Bowel Obstruction (DC), GI (Gastrointestinal) Soft Diet (DC), COPD Stoplight, Opioid Safety, Patient Portal & Alex Instructions Discharge Attestations Time Spent in Discharge Care*: greater than 30 min Specific Discharge Activities: educating patient, educating and/or supporting family/caregiver, discussing with pcp/other providers, discussing with rifle case repairer/social workers/dc planners, documenting/other paperwork and evaluating patient/reviewing data Time Spent in Smoking Cessation: 3 to 10 minutes Status at Discharge: Cognitive status at discharge: cognitively intact, Behavioral status at discharge: cooperative, Functional status at discharge: independent ambulation, Overall status at discharge: patient is back to baseline Quality Metrics Clinical Quality Measures [ No reported AMI, CVA or VTE this stay] Coding Level of Care Code 54811 Diagnoses Small bowel obstruction K56.609
[2025-07-09] MEDS: ATORVASTATIN 20 MG TABLET PO (16:23)
--- NOTE | 2025-07-09 17:29 | PC.NURSE ---
Discharge: Removed Bilateral IVs. Educated patient on upcoming Appointments, new medications, discontinued medications, and new diet. Patient signature form signed. Waiting on [place] galvan, patient's ride home.
--- OUTSIDE RECORDS SUMMARY | 2025-08-26 19:00 | XMS_ITS | Clinical Summary ---
Author Organization Unknown Care Team Providers Care Gas Check Pad Maker Name Role Phone SHERI NIELSEN, ABDIFATAH Unavailable Unavailable FABIOLA HICKEY, CONCHA Unavailable Unavailable Payers Payer Name Policy Type Policy Number Effective Date Expira tion Date [employer] MANAGED MEDICARE - [facility] [id number] Problems Condition Name Condition Details Condition Category Status Onset Date Resolution Date Last Treatment Date Treating Clinician Comments ENCOUNTER FOR ATTENTION TO CYSTOSTOMY Active 2024-09 00:00: 00 ENCOUNTER FOR FITTING AND ADJUSTMENT OF URINARY DEVICE Active 09-10 00:00: 00 HYPERTENSIVE HEART DISEASE WITH HEART FAILURE Active 09-10 00:00: 00 HEART FAILURE, UNSPECIFIED Active 09-10 00:00: 00 PAROXYSMAL ATRIAL FIBRILLATION Active 09-10 00:00: 00 CHRONIC OBSTRUCTIVE PULMONARY DISEASE, UNSPECIFIED Active 09-10 00:00: 00 ATHSCL HEART DISEASE OF [place] CORONARY ARTERY W/O ANG PCTRS Active 09-10 00:00: 00 ISCHEMIC CARDIOMYOPAT HY Active 09-10 00:00: 00 NICOTINE DEPENDENCE, CIGARETTES, UNCOMPLICATE D Active 09-10 00:00: 00 SENIOR LIVING (CURRENT) USE OF ASPIRIN Active 09-10 00:00: 00 SENIOR LIVING (CURRENT) USE OF ANTICOAGULAN TS Active 09-10 00:00: 00 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 Ordering Clinician Indication Dosage Frequency Signature (SIG) Comments Components albuterol sulfate HFA 90 mcg/actuati on aerosol inhaler 2023-09 00:00: 00 Yes [id number] 2 puff EVERY 6 HOURS 2 puff EVERY 6 HOURS (route: inhalation ) Med Classific ation: Respirato ry Therapy Agents amiodarone 200 mg tablet 2023-09 00:00: 00 Yes [id number] 0.5 tablet DAILY 0.5 tablet DAILY (route: oral) Med Classific ation: Cardiovas cular Therapy Agents aspirin 81 mg tablet,cindy yed release 2023-09 00:00: 00 Yes [id number] 1 tablet EVERY PM 1 tablet EVERY PM (route: oral) Med Classific ation: Hematolog ical Agents atorvastati n 20 mg tablet 2023-09 00:00: 00 Yes [id number] 1 tablet EVERY PM 1 tablet EVERY PM (route: oral) Med Classific ation: Cardiovas cular Therapy Agents Combivent Respimat 20 mcg-100 mcg/actuati on solution for inhalation 2023-09 00:00: 00 Yes [id number] 1 puff 2 TIMES DAILY 1 puff 2 TIMES DAILY (route: inhalation ) Med Classific ation: Respirato ry Therapy Agents cyanocobala min (vit B-12) 250 mcg tablet 2023-09 00:00: 00 Yes [id number] 1 tablet DAILY 1 tablet DAILY (route: oral) Med Classific ation: Electroly te Balance-N utritiona l Products ipratropium 0.5 mg-albutero l 3 mg (2.5 mg base)/3 mL nebulizatio n soln 2023-09 00:00: 00 Yes [id number] 3 mL 4 TIMES DAILY 3 mL 4 TIMES DAILY (route: inhalation ) Med Classific ation: Respirato ry Therapy Agents nicotine 7 mg/24 hr daily transdermal patch 2023-09 00:00: 00 04-27 23:59 :00 No [id number] 1 patch, transde rmal 24 hours DAILY 1 patch, transderma l 24 hours DAILY (route: transderma l) Med Classific ation: Chemical Dependenc y, Agents to Treat oxybutynin chloride ER 10 mg tablet,exte nded release 24 hr 2023-09 00:00: 00 Yes [id number] 1 tablet DAILY 1 tablet DAILY (route: oral) Med Classific ation: Genitouri nary Therapy potassium chloride ER 20 mEq tablet,exte nded release 2023-09 00:00: 00 Yes [id number] 1 tablet EVERY OTHER DAY 1 tablet EVERY OTHER DAY (route: oral) Med Classific ation: Electroly te Balance-N utritiona l Products Probiotic 15 billion cell capsule 2023-09 00:00: 00 06-25 23:59 :00 No [id number] 1 capsule DAILY 1 capsule DAILY (route: oral) Med Classific ation: Gastroint estinal Therapy Agents sertraline 50 mg tablet 2023-09 00:00: 00 Yes [id number] 1 tablet DAILY 1 tablet DAILY (route: oral) Med Classific ation: Central Nervous System Agents Symbicort 160 mcg-4.5 mcg/actuati on HFA aerosol inhaler 2023-09 00:00: 00 Yes [id number] 2 puff 2 TIMES DAILY 2 puff 2 TIMES DAILY (route: inhalation ) Med Classific ation: Respirato ry Therapy Agents Eliquis 5 mg tablet 04-30 00:00: 00 Yes [id number] 1 tablet 2 TIMES DAILY 1 tablet 2 TIMES DAILY (route: oral) Med Classific ation: Hematolog ical Agents Plan of Treatment Planned Activity Planned Date Details Comments Future Scheduled Test SKILLED NU RSE TO EVALUATE PATIENT, IDENTIFY PRIMARY AND CO-MORBID CONDITIONS CODED PER CODING GUIDELINES INCLUDING ENCOUNTER FOR ATTENTION TO CYSTOSTOMY, ENCOUNTER FOR FITTING AND ADJUSTMENT OF URINARY DEVICE, HYPERTENSIVE HEART DISEASE WITH HEART FAILURE, HEART FAILURE, UNSPECIFIED, PAROXYSMAL ATRIAL FIBRILLATION, CHRONIC OBSTRUCTIVE PULMONARY DISEASE, UNSPECIFIED, AND DEVELOP PATIENT SPECIFIC PLAN OF CARE THAT INCLUDES PATIENT GOAL FOR HOME HEALTH. [code = SKILLED NURSE TO EVALUATE PATIENT, IDENTIFY PRIMARY AND CO-MORBID CONDITIONS CODED PER CODING GUIDELINES INCLUDING ENCOUNTER FOR ATTENTION TO CYSTOSTOMY, ENCOUNTER FOR FITTING AND ADJUSTMENT OF URINARY DEVICE, HYPERTENSIVE HEART DISEASE WITH HEART FAILURE, HEART FAILURE, UNSPECIFIED, PAROXYSMAL ATRIAL FIBRILLATION, CHRONIC OBSTRUCTIVE PULMONARY DISEASE, UNSPECIFIED, AND DEVELOP PATIENT SPECIFIC PLAN OF CARE THAT INCLUDES PATIENT GOAL FOR HOME HEALTH.] Future Scheduled Test [facility] MAY ACCEPT ORDERS FROM THE FOLLOWING PHYSICIANS: ALL PROVIDERS INVOLVED IN CARE [code = HOME HEALTH AGENCY MAY ACCEPT ORDERS FROM THE FOLLOWING PHYSICIANS: ALL PROVIDERS INVOLVED IN CARE] Future Scheduled Test SKILLED NU RSE FOR O/A AND SKILLED TEACHING RELATED TO SIGNS AND SYMPTOMS OF INFECTION AND INFECTION CONTROL MEASURES. [code = SKILLED NURSE FOR O/A AND SKILLED TEACHING RELATED TO SIGNS AND SYMPTOMS OF INFECTION AND INFECTION CONTROL MEASURES.] Future Scheduled Test SKILLED NU RSE FOR MONITORING, O/A AND TEACHING RELATED TO MANAGEMENT OF ANTICOAGULATION THERAPY INCLUDING DIET, MEDICATION SIDE EFFECTS, SAFETY MEASURES TO PREVENT INJURY, AND S/S TO REPORT. [code = SKILLED NURSE FOR MONITORING, O/A AND TEACHING RELATED TO MANAGEMENT OF ANTICOAGULATION THERAPY INCLUDING DIET, MEDICATION SIDE EFFECTS, SAFETY MEASURES TO PREVENT INJURY, AND S/S TO REPORT.] Future Scheduled Test SKILLED NU RSE TO INSTRUCT PATIENT/CAREGIVER ON COPD TO INCLUDE TEACHING AND SELF-MANAGEMENT RELATED TO COPD DISEASE PROCESS, SIGNS AND SYMPTOMS, AND COMPLICATIONS. [code = SKILLED NURSE TO INSTRUCT PATIENT/CAREGIVER ON COPD TO INCLUDE TEACHING AND SELF-MANAGEMENT RELATED TO COPD DISEASE PROCESS, SIGNS AND SYMPTOMS, AND COMPLICATIONS.] Future Scheduled Test SKILLED NU RSE FOR O/A, TEACHING AND SELF-MANAGEMENT RELATED TO HEART FAILURE. INSTRUCT PATIENT/CAREGIVER ON SIGNS AND SYMPTOMS OF EXACERBATION TO REPORT AND IMPORTANCE OF OBTAINING AND RECORDING DAILY WEIGHT AND/OR MEASUREMENTS. SN OR TRAINED PATIENT/CAREGIVER TO OBTAIN WEIGHT DAILY AND WEIGHT GAIN OF 2 LBS OVERNIGHT OR 5 LBS IN 1 WEEK TO BE REPORTED TO PHYSICIAN/PROVIDER. IF UNABLE TO WEIGH PATIENT, SN OR TRAINED PATIENT/CAREGIVER TO OBTAIN MEASUREMENT OF CALF IN CM DAILY AND REPORT AN INCREASE OF 2 CM TO PHYSICIAN/PROVIDER. [code = SKILLED NURSE FOR O/A, TEACHING AND SELF-MANAGEMENT RELATED TO HEART FAILURE. INSTRUCT PATIENT/CAREGIVER ON SIGNS AND SYMPTOMS OF EXACERBATION TO REPORT AND IMPORTANCE OF OBTAINING AND RECORDING DAILY WEIGHT AND/OR MEASUREMENTS. SN OR TRAINED PATIENT/CAREGIVER TO OBTAIN WEIGHT DAILY AND WEIGHT GAIN OF 2 LBS OVERNIGHT OR 5 LBS IN 1 WEEK TO BE REPORTED TO PHYSICIAN/PROVIDER. IF UNABLE TO WEIGH PATIENT, SN OR TRAINED PATIENT/CAREGIVER TO OBTAIN MEASUREMENT OF CALF IN CM DAILY AND REPORT AN INCREASE OF 2 CM TO PHYSICIAN/PROVIDER.] Future Scheduled Test VIRTUAL SIT FREQUENCY: VIRTUAL VISITS MAY BE PERFORMED WHEN SN NOT IN THE HOME UTILIZING TELECOMMUNICATIONS SYSTEM TO OPTIMIZE SKILLED SERVICES FURNISHED ON THE PLAN OF CARE. SKILLED NURSE TO ESTABLISH SUPPORT MEASURES TO MINIMIZE RISK OF REHOSPITALIZATION, AND INSTRUCT PATIENT/CAREGIVER ON METHODS TO REDUCE AVOIDABLE HOSPITALIZATION. [code = VIRTUAL VISIT FREQUENCY: VIRTUAL VISITS MAY BE PERFORMED WHEN SN NOT IN THE HOME UTILIZING TELECOMMUNICATIONS SYSTEM TO OPTIMIZE SKILLED SERVICES FURNISHED ON THE PLAN OF CARE. SKILLED NURSE TO ESTABLISH SUPPORT MEASURES TO MINIMIZE RISK OF REHOSPITALIZATION, AND INSTRUCT PATIENT/CAREGIVER ON METHODS TO REDUCE AVOIDABLE HOSPITALIZATION.] Future Scheduled Test PATIENT ESPARZA S A RISK OF HOSPITALIZATION AND ED USE. SKILLED NURSE TO ESTABLISH SUPPORT MEASURES TO MINIMIZE RISK OF HOSPITALIZATION AND ED USE, AND INSTRUCT PATIENT/CAREGIVER ON METHODS TO REDUCE AVOIDABLE HOSPITALIZATION AND ED USE. [code = PATIENT HAS A RISK OF HOSPITALIZATION AND ED USE. SKILLED NURSE TO ESTABLISH SUPPORT MEASURES TO MINIMIZE RISK OF HOSPITALIZATION AND ED USE, AND INSTRUCT PATIENT/CAREGIVER ON METHODS TO REDUCE AVOIDABLE HOSPITALIZATION AND ED USE.] Future Scheduled Test SKILLED NU RSE TO PROVIDE INSTRUCTION TO PATIENT/CAREGIVER RELATED TO DISCHARGE PLANNING. [code = SKILLED NURSE TO PROVIDE INSTRUCTION TO PATIENT/CAREGIVER RELATED TO DISCHARGE PLANNING.] Future Scheduled Test SKILLED NU RSE TO PERFORM ENVIRONMENTAL SAFETY RISK ASSESSMENT AND FALL RISK ASSESSMENT AND PROVIDE INSTRUCTION TO IMPLEMENT ENVIRONMENTAL SAFETY AND FALL PREVENTION STRATEGIES THROUGHOUT THE CERTIFICATION PERIOD. SKILLED NURSE WILL MAINTAIN SITUATIONAL AWARENESS AND WILL NOTIFY CLINICAL MASTER YACHT AND PHYSICIAN/PROVIDER WITH ANY CHANGE IN CONDITION. [code = SKILLED NURSE TO PERFORM ENVIRONMENTAL SAFETY RISK ASSESSMENT AND FALL RISK ASSESSMENT AND PROVIDE INSTRUCTION TO IMPLEMENT ENVIRONMENTAL SAFETY AND FALL PREVENTION STRATEGIES THROUGHOUT THE CERTIFICATION PERIOD. SKILLED NURSE WILL MAINTAIN SITUATIONAL AWARENESS AND WILL NOTIFY CLINICAL MASTER YACHT AND PHYSICIAN/PROVIDER WITH ANY CHANGE IN CONDITION.] Future Scheduled Test SKILLED NU RSE FOR OBSERVATION AND ASSESSMENT OF PATIENT S PAIN LEVEL AND EFFECTIVENESS OF PAIN MANAGEMENT REGIMEN. SKILLED NURSE TO INSTRUCT PATIENT/CAREGIVER REGARDING PHARMACOLOGIC AND NON-PHARMACOLOGIC PAIN CONTROL MEASURES. SKILLED NURSE TO REPORT TO PHYSICIAN IF PAIN LEVEL IS OUTSIDE OF ESTABLISHED PARAMETERS. [code = SKILLED NURSE FOR OBSERVATION AND ASSESSMENT OF PATIENT S PAIN LEVEL AND EFFECTIVENESS OF PAIN MANAGEMENT REGIMEN. SKILLED NURSE TO INSTRUCT PATIENT/CAREGIVER REGARDING PHARMACOLOGIC AND NON-PHARMACOLOGIC PAIN CONTROL MEASURES. SKILLED NURSE TO REPORT TO PHYSICIAN IF PAIN LEVEL IS OUTSIDE OF ESTABLISHED PARAMETERS.] Future Scheduled Test SKILLED NU RSE TO ASSESS PATIENT'S SKIN INTEGRITY AND INSTRUCT PATIENT/CAREGIVER ON MEASURES TO PREVENT PRESSURE ULCERS. [code = SKILLED NURSE TO ASSESS PATIENT'S SKIN INTEGRITY AND INSTRUCT PATIENT/CAREGIVER ON MEASURES TO PREVENT PRESSURE ULCERS.] Future Scheduled Test SKILLED NU RSE TO INSTRUCT PATIENT/CAREGIVER ON CARE AND MANAGEMENT OF SUPRAPUBIC CATHETER. SKILLED NURSE FOR SUPRAPUBIC CATHETER INSERTION/MAINTENANCE UTILIZING 16 FR 10 CC CATHETER VIA STERILE TECHNIQUE, CHANGE Q4 MONTHS AND PRN FOR LEAKING OR MALFUNCTIONING. IRRIGATE SUPRAPUBIC CATHETER WITH 30-60CC NORMAL SALINE PRN BLOCKAGE/LEAKAGE, HEAVY SEDIMENT. 1 - 3 PRN JAIL VISITS FOR CATHETER CHANGE(S) AND/OR TROUBLESHOOTING. [code = SKILLED NURSE TO INSTRUCT PATIENT/CAREGIVER ON CARE AND MANAGEMENT OF SUPRAPUBIC CATHETER. SKILLED NURSE FOR SUPRAPUBIC CATHETER INSERTION/MAINTENANCE UTILIZING 16 FR 10 CC CATHETER VIA STERILE TECHNIQUE, CHANGE Q4 MONTHS AND PRN FOR LEAKING OR MALFUNCTIONING. IRRIGATE SUPRAPUBIC CATHETER WITH 30-60CC NORMAL SALINE PRN BLOCKAGE/LEAKAGE, HEAVY SEDIMENT. 1 - 3 PRN JAIL VISITS FOR CATHETER CHANGE(S) AND/OR TROUBLESHOOTING.] Future Scheduled Test SKILLED NU RSE TO REVIEW PATIENT MEDICATIONS (PRESCRIPTION/OTC). INSTRUCT PATIENT/CAREGIVER ON ALL MEDICATIONS INCLUDING PURPOSE, WHEN TO TAKE, IMPORTANCE OF MEDICATION ADHERENCE, MONITORING OF EFFECTIVENESS, ADVERSE DRUG REACTIONS, POSSIBLE SIDE EFFECTS, AND WHEN TO NOTIFY AGENCY OR PHYSICIAN/PROVIDER OF ANY CONCERNS. [code = SKILLED NURSE TO REVIEW PATIENT MEDICATIONS (PRESCRIPTION/OTC). INSTRUCT PATIENT/CAREGIVER ON ALL MEDICATIONS INCLUDING PURPOSE, WHEN TO TAKE, IMPORTANCE OF MEDICATION ADHERENCE, MONITORING OF EFFECTIVENESS, ADVERSE DRUG REACTIONS, POSSIBLE SIDE EFFECTS, AND WHEN TO NOTIFY AGENCY OR PHYSICIAN/PROVIDER OF ANY CONCERNS.] Goal 2024-10-27 Patient Goal - GAIN INDEPEND ENCE Goal 2024-12-26 Patient Goal - GAIN INDEPEND ENCE Goal 2025-02-24 Patient Goal - CATHETER GORD[employer] GES Goal 2025-04-27 Patient Goal - CATHETER [employer] GES Goal 2025-06-25 Patient Goal - CATHETER [employer] GES Goal Patient Goal - CATHETER G[employer] GES Goal Provider Goal - A PLAN OF CARE WILL BE ESTABLISHED THAT MEETS PATIENT'S JAIL NEEDS AND INCLUDES PATIENT GOAL FOR HOME HEALTH. Goal Provider Goal - ADDITIONAL ORDERS WILL BE RECEIVED FROM ALTERNATE PHYSICIAN IN A TIMELY MANNER THROUGHOUT THE CERTIFICATION PERIOD. Goal Provider Goal - PATIENT/CAREGIVER WILL VERBALIZE/DEMONSTRATE UNDERSTANDING OF S/S OF INFECTION AND INFECTION CONTROL MEASURES. SIGNS AND SYMPTOMS OF INFECTION WILL BE IDENTIFIED AND PHYSICIAN NOTIFIED FOR PROMPT INTERVENTION THROUGHOUT THE CERTIFICATION PERIOD. Goal Provider Goal - PATIENT/CAREGIVER WILL VERBALIZE/DEMONSTRATE UNDERSTANDING OF MANAGEMENT OF ANTICOAGULATION THERAPY BY END OF EPISODE. Goal Provider Goal - PATIENT/CAREGIVER WILL VERBALIZE/DEMONSTRATE KNOWLEDGE AND MANAGEMENT OF COPD BY END OF EPISODE. Goal Provider Goal - PATIENT/CAREGIVER WILL VERBALIZE/DEMONSTRATE KNOWLEDGE AND MANAGEMENT OF HEART FAILURE DISEASE PROCESS BY END OF EPISODE. Goal Provider Goal - PATIENT/CAREGIVER WILL UTILIZE VIRTUAL VISITS TO ACHIEVE GOALS OUTLINED ON THE PLAN OF CARE. PATIENT WILL HAVE SUPPORT MEASURES ESTABLISHED TO PREVENT HOSPITALIZATION AND PATIENT/CAREGIVER WILL VERBALIZE/DEMONSTRATE METHODS TO REDUCE AVOIDABLE HOSPITALIZATION THROUGHOUT THE CERTIFICATION PERIOD. Goal Provider Goal - PATIENT WILL HAVE SUPPORT MEASURES ESTABLISHED TO PREVENT HOSPITALIZATION AND ED USE AND PATIENT/CAREGIVER WILL VERBALIZE/DEMONSTRATE METHODS TO REDUCE AVOIDABLE HOSPITALIZATION AND ED USE BY END OF EPISODE. Goal Provider Goal - PATIENT/CAREGIVER WILL VERBALIZE UNDERSTANDING OF DISCHARGE PLANNING INSTRUCTIONS BY DATE OF DISCHARGE. Goal Provider Goal - PATIENT/CAREGIVER WILL VERBALIZE/DEMONSTRATE EFFECTIVE ENVIRONMENTAL SAFETY AND FALL PREVENTION STRATEGIES, WILL REMAIN SAFE IN THE COMMUNITY, AND WILL BE FREE OF DANGER TO SELF AND OTHERS THROUGHOUT THE CERTIFICATION PERIOD. Goal Provider Goal - PATIENT/CAREGIVER WILL DEMONSTRATE UNDERSTANDING OF PHARMACOLOGIC AND NONPHARMACOLOGIC PAIN CONTROL MEASURES AND PATIENT WILL HAVE IMPROVEMENT IN PAIN INTERFERING WITH ACTIVITY EVIDENCED BY PAIN AT A LEVEL THAT IS ACCEPTABLE TO THE PATIENT AND PAIN LEVEL WITHIN ESTABLISHED PARAMETERS BY END OF CERTIFICATION PERIOD. Goal Provider Goal - PATIENT/CAREGIVER WILL VERBALIZE UNDERSTANDING OF PRESSURE ULCER PREVENTION BY END OF THE EPISODE. Goal Provider Goal - PATIENT WILL VERBALIZE TOLERANCE OF CATHETER CHANGE AND KNOWLEDGE OF REQUIRED CARE TO MANAGE SUPRAPUBIC CATHETER WITHOUT COMPLICATIONS BY THE END OF THE CERTIFICATION PERIOD Goal Provider Goal - PATIENT/CAREGIVER WILL VERBALIZE UNDERSTANDING OF EDUCATION PROVIDED ON MEDICATIONS BY THE END OF THE CERTIFICATION PERIOD. Encounters Start Date/Time End Date/Time Encounter Type Admission Type Attending [facility] Care [facility] Care Department Encounter ID Discharge Date Discharge Status Discharge Condition Discharge Reason Percent Goals Met 2025-06-29 00:00:00 2025-08-27 00:00:00 Outpatient RECERTIFIC CONCHA CABEZAS [facility] [id number]
== END 2025-07-09 18:21 | disposition home or self-care (01) | DRG 389 ==
LOC: ER 17:26 → ICU 17:32
PROVIDERS: Admitting Provider Student in an Organized Health Care Education/Training Program; Emergency Provider Physician Assistant; PCP Nurse Practitioner Family; Visit Provider Student in an Organized Health Care Education/Training Program
DX: K56.609 Unspecified intestinal obstruction, unspecified as to partial versus complete obstruction (principal); N17.9 Acute kidney failure, unspecified; F17.210 Nicotine dependence, cigarettes, uncomplicated; J44.9 Chronic obstructive pulmonary disease, unspecified; N32.0 Bladder-neck obstruction; Z96.0 Presence of urogenital implants; R31.9 Hematuria, unspecified; E87.5 Hyperkalemia; B96.20 Unspecified Escherichia coli [E. coli] as the cause of diseases classified elsewhere; I25.5 Ischemic cardiomyopathy; I48.0 Paroxysmal atrial fibrillation; I73.9 Peripheral vascular disease, unspecified; I25.10 Atherosclerotic heart disease of native coronary artery without angina pectoris; I50.9 Heart failure, unspecified; I11.0 Hypertensive heart disease with heart failure; Z93.2 Ileostomy status; Z79.01 Long term (current) use of anticoagulants; Z79.82 Long term (current) use of aspirin; Z90.49 Acquired absence of other specified parts of digestive tract; Z95.5 Presence of coronary angioplasty implant and graft
CPT/HCPCS: 36415; 36416; 71045; 74018; 74176; 80048; 80053; 81001; 82550; 82962; 83605; 83735; 84100; 84443; 85025; 87040; 87077; 87086; 87186; 93005; 94640; 96365; 96367; 96372; 96375; 99285; J0612; J1644; J1815; J2270; J2405; J2470; J2543; J3490; J7030; J7042; J7060; J7611; J7799; J9999

== ENCOUNTER → 2025-07-22 10:55 | Outpatient (BNVA) | payer MEDICARE, SELFPAY | PROVIDERS: PCP Nurse Practitioner Family; Visit Provider Surgery | DX: Z09 Encounter for follow-up examination after completed treatment for conditions other than malignant neoplasm (principal) | CPT/HCPCS: 99214 ==